=== PATIENT | female | born 1940 | race Caucasian/White ===

== ENCOUNTER 2020-02-02 19:19 | Observation (INO) | payer MEDICARE, OTHER, SELFPAY ==
[2020-02-02] VITALS (7 sets, daily range): BP systolic 135–192; BP diastolic 59–83; PULSE 48–64; RESP 12–23; TEMP 36.5; O2SAT 97–98; BMI 22.6
--- NOTE | 2020-02-02 19:30 | XRR_ITS ---
PROCEDURE INFORMATION: Exam: XR Chest, 1 View Exam date and time: 02/02/2020 8:03 PM Age: 79 years old Clinical indication: Prior surgery; Surgery date: 6+ months; Surgery type: Open heart; Patient HX: Hypertension; Stroke like symptoms on January 08; Additional info: HTN TECHNIQUE: Imaging protocol: XR of the chest Views: 1 view. COMPARISON: CR XR chest 2V* [id number] 12/03/2019 11:10 AM FINDINGS: Lungs: Small dense nodule in the right lung apex, consistent with a granuloma, similar to prior study. The left lung is clear. Pulmonary vasculature within normal limits. Pleural space: No visible pneumothorax or pleural effusion. Heart/Mediastinum: Heart size within normal limits. Vasculature: Thoracic aortic stent as previously. Bones/joints: Median sternotomy wires are present as previously. XR/XR chest 1V portable [id number] IMPRESSION: 1. No radiographic findings of acute cardiopulmonary disease.
--- NOTE | 2020-02-02 19:31 | ECG_ITS ---
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 Measurements Intervals [place] Rate: 56 P: 82 WV: 208 QRS: 6 QRSD: 120 T: 62 QT: 490 QTc: 475 Interpretive Statements SINUS BRADYCARDIA LEFT VENTRICULAR HYPERTROPHY AND ST-T CHANGE [VOLTAGE CRITERIA PLUS ST/T ABNORMALITY] Compared to ECG 07/15/2018 23:13:31 Left ventricular hypertrophy now present ST (T wave) deviation now present T-wave abnormality no longer present Possible ischemia no longer present Electronically Signed On 02-02-2020 20:44:19 CDT by Akila Pinto M.D. [id number]
--- NOTE | 2020-02-02 19:35 | CTR_ITS ---
PROCEDURE INFORMATION: Exam: CT Head Without Contrast Exam date and time: 02/02/2020 7:40 PM Age: 79 years old Clinical indication: Condition or disease; Other: HTN; Additional info: HTN; S/P CVA TECHNIQUE: Imaging protocol: Computed tomography of the head without contrast. Radiation optimization: All CT scans at this facility use at least one of these dose optimization techniques: automated exposure control; mA and/or kV adjustment per patient size (includes targeted exams where dose is matched to clinical indication); or iterative reconstruction. COMPARISON: CT head wo con* [id number] 07/15/2018 3:43 PM RADIATION DOSE METRICS: Total DLP (mGy-cm): 765.16 FINDINGS: The ventricles, sulci and basilar cisterns are normal for the patient's stated age. There are mild areas of decreased attenuation in the periventricular white matter which is nonspecific but likely relates to small vessel ischemic change. There is an old infarct involving the left insular region extending into the periventricular white matter. There is no evidence for acute infarct. There is no evidence for mass. There is no hemorrhage. There are no extra-axial fluid collections. There is no midline shift. The skull is intact. The visualized paranasal sinuses are well aerated. There is atherosclerotic change of the cavernous carotid arteries. CT/CT head wo con* [id number] IMPRESSION: 1. Old infarct as described. 2. No evidence for acute infarct, mass or hemorrhage. Radiation Dose CTDIVOL = (mGy): DLP = 765.16 (mGy-cm)
[2020-02-02] MEDS: cloNIDine 0.1 mg Tablet PO (19:38)
--- NOTE | 2020-02-02 19:49 | ED_ITS ---
HPI - General Adult General: Chief complaint: General Medical Stated complaint: high bp Time Seen by Provider: 02/02/20 19:29 History of Present Illness: HPI narrative: Patient has a history of high blood pressure. Patient's son who is visiting states that she does not always take her high blood pressure medication that she is supposed to. He purchased her a blood pressure cuff today for home as she has not been checking her blood pressure, and 3 readings one hour apart all read high. Patient denies any chest pain headache shortness of breath nausea or diaphoresis. She said also reports that on January 08 the family believe she had a stroke. Two relatives spoke to the patient by phone and described what is consistent with expressive aphasia. 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, Aneurysm repair x3 Hx of CABG Family History (Updated 02/02/20 @ 22:07 by Akila Hernanedz MD) Other CAD (coronary artery disease) Social History (Updated 02/02/20 @ 22:07 by Akila Hernandez MD) Smoking and tobacco status: never smoked Alcohol intake: never Substance/Drug Use: never Lives independently: Yes Housing: House Physical Exam Const: COMMON NORMALS: no acute distress, patient oriented x3, no limitations and alert HENMT: COMMON NORMALS: normocephalic, atraumatic, external ears normal and Normal external nose present HEAD & SCALP: normocephalic and atraumatic FACE & SINUS: normal facial exam NOSE: Normal external nose present EXTERNAL EAR: Yes external ears normal MOUTH: Normal oral and palatal mucosa present Neck/C-Spine: COMMON NORMALS: full ROM, no lymphadenopathy, supple, no meningeal signs and no JVD GENERAL: Yes normal visual inspection Resp: COMMON NORMALS: normal respiratory effort, No retractions, No use of accessory muscles and clear to auscultation bilaterally AUSCULTATION: clear to auscultation bilaterally Cardio: COMMON NORMALS: no JVD, regular rate and regular rhythm RATE: regular rate RHYTHM: regular rhythm GI: COMMON NORMALS: Normal to inspection, nondistended, normoactive bowel sounds present, Soft to palpation, non-tender, No hepatosplenomegaly present and no masses INSPECTION: Yes normal to inspection AUSCULTATION: Yes normo active bowel sounds PALPATION: Yes Soft to palpation and Yes No hepatosplenomegaly present PERCUSSION: normal to percussion : COMMON NORMALS: Yes no CVA tenderness and Yes normal external appearance BLADDER/KIDNEY EXAM: Yes no CVA tenderness Back/Pelvis: COMMON NORMALS: no CVA tenderness, thoracic and lumbar spine normal to inspection, no thoracic nor lumbar tenderness, thoraco-lumbar ROM normal and straight leg raise negative bilaterally Extremity: COMMON NORMALS: normal to inspection, full ROM, capillary refill normal, no joint enlargement, no clubbing, cyanosis or edema, no calf tenderness and no pedal edema Neuro: COMMON NORMALS: patient oriented x3, moves all extremities, no focal motor deficits and no sensory deficits noted SENSORIUM/ORIENTATION: Yes alert MENINGEAL SIGNS: Yes no meningeal signs Psych: COMMON NORMALS: mental status grossly normal, Normal thought process present, cooperative, normal affect and speech normal SPEECH: Yes normal speech THOUGHT PROCESS: Normal thought process present Skin: COMMON NORMALS: no rashes or lesions noted, no wounds, turgor normal, no jaundice, no petechiae and no mottling GENERAL SKIN EXAM: no rashes or lesions noted and turgor normal Course Vital Signs: Vital signs: Vital Signs Temperature 97.7 F 02/02/20 19:23 Pulse Rate 52 L 02/02/20 21:00 Respiratory Rate 22 H 02/02/20 21:00 Blood Pressure 141/59 02/02/20 21:00 Pulse Oximetry 97 02/02/20 21:00 [facility] - General Adult Lab Data: Labs: Lab Results 02/02/20 02/02/20 02/02/20 Range/Units 20:20 20:22 20:22 WBC 8.2 (4.0-10.0) 10^3/ uL RBC 4.18 (4.1-5.3) 10^6/u L Hgb 13.3 (11.5-15.3) g/dL Hct 40.1 (37.0-47.0) % MCV 95.9 (81-99) fL MCH 31.8 (28.0-34.0) pg MCHC 33.2 (30.0-36.0) g/dL RDW 12.3 (12.1-15.1) % Plt Count 175 (130-400) 10^3/c mm MPV 11.7 H (7.4-10.4) fL Neut % (Auto) 58.4 % Lymph % (Auto) 30.7 % [place] % (Auto) 8.8 % Eos % (Auto) 1.5 % Baso % (Auto) 0.4 % Neut # (Auto) 4.78 (1.8-7.7) 10^3/u L Lymph # (Auto) 2.5 (0.8-4.8) 10^3/u L [place] # (Auto) 0.7 (0.2-0.9) 10^3/u L Eos # (Auto) 0.1 (0.0-0.8) 10^3/u L Baso # (Auto) 0.0 (0.0-0.1) 10^3/u L Nucleated RBC % (a uto) 0 % Nucleated RBCs # 0.0 /100WBC Sodium 133 L (136-145) mmol/L Potassium 2.8 L* (3.5-5.1) mmol/L Chloride 92 L (98-107) mmol/L Carbon Dioxide 28 (22-29) mmol/L Anion Gap 15.8 (5-19) BUN 12 (8-23) mg/dL Creatinine 0.7 (0.5-0.9) mg/dL GFR Calculation Not Reportable Glucose 115 (65-115) mg/dL Calculated Osmolal ity 273 L (285-295) mOsm/k g Lactate 1.2 (0.5-2.2) mmol/L Calcium 9.3 (8.5-10.5) mg/dL Total Bilirubin 1.0 (0.15-1.2) mg/dL AST 21 (0-32) U/L ALT 10 (0-33) U/L Alkaline Phosphata se 63 (35-105) IU/L Troponin T Baselin e (0-10) ng/L NT-Pro-B Natriuret Pep 5078 H (0-450) pg/mL Total Protein 7.2 (6.6-8.7) g/dL Albumin 4.2 (3.5-5.2) g/dL Globulin 3.0 (1.3-4.6) g/dL TSH 4.00 (0.27-4.20) uIU/ mL 02/02/20 Range/Units 20:22 WBC (4.0-10.0) 10^3/ uL RBC (4.1-5.3) 10^6/u L Hgb (11.5-15.3) g/dL Hct (37.0-47.0) % MCV (81-99) fL MCH (28.0-34.0) pg MCHC (30.0-36.0) g/dL RDW (12.1-15.1) % Plt Count (130-400) 10^3/c mm MPV (7.4-10.4) fL Neut % (Auto) % Lymph % (Auto) % [place] % (Auto) % Eos % (Auto) % Baso % (Auto) % Neut # (Auto) (1.8-7.7) 10^3/u L Lymph # (Auto) (0.8-4.8) 10^3/u L [place] # (Auto) (0.2-0.9) 10^3/u L Eos # (Auto) (0.0-0.8) 10^3/u L Baso # (Auto) (0.0-0.1) 10^3/u L Nucleated RBC % (a uto) % Nucleated RBCs # /100WBC Sodium (136-145) mmol/L Potassium (3.5-5.1) mmol/L Chloride (98-107) mmol/L Carbon Dioxide (22-29) mmol/L Anion Gap (5-19) BUN (8-23) mg/dL Creatinine (0.5-0.9) mg/dL GFR Calculation Glucose (65-115) mg/dL Calculated Osmolal ity (285-295) mOsm/k g Lactate (0.5-2.2) mmol/L Calcium (8.5-10.5) mg/dL Total Bilirubin (0.15-1.2) mg/dL AST (0-32) U/L ALT (0-33) U/L Alkaline Phosphata se (35-105) IU/L Troponin T Baselin e 34 H (0-10) ng/L NT-Pro-B Natriuret Pep (0-450) pg/mL Total Protein (6.6-8.7) g/dL Albumin (3.5-5.2) g/dL Globulin (1.3-4.6) g/dL TSH (0.27-4.20) uIU/ mL Discharge Plan Discharge Patient Disposition: Admitted As Inpatient Clinical Impression: Hypertensive urgency, Bradycardia, sinus, persistent, severe Condition: Fair Referrals: Emanuel Reyes DO [Primary Care Provider] - Coding Level of Care Code ED Biodiesel Product Manager for Chg Fwd Exam Comprehensive
[2020-02-02 20:37] LABS: Basophils % 0.4 %; Eosinophils # 0.1 10^3/uL (0.0-0.8); Eosinophils % 1.5 %; Hematocrit 40.1 % (37.0-47.0); Hemoglobin 13.3 g/dL (11.5-15.3); Lymphocytes # 2.5 10^3/uL (0.8-4.8); Lymphocytes % 30.7 %; Mean Corpuscular HGB Conc 33.2 g/dL (30.0-36.0); Mean Corpuscular Hemoglobin 31.8 pg (28.0-34.0); Mean Corpuscular Volume 95.9 fL (81-99); Mean Platelet Volume 11.7 fL (7.4-10.4); Monocytes # 0.7 10^3/uL (0.2-0.9); Monocytes % 8.8 %; Neutrophils # 4.78 10^3/uL (1.8-7.7); Neutrophils % 58.4 %; Nucleated Red Blood Cells % 0 %; Platelet Count 175 10^3/cmm (130-400); Red Blood Count 4.18 10^6/uL (4.1-5.3); Red Cell Distribution Width 12.3 % (12.1-15.1); White Blood Count 8.2 10^3/uL (4.0-10.0)
[2020-02-02 20:55] LABS: Troponin(5th) Baseline 34 ng/L (0-10)
[2020-02-02 20:59] LABS: Lactate (Lactic Acid level) 1.2 mmol/L (0.5-2.2)
[2020-02-02 21:04] LABS: Alanine Aminotransferase 10 U/L (0-33); Albumin Level 4.2 g/dL (3.5-5.2); Alkaline Phosphatase 63 IU/L (35-105); Anion Gap 15.8 (5-19); Aspartate Amino Transferase 21 U/L (0-32); Blood Urea Nitrogen 12 mg/dL (8-23); Calcium 9.3 mg/dL (8.5-10.5); Carbon Dioxide 28 mmol/L (22-29); Chloride 92 mmol/L (98-107); Creatinine Clr Calc Pharmacy 54.8937; Glucose 115 mg/dL (65-115); NT Pro B Type Natriuretic Pept 5078 pg/mL (0-450); Osmolality Calculated 273 mOsm/kg (285-295); Sodium 133 mmol/L (136-145); Total Protein 7.2 g/dL (6.6-8.7)
[2020-02-02 21:06] LABS: Potassium 2.8 mmol/L (3.5-5.1)
[2020-02-02] MEDS: potassium chloride ER 10 mEq Tablet 40 MEQ PO (21:14)
--- NOTE | 2020-02-02 21:40 | ECG_ITS ---
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 Measurements Intervals [place]rum Rate: 52 P: 113 MS: 210 QRS: -5 QRSD: 112 T: 62 QT: 540 QTc: 503 Interpretive Statements SINUS BRADYCARDIA WITH FIRST DEGREE AV BLOCK LEFT VENTRICULAR HYPERTROPHY AND ST-T CHANGE [VOLTAGE CRITERIA PLUS ST/T ABNORMALITY] Compared to ECG 02/02/2020 19:54:20 First degree AV block now present ST (T wave) deviation still present Electronically Signed On 02-04-2020 0:25:02 CDT by Dianelys Coffey M.D. [id number]
--- NOTE | 2020-02-02 22:03 | PM.HP ---
Providers/Chief Complaint Primary Care Provider: Emanuel Reyes DO Chief Complaint: high bp History of Present Illness Dayanna Chanel is a 79 year old female who carries history of sinus bradycardia, first-degree AV block, hypertension, thoracic aortic aneurysm repair, coronary disease came in with chief complaint of hypertension. Patient lives alone, does not drink or smoke cigarettes. She is independent for daily activities, she has a digital monitor for her blood pressure which showed high blood pressure 160s 170 and 180 and 3 hours, however pressure kept going up that is why she decided to come to the hospital for further evaluation, patient is endorsing taking her atenolol and lisinopril on regular basis. She is denying orthopnea, PND, chest pain, palpitations, constipation, dysuria, diarrhea. No recent episode of syncope. She is endorsing poor p.o. intake with change in her energy and lethargy lately. Son is at the bedside whose questions were answered to his satisfaction. Diagnostics in the ER revealed blood pressure 192/83 on arrival, after getting clonidine blood pressure 135/64, her heart rate has been fluctuating between 40s to 50s, sinus bradycardia, patient is symptom-free Patient is denying vomiting, diarrhea, potassium 2.8, repleted in ER with [address] head is showing old lacunar infarct Hospitalist service was requested to monitor her heart rate overnight because of her previous history of syncope as well Review of Systems Const: Denies: fever(s), chills or fatigue Eyes: Denies: change in vision ENMT: Denies: throat pain Card: Denies: chest pain Resp: Denies: dyspnea GI: Denies: abdominal pain, nausea, diarrhea or constipation : Denies: flank pain Musc: Denies: neck pain Skin/Breast: Denies: rash or pruritus Neuro: Denies: headache(s) Psych: Denies: anxiety or depression Endo: Denies: polyuria Parag/Lymph: Denies: easy bruising All/Imm: Denies: urticaria Medications/Allergies Allergies Allergy/AdvReac Type Severity Reaction Status Date / Time No Known Allergies Allergy Verified 02/02/20 19:22 PFSH Acute PFSH: Medical History Coronary artery disease Heart failure with preserved ejection fraction Hypertension Moderate aortic regurgitation Prolonged QT interval Sinus bradycardia Syncope Surgical History Hx of aortic aneurysm repair 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 [place] Aneurysm repair x3 Hx of CABG Family History Other CAD (coronary artery disease) Social History Smoking and tobacco status: never smoked Alcohol intake: never Substance/Drug Use: never Lives independently: Yes Housing: House Vitals/I&O/Wt Last Vital Signs Temp 97.7 F 02/02/20 19:23 Pulse 52 L 02/02/20 21:00 Resp 22 H 02/02/20 21:00 BP 141/59 02/02/20 21:00 Pulse Ox 97 02/02/20 21:00 Weight last 48 hrs Weight 63.503 kg Physical Exam Narrative: EXAM NARRATIVE: Head to toe examination Very pleasant female, mild dehydration clinically saturating well on room air Heart rate 50-54, systolic blood pressure 135 No active symptoms, chest pain-free, no radial radial delay, no vascular compromise No active signs of heart failure, S1, S2 sinus bradycardia Diastolic murmur grade 2/6 without decompensation Abdomen soft nontender bowel sound present Lower extremity no signs of edema Lungs are clear to auscultation Appropriate mood and affect SHe has loss of eyebrows bilaterally Son at the bedside EOMI, PERRLA no neurological signs no focal deficit Data : 02/02/20 20:22 02/02/20 20:22 A&P Assessment and plan (1) Bradycardia, sinus, persistent, severe: Status: Acute (2) Hypertensive urgency: Status: Acute (3) Hypokalemia: Status: Acute (4) Prolonged QT interval: Status: Acute Additional A&P Information Sinus bradycardia No active chest pain, shortness of breath, confusion or hypotension History of first-degree AV block, I would discontinue her atenolol TSH normal No active chest pain, troponin not significantly high I believe this is secondary to her atenolol, no recent syncopal events, Hypertensive urgency No acute Blood pressure responded very well to 1 dose of clonidine I would increase her lisinopril to 20 mg add amlodipine and discontinue atenolol Would avoid using Lasix for now because of hypokalemia Hypokalemia Denies diarrhea use of diuretics, vomiting I believe this is secondary to poor p.o. intake Clinically looks dry Potassium repleted Check magnesium level Prolonged QTc interval: This is secondary to bradycardia and hypokalemia Electrolyte to be repleted, will replete magnesium if low Diastolic congestive heart failure Clinically does not look fluid overload Her BNP is 5000 Not a candidate for diuretics because of electrolyte abnormality I would not repeat echo, I have reviewed her previous echo which showed aortic regurgitation and diastolic dysfunction Old lacunar infarct: No active neurological signs and symptoms Full code DVT prophylaxis Lovenox Cardiac diet Attestations Medical Necessity Statement*: I am anticipating she will be discharged in less than 48 hours continued overnight monitoring for bradycardia and previous history of syncope Currently blood pressure is still needs potassium supplementation extremely low 2.8 Time Spent in Patient Care: (>than 50% of time spent in counselling and/or direct pt care on unit). 60mins Coding Level of Care Code Acute Director Cloud [employer] for sree Hernandezd Diagnoses Bradycardia, sinus, persistent, severe R00.1 Hypertensive urgency I16.0 Hypokalemia E87.6 Prolonged QT interval R94.31
[2020-02-02 22:11] LABS: Troponin 5 2HR 33.18 ng/L (0-10)
[2020-02-02 23:16] LABS: Troponin 5 2HR Delta -0.82 ABS# (0-10)
[2020-02-02 23:27] LABS: Magnesium 1.9 mg/dL (1.7-2.3)
[2020-02-03] VITALS: BP 199/67; PULSE 52; RESP 18; TEMP 36.4; O2SAT 97
[2020-02-03 00:18] VITALS: BP 180/60
[2020-02-03] MEDS: lisinopril 20 mg Tablet PO (00:24)
[2020-02-03] MEDS: enoxaparin 40 mg/0.4 mL Syringe SUBCUT (00:24)
[2020-02-03] MEDS: potassium chloride premix 40 MEQ/100 ML PREMIX 25 MEQ IV (00:25)
[2020-02-03] MEDS: lidocaine 1% INJ 20 mL 5 ML IV (00:25)
[2020-02-03 02:58] LABS: Chloride 100 mmol/L (98-107); Potassium 3.6 mmol/L (3.5-5.1); Sodium 137 mmol/L (136-145)
[2020-02-03 03:05] LABS: Troponin 5 6HR 34.62 ng/L (0-10); Troponin 5 6HR Delta 0.62 ng/L (0-12)
[2020-02-03 03:27] LABS: Anion Gap 11.6 (5-19); Blood Urea Nitrogen 9 mg/dL (8-23); Calcium 9.1 mg/dL (8.5-10.5); Carbon Dioxide 29 mmol/L (22-29); Creatinine Clr Calc Pharmacy 54.8937; Glucose 111 mg/dL (65-115); Osmolality Calculated 281 mOsm/kg (285-295)
[2020-02-03 04:00] VITALS: BP 184/73; PULSE 53; RESP 18; TEMP 36.5; O2SAT 98
[2020-02-03 07:43] VITALS: BP 182/71; PULSE 53; RESP 16; TEMP 36.4; O2SAT 97
[2020-02-03] MEDS: amlodipine 10 mg Tablet PO (08:45)
--- NOTE | 2020-02-03 10:24 | PC.CHAP ---
Pastoral Care Encounter/Spiritual Assessment Type of Contact [] Declined construction assistant visit [] Patient/Family/Request visit [] Outpatient visit [] Follow-up visit [] Physician referral [] Code/Alert [x] Routine visit [] Staff referral [] Actively dying [] Patient sleeping [] Family support [] [] Out of room [] Palliative care [] [] Receiving care in room [] Pre-surgical visit [] Trauma [] Long length of stay [] ICU visit [] Other: Relational/Emotional Strength [] Patient feels connected with others/family/visitors/staff [] Distress [] Loneliness/isolation [] Abandonment Spirituality of Patient [] Person of Margret [] Attends Protestant of their Margret [] Believes in Prayer [] Reads Bible or Lutheran materials [] There are Spiritual issues to be addressed Practice Advisor Interventions [x] Prayer [] Active listening [] Non-anxious presence [] Spiritual/emotional support [] Crisis/trauma care [] Spiritual counseling [] Bereavement support [] Provided bereavement packet [] Provided Bible/devotional materials [] Provided toy/stuffed animal, coloring book to patient or family member [] Provided Communion [] Anointing/[place] [] Salvation [x] Completed spiritual assessment [] Other: Impact on Illness or Injury [] Angry [] Fearful [] Anxious [] Often cries [] Exhaustion [] Unable to work [] Unable to attend caodaism [] Unable to walk/stand [] Unable to read [] Unable to drive [] Unable to eat/drink [] Unable to sleep [] Unable to be with family [] Patient intubated [] Other: Summary patient resting well.... not real interested in visiting Time spent with patient 5 min
[2020-02-03 11:11] VITALS: BP 140/55; PULSE 63; RESP 16; TEMP 36.8; O2SAT 95
--- NOTE | 2020-02-03 13:27 | P.DS_ITS ---
Discharge Providers Date of Admission: 02/02/20 22:09 Date of Discharge: February 03, 2020 Attending Provider at Admission: Akila Hernandez MD Attending Provider at Discharge: Kevyn Chang MD Primary Care Provider: Emanuel Reyes DO Diagnoses at Discharge Discharge Diagnosis (1) Bradycardia, sinus, persistent, severe: Status: Acute (2) Hypertensive urgency: Status: Acute (3) Hypokalemia: Status: Acute (4) Prolonged QT interval: Status: Acute Problem details: [place] to be related to bradycardia. Resolved (5) Dehydration with hyponatremia: Status: Acute Problem details: Present on admission. Reason for Visit Reason for Visit: high bp Hospital Course Discharge Summary: Patient presented with hypertensive urgency and bradycardia as well as generalized weakness and decreased oral intake. Patient is on atenolol which was discontinued. Her heart rate improved and QT prolongation resolved. Patient's medications were further adjusted with lisinopril increased to 20 mg and with addition of amlodipine. Her blood pressure much improved and this afternoon patient reports that she wants to go home. She does not want to stay further for appropriate medication adjustment. She denied shortness of breath, chest pain, abdominal pain, headache, bowel changes or dysuria. She denies cough. Patient's generalized weakness could possibly be related to bradycardia. Patient had minimally elevated troponin but again otherwise denied any cardiac symptoms including palpitations, nausea, chest pain or shortness of breath even with exertion. Patient was asked to keep blood pressure and heart rate log 3 times daily to present to primary care physician next visit for medication adjustment. Patient will be prescribed hydralazine for as needed use for blood pressure more than 160/100. It was recommended for patient to follow-up with ignition specialist in [place] earliest possible. She had no evidence of UTI or pneumonia. Her abdominal exam is benign. Her labs were suggestive of dehydration with abnormal electrolytes which were corrected. Patient was told to make sure to have adequate oral intake. Physical Exam Const: COMMON NORMALS: no acute distress and patient oriented x3 Resp: COMMON NORMALS: normal respiratory effort and clear to auscultation bilaterally AUSCULTATION: clear to auscultation bilaterally Cardio: COMMON NORMALS: regular rate, regular rhythm and S2 normal heart sound present RATE: regular rate RHYTHM: regular rhythm HEART SOUNDS: S2 normal heart sound present OTHER: No lower extremity edema GI: COMMON NORMALS: Normal to inspection, nondistended, normoactive bowel sounds present, Soft to palpation and non-tender PALPATION: Yes Soft to palpation Neuro: COMMON NORMALS: patient oriented x3 and no focal motor deficits Discharge Data Data Completed and Pending: Completed Studies During Hospitalization Category Date Time Status CT head wo con* [id number] Urgent Cat Scan 02/02/20 19:35 Completed XR chest 1V allison ble [id number] Urgent Exams 02/02/20 19:30 Completed Labs from last 24 hours 02/03/20 02/03/20 02/02/20 02:10 02:10 21:50 WBC RBC Hgb Hct MCV MCH MCHC RDW Plt Count MPV Neut % (Auto) Lymph % (Auto) [place] % (Auto) Eos % (Auto) Baso % (Auto) Neut # (Auto) Lymph # (Auto) [place] # (Auto) Eos # (Auto) Baso # (Auto) Nucleated RBC % (a uto) Nucleated RBCs # Sodium 137 Potassium 3.6 Chloride 100 Carbon Dioxide 29 Anion Gap 11.6 BUN 9 Creatinine 0.6 GFR Calculation Not Reportable Glucose 111 Calculated Osmolal ity 281 L Lactate Calcium 9.1 Magnesium 1.9 Total Bilirubin AST ALT Alkaline Phosphata se Troponin T Baselin e Troponin T 120 Min janey Delta Troponin T Troponin T Hi Sens 6Hr 34.62 H Troponin T Hi Sens 6Hr Delta 0.62 NT-Pro-B Natriuret Pep Total Protein Albumin Globulin TSH 02/02/20 02/02/20 02/02/20 21:50 20:22 20:22 WBC RBC Hgb Hct MCV MCH MCHC RDW Plt Count MPV Neut % (Auto) Lymph % (Auto) [place] % (Auto) Eos % (Auto) Baso % (Auto) Neut # (Auto) Lymph # (Auto) [place] # (Auto) Eos # (Auto) Baso # (Auto) Nucleated RBC % (a uto) Nucleated RBCs # Sodium 133 L Potassium 2.8 L* Chloride 92 L Carbon Dioxide 28 Anion Gap 15.8 BUN 12 Creatinine 0.7 GFR Calculation Not Reportable Glucose 115 Calculated Osmolal ity 273 L Lactate Calcium 9.3 Magnesium Total Bilirubin 1.0 AST 21 ALT 10 Alkaline Phosphata se 63 Troponin T Baselin e 34 H Troponin T 120 Min janey 33.18 H Delta Troponin T -0.82 L Troponin T Hi Sens 6Hr Troponin T Hi Sens 6Hr Delta NT-Pro-B Natriuret Pep 5078 H Total Protein 7.2 Albumin 4.2 Globulin 3.0 TSH 4.00 02/02/20 02/02/20 20:22 20:20 WBC 8.2 RBC 4.18 Hgb 13.3 Hct 40.1 MCV 95.9 MCH 31.8 MCHC 33.2 RDW 12.3 Plt Count 175 MPV 11.7 H Neut % (Auto) 58.4 Lymph % (Auto) 30.7 [place] % (Auto) 8.8 Eos % (Auto) 1.5 Baso % (Auto) 0.4 Neut # (Auto) 4.78 Lymph # (Auto) 2.5 [place] # (Auto) 0.7 Eos # (Auto) 0.1 Baso # (Auto) 0.0 Nucleated RBC % (a uto) 0 Nucleated RBCs # 0.0 Sodium Potassium Chloride Carbon Dioxide Anion Gap BUN Creatinine GFR Calculation Glucose Calculated Osmolal ity Lactate 1.2 Calcium Magnesium Total Bilirubin AST ALT Alkaline Phosphata se Troponin T Baselin e Troponin T 120 Min janey Delta Troponin T Troponin T Hi Sens 6Hr Troponin T Hi Sens 6Hr Delta NT-Pro-B Natriuret Pep Total Protein Albumin Globulin TSH Vitals: Last Vital Signs Temp 98.3 F 02/03/20 11:11 Pulse 63 02/03/20 11:11 Resp 16 02/03/20 11:11 BP 140/55 02/03/20 11:11 Pulse Ox 95 02/03/20 11:11 Discharge Plan Discharge Patient Disposition: Home Condition: Fair Prescriptions: New amlodipine 2.5 mg tablet 5 mg PO DAILY Qty: 30 RF: 0 hydralazine 25 mg tablet 25 mg PO TID PRN (Reason: For blood pressure more than 160/100) Qty: 30 RF: 0 Continued lovastatin 40 mg Tablet 40 mg PO 1200 RF: 0 aspirin 81 mg Tablet,Delayed Release (Dr/Ec) 81 mg PO 1800 RF: 0 lisinopril 10 mg Tablet 10 mg PO 1200 Qty: 20 RF: 0 Discontinued atenolol 50 mg Tablet 50 mg PO BID RF: 0 Discharge Orders: Discharge Order (Routine); Ordered 02/03/20 Ordered By: Kevyn Chang Referrals: Emanuel Reyes DO [Primary Care Provider] - Discharge Diet: Usual diet Discharge Activity: Increase activity as tolerated Activity Restrictions/Additional Instructions: Please call your doctor or present to emergency department if your condition worsens or you develop diarrhea, lightheadedness, fatigue or see blood in your stool or black stool. Please keep blood pressure and heart rate log 3 times daily to present to primary care physician next visit for medication adjustment. Please follow-up with your ignition specialist early as possible. Discharge Attestations Time Spent in Discharge Care*: greater than 30 min Quality Metrics Clinical Quality Measures During this hospital stay, did patient experience: None Coding Level of Care Code Acute Census Enumerator for Sadafg Fwd Diagnoses Bradycardia, sinus, persistent, severe R00.1 Hypertensive urgency I16.0 Hypokalemia E87.6 Prolonged QT interval R94.31 Dehydration with hyponatremia E86.0; E87.1
[2020-02-03 14:58] VITALS: BP 140/55; PULSE 63; RESP 16; TEMP 36.8; O2SAT 95
== END 2020-02-03 15:03 | disposition home or self-care (01) ==
LOC: ER 22:23 → MEDSURG 22:40
PROVIDERS: Family Medicine; Admitting Provider Internal Medicine; PCP Internal Medicine; Visit Provider Internal Medicine
DX: I44.0 Atrioventricular block, first degree (principal); R00.1 Bradycardia, unspecified; I11.0 Hypertensive heart disease with heart failure; I16.0 Hypertensive urgency; I25.10 Atherosclerotic heart disease of native coronary artery without angina pectoris; E87.6 Hypokalemia; R94.31 Abnormal electrocardiogram [ECG] [EKG]; E86.0 Dehydration; E87.1 Hypo-osmolality and hyponatremia; I50.30 Unspecified diastolic (congestive) heart failure; Z79.82 Long term (current) use of aspirin; Z95.1 Presence of aortocoronary bypass graft
CPT/HCPCS: 12345; 36415; 70450; 71045; 80048; 80053; 83605; 83735; 83880; 84443; 84484; 85025; 93005; 96372; 96374; 99283; 99285; G0378; J1650; J3480

== ENCOUNTER 2020-02-06 08:25 | Emergency (ER) | payer MEDICARE, OTHER, SELFPAY ==
[2020-02-06 08:26] VITALS: BP 155/61; PULSE 67; RESP 18; TEMP 36.5; O2SAT 97; BMI 22.6
--- NOTE | 2020-02-06 08:43 | CTR_ITS ---
PROCEDURE INFORMATION: Exam: CT Head Without Contrast Exam date and time: 02/06/2020 9:03 AM Age: 79 years old Clinical indication: Syncope and collapse TECHNIQUE: Imaging protocol: Computed tomography of the head without contrast. Radiation optimization: All CT scans at this facility use at least one of these dose optimization techniques: automated exposure control; mA and/or kV adjustment per patient size (includes targeted exams where dose is matched to clinical indication); or iterative reconstruction. COMPARISON: CT head wo con* [id number] 02/02/2020 8:08 PM RADIATION DOSE METRICS: Total DLP (mGy-cm): 685.78 FINDINGS: Brain: Hypodensity is seen in the periventricular cerebral white matter. This change is nonspecific but is most likely secondary to chronic ischemia within microvascular distributions. Ortiz white matter distinction is maintained throughout the brain. No radiographic evidence of intracranial hemorrhage. Prior lacunar infarct left cerebellum. Prior lacunar infarct left centrum semiovale Ventricles: Ventricles are enlarged on the basis of mild diffuse cerebral volume loss. Bones/joints: Unremarkable. No acute fracture. Sinuses: Visualized sinuses are unremarkable. No fluid levels. Mastoid air cells: Visualized mastoid air cells are well aerated. Soft tissues: Unremarkable. Other findings: No intra or extra-axial masses, lesions or collections. CT/CT head wo con* [id number] IMPRESSION: No radiographic evidence of acute intracranial pathology. Radiation Dose CTDIVOL = (mGy): DLP = 685.78 (mGy-cm)
--- NOTE | 2020-02-06 08:43 | XRR_ITS ---
PROCEDURE INFORMATION: Exam: XR Chest, 1 View Exam date and time: 02/06/2020 8:44 AM Age: 79 years old Clinical indication: Other: Weakness; Prior surgery; Surgery type: Heart; Additional info: Syncope TECHNIQUE: Imaging protocol: XR of the chest Views: 1 view. COMPARISON: CR XR chest 1V portable [id number] 02/02/2020 7:50 PM FINDINGS: Lungs: Lungs are well aerated without a focal area of consolidation. Pleural space: Unremarkable. No pleural effusion. No pneumothorax. Heart/Mediastinum: Unremarkable. No cardiomegaly. Vasculature: Aortic stent graft Bones/joints: Prior sternotomy XR/XR chest 1V portable [id number] IMPRESSION: Lungs are well aerated without a focal area of consolidation.
[2020-02-06 08:46] VITALS: O2SAT 97
[2020-02-06 09:00] LABS: Basophils % 0.3 %; Eosinophils % 0.5 %; Hematocrit 43.6 % (37.0-47.0); Hemoglobin 14.3 g/dL (11.5-15.3); Lymphocytes # 1.7 10^3/uL (0.8-4.8); Lymphocytes % 22.3 %; Mean Corpuscular HGB Conc 32.8 g/dL (30.0-36.0); Mean Corpuscular Hemoglobin 31.7 pg (28.0-34.0); Mean Corpuscular Volume 96.7 fL (81-99); Mean Platelet Volume 11.2 fL (7.4-10.4); Monocytes # 0.5 10^3/uL (0.2-0.9); Monocytes % 7.1 %; Neutrophils # 5.19 10^3/uL (1.8-7.7); Neutrophils % 69.7 %; Nucleated Red Blood Cells % 0 %; Platelet Count 153 10^3/cmm (130-400); Red Blood Count 4.51 10^6/uL (4.1-5.3); Red Cell Distribution Width 12.5 % (12.1-15.1); White Blood Count 7.5 10^3/uL (4.0-10.0)
--- NOTE | 2020-02-06 09:00 | W.ED.SYNCOPE ---
HPI - Syncope General: Chief Complaint: Syncope Stated Complaint: SYNCOPE Time Seen by Provider: 02/06/20 08:30 History of Present Illness: HPI narrative: 71-year-old female patient presents to the emergency department via EMS. Her son reports witnessed syncopal episode that occurred at 755 this morning, she was at rest, had just ate with normal baseline activity with sudden onset of syncope. 911 was immediately called, patient remained lethargic then started to come to during EMS transport. Per EMS, patient systolic blood pressure 60/40. Blood pressure now stable 155/61. Patient did receive her amlodipine and aspirin this morning. History of CVA on 01/09/2020, she did not seek medical treatment for CVA. Primary care Dr. Reyes. Recent admission at [facility] with date of admission 02/02/2020 due to bradycardia, hypertensive urgency, hypokalemia and prolonged QT interval secondary to atenolol. Atenolol was discontinued with medication changes of hydralazine and amlodipine. Patient denies chest pain, shortness of breath, nausea vomiting. Her son reports yesterday, she did appear to be tired. H/o CABG, 2017 and 2005- MD complaint: loss of consciousness -: minutes(s) (20) Prodromal symptoms: lightheaded Witnessed: Yes - by Bystander Context: at rest and recent illness Injuries sustained associated with event: none Associated symptoms: Reports lightheadedness and weakness; Deny abdominal pain, chest pain, fever(s), headache(s), nausea or short of breath Treatments prior to arrival: IV fluids Review of Systems General: Reports: 10 or more systems reviewed and unremarkable except in HPI and below Const: Denies: fever(s), chills or diaphoresis Eyes: Denies: blurry vision or eye redness ENMT: Denies: throat pain, dental pain or disequilibrium Card: Reports: lightheadedness; Denies: chest pain Resp: Denies: dyspnea, productive cough, non-productive cough or wheezing GI: Denies: abdominal pain or nausea : Denies: difficulty voiding or dysuria Musc: Denies: back pain Skin/Breast: Denies: rash or pruritus Neuro: Reports: numbness in extremities (right side) and weakness in extremities; Denies: headache(s) or behavioral changes Parag/Lymph: Denies: easy bruising PFSH ED PFSH: Medical History (Updated 02/06/20 @ 13:42 by TERRENCE Huggins) Coronary artery disease Heart failure with preserved ejection fraction Hypertension Moderate aortic regurgitation Prolonged QT interval [place] to be related to bradycardia. 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 Ulloa Aneurysm repair x3 Hx of CABG Family History Other CAD (coronary artery disease) Social History Smoking and tobacco status: never smoked Alcohol intake: never Lives independently: Yes Housing: House Physical Exam Const: COMMON NORMALS: no acute distress, patient oriented x3, healthy appearing and alert GENERAL APPEARANCE: cooperative, comfortable and well hydrated HENMT: COMMON NORMALS: normocephalic, Normal external nose present and moist oral mucous membranes HEAD & SCALP: normocephalic NOSE: Normal external nose present Eye: COMMON NORMALS: Equal, round and reactive pupils present and EOMs intact bilaterally GENERAL EYE: appearance normal, both eyes and all related structures PUPIL: Yes Equal, round and reactive pupils present Neck/C-Spine: COMMON NORMALS: full ROM and no lymphadenopathy GENERAL: Yes normal visual inspection and Yes trachea midline CERVICAL SPINE: Yes cervical ROM normal Lymph: LYMPHATIC: no lymphadenopathy noted Chest: COMMONS NORMALS: normal inspection of the chest Resp: COMMON NORMALS: normal respiratory effort and clear to auscultation bilaterally AUSCULTATION: clear to auscultation bilaterally Cardio: COMMON NORMALS: regular rate, regular rhythm and Peripheral pulses 2+ throughout RATE: regular rate RHYTHM: regular rhythm HEART SOUNDS: Murmur heart sound present (soft) systolic PERIPHERAL PULSES: Peripheral pulses 2+ throughout GI: COMMON NORMALS: Soft to palpation and non-tender INSPECTION: Yes normal to inspection PALPATION: Yes Soft to palpation : COMMON NORMALS: Yes no CVA tenderness BLADDER/KIDNEY EXAM: Yes no CVA tenderness Back/Pelvis: COMMON NORMALS: no CVA tenderness and thoracic and lumbar spine normal to inspection Extremity: COMMON NORMALS: normal to inspection and capillary refill normal GENERAL: Yes normal exam except as noted Neuro: NAYELI COMA SCALE: document GCS findings [place] coma scale eye opening: Spontaneous Nayeli coma scale verbal response: Orientated Nayeli coma scale motor response: Obey commands Nayeli coma scale total score: 15 COMMON NORMALS: patient oriented x3 and no focal motor deficits SENSORIUM/ORIENTATION: Yes alert SPEECH: speech normal SENSORY EXAM: Yes extremities MONOFILAMENT EXAM PERFORMED: Yes MOTOR EXAM: Abnormal motor strength present (4/5 right hand grasp; 5/5 LUE and BLE) Psych: COMMON NORMALS: mental status grossly normal, Normal thought process present and cooperative ACTIVITY/MOTOR BEHAVIOR: Yes appropriate eye contact THOUGHT PROCESS: Normal thought process present Skin: COMMON NORMALS: no rashes or lesions noted and turgor normal GENERAL SKIN EXAM: no rashes or lesions noted and turgor normal Course ED course: Patient has DO NOT RESUSCITATE request in chart, discussed with patient possible impending NE with possible cardiac intervention needed. Her and her son together were updated on EKG changes. Questions were answered. Plan of care discussed. Heart score 6, EKG changes present, troponin with elevation serology; patient was encouraged to be admitted, she declined, her son reports she is able to make her own decisions. She is aware of EKG changes and increased elevation of troponin, she could be experiencing impending NE that could cause . Syncopal episode this a.m. with resolution, she has not experienced hypotension during her ER stay Consultations: Consultation #1: Dr Coffey - 09:20 am - continued ST depression lateral leads - no acute process Time: 09:20 Vital Signs: Vital signs: Vital Signs Temperature 97.7 F 02/06/20 08:26 Pulse Rate 86 02/06/20 13:53 Respiratory Rate 19 H 02/06/20 13:17 Blood Pressure 112/64 02/06/20 13:53 Pulse Oximetry 96 02/06/20 13:53 MDM - Syncope Lab Data: Labs: Lab Results 02/06/20 02/06/20 02/06/20 Range/Units 08:55 08:55 08:55 WBC 7.5 (4.0-10.0) 10^3/ uL RBC 4.51 (4.1-5.3) 10^6/u L Hgb 14.3 (11.5-15.3) g/dL Hct 43.6 (37.0-47.0) % MCV 96.7 (81-99) fL MCH 31.7 (28.0-34.0) pg MCHC 32.8 (30.0-36.0) g/dL RDW 12.5 (12.1-15.1) % Plt Count 153 (130-400) 10^3/c mm MPV 11.2 H (7.4-10.4) fL Neut % (Auto) 69.7 % Lymph % (Auto) 22.3 % [place] % (Auto) 7.1 % Eos % (Auto) 0.5 % Baso % (Auto) 0.3 % Neut # (Auto) 5.19 (1.8-7.7) 10^3/u L Lymph # (Auto) 1.7 (0.8-4.8) 10^3/u L [place] # (Auto) 0.5 (0.2-0.9) 10^3/u L Eos # (Auto) 0.0 (0.0-0.8) 10^3/u L Baso # (Auto) 0.0 (0.0-0.1) 10^3/u L Nucleated RBC % (a uto) 0 % Nucleated RBCs # 0.0 /100WBC PT (10.5-13.3) SECO NDS INR (0.8-1.2) APTT (23.9-36.7) SECO NDS Sodium 137 (136-145) mmol/L Potassium 3.5 (3.5-5.1) mmol/L Chloride 98 (98-107) mmol/L Carbon Dioxide 24 (22-29) mmol/L Anion Gap 18.5 (5-19) BUN 9 (8-23) mg/dL Creatinine 0.9 (0.5-0.9) mg/dL GFR Calculation Not Reportable Glucose 164 H (65-115) mg/dL Calculated Osmolal ity 284 L (285-295) mOsm/k g Calcium 9.8 (8.5-10.5) mg/dL Total Bilirubin 1.3 H (0.15-1.2) mg/dL AST 19 (0-32) U/L ALT 9 (0-33) U/L Alkaline Phosphata se 68 (35-105) IU/L Troponin T Gen 5 n g/L Cancelled Troponin T Baselin e (0-10) ng/L Troponin T 120 Min [place] (0-10) ng/L Delta Troponin T (0-10) ABS# NT-Pro-B Natriuret Pep (0-450) pg/mL Total Protein 7.2 (6.6-8.7) g/dL Albumin 4.5 (3.5-5.2) g/dL Globulin 2.7 (1.3-4.6) g/dL 02/06/20 02/06/20 02/06/20 Range/Units 08:55 08:55 08:55 WBC (4.0-10.0) 10^3/ uL RBC (4.1-5.3) 10^6/u L Hgb (11.5-15.3) g/dL Hct (37.0-47.0) % MCV (81-99) fL MCH (28.0-34.0) pg MCHC (30.0-36.0) g/dL RDW (12.1-15.1) % Plt Count (130-400) 10^3/c mm MPV (7.4-10.4) fL Neut % (Auto) % Lymph % (Auto) % [place] % (Auto) % Eos % (Auto) % Baso % (Auto) % Neut # (Auto) (1.8-7.7) 10^3/u L Lymph # (Auto) (0.8-4.8) 10^3/u L [place] # (Auto) (0.2-0.9) 10^3/u L Eos # (Auto) (0.0-0.8) 10^3/u L Baso # (Auto) (0.0-0.1) 10^3/u L Nucleated RBC % (a uto) % Nucleated RBCs # /100WBC PT 13.50 H (10.5-13.3) SECO NDS INR 1.00 (0.8-1.2) APTT 24.3 (23.9-36.7) SECO NDS Sodium (136-145) mmol/L Potassium (3.5-5.1) mmol/L Chloride (98-107) mmol/L Carbon Dioxide (22-29) mmol/L Anion Gap (5-19) BUN (8-23) mg/dL Creatinine (0.5-0.9) mg/dL GFR Calculation Glucose (65-115) mg/dL Calculated Osmolal ity (285-295) mOsm/k g Calcium (8.5-10.5) mg/dL Total Bilirubin (0.15-1.2) mg/dL AST (0-32) U/L ALT (0-33) U/L Alkaline Phosphata se (35-105) IU/L Troponin T Gen 5 n g/L Troponin T Baselin e 52 H (0-10) ng/L Troponin T 120 Min [place] (0-10) ng/L Delta Troponin T (0-10) ABS# NT-Pro-B Natriuret Pep 3230 H (0-450) pg/mL Total Protein (6.6-8.7) g/dL Albumin (3.5-5.2) g/dL Globulin (1.3-4.6) g/dL 02/06/20 Range/Units 11:01 WBC (4.0-10.0) 10^3/ uL RBC (4.1-5.3) 10^6/u L Hgb (11.5-15.3) g/dL Hct (37.0-47.0) % MCV (81-99) fL MCH (28.0-34.0) pg MCHC (30.0-36.0) g/dL RDW (12.1-15.1) % Plt Count (130-400) 10^3/c mm MPV (7.4-10.4) fL Neut % (Auto) % Lymph % (Auto) % [place] % (Auto) % Eos % (Auto) % Baso % (Auto) % Neut # (Auto) (1.8-7.7) 10^3/u L Lymph # (Auto) (0.8-4.8) 10^3/u L [place] # (Auto) (0.2-0.9) 10^3/u L Eos # (Auto) (0.0-0.8) 10^3/u L Baso # (Auto) (0.0-0.1) 10^3/u L Nucleated RBC % (a uto) % Nucleated RBCs # /100WBC PT (10.5-13.3) SECO NDS INR (0.8-1.2) APTT (23.9-36.7) SECO NDS Sodium (136-145) mmol/L Potassium (3.5-5.1) mmol/L Chloride (98-107) mmol/L Carbon Dioxide (22-29) mmol/L Anion Gap (5-19) BUN (8-23) mg/dL Creatinine (0.5-0.9) mg/dL GFR Calculation Glucose (65-115) mg/dL Calculated Osmolal ity (285-295) mOsm/k g Calcium (8.5-10.5) mg/dL Total Bilirubin (0.15-1.2) mg/dL AST (0-32) U/L ALT (0-33) U/L Alkaline Phosphata se (35-105) IU/L Troponin T Gen 5 n g/L Troponin T Baselin e (0-10) ng/L Troponin T 120 Min [place] 42.53 H (0-10) ng/L Delta Troponin T -9.47 L (0-10) ABS# NT-Pro-B Natriuret Pep (0-450) pg/mL Total Protein (6.6-8.7) g/dL Albumin (3.5-5.2) g/dL Globulin (1.3-4.6) g/dL Imaging Data^: CT Head: Radiologist's impression: No acute process CXR: Radiologist's impression: No acute process or consolidation EKG Data^: EKG 1: EKG interpretation date: 02/06/20 EKG interpretation time: 08:30 Prior EKG tracings: available for review (02/02/2020; sinus bradycardia with first-degree AV block) Ischemic changes: non-specific ST-T wave changes Interpretation: EKG today, 02/06/2020; sinus rhythm with left ventricular hypertrophy, questionable increased ST depression lead II, questionable ST elevation V2; EKG transmitted to Dr. Coffey, senior windows systems engineer on-call Computer Generated Interpretation: Sinus rhythm; left ventricular hypertrophy and ST change EKG 2: EKG interpretation date: 02/06/20 EKG interpretation time: 11:55 Ischemic changes: non-specific ST-T wave changes Computer Generated Interpretation: Sinus rhythm, left ventricular hypertrophy and ST changes Discharge Plan Discharge Patient Disposition: Home Clinical Impression: Syncope and collapse, Abnormal ECG Condition: Stable Prescriptions: New isosorbide mononitrate 30 mg tablet extended release 24 hr 30 mg PO DAILY Qty: 10 RF: 0 potassium chloride 10 mEq capsule, extended release 10 meq PO BID Qty: 30 RF: 0 No Action lovastatin 40 mg Tablet 40 mg PO 1200 RF: 0 aspirin 81 mg Tablet,Delayed Release (Dr/Ec) 81 mg PO 1800 RF: 0 amlodipine 2.5 mg tablet 5 mg PO DAILY Qty: 30 RF: 0 lisinopril 10 mg Tablet 10 mg PO 1200 Qty: 20 RF: 0 hydralazine 25 mg tablet 25 mg PO TID PRN (Reason: For blood pressure more than 160/100) Qty: 30 RF: 0 Discharge Orders: Discharge Order (Routine); Ordered 02/06/20 Ordered By: Cass Galvez Referrals: Emanuel Reyes DO [Primary Care Provider] - Discharge Diet: Usual diet Discharge Activity: Limit activity as instructed Patient Instructions: Syncope (ED), Hypotension (ED) Activity Restrictions/Additional Instructions: You have been evaluated in the emergency department, you have an increased heart score which can put you at risk for having impending heart attack, your EKG tracing was abnormal, your heart enzymes were elevated, you were encouraged to stay in the hospital for further evaluation. You have elected to go home despite recommendation, if chest pain, shortness of breath or further syncopal episodes occur, passing out, you are to return to the emergency department immediately for further evaluation Please call your senior windows systems engineer on Saturday for an appointment and follow-up next week without fail. Continue to monitor blood pressure 3 times daily Continue all current medications Rest at home until follow-up with your senior windows systems engineer Discharge Date/Time: 02/06/20 13:53 Coding Level of Care Code ED Commodity Management Specialist for Chg Fwd Exam Comprehensive
--- NOTE | 2020-02-06 09:18 | PC.NURSE ---
pt to ct scan by stretcher with tech
[2020-02-06 09:32] LABS: Partial Thromboplastin Time 24.3 SECONDS (23.9-36.7)
--- NOTE | 2020-02-06 09:33 | ECG_ITS ---
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 Measurements Intervals [place] Rate: 65 P: 101 SC: 195 QRS: 28 QRSD: 118 T: 100 QT: 469 QTc: 490 Interpretive Statements SINUS RHYTHM LEFT VENTRICULAR HYPERTROPHY AND ST-T CHANGE [VOLTAGE CRITERIA PLUS ST/T ABNORMALITY] ST-T changes in the anterolateral leads, may suggest ischemia. Prolonged QTC Compared to ECG 02/02/2020 22:06:23 Sinus bradycardia no longer present First degree AV block no longer present ST (T wave) deviation still present Electronically Signed On 02-06-2020 20:41:41 CDT by Dianelys Coffey M.D. [id number] [email or web address]
[2020-02-06 09:43] LABS: Troponin(5th) Baseline 52 ng/L (0-10)
[2020-02-06 09:51] LABS: Alanine Aminotransferase 9 U/L (0-33); Albumin Level 4.5 g/dL (3.5-5.2); Alkaline Phosphatase 68 IU/L (35-105); Anion Gap 18.5 (5-19); Aspartate Amino Transferase 19 U/L (0-32); Blood Urea Nitrogen 9 mg/dL (8-23); Calcium 9.8 mg/dL (8.5-10.5); Carbon Dioxide 24 mmol/L (22-29); Chloride 98 mmol/L (98-107); Globulin 2.7 g/dL (1.3-4.6); Glucose 164 mg/dL (65-115); Osmolality Calculated 284 mOsm/kg (285-295); Potassium 3.5 mmol/L (3.5-5.1); Sodium 137 mmol/L (136-145); Total Bilirubin 1.3 mg/dL (0.15-1.2); Total Protein 7.2 g/dL (6.6-8.7)
[2020-02-06 10:00] LABS: NT Pro B Type Natriuretic Pept 3230 pg/mL (0-450)
[2020-02-06 10:38] VITALS: BP 148/61; PULSE 73; RESP 24; O2SAT 98
--- NOTE | 2020-02-06 11:33 | ECG_ITS ---
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 Measurements Intervals [place] Rate: 68 P: 96 MO: 200 QRS: -5 QRSD: 118 T: 123 QT: 432 QTc: 460 Interpretive Statements SINUS RHYTHM LEFT VENTRICULAR HYPERTROPHY AND ST-T CHANGE [VOLTAGE CRITERIA PLUS ST/T ABNORMALITY] Compared to ECG 02/06/2020 08:33:32 No significant changes Electronically Signed On 02-06-2020 20:47:00 CDT by Dianelys Coffey M.D. [id number]
[2020-02-06 11:51] LABS: Troponin 5 2HR 42.53 ng/L (0-10)
[2020-02-06 12:05] LABS: Troponin 5 2HR Delta -9.47 ABS# (0-10)
[2020-02-06 13:17] VITALS: BP 172/74; PULSE 71; RESP 19; O2SAT 97
[2020-02-06 13:23] VITALS: BP 157/77; BP 166/78; BP 177/73; PULSE 74; PULSE 76; PULSE 93
[2020-02-06 13:53] VITALS: BP 112/64; PULSE 86; O2SAT 96
== END 2020-02-06 13:53 | disposition home or self-care (01) ==
PROVIDERS: Emergency Provider Nurse Practitioner Family; PCP Internal Medicine
DX: R55 Syncope and collapse (principal); R94.31 Abnormal electrocardiogram [ECG] [EKG]; Z79.82 Long term (current) use of aspirin; I25.10 Atherosclerotic heart disease of native coronary artery without angina pectoris; I10 Essential (primary) hypertension; Z95.1 Presence of aortocoronary bypass graft
CPT/HCPCS: 12345; 36415; 70450; 71045; 80053; 83880; 84484; 85025; 85610; 85730; 93005; 99284

== ENCOUNTER 2025-01-03 17:54 | Inpatient (IN) | payer MEDICARE, OTHER, SELFPAY ==
[2025-01-03] VITALS (10 sets, daily range): BP systolic 108–171; BP diastolic 35–49; PULSE 66–79; RESP 18; TEMP 36.8; O2SAT 87–97; BMI 21.6
--- OUTSIDE RECORDS SUMMARY | 2025-01-03 18:00 | XMS_ITS | CCD ---
Author Name Interface, [id number] Address [place] [address] [facility] Address [place] [address] Care Team Providers Care Db2 Developer Name Role Phone Bandar MEI, Mickie Jimenez Unavailable Unavailable Luann MEI, Shilpa Carrillo Unavailable Unavailable Fernando Herbert MD Unavailable Unavailable Allergies and Adverse Reactions Care Plan Reason for Visit Encounters Functional Status Diagnostic Results Medications Problems Procedures Social History Visits Vital Signs Notes Section
--- OUTSIDE RECORDS SUMMARY | 2025-01-03 18:01 | XMS_ITS | Encounter Summary ---
Author Organization [facility] Address [address] [place] [address] Care Team Providers Care Nutrition Professor Name Role Phone Emanuel Reyes DO Primary Care Provide r Encounter Details Date Type Department Care Team (Late st Contact Info) Description 04/04/2005 Inpatient Historical [facility] IN BED Mike Ulloa MD [address] [phone] Zackary Navarro MD [address] [phone] DISSECTING THORACIC AORTIC ANEUR (CMS/HCC) (Primary Dx) Social History Tobacco Use Types Packs/Day Years Used Date Smoking Tobacco: Never Assessed Comments Unknown Sex and Gender Information Value Date Recorded Sex Assigned at Not on file 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
--- OUTSIDE RECORDS SUMMARY | 2025-01-03 18:01 | XMS_ITS | Encounter Summary ---
Author Organization [facility] Address [address] [place] [address] Care Team Providers Care Police Inspector Name Role Phone Emanuel Reyes DO Primary Care Provide r Encounter Details Date Type Department Care Team (Latest Contact Info) Description 03/26/2006 Outpatient Historical [facility] Medicine [place] [address] [phone] Blessing Eng MD [address] [place] [phone] Impaired Fasting Glucose (Primary Dx) Social History Tobacco Use Types Packs/Day Years Used Date Smoking Tobacco: Never Assessed Comments Unknown Sex and Gender Information Value Date Recorded Sex Assigned at Not on file 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
--- OUTSIDE RECORDS SUMMARY | 2025-01-03 18:01 | XMS_ITS | Encounter Summary ---
Author Organization [facility] Address [address] [place] [address] Care Team Providers Care Oil Pipeline Dispatcher Name Role Phone Emanuel Reyes DO Primary Care Provide r Encounter Details Date Type Department Care Team (Latest Contact Info) Description 07/10/2004 Outpatient Historical [facility] Medicine [place] [address] [phone] Blessing Eng MD [address] [place] [phone] ABNORMAL CLINICAL FINDING NEC (Primary Dx) Social History Tobacco Use Types Packs/Day Years Used Date Smoking Tobacco: Never Assessed Comments Unknown Sex and Gender Information Value Date Recorded Sex Assigned at Not on file 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
--- OUTSIDE RECORDS SUMMARY | 2025-01-03 18:01 | XMS_ITS | Encounter Summary ---
Author Organization [facility] Address [address] [place] [address] Care Team Providers Care Customer Support Executive Name Role Phone Emanuel Reyes DO Primary Care Provide r Encounter Details Date Type Department Care Team (Latest Contact Info) Description 05/09/2005 Outpatient Historical [facility] Medicine [place] [address] [place] [phone] Destiny Haas, [facility] [address] [phone] AFTERCARE PRISON USE MEDICATN (Primary Dx) Social History Tobacco Use Types Packs/Day Years Used Date Smoking Tobacco: Never Assessed Comments Unknown Sex and Gender Information Value Date Recorded Sex Assigned at Not on file 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
--- OUTSIDE RECORDS SUMMARY | 2025-01-03 18:01 | XMS_ITS | Encounter Summary ---
Author Organization [facility] Address [address] [place] [address] Care Team Providers Care Inspector Timers Name Role Phone Emanuel Reyes DO Primary Care Provide r Encounter Details Date Type Department Care Team (Latest Contact Info) Description 07/13/[address] 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 Gender Identity Not on file Sexual Orientation Not on file documented as of this encounter Plan of Treatment Not on file documented as of this encounter Procedures Procedure Name Priority Date/Time Associated Diagnosis Comments CTA ABD W AND/OR WO CONTRAST Routine 07/13/2005 12:01 AM INTERTYPE OPERATOR documented in this encounter Results * CTA ABD W WO CONTRAST (07/13/2005 12:01 AM INTERTYPE OPERATOR) Anatomical Region Laterality Modality Abdomen Other 07/13/2005 12:0 1 AM INTERTYPE OPERATOR Narrative 07/13/2005 12:01 AM INTERTYPE OPERATOR CTA CHEST / CTA ABDOMEN - 07/13/2005 INDICATION: A 65-year-old female. To follow up aortic dissection. TECHNIQUE: Routine CT angiography with and without 125 mL intravenous Optiray 240 was performed. COMPARISON: 04/04/2005 examination without intravenous contrast. FINDINGS: Patient is status post median sternotomy and presumed ascending thoracic aorta aneurysm repair with linear radiopaque density, likely representing graft material as opposed to intramural hematoma. Intramural hematoma on the prior examination is noted. Images are degraded by patient motion / respiratory artifact. Maximum diameter of the ascending thoracic aorta of 3.5 cm is identified. No definite intramural hematoma or intraluminal flap is identified. Ectasia of the descending thoracic aorta is present. Calcified granuloma of the apical posterior segment of the right upper lobe is seen. Stable 2-mm subpleural nodule of the periphery of the superior segment of the left lower lobe is seen. A stable 6-mm nodule of the anteromedial aspect of the right upper lobe on image #97 of series 3 is present. No infiltrate, effusion, pneumothorax, or abnormal lung parenchymal nodularity is otherwise identified. The liver, spleen, adrenal glands, pancreas, and kidneys are unremarkable. Gallbladder is unremarkable. Ectasia of the distal descending thoracic aorta is identified with maximum anterior-posterior diameter of 3.1 cm. No aneurysmal dilatation of the infrarenal abdominal aorta is identified. No free air, free fluid, or pathologic lymphadenopathy by CT size criteria is identified. A focal dissection of the medial aspect of the proximal descending thoracic aorta is identified. This extends approximately 1.6 centimeters in length. 1. Status post ascending thoracic aortic aneurysm and intramural hematoma repair with interval development of focal dissection involving the medial aspect of the proximal descending thoracic aorta, as described above. Otherwise, ectasia of the distal descending thoracic aorta is identified. Examination is technically limited secondary to patient motion / respiratory artifact. 2. Indeterminate, 6-millimeter nodule of the right lung. Follow-up examination in six months per CT (computed tomography) pulmonary nodule protocol is recommended. 3. Old granulomatous disease. jaw Dictated By: Paulette Collins M.D. Electronically Signed By: Paulette Collins M.D. Date Signed: 07/13/05 JAW Procedure Note 05/31/2009 CTA CHEST / CTA ABDOMEN - 07/13/2005 INDICATION: A 65-year-old female. To follow up aortic dissection. TECHNIQUE: Routine CT angiography with and without 125 mL intravenous Optiray 240 wasperformed. COMPARISON: 04/04/2005 examination without intravenous contrast. FINDINGS: Patient is status post median sternotomy and presumed ascending thoracicaorta aneurysm repair with linear radiopaque density, likely representing graft material as opposedto intramural hematoma. Intramural hematoma on the prior examination is noted. Images aredegraded by patient motion / respiratory artifact. Maximum diameter of the ascending thoracic aorta of3.5 cm is identified. No definite intramural hematoma or intraluminal flap is identified. Ectasiaof the descending thoracic aorta is present. Calcified granuloma of the apical posterior segment ofthe right upper lobe is seen. Stable 2-mm subpleural nodule of the periphery of the superior segment ofthe left lower lobe is seen. A stable 6-mm nodule of the anteromedial aspect of the right upper lobe onimage #97 of series 3 is present. No infiltrate, effusion, pneumothorax, or abnormal lungparenchymal nodularity is otherwise identified. The liver, spleen, adrenal glands, pancreas, and kidneys are unremarkable.Gallbladder is unremarkable. Ectasia of the distal descending thoracic aorta is identified withmaximum anterior-posterior diameter of 3.1 cm. No aneurysmal dilatation of the infrarenal abdominal aorta isidentified. No free air, free fluid, or pathologic lymphadenopathy by CT size criteria is identified. Afocal dissection of the medial aspect of the proximal descending thoracic aorta is identified. Thisextends approximately 1.6 centimeters in length. 1. Status post ascending thoracic aortic aneurysm and intramural hematomarepair with interval development of focal dissection involving the medial aspect of the proximal descendingthoracic aorta, as described above. Otherwise, ectasia of the distal descending thoracic aorta isidentified. Examination is technically limited secondary to patient motion / respiratory artifact. 2. Indeterminate, 6-millimeter nodule of the right lung. Follow-upexamination in six months per CT (computed tomography) pulmonary nodule protocol is recommended. 3. Old granulomatous disease. kenzie Dictated By: Paulette Collins M.D. Electronically Signed By: Paulette Collins M.D. Date Signed: 07/13/05 JAW us Historical Provider CT ORDERABLES Edited documented in this encounter Visit Diagnoses Diagnosis Thoracic aneurysm without mention of rupture- Primary documented in this encounter Care Teams Inspector Timers Relationship Specialty Start Date End Date Emanuel Reyes DO [address] [phone] PCP - General Internal Medicine 03/02/16 documented as of this encounter
--- OUTSIDE RECORDS SUMMARY | 2025-01-03 18:01 | XMS_ITS ---
Author Name Interface, [id number] lity Address [place] [address] [facility] Address [place] [address] Allergies and Adverse Reactions Medication/Group Name Reaction Severity Date No known allergies Plan Date Type Value 03/09/2025 APPOINTMENT 1YR 02/25/2025 APPOINTMENT YULI 6M 12/09/2024 APPOINTMENT 1YR 08/13/2024 APPOINTMENT 6MO FU 08/13/2024 APPOINTMENT 6MO FU 02/20/2024 APPOINTMENT 4MO FU 12/10/2023 APPOINTMENT 6MO FU 11/29/2023 APPOINTMENT Follow-Up 12/10/2023 LABORDER Mammogram, diagn ostic, bilateral breast 04/14/2024 LABORDER U/S breast, left 07/09/2024 LABORDER U/S breast, left 08/09/2024 LABORDER Mammogram, diagn ostic, bilateral breast w/ U/S if needed Reason for Visit 1YR Encounters Date Name 11/29/2023 Breast cancer, femal e Diagnostic Results Date Type Test Units Lower Limit Upper Limit Result Flag Comments Status Ordered By Specimen Source Lab Address 02/23 Mammo graph y See [facility] machine operator d 02/23 Ultra sound resul ts See [facility] machine operator d 03/31 Biops y (proc edure ) See [facility] machine operator d 03/31 Patho logy repor t See [facility] d 07/13 Ultra sound resul ts See [facility] machine operator d Medications Date Name Route Dose Frequency Instructions Start Date End Date Status Amiodarone Oral a ctive Lovastatin Oral a ctive Nitrofurantoin Oral (12 hr Macrocrystal form) active Apixaban Oral BID act diane Losartan Oral act diane Amlodipine Oral a ctive Sertraline Oral a ctive 025 anastrozole 1 MG Oral Tablet orally 1.0 tablet every day 08/20/19 25 active 023 anastrozole 1 MG Oral Tablet orally 1.0 tablet every day 05/29/20 23 active Problems Diagnosis Status Date of Diagnosis Resolution Date Aortic aneurysm (disorder) Active Osteoarthritis Active Benign essential hypertension (disorder) Active Reduced mobility Active Atrial fibrillation (disorder) Active H/O: CVA Active Breast cancer, female Active Estrogen receptor negative status [ER-] Active Postmenopausal state (finding) Active Postmenopausal osteoporosis (disorder) Active Vital Signs Date Type Value 11/29/2023 Pain Scale 0.00 11/29/2023 Body Temperature 97.70 11/29/2023 Heart Beat 57.00 11/29/2023 Respiratory Rate 16.00 11/29/2023 Oxygen Saturation 97.00 11/29/2023 Intravascular Systolic 164 11/29/2023 Intravascular Diastolic 71 11/29/2023 Weight 130.60 11/29/2023 Height 64.00 11/29/2023 BMI 22.42 11/29/2023 BSA 1.63 12/10/2023 BSA 1.64 12/10/2023 Pain Scale 0.00 12/10/2023 Body Temperature 96.50 12/10/2023 Heart Beat 59.00 12/10/2023 BMI 22.83 12/10/2023 Oxygen Saturation 98.00 12/10/2023 Intravascular Systolic 158 12/10/2023 Intravascular Diastolic 71 12/10/2023 Weight 133.00 12/10/2023 Height 64.00 12/10/2023 Respiratory Rate 18.00 02/20/2024 BSA 1.66 02/20/2024 BMI 23.17 02/20/2024 Height 64.00 02/20/2024 Weight 135.00 02/20/2024 Intravascular Systolic 143 02/20/2024 Intravascular Diastolic 58 02/20/2024 Oxygen Saturation 97.00 02/20/2024 Respiratory Rate 18.00 02/20/2024 Heart Beat 61.00 02/20/2024 Pain Scale 0.00 02/20/2024 Body Temperature 97.70 08/13/2024 BSA 1.63 08/13/2024 BMI 22.49 08/13/2024 Height 64.00 08/13/2024 Weight 131.00 08/13/2024 Pain Scale 0.00 08/13/2024 Oxygen Saturation 97.00 08/13/2024 Respiratory Rate 18.00 08/13/2024 Heart Beat 61.00 08/13/2024 Body Temperature 97.80 08/13/2024 Intravascular Systolic 161 08/13/2024 Intravascular Diastolic 55 Notes Section * Radiation Follow Up - [facility] [address] [place] [address] P: Patient:??YOBANI PEREA :??1940 Date of Service:??11/29/2023 . Follow up Referring Physicians: Dr. Kong Diagnosis:?? 1. 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 Final pathology revealed a 3.2 cm invasive tumor, no LVI, associated with high-grade DCIS, negative margins, 0/5 nodes. She is not a candidate for adjuvant chemotherapy due to comorbidities 2. 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 clinical stage IA ([id number]), status post biopsy. Due to her severe co-morbidities,she did not undergo definitive surgery on this side. Chief Complaint: I have breast cancer. History of Present Illness: Outside records were requested in preparation for this visit. The following HPI was constructed by review of the patient??s prior records and by interview of the patient.?? 11/29/2023 follow up?? Patient received 15 fractions to the whole left breast, with integrated boost to the lumpectomy cavity per RTOG 1005 trial. She has been tolerating radiotherapy well with some minimal erythema. She comp[leted receiving RT on 08/29/2023.?? Patient saw Dr. Portillo on 10/31/2023 and was given options including bone protective therapy in the form of oral or intravenous bisphosphonate or Prolia. She will discuss which drug to take with her piano regulator inspector, Dr. Knight. Based on benefit risk analysis, it would be also reasonable for her to proceed with treatment for her osteoporosis and to discontinue anastrozole due to low-risk features of her right breast cancer. The patient will give this thought, but will likely continue anastrozole with the addition of bone protective therapy. Presently, the patient reports??no symptoms or complaints.?? initial consult Ms. Perea is a pleasant 83-year-old lady with recent diagnosis of both right-sided and left-sided breast cancer. Her detailed cancer history has been well-documented in Dr. Kong and otherwise notes. Briefly, patient feeling a mass in her left breast breast diagnostic mammogram and ultrasound identified a 2.2 cm spiculated mass at 10 o'clock position of the left breast, posterior depth, 6 cm from nipple. Ultrasound-guided core needle biopsy 03/14/2023 revealed invasive ductal carcinoma, grade 2-3, ER -/ CO -/HER2 - ([facility]). Staging PET/CT however, discovered another FDG uptake in the right internal mammary region without CT abnormality. A second look ultrasound of the right breast 05/03/2023 revealed a 6 mm irregular mass at the 12 o'clock position of the right breast, posterior depth, 4 cm from nipple. No regional adenopathy, specifically no suspicious findings in the right internal mammary nikos space. Ultrasound-guided core needle biopsy of the right breast 05/10/2023 revealed invasive ductal carcinoma, grade 1, ER + (>90%)/CO -/HER2 - ([facility]). After thorough discussion with Dr. Kogn and Dr. Portillo, due to patient's significant comorbidities, decision was made to proceed with left lumpectomy and sentinel lymph node biopsies, and treated the ER + right breast cancer with endocrine therapy alone. Patient completed left breast lumpectomy with sentinel lymph node biopsies 05/18/2023. Final pathology revealed invasive ductal carcinoma, high-grade, 3.2 cm in size, with associated high-grade DCIS,negative LVSI, negative margins (closest 1 mm deep margin for invasive cancer, >2 mm anterior/superficial margin for DCIS), 0/5 nodes. Final stage IIA (pT2N0(sn)). Dr. Portillo discussed with patient about adjuvant treatment options and decided against adjuvant chemotherapy due to her significant committees. She will be on endocrine therapy for small right breast cancer. Patient was kindly referred to our service for consideration of radiation treatment options for the left-sided breast cancer. Currently, the patient reports no pain. No difficulty breathing. She still has bruises from her biopsy in the right breast and lumpectomy surgery of the left breast. A full ROS is listed below and was negative for other acute issues.?? Review of Systems:?? Constitutional: No Weight Change, No Fever, No Chills, No Night Sweats, No Fatigue, No Malaise; Good appetite?? ENT/Mouth: No Hearing Changes, No Ear Pain, No Nasal Congestion, No Sinus Pain, No Hoarseness, No sore throat, No Rhinorrhea, No Swallowing Difficulty?? Eyes: No Eye Pain, No Swelling, No Redness, No Foreign Body, No Discharge, No Vision Changes?? Cardiovascular: No Chest Pain, No SOB, No Dyspnea on Exertion, No Orthopnea, No Edema, No Palpitations, No Previous Heart Attack or Stroke?? Respiratory: No Cough, No Sputum, No Wheezing, No Dyspnea?? Gastrointestinal: No Nausea, No Vomiting, No Diarrhea, No Constipation, No Pain, No Heartburn, No Anorexia, No Dysphagia, No Hematochezia, No Melena, No Jaundice?? Genitourinary: No Dysuria, No Urinary Frequency, No Hematuria, No Urinary Incontinence, No Urgency,No Urinary Flow Changes, No Hesitancy?? Musculoskeletal: No Arthralgias, No Myalgias, No Joint Swelling, No Joint Stiffness, No Back Pain, No Neck Pain?? Skin: No Skin Lesions, No Pruritis, No Hair Changes, No Nipple Discharge?? Neuro: No Weakness, No Numbness, No Paresthesias, No Loss of Consciousness, No Syncope, No Dizziness, No Headache, No Coordination Changes, No Recent Falls?? Heme/Lymph: No Bruising, No Bleeding, No Lymphadenopathy?? Past Medical History: Atrial fibrillation on Eliquis, aortic aneurysm s/p repair x 2, history of stroke, history of syncope, osteoarthritis, hypertension Past Surgical History: Aortic aneurysm repair total, cholecystectomy Family History: ??see electronic records below. Social History: Retired, , lives at her son and [id number]. Denies use tobacco, alcoholor drugs. Current Medications: see electronic records below. Allergies: No known drug allergies Vitals: See the electronic records at the end of this note Physical Exam:?? Constitutional: Awake, alert, and in no acute distress. Well nourished, well developed. Appears stated age. KPS 80. Pain core 0 Eyes: No conjunctival icterus. Symmetrical lids. Pupils are equal, round and reactive to light Ears, Nose, Mouth, Throat: Atraumatic external nose and ears. Moist mucus membranes.?? Neck: The neck is symmetrical. No thyromegaly.?? Cardiovascular: Normal rate and rhythm. +S1/S2. +Carotid pulse. No peripheral edema.?? Respiratory: Normal respiratory effort. Lungs clear to auscultation bilaterally. Chest: The breasts are visually symmetrical. Examination of the right breast reveals no palpable nodularity or mass. There is no observed erythema or peau- d??orange. Examination of the left breast reveals no palpable nodularity or mass. ??There is no palpable fibrosis and no erythema and there is some skin dryness on the left side of the chest. There is no observed erythema or peau- d??orange. Surgical scars??are well healed. Abdomen: Non-distended. Non-tender. No apparent hernias.?? Neurologic: CN II-XII grossly intact. Normal gait.?? Musculoskeletal: Normocephalic/atraumatic. No spinal tenderness. Extremities with normal bulk and tone for age and body habitus. No cyanosis or clubbing. Lymphatics: There is no palpable cervical or supraclavicular adenopathy. There is no palpable axillary adenopathy.?? Skin: Inspection and limited palpation as part of above sections show no apparent rash, induration,lesions or masses.?? Labs and Pathology: I independently reviewed the available laboratory values and pathology report, the dates of which and pertinent findings of which I summarized above Imaging: I independently reviewed the available imaging and reports, the pertinent findings of which I summarized above Impression: No clinical evidence of tumor progression or recurrence. No radiation-related side effects Plan: - Return to this clinic as needed - Continue to follow Dr. Portillo's team for cancer surveillance - Moisturizers for the skin on the left chest. I spent a total of 30 minutes in direct [id number] consultation with the patient of which more than 50% was in counseling and coordination of care Documentation assistance provided by elia Vasques for Dr. Ryan Herbert, on 11/29/2023. I, Dr. Ryan Herbert, personally performed the services described in this documentation, and it is bothaccurate and complete.?? [facility] Send Copy of note to: .Dr. Portillo .Dr. Kong Electronically signed by Fernando Herbert MD 11/29/2023 19:33 CDT * Nurse Note for: 13-AUG-24 [facility] Nurse Note Print Location: Unknown Date/Time Printed: 01/03/2025 18:01 ([facility]) Patient: YOBANI PEREA Sex: Female : 1940 Date of Service: 08/13/2024 Allergies : No Known Allergies Vital Signs : Time: 11:24. Weight: 131 lb (59.42 kg). Height: 64 in (162.56 cm). BMI: 22.49 (kg/m2) . BSA: 1.63 (m2) . Temperature: 97.8 F (36.56 C). Pulse: 61 (/min) . Respirations: 18 (/min) . Blood pressure: 161/55 (mm Hg). Pain Scale: 0. O2 Saturation: 97 (%) . Entered by Scarlet Cuellar [facility] 08/13/2024 11:24 Time: 02:00. Pain Scale: 0. Entered by Scarlet Cuellar [facility] 08/13/2024 11:23 Patient Assessment : Negative results Assessment : Labs Verified: No, Alert, oriented with appropriate behavior, Gait Changes. Denies Neuropathy , Pain -0-No pain, Fatigue , Anxiety/Depression , Fever, Chills or Night Sweats ,Signs of Infection , Skin Changes , Dizziness , Headaches , Nausea , Breathing Changes , Cough , Mouth Sores/Stomatitis/Mucositis , Changes in Appetite , Vomiting , Diarrhea , Constipation , Urinary Changes , Bleeding . Entered By Scarlet Cuellar [facility] on 11:23 * Nurse Note for: 20-FEB-24 [facility] Nurse Note Print Location: Unknown Date/Time Printed: 01/03/2025 18:01 ([facility]) Patient: YOBANI PEREA Sex: Female : 1940 Date of Service: 02/20/2024 Allergies : No Known Allergies Vital Signs : Time: 15:49. Weight: 135 lb (61.23 kg). Height: 64 in (162.56 cm). BMI: 23.17 (kg/m2) . BSA: 1.66 (m2) . Temperature: 97.7 F (36.50 C). Pulse: 61 (/min) . Respirations: 18 (/min) . Blood pressure: 143/58 (mm Hg). Pain Scale: 0. O2 Saturation: 97 (%) . Entered by Scarlet Cuellar [facility] 02/20/2024 15:50 Time: 02:00. Pain Scale: 0. Entered by Scarlet Cuellar [facility] 02/20/2024 15:48 Patient Assessment : Positive results Assessment : Complains of Urinary Changes-urinary infection. Negative results Assessment : Labs Verified: No, Alert, oriented with appropriate behavior, Gait Changes. Denies Neuropathy , Pain -0-No pain, Fatigue , Anxiety/Depression , Fever, Chills or Night Sweats ,Signs of Infection , Skin Changes , Dizziness , Headaches , Nausea , Breathing Changes , Cough , Mouth Sores/Stomatitis/Mucositis , Changes in Appetite , Vomiting , Diarrhea , Constipation , Bleeding. Entered By Scarlet Cuellar [facility] on 15:48 * Nurse Note for: 10-DEC-23 [facility] Nurse Note Print Location: Unknown Date/Time Printed: 01/03/2025 18:01 ([facility]) Patient: YOBANI PEREA Sex: Female : 1940 Date of Service: 12/10/2023 Allergies : No Known Allergies Vital Signs : Time: 02:00. Weight: 133 lb (60.33 kg). Height: 64 in (162.56 cm). BMI: 22.83 (kg/m2) . BSA: 1.64 (m2) . Temperature: 96.5 F (35.83 C). Pulse: 59 (/min) . Respirations: 18 (/min) . Blood pressure: 158/71 (mm Hg). Pain Scale: 0. O2 Saturation: 98 (%) . Entered by Katiuska Lau [employer] 12/10/2023 15:04 Patient Assessment : Positive results Assessment : Alert, oriented with appropriate behavior. Negative results Assessment : Labs Verified: No, Gait Changes. Denies Neuropathy , Pain -0-No pain, Fatigue , Anxiety/Depression , Fever, Chills or Night Sweats ,Signs of Infection , Skin Changes , Dizziness , Headaches , Nausea , Breathing Changes , Cough , Mouth Sores/Stomatitis/Mucositis , Changes in Appetite , Vomiting , Diarrhea , Constipation , Urinary Changes , Bleeding . Entered By Katiuska Lau [employer] Rule [employer] Maker II on 15:04 * Nurse Note for: 29-NOV-23 [facility] Nurse Note Print Location: Unknown Date/Time Printed: 01/03/2025 18:01 ([facility]) Patient: YOBANI PEREA Sex: Female : 1940 Date of Service: 11/29/2023 Allergies : No Known Allergies Vital Signs : Time: 02:00. Weight: 130.6 lb (59.24 kg). Height: 64 in (162.56 cm). BMI: 22.42 (kg/m2) . BSA: 1.63(m2) . Temperature: 97.7 F (36.50 C). Pulse: 57 (/min) sitting. Respirations: 16 (/min) . Blood pressure: 164/71 (mm Hg) right arm Wrist. O2 Saturation: 97 (%) at rest. Entered by Tiffanie CONNOR 11/29/2023 15:12 Time: 02:00. Pain Scale: 0. Entered by Tiffanie CONNOR 11/29/2023 15:10 Patient Assessment : Positive results Assessment : Alert, oriented with appropriate behavior. Negative results Assessment : Labs Verified: No, Gait Changes. Denies Neuropathy , Pain -0-No pain, Fatigue , Anxiety/Depression , Fever, Chills or Night Sweats ,Signs of Infection , Skin Changes , Dizziness , Headaches , Nausea , Breathing Changes , Cough , Mouth Sores/Stomatitis/Mucositis , Changes in Appetite , Vomiting , Diarrhea , Constipation , Urinary Changes , Bleeding . Entered By Tiffanie CONNOR on 15:10
--- OUTSIDE RECORDS SUMMARY | 2025-01-03 18:01 | XMS_ITS | Encounter Summary ---
Author Organization [facility] Address [address] [place] [address] Care Team Providers Care Fur Scraper Name Role Phone Emanuel Reyes DO Primary Care Provide r Encounter Details Date Type Department Care Team (Latest Contact Info) Description 03/19/2006 Outpatient Historical [facility] Medicine [place] [address] [phone] Blessing Eng MD [address] [place] [id number] Unspecified Essential Hypertension (Primary Dx) Social History Tobacco Use Types Packs/Day Years Used Date Smoking Tobacco: Never Assessed Comments Unknown Sex and Gender Information Value Date Recorded Sex Assigned at Not on file 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
--- OUTSIDE RECORDS SUMMARY | 2025-01-03 18:01 | XMS_ITS | Clinical Summary ---
Author Organization [facility] Address [address] [phone] Care Team Providers Care Poultice Machine Operator Name Role Phone Emanuel Reyes DO Primary Care Provide r Allergies No known active allergies Medications lovastatin (MEVACOR) 20 mg tabletIndicatio ns:Hyperlipidem ia TAKE TWO TABLETS BY MOUTH ONCE DAILY AT BEDTIME 180 Tab 3 5 Active Additional Information Patient taking differently: 40 mg Oral DAILY WITH LUNCH, (No instructions reported), Informant: Patient, Reported on 01/09/2018 ascorbic acid, vitamin C, (VITAMIN C) 500 mg tablet Take 500 mg by mouth 1 time daily as needed . Active HYDROcodone-nessa taminophen (NORCO) 7.5-325 mg Tablet Take 1 Tablet by mouth every 4 hours as needed for Pain. Max Daily Amount: 6 Tablets 30 Tablet 9 Active aspirin (ECOTRIN EC) 81 mg Tablet, Delayed Release (E.C.) Take 81 mg by mouth daily. Active apixaban (Eliquis) 5 mg tablet Take 1 Tablet (5 mg) by mouth 2 times daily. 60 Tablet 11 0 Active diltiaZEM (CARDIZEM CD) 120 mg Controlled Delivery 24 hour capsule Take 1 Capsule (120 mg) by mouth daily. 30 Capsule 12 0 Active propafenone (RYTHMOL) 150 mg Tablet Take 1 Tablet (150 mg) by mouth every 8 hours. 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 Essential hypertension 03/18/2015 Vitamin D insufficiency 03/18/2015 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 Hx- Ascending Aortic repair 07/23/2012 Herpes zoster 09/01/2010 Hyperlipidemia 06/07/2008 Sinus bradycardia Resolved Problems Problem Noted Date Diagnosed Date Resolved Date Calculus of gallbladder with out cholecystitis without obstruction 01/09/2018 01/11/2018 Thickening of wall of gallbladder 01/09/2018 01/11/2018 Mid sternal chest pain 01/08/201801/11 Elevated lipase 01/08/2018 01/11/2018 Elevated liver enzymes 01/08/201801/11 Acute biliary pancreatitis 01/08/2018 0 01/11/2018 Hypertension 12/13/2009 03/18/2015 Immunizations Immunization Administration Dates Next Due Influenza Seasonal Unspecifi ed Formulation IM 04/28/2018,04/08/2017,05/21/2011 Influenza Vaccine Split 3+ Yrs IM 04/22/2013,12/2008,06/15/2008 Family History Medical History Relation Name Comments Heart Disease Father Heart Disease Mother Relation Name Status Comments Father Mother Social History Tobacco Use Types Packs/Day Years Used Date Smoking Tobacco: Never Smokeless Tobacco: Never Alcohol Use Standard Drinks/Week Comments Yes 3 (1 standard drink = 0.6 oz pur e alcohol) Social Comments No Sex and Gender Information Value Date Recorded Sex Assigned at Not on file 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 Gender Identity Not on file Sexual Orientation Not on file Occupation Industry Job Start Date Job End Date Not on file Not on file Not on file Not on file Last Filed Vital Signs Vital Sign Reading Time Taken Comments Blood Pressure 150/50 03/30/2020 11:29 AM CDT Pulse 94 03/30/2020 11:29 AM CDT Temperature 36.4 C (97.5 F) 03/16/2020 10:28 AM CDT Respiratory Rate 19 03/16/2020 4:00 PM CDT Oxygen Saturation 97% 03/16/2020 4:00 PM CDT Inhaled Oxygen Concentration - - Weight 64.3 kg (141 lb 12.8 oz) 020 11:29 AM CDT Height 167.6 cm (5' 6 ) 03/30/2020 11:2 9 AM CDT Body Mass Index 22.89 03/30/2020 11:29 AM CDT Plan of Treatment Health Maintenance Due Date Last Done Comments DTAP/TDAP/TD VACCINES (1 - Tdap) 02/11/1959 PNEUMOCOCCAL VACCINE 50+ YEA RS (1 of 1 - PCV) 02/11/1990 ZOSTER VACCINE (1 of 2) 02/11/1990 OSTEOPOROSIS SCREENING 02/11/2005 RSV VACCINE (60+ or ) (1 - 1-dose 75+ series) 02/11/2015 INFLUENZA VACCINE (#1) 2024 8, 04/08/2017, 04/22/2013, Additional history exists Colorectal Cancer Screening Discontinued FIT/FOBT Q 1 year Discontinued 10/08/2003 COLORECTAL SCREENING Discontinued FIT-DNA Q 3 years Discontinued Flex Sig/CT Colonography Q 5 years Discontinued Medical Devices Implanted Type Area Dairy Inspector Device Identifier Shelf Expiration Date Model / Serial / Lot Adh Bioglue 10ml [id number] - [id number] Implanted:Qty: 1 on 06/18/2017 by Mike Ulloa MD at [facility] Biological N/A: Heart [employer] 12/16/2018 [id number] / / [id number] Coil Jeanie Cmplx Std 18mm 57cm [id number] - [id number] Implanted:Qty: 1 on 06/25/2017 by Mike Ulloa MD at [facility] Coil Left: Chest [employer] INC 08/11/2022 [id number] / / [id number] Coil Jeanie Cmplx Std 18mm 57cm [id number] - [id number] Implanted:Qty: 1 on 06/25/2017 by Mike Ulloa MD at [facility] Coil Left: Chest [employer] 06/07/2018 [id number] / / [id number] Coil Jeanie Cmplx Std 16mm 60cm [id number] - [id number] Implanted:Qty: 1 on 06/25/2017 by Mike Ulloa MD at [facility] Coil Left: Chest [employer] 02/21/2024 [id number] / / [id number] Coil Jeanie Cmplx Sft 16mm 50cm [id number] - [id number] Implanted:Qty: 1 on 06/25/2017 by Mike Ulloa MD at [facility] Coil Left: Chest [employer] 09/18/2024 [id number] / / [id number] Coil Embol Pod Packing [id number] - [id number] Implanted:Qty: 1 on 06/25/2017 by Mike Ulloa MD at [facility] Coil Left: Chest [employer] 04/03/2025 [id number] / / [id number] Coil Embol Pod Packing [id number] - [id number] Implanted:Qty: 1 on 06/25/2017 by Mike Ulloa MD at [facility] Coil Left: Chest [employer] 04/03/2025 [id number] / / [id number] Coil Jeanie Cmplx Std 18mm 57cm [id number] - [id number] Implanted:Qty: 1 on 06/25/2017 by Mike Ulloa MD at [facility] Coil Left: Chest [employer] 02/28/2024 [id number] / / [id number] [place] Ptfe Thck [id number] - [id number] Implanted:Qty: 1 on 06/18/2017 by Mike Ulloa MD at [facility] Graft N/A: Chest CR BARD- JONATAN VASC INC 09/04/2021 [id number] / / [id number] Graft Hmshld Gold Bifur [id number] - [id number] Implanted:Qty: 1 on 06/18/2017 by Mike Ulloa MD at [facility] Graft N/A: Chest [employer] 11/04/2021 [id number] / [id number] / Hemostatic Surgicel 6x9in 1946 - [id number] Implanted:Qty: 1 on 06/18/2017 by Mike Ulloa MD at [facility] Hemostatic N/A: Chest J[employer]J- ETHICON INC 03/07/2022 1946 / / [id number] Starclose Se Vasc Closure 68810-24 - [id number] Implanted:Qty: 1 on 06/23/2017 by Luis Bowman MD at [facility] Hemostatic Right: Groin DUDLEY- VASC DEVICE 04/07/2019 [id number] / / [id number] Ring Vein Marking 10mm 35-5832 - [id number] Implanted:Qty: 3 on 06/18/2017 by Mike Ulloa MD at [facility] Other N/A: Heart TELEFLEX- PILL WECK HERB L P 35-5832 / / Plug Amplatzer 12mm 9-Avp2-012 - [id number] Implanted:Qty: 1 on 06/25/2017 by Mike Ulloa MD at [facility] Other Left: Chest [employer] 12/05/2021 9-AVP2-01 [id number] Plate Orb Rim Matrixmidface 04.503.343 - [id number] Implanted:Qty: 1 on 07/30/2018 by Kristopher Arciniega MD at [facility] Plate Left: Face SYNTHES-STRATEC - MAXIFACIAL 04.503.34 50098 Plate-L Oblique Matrixmidface 04.503.355 - [id number] Implanted:Qty: 1 on 07/30/2018 by Kristopher Arciniega MD at [facility] Plate Left: Face SYNTHES-STRATEC - MAXIFACIAL 04.503.35 140 [id number] Screw Matrixmidface Sd 4mm 04.503.224 - [id number] Implanted:Qty: 1 on 07/30/2018 by Kristopher Arciniega MD at [facility] Screw Left: Face SYNTHES-STRATEC - MAXIFACIAL 04.503.22 4.140 04156 Screw Matrixmidface Sd 5mm 04.503.225 - [id number] Implanted:Qty: 10 on 07/30/2018 by Kristopher Arciniega MD at [facility] Screw Left: Face SYNTHES-STRATEC - MAXIFACIAL 04.503.22 [id number] [id number] Stent Jones Vigil Prox [id number] - [id number] Implanted:Qty: 1 on 06/18/2017 by Mike Ulloa MD at [facility] Stent N/A: Aorta COOK- AORTIC INTERVENTION 12/08/2019 [id number] / / [id number] Insurance [place]ICARE [place] [address] RX [employer] PLANS (INTERNAL) [facility] Internal Plans Advance Directives For more information, please contact: [phone] * Full Code (Latest Code Status on File) Date Activated Date Inactivated Comments 03/16/2020 9:56 AM 03/16/2020 7:40 PM * Full Code Date Activated Date Inactivated Comments 02/26/2020 3:24 PM 02/27/2020 8:50 PM * Full Code Date Activated Date Inactivated Comments 07/30/2018 11:39 AM 07/30/2018 7:06 PM * Full Code Date Activated Date Inactivated Comments 01/08/2018 1:21 PM 01/11/2018 7:32 PM * Full Code Date Activated Date Inactivated Comments 06/25/2017 5:55 PM 06/26/2017 3:32 PM Care Teams Poultice Machine Operator Relationship Specialty Start Date End Date Emanuel Reyes DO [address] [phone] PCP - General Internal Medicine 03/02/16
--- OUTSIDE RECORDS SUMMARY | 2025-01-03 18:01 | XMS_ITS | Encounter Summary ---
Author Organization [facility] Address [address] [place] [address] Care Team Providers Care Frame Catcher Name Role Phone Emanuel Reyes DO Primary Care Provide r Encounter Details Date Type Department Care Team (Latest Contact Info) Description 09/27/[address] 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
--- OUTSIDE RECORDS SUMMARY | 2025-01-03 18:01 | XMS_ITS | Encounter Summary ---
Author Organization [facility] Address [address] [place] [address] Care Team Providers Care Sports Complex Attendant Name Role Phone Emanuel Ryees DO Primary Care Provide r Encounter Details Date Type Department Care Team (Latest Contact Info) Description 09/23/2006 Outpatient Historical [facility] Medicine [place] [address] [place] [phone] Destiny Haas, [facility] [address] [phone] Unspecified Essential Hypertension (Primary Dx); Other and Unspecified Hyperlipidemia Social History Tobacco Use Types Packs/Day Years Used Date Smoking Tobacco: Never Assessed Comments Unknown Sex and Gender Information Value Date Recorded Sex Assigned at Not on file 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
--- OUTSIDE RECORDS SUMMARY | 2025-01-03 18:01 | XMS_ITS | CCD ---
Author Name Interface, [id number] lity Address [place] [address] Organization [facility] Address [place] [address] Care Team Providers Care Bow Maker Machine Tender Name Role Phone Yuli MEI, Mickie Jimenez Unavailable Unavailable Luann MEI, Shilpa Carrillo Unavailable Unavailable Piedad MEI, Fernando Davis Unavailable Unavailable Allergies and Adverse Reactions Medication/Group Name Reaction Severity Date No known allergies Care Plan Date Type Value 03/09/2025 APPOINTMENT 1YR 02/25/2025 APPOINTMENT YULI 6M 12/09/2024 APPOINTMENT 1YR 08/13/2024 APPOINTMENT 6MO FU 08/13/2024 APPOINTMENT 6MO FU 02/20/2024 APPOINTMENT 4MO FU 04/14/2024 LABORDER U/S breast, left 07/09/2024 LABORDER U/S breast, left 08/09/2024 LABORDER Mammogram, diagn ostic, bilateral breast w/ U/S if needed Reason for Visit 1YR Encounters Date Name 08/13/2024 Breast cancer, femal e Functional Status Date Name Score 04/09/2023 ECOG performance status - grade 3 3 04/01/2023 Karnofsky performance status 40 05/28/2023 Karnofsky performance status 40 05/28/2023 ECOG performance status - grade 3 3 02/20/2024 ECOG performance status - grade 3 3 08/13/2024 ECOG performance status - grade 3 3 Diagnostic Results Date Type Test Units Lower Limit Upper Limit Result Flag Comments Status Ordered By Specimen Source Lab Address 03/31 Patho logy repor t See arrow point attacher d 02/23 Mammo graph y See arrow point attacher d 03/31 Biops y (proc edure ) See arrow point attacher d 07/13 Ultra sound resul ts See arrow point attacher d Medications Date Name Route Dose Frequency Instructions Start Date End Date Status Apixaban Oral BID act diane Lovastatin Oral a ctive Nitrofurantoin Oral (12 hr Macrocrystal form) active Amiodarone Oral a ctive Losartan Oral act diane Amlodipine Oral a ctive Sertraline Oral a ctive 025 anastrozole 1 MG Oral Tablet orally 1.0 tablet every day 08/20/19 25 active Problems Diagnosis Status Date of Diagnosis Resolution Date Aortic aneurysm (disorder) Active Osteoarthritis Active Benign essential hypertension (disorder) Active Reduced mobility Active Atrial fibrillation (disorder) Active H/O: CVA Active Breast cancer, female Active Estrogen receptor negative status [ER-] Active Postmenopausal state (finding) Active Postmenopausal osteoporosis (disorder) Active Procedures Date Category Name Instructions Status 03/02/2024 Physician Order RTC MD Ordered 03/02/2024 Physician Order Ultrasound guide d biopsy (procedure) U/S biopsy LEFT breast 1.4cm mass as indicated on U/S completed on 02/24/2024 MHTW Ordered 04/14/2024 Physician Order U/S breast, left [facility], due 08/2024 to f/u on stability of microcalcifications seen on imaging from 02/2024 Ordered 07/09/2024 Physician Order U/S breast, left MHTW. Ma ss palpable in the left breast at the 4-5 o'clock position. History of left breast cancer. Due now. Ordered 08/09/2024 Physician Order Mammogram, diagnostic, bilateral breast w/ U/S if needed MHTW. History of left breast cancer. Due in February 2025. Ordered 08/22/2024 Physician Order RTC EZRA Ordered 02/06/2025 Physician Order RTC EZRA Ordered Social History Date Name Value 02/20/2024 Sex Female Visits Date Type Value 03/09/2025 1YR 02/25/2025 YULI 6M Vital Signs Date Type Value 02/20/2024 Pain Scale 0.00 02/20/2024 Body Temperature 97.70 02/20/2024 BSA 1.66 02/20/2024 BMI 23.17 02/20/2024 Height 64.00 02/20/2024 Weight 135.00 02/20/2024 Intravascular Systolic 143 02/20/2024 Intravascular Diastolic 58 02/20/2024 Oxygen Saturation 97.00 02/20/2024 Respiratory Rate 18.00 02/20/2024 Heart Beat 61.00 08/13/2024 Body Temperature 97.80 08/13/2024 BSA 1.63 08/13/2024 BMI 22.49 08/13/2024 Height 64.00 08/13/2024 Pain Scale 0.00 08/13/2024 Intravascular Systolic 161 08/13/2024 Intravascular Diastolic 55 08/13/2024 Oxygen Saturation 97.00 08/13/2024 Respiratory Rate 18.00 08/13/2024 Heart Beat 61.00 08/13/2024 Weight 131.00 Notes Section * EZRA [facility] Follow Up - [facility] [address] [place] [address] [address] [place] [address] P: F: PATIENT: YOBANI PEREA : 1940 Date of Service: 08/13/2024 Chief Complaint: Ms. 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 Diagnosis*: * 03/14/2023: Invasive ductal carcinoma of the left breast at 10:00, 6 cm from the nipple, nuclear grade 2-3, estrogen receptor negative 0, progesterone receptor negative 0, HER2 0 by IHC, [id number], Stage llB. * 05/10/2023: Invasive ductal carcinoma of the right breast at 12:00, 4 cm from the nipple, Seattle grade 1, estrogen receptor positive greater than 90%, progesterone receptor negative 0% and HER2 negative 0 by IHC.? Treatment History*: * 05/18/2023: Left breast ultrasound-guided partial mastectomy and left sentinel lymph node biopsy: Invasive ductal carcinoma, Burton grade 3, surgical margins uninvolved, 5 sentinel sentinel lymphnodes negative for metastatic carcinoma, pT2 ?pN0(sn), stage llA. * 08/08/2023- 08/29/2023: Completed adjuvant radiation therapy under the care of Dr. Ryan Herbert for her left breast cancer. * 09/25/2023: Initiated daily anastrozole.? History of Present Illness: * 02/20/2023:?Complete ultrasound of the left breast and axilla identified a mass with a spiculated margin in the left breast at 10:00 posterior depth, 6 cm from the nipple correlating as palpated. Also a mass was identified in the left breast at 10:00, most compatible with postop changes from prior heart surgery.? * 03/14/2023:?Bilateral diagnostic mammogram at [facility] that identified a 2.2 cm irregular mass in the left breast at 10:00 posterior depth with benign calcifications in bothbreasts.? * 03/14/2023:?Ultrasound-guided core needle biopsy identified invasive ductal carcinoma, Seattle grade 2-3, estrogen and progesterone receptor negative 0%, HER2 negative 0 by IHC. * 04/11/2023: PET CT scan [facility] with known left breast mass and focal FDG uptake in the right medial breast.? * 05/03/2023: Complete ultrasound of the right breast and axilla at [facility]. A 6 mm irregular mass with a non circumscribed margin identified in the right breast at 12:00 posterior depth, 4 cm from the nipple, hypoechoic. No significant abnormalities seen sonographically in the right axilla.? * 05/10/2023: Ultrasound-guided needle, core biopsy of the mass in the right breast at 12:00: Invasive ductal carcinoma, Seattle grade 1, estrogen receptor positive greater than 90%, progesterone receptor negative 0%, HER2 negative 0 by IHC.? * 05/18/2023: Left breast ultrasound-guided partial mastectomy and left sentinel lymph node biopsy with Dr. Shilpa Kong: Invasive ductal carcinoma, Burton grade 3, 3.2 cm in greatest dimension, no definitive lymphovascular invasion, margins of resection negative, 5 sentinel lymph nodes negative for tumor (0/5), pT2 ?pN0(sn), stage llA. * 08/08/2023- 08/29/2023: Completed adjuvant radiation therapy under the care of Dr. Ryan Herbert for her left breast cancer. * 09/25/2023: Initiated daily anastrozole.? Interval History: Ms. 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 On 07/09/2024, the patient spoke with the remote triage team and reported edema to the left lateral breast, below the nipple, at the 4 to 5 o'clock position. A left breast ultrasound was subsequently ordered. ?This study was completed on 07/13/2024 at [facility] and identified no suspicious sonographic abnormality to explain the palpable area of concern indicated by the patient. These results were relayed to the patient on 2024 and she was advised to keep her follow-up appointment scheduled for today. Currently, she states that the left breast mass has moved but has not increased in size. She denies skin changes to the breast, nipple?discharge, or nipple inversion. She denies fever, chills, chest pain, shortness of breath, dyspnea on exertion, swelling in her extremities, cough, abdominal pain, bone pain, headaches, weakness or any other focal neurological symptoms.? Past Medical History: * Atrial fibrillation - on Eliquis * History of aortic aneurysm status post repair x2 * Hypertension? * Osteoarthritis * History of stroke * History of syncopal episodes * Stage llA left breast cancer? * Stage lA right breast cancer * Osteoporosis Past Surgical History*: * Aortic aneurysm status post repair x2 * Cholecystectomy? * Left breast ultrasound guided partial mastectomy and right sentinel lymph node biopsy, 05/18/2023 FORESTER AIDE History: Last menstrual period: 45 Menarche: 15 , first at 18 Contraceptive use: Denies She did breastfeed Hormone Replacement Therapy: For 1 year, not currently taking Medications: * Amlodipine Oral 2.5 mg tablet * Eliquis (Apixaban Oral) 5 mg tablet BID * Losartan Oral 25 mg tablet * Anastrozole Oral 1 mg tablet 1 tablet orally every day. * Lovastatin Oral 40 mg tablet * Nitrofurantoin Oral (12 hr Macrocrystal form) * Pacerone (Amiodarone Oral) 100 mg tablet * Sertraline Oral 25 mg tablet Medications reviewed and reconciled with patient. Allergies: No known medication allergies Social History: Occupation: She is currently retired. She is a and lives with her son and [id number]. Her son accompanies her today.? Tobacco use: Never smoker? Alcohol: Denies Illicit drug use: Denies Family History*: Non-contributory ROS: GENERAL: No fatigue, weight changes, fevers, chills, hot flashes, or night sweats. EYES: No vision changes, eye pain, or tearing. E/N/M/T: No dental problems, bleeding gums, nosebleeds, mouth sores, sore throat. CARDIOVASCULAR: No chest pain, shortness of breath, dyspnea on exertion, heart palpitations, or swelling in lower extremities. RESPIRATORY: No cough, wheezing, hemoptysis, or pain with deep inspiration. GASTROINTESTINAL: No nausea, vomiting, diarrhea, constipation, abdominal pain, blood in stool, difficulty swallowing, or recent changes in bowel patterns. GENITOURINARY:?No urgency, frequency, urinary incontinence, painful urination, blood in urine, or lack of urine. MUSCULOSKELETAL: No joint pain, limitation of motion, muscle cramps, or weakness.? No neck pain,stiffness, or tenderness. SKIN: No rash, lesions, itching, changes in moles. BREASTS: Positive for left breast lump. ?No pain, swelling, tenderness, skin or nipple changes, or nipple discharge. NEUROLOGIC: No headaches, weakness, numbness, vision changes, gait or coordination abnormalities, or other focal neurological symptoms. PSYCHIATRIC: No anxiety, depression. ENDOCRINE: No diabetes, anemia, or thyroid problems. HEME/LYMPH: No easy bruising, bleeding. No enlarged lymph nodes. ALLERGY/IMMUNOLOGY: No history of serious allergies or recurrent infections. Vitals: Height: 64 in; Weight: 131 lb; Blood pressure: 161/55, Pulse: 61, Temperature: 97.8 F, Respirations: 18, Pain Scale: 0 Karnofsky: 40% (Date: 05/28/2023) Physical Exam: GENERAL: Patient is comfortable sitting in her wheelchair. No acute distress. EYES: Conjunctiva and eyelids appear normal. Sclerae anicteric.? NECK: Supple, trachea mid-line. RESPIRATORY: Clear to auscultation bilaterally with normal respiratory effort.? CARDIOVASCULAR: RRR, normal S1, S2.? ABDOMEN: Soft, non-tender. MUSCULOSKELETAL: Full range of motion throughout. SKIN: No lesions or rashes appreciated.? NEURO: Grossly non-focal motor and sensory exam.? PSYCH: Alert and oriented x 3. Normal mood and affect.? LYMPH NODES: Examination focused on breast regional nikos basins. Right: No supraclavicular, infraclavicular, or axillary adenopathy appreciated.? Left: ? No supraclavicular, infraclavicular, or axillary adenopathy appreciated. CHEST (BREASTS): Exam was conducted in the sitting and supine position with the arm raising maneuver. The patient has a well-healed surgical scar on the left breast. There is a freely mobile mass appreciated at the?2 o'clock position of the left breast, measuring approximately 4 cm in size. There are no dominant suspicious masses appreciated in the right breast. There are no suspicious skin lesions. There is no nipple ulceration or inversion noted bilaterally. Labs: Lab Results 03/31/2024 05/18/2023 05/13/2023 05/10/2023 04/11/2004/01/2023 CBC WBC x 10^3/uL 3.5 (L) RBC x 10^6/uL 3.50 (L) NRBC, absolute, x 10^3/uL 0.00 NRBC % /100 wbc 0.00 HGB g/dL 11.7 (L) HCT % 33.7 (L) MCV fL 96 MCH pg 33.4 (H) MCHC g/dL 34.7 RDW % 12.9 PLT x 10^3/uL 115 (L) MPV fL 9.2 (L) Flores % 56.9 LY % 26.4 MO % 13.5 (H) EO % 2.6 IG % 0.3 Flores # (ANC) x 10^3/uL 2.0 BA % 0.3 MO # x 10^3/uL 0.5 EO # x 10^3/uL 0.1 BA # x 10^3/uL 0.0 IG # x 10^3/uL 0.01 LY # x 10^3/uL 0.9 (L) Chemistries Glucose mg/dL 94 BUN mg/dL 16 Creatinine mg/dL 0.9 BUN/Creatinin e ratio 17.78 Sodium mmol/L 131 (L) Potassium mmol/L 4.4 Chloride mmol/L 97 CO2 mmol/L 29 Calcium mg/dL 8.9 Albumin g/dL 3.6 Total protein g/dL 7.3 Bilirubin, total mg/dL 0.9 Alkaline phosphatase U/L 71 AST/SGOT U/L 28 ALT/SGPT U/L 20 Immunology Hepatitis Be antibody, qual NONREACTIVE Hepatitis Be antigen NONREACTIVE Pathology/Cyt ology Pathology report See attached See attached; See attached See attached; See attached Lab - Other Lab Report See attached See attached; See attached See attached Imagin02/20/2023, Left breast complete ultrasound: IMPRESSION: HIGHLY SUGGESTIVE OF MALIGNANCY There is a mass with a spiculated margin in the left breast at 10 o'clock posterior depth 6 cm fromthe nipple. This mass is hypoechoic. This correlates as palpated. Findings are highly suggestive ofmalignancy. There also is an echogenic mass in the left breast at 10 o'clock posterior depth 10 cm from the nipple, most compatible with post op changes from open heart surgery. For completeness, mammogram of both breasts is advised. (Pt reports is has been a long time since last mammogram. No mammogram performed or contralateral ultrasound performed per policy; as no order was available from referring physician.) BI-RADS 4/5 Ultrasound BI-RADS: 5 Highly suggestive of malignancy 03/14/2023, Bilateral diagnostic mammogram: IMPRESSION: HIGHLY SUGGESTIVE OF MALIGNANCY A 2.2 cm irregular mass in the left breast 10 o'clock posterior depth is highly suggestive of malignancy. BI-RADS 4/5 Mammogram BI-RADS: 5 Highly suggestive of malignancy 04/11/2023: PET CT scan at [facility].? IMPRESSION: 1. FDG avid mass in the left breast, representing the patient's biopsy- proven left breast cancer. 2. No definite suspicious FDG avid left sided lymphadenopathy identified, 3. Focal FDG uptake in the right internal mammary/right anterior costochondral junction region, which is indeterminant. No corresponding soft tissue nodule seen on CT imaging. This focal FDG uptake could be post-traumatic/secondary to underlying fracture or degenerative. Possibility of an FDG avid small metastatic right internal mammary lymph node is not excluded. A dedicated CT of the chest with contrast or right breast/nikos basin ultrasound can be performed for further evaluation. Extremely close attentionon follow-up studies is also recommended. 4. No findings of FDG avid metastatic disease in the abdomen or pelvis. 5. Multiple areas of FDG uptake associated with the patient's extensive thoracic aortic aneurysm repair are likely postsurgical or possibly inflammatory. Correlate clinically. 05/03/2023: Ultrasound of the Right Breast and Axilla at [facility].? IMPRESSION: SUSPICIOUS OF MALIGNANCY RECOMMENDATION: The 6 mm irregular mass in the right breast isat a moderate suspicion for malignancy. An ultrasound guided biopsy is recommended. There is no suspicious finding in the right internal mammary nikos basin to correlate with recent PET CT finding inthis region. 09/03/2023: DEXA scan at [facility].? IMPRESSION: OSTEOPOROSIS Patient is at high risk for fracture. The NOF recommends that FDA-approved medical therapies be considered in post- menopausal women and men age >1= 50 years with a: * Hip or vertebral fracture, or * 1- score of <1= - 2.5 (osteoporosis) at the spine or hip, or * Ten-year fracture probability by FRAX of: * >I= 20% for major osteoporotic fractures or * >1= 3% for hip fractures 02/24/2024: Bilateral diagnostic mammogram at [facility]: IMPRESSION: KNOWN- BIOPSY- PROVEN MALIGNANCY. Interval postsurgical changes of left lumpectomy. A core biopsy marker in the right breast at the 12:00 axis, middle depth marking the site of invasive carcinoma of the right breast. 02/24/2024: Ultrasound of the bilateral breast at [facility]: IMPRESSION: SUSPICIOUS No significant change in a 6 mm mass in the right breast at the 12 o'clock axis, consistent with the known area of malignancy. The 1.4 cm mass in the left breast at 2 o'clock is suspicious of malignancy. An ultrasound guided biopsy is recommended. 07/13/2024: Left breast ultrasound at [facility]: IMPRESSION: BIRADS-2 Benign. Nosuspicious sonographic abnormality to explain the palpable area of concern. Pathology: 03/14/2023, [facility], Pathology report: Diagnosis Left breast at 10:00, 6 cm from the nipple, ultrasound-guided core needle biopsy: ?-INVASIVE DUCTAL CARCINOMA, NUCLEAR GRADE 2-3. See note. Addendum Diagnosis Left breast at 10:00, 6 cm from the nipple, ultrasound-guided core needle biopsy: - Estrogen receptor negative, progesterone receptor negative, HER2 negative by paraffin section immunohistochemistry (see predictive markers and blomarker reporting template) PREDICTIVE MARKERS: RESULTS: ESTROGEN RECEPTOR: Intensity score 0 Proportion score 0 Total score 0 PROGESTERONE RECEPTOR: Intensity score 0 Proportion score 0 Total score 0 HER2 IMMUNOHISTOCHEMISTRY: Score 0: Membrane staining that is incomplete and is faint/barely perceptible and within <10% oftumor cells. BREAST BIOMARKER REPORTING TEMPLATE: RESULTS Estrogen Receptor Negative ?Internal control cells are present and stain as expected Progesterone Receptor Negative ?Internal control cells are present and stain as expected HER2 negative 05/10/2023: Pathology at [facility]. Diagnosis Breast, right, 12 o'clock - 4 cm from the nipple, ultrasound guided needle core biopsy: -INVASIVE DUCTAL CARCINOMA, NUCLEAR GRADE 1, BURTON GRADE 1 05/10/2023: Addendum Addendum Diagnosis Breast, right, 12 o'clock - 4 cm from the nipple, ultrasound- guided needle core biopsy: - Estrogen receptor positive, progesterone receptor negative, HER2 negative by paraffin section immunohistochemistry Addendum Report Estrogen receptor positive greater than 90% Progesterone receptor negative 0? HER2 negative 0%,? 03/31/2024: Ultrasound-guided core needle biopsy of the left breast: Breast, left, 2 o'clock position 4 cm from nipple, ultrasound-guided core needle biopsy: -Breast parenchyma with stromal fibrosis and fat necrosis -Focal microcalcifications associated with benign breast elements -Negative for atypia and malignancy Problem List: * Breast cancer, female ( ICD-10:C50.212 ;Malignant neoplasm of upper-inner quadrant of left female breast ) * Aortic aneurysm (disorder) * Atrial fibrillation (disorder) * Benign essential hypertension (disorder) * Estrogen receptor negative status [ER-] ( ICD-10:Z17.1 ;Estrogen receptor negative status [ER-] ) * H/O: CVA * Osteoarthritis * Postmenopausal osteoporosis (disorder) * Postmenopausal state (finding) ( ICD-10:Z78.0 ;Asymptomatic menopausal state ) * Reduced mobility Impression: Ms. 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 ?05/18/2023: Left breast ultrasound-guided partial mastectomy and left sentinel lymph node biopsy: Invasive ductal carcinoma, Seattle grade 3, surgical margins uninvolved, 5 sentinel sentinel lymph nodes negative for metastatic carcinoma, pT2 ?pN0(sn), stage llA.? 08/08/2023- 08/29/2023: Completed adjuvant radiation therapy under the care of Dr. Ryan Herbert for her left breast cancer.? 09/25/2023: Initiated daily anast rozole.? Plan: * Left breast cancer: Clinically, there is no current concern for new or recurrent breast cancer at today's visit. She completed a diagnostic mammogram and ultrasound of the bilateral breast on 02/24/2024 at [facility]. ?There was no significant change in the 6 mm mass in the right b reast at the 12:00 axis, consistent with the known area of malignancy. ?There was a 1.4 cm hypoechoic mass in the left breast at the 2 o'clock position, 4 cm from the nipple. The patient proceededwith an ultrasound-guided core needle biopsy to the left breast on 03/31/2024, which revealed stromal fibrosis, fat necrosis, and focal microcalcifications associated with benign breast elements. ?Overall, negative for atypia or malignancy. ?She reported left lateral breast lump on 07/09/2024 and proceeded with a repeat left breast ultrasound on 07/13/2024. ?No suspicious sonographic abnormality identified to explain the palpable area of concern. Today, there?is a freely mobile mass appreciated at the?2 o'clock position of the left breast, measuring approximately 4 cm in size - thiscorrelates to recent ultrasound results, which identified a previously biopsied mass?containing a clip in the left breast at 2:00,?suggestive of stromal fibrosis and fat necrosis.? She will continue daily?anastrozole?and routine surveillance visits. * Bone health:?Eugene?has placed the patient on monthly Boniva?+ calcium for osteoporosis management. Continue management with?Eugene. * Disposition: Diagnostic mammogram of the bilateral breast ordered today, for completion in February 2025. She will return here in 6 months for follow-up. She was instructed in the meantime to call withany questions or concerns prior to her return visit. . Michael Parry (PULP DRIER FIRER) KULDEEP, EDITORIAL CLERK, SENIOR DATA SCIENTIST-BC, AOCNP Send copy of note to: Dr. Rody Knight Electronically signed by Michael Parry (MORENA) KULDEEP, CHEKO, SENIOR DATA SCIENTIST-BC, AOHERMELINDAP 08/13/2024 11:52 RV SERVICE TECHNICIAN Reviewed and electronically signed by Mickie Portillo MD 08/13/2024 12:06 RV SERVICE TECHNICIAN * [place] [address] P: F: PATIENT: YOBANI PEREA : 1940 Date of Service: 02/20/2024 Chief Complaint: Ms. 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 Diagnosis*: * 03/14/2023: Invasive ductal carcinoma of the left breast at 10:00, 6 cm from the nipple, nuclear grade 2-3, estrogen receptor negative 0, progesterone receptor negative 0, HER2 0 by IHC, [id number], Stage llB. * 05/10/2023: Invasive ductal carcinoma of the right breast at 12:00, 4 cm from the nipple, Seattle grade 1, estrogen receptor positive greater than 90%, progesterone receptor negative 0% and HER2 negative 0 by IHC.? Treatment History*: * 05/18/2023: Left breast ultrasound-guided partial mastectomy and left sentinel lymph node biopsy: Invasive ductal carcinoma, Burton grade 3, surgical margins uninvolved, 5 sentinel sentinel lymphnodes negative for metastatic carcinoma, pT2 ?pN0(sn), stage llA. * 08/08/2023- 08/29/2023: Completed adjuvant radiation therapy under the care of Dr. Ryan Herbert for her left breast cancer. * 09/25/2023: Initiated daily anastrozole.? History of Present Illness: * 02/20/2023:?Complete ultrasound of the left breast and axilla identified a mass with a spiculated margin in the left breast at 10:00 posterior depth, 6 cm from the nipple correlating as palpated. Also a mass was identified in the left breast at 10:00, most compatible with postop changes from prior heart surgery.? * 03/14/2023:?Bilateral diagnostic mammogram at [facility] that identified a 2.2 cm irregular mass in the left breast at 10:00 posterior depth with benign calcifications in bothbreasts.? * 03/14/2023:?Ultrasound-guided core needle biopsy identified invasive ductal carcinoma, [place] grade 2-3, estrogen and progesterone receptor negative 0%, HER2 negative 0 by IHC. * 04/11/2023: PET CT scan [facility] with known left breast mass and focal FDG uptake in the right medial breast.? * 05/03/2023: Complete ultrasound of the right breast and axilla at [facility]. A 6 mm irregular mass with a non circumscribed margin identified in the right breast at 12:00 posterior depth, 4 cm from the nipple, hypoechoic. No significant abnormalities seen sonographically in the right axilla.? * 05/10/2023: Ultrasound-guided needle, core biopsy of the mass in the right breast at 12:00: Invasive ductal carcinoma, Burton grade 1, estrogen receptor positive greater than 90%, progesterone receptor negative 0%, HER2 negative 0 by IHC.? * 05/18/2023: Left breast ultrasound-guided partial mastectomy and left sentinel lymph node biopsy with Dr. Shilpa Kong: Invasive ductal carcinoma, Burton grade 3, 3.2 cm in greatest dimension, no definitive lymphovascular invasion, margins of resection negative, 5 sentinel lymph nodes negative for tumor (0/5), pT2 ?pN0(sn), stage llA. * 08/08/2023- 08/29/2023: Completed adjuvant radiation therapy under the care of Dr. Ryan Herbert for her left breast cancer. * 09/25/2023: Initiated daily anastrozole.? Interval History: Ms. 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 She reports UTI at today's visit. She is taking nitrofurantoin antibiotic once daily for her UTI. She and her son has seen Dr. Knight regarding bone protection therapy and was started on Boniva once a month. She denies fever, chills, chest pain, shortness of breath, dyspnea on exertion, swelling in her extremities, cough, abdominal pain, bone pain, headaches, weakness or any other focal neurological symptoms. She denies breast lumps, pain, swelling, skin or nipple changes or nipple discharge.? Past Medical History: * Atrial fibrillation - on Eliquis * History of aortic aneurysm status post repair x2 * Hypertension? * Osteoarthritis * History of stroke * History of syncopal episodes * Stage llA left breast cancer? * Stage lA right breast cancer * Osteoporosis Past Surgical History*: * Aortic aneurysm status post repair x2 * Cholecystectomy? * Left breast ultrasound guided partial mastectomy and right sentinel lymph node biopsy, 05/18/2023 FORESTER AIDE History: Last menstrual period: 45 Menarche: 15 , first at 18 Contraceptive use: Denies She did breastfeed Hormone Replacement Therapy: For 1 year, not currently taking Medications: * Losartan Oral 25 mg tablet * Sertraline Oral 25 mg tablet * Eliquis (Apixaban Oral) 5 mg tablet BID * Pacerone (Amiodarone Oral) 100 mg tablet * Lovastatin Oral 40 mg tablet * Anastrozole Oral 1 mg tablet 1 tablet orally every day. * Amlodipine Oral 2.5 mg tablet * Nitrofurantoin Oral (12 hr Macrocrystal form) Medications reviewed and reconciled with patient. Allergies: No known medication allergies Social History: Occupation: She is currently retired. She is a and lives with her son and [id number]. Her son accompanies her today.? Tobacco use: Never smoker? Alcohol: Denies Illicit drug use: Denies Family History*: Non-contributory ROS: GENERAL: No fatigue, weight changes, fevers, chills, hot flashes, or night sweats. EYES: No vision changes, eye pain, or tearing. E/N/M/T: No dental problems, bleeding gums, nosebleeds, mouth sores, sore throat. CARDIOVASCULAR: No chest pain, shortness of breath, dyspnea on exertion, heart palpitations, or swelling in lower extremities. RESPIRATORY: No cough, wheezing, hemoptysis, or pain with deep inspiration. GASTROINTESTINAL: No nausea, vomiting, diarrhea, constipation, abdominal pain, blood in stool, difficulty swallowing, or recent changes in bowel patterns. GENITOURINARY:?Positive for urinary infection.?No urgency, frequency, urinary incontinence, painful urination, blood in urine, or lack of urine. MUSCULOSKELETAL: No joint pain, limitation of motion, muscle cramps, or weakness.? No neck pain,stiffness, or tenderness. SKIN: No rash, lesions, itching, changes in moles. BREASTS: No breast lumps, pain, swelling, tenderness, skin or nipple changes, or nipple discharge. NEUROLOGIC: No headaches, weakness, numbness, vision changes, gait or coordination abnormalities, or other focal neurological symptoms. PSYCHIATRIC: No anxiety, depression. ENDOCRINE: No diabetes, anemia, or thyroid problems. HEME/LYMPH: No easy bruising, bleeding. No enlarged lymph nodes. ALLERGY/IMMUNOLOGY: No history of serious allergies or recurrent infections. Vitals: Height: 64 in; Weight: 135 lb; Blood pressure: 143/58, Pulse: 61, Temperature: 97.7 F, Respirations: 18, Pain Scale: 0 Physical Exam: GENERAL: Patient is comfortable sitting in her wheelchair. No acute distress. EYES: Conjunctiva and eyelids appear normal. Sclerae anicteric.? NECK: Supple, trachea mid-line. RESPIRATORY: Clear to auscultation bilaterally with normal respiratory effort.? CARDIOVASCULAR: RRR, normal S1, S2.? ABDOMEN: Soft, non-tender. MUSCULOSKELETAL: Full range of motion throughout. SKIN: No lesions or rashes appreciated.? NEURO: Grossly non-focal motor and sensory exam.? PSYCH: Alert and oriented x 3. Normal mood and affect.? LYMPH NODES: Examination focused on breast regional nikos basins. Right: No supraclavicular, infraclavicular, or axillary adenopathy appreciated.? Left: ? No supraclavicular, infraclavicular, or axillary adenopathy appreciated. CHEST (BREASTS): The left breast has a well-healed surgical scar. There are no dominant suspicious masses appreciated in either breast and there are no suspicious skin or nipple changes.? Imagin02/20/2023, Left breast complete ultrasound: IMPRESSION: HIGHLY SUGGESTIVE OF MALIGNANCY There is a mass with a spiculated margin in the left breast at 10 o'clock posterior depth 6 cm fromthe nipple. This mass is hypoechoic. This correlates as palpated. Findings are highly suggestive ofmalignancy. There also is an echogenic mass in the left breast at 10 o'clock posterior depth 10 cm from the nipple, most compatible with post op changes from open heart surgery. For completeness, mammogram of both breasts is advised. (Pt reports is has been a long time since last mammogram. No mammogram performed or contralateral ultrasound performed per policy; as no order was available from referring physician.) BI-RADS 4/5 Ultrasound BI-RADS: 5 Highly suggestive of malignancy 03/14/2023, Bilateral diagnostic mammogram: IMPRESSION: HIGHLY SUGGESTIVE OF MALIGNANCY A 2.2 cm irregular mass in the left breast 10 o'clock posterior depth is highly suggestive of malignancy. BI-RADS 4/5 Mammogram BI-RADS: 5 Highly suggestive of malignancy 04/11/2023: PET CT scan at [facility].? IMPRESSION: 1. FDG avid mass in the left breast, representing the patient's biopsy- proven left breast cancer. 2. No definite suspicious FDG avid left sided lymphadenopathy identified, 3. Focal FDG uptake in the right internal mammary/right anterior costochondral junction region, which is indeterminant. No corresponding soft tissue nodule seen on CT imaging. This focal FDG uptake could be post-traumatic/secondary to underlying fracture or degenerative. Possibility of an FDG avid small metastatic right internal mammary lymph node is not excluded. A dedicated CT of the chest with contrast or right breast/nikos basin ultrasound can be performed for further evaluation. Extremely close attentionon follow-up studies is also recommended. 4. No findings of FDG avid metastatic disease in the abdomen or pelvis. 5. Multiple areas of FDG uptake associated with the patient's extensive thoracic aortic aneurysm repair are likely postsurgical or possibly inflammatory. Correlate clinically. 05/03/2023: Ultrasound of the Right Breast and Axilla at [facility].? IMPRESSION: SUSPICIOUS OF MALIGNANCY RECOMMENDATION: The 6 mm irregular mass in the right breast isat a moderate suspicion for malignancy. An ultrasound guided biopsy is recommended. There is no suspicious finding in the right internal mammary nikos basin to correlate with recent PET CT finding inthis region. 09/03/2023: DEXA scan at [facility].? IMPRESSION: OSTEOPOROSIS Patient is at high risk for fracture. The NOF recommends that FDA-approved medical therapies be considered in post- menopausal women and men age >1= 50 years with a: * Hip or vertebral fracture, or * 1- score of <1= - 2.5 (osteoporosis) at the spine or hip, or * Ten-year fracture probability by FRAX of: * >I= 20% for major osteoporotic fractures or * >1= 3% for hip fractures Pathology: 03/14/2023, [facility], Pathology report: Diagnosis Left breast at 10:00, 6 cm from the nipple, ultrasound-guided core needle biopsy: ?-INVASIVE DUCTAL CARCINOMA, NUCLEAR GRADE 2-3. See note. Addendum Diagnosis Left breast at 10:00, 6 cm from the nipple, ultrasound-guided core needle biopsy: - Estrogen receptor negative, progesterone receptor negative, HER2 negative by paraffin section immunohistochemistry (see predictive markers and blomarker reporting template) PREDICTIVE MARKERS: RESULTS: ESTROGEN RECEPTOR: Intensity score 0 Proportion score 0 Total score 0 PROGESTERONE RECEPTOR: Intensity score 0 Proportion score 0 Total score 0 HER2 IMMUNOHISTOCHEMISTRY: Score 0: Membrane staining that is incomplete and is faint/barely perceptible and within <10% oftumor cells. BREAST BIOMARKER REPORTING TEMPLATE: RESULTS Estrogen Receptor Negative ?Internal control cells are present and stain as expected Progesterone Receptor Negative ?Internal control cells are present and stain as expected HER2 negative 05/10/2023: Pathology at [facility]. Diagnosis Breast, right, 12 o'clock - 4 cm from the nipple, ultrasound guided needle core biopsy: -INVASIVE DUCTAL CARCINOMA, NUCLEAR GRADE 1, BURTON GRADE 1 05/10/2023: Addendum Addendum Diagnosis Breast, right, 12 o'clock - 4 cm from the nipple, ultrasound- guided needle core biopsy: - Estrogen receptor positive, progesterone receptor negative, HER2 negative by paraffin section immunohistochemistry Addendum Report Estrogen receptor positive greater than 90% Progesterone receptor negative 0? HER2 negative 0%,? Problem List: * Breast cancer, female ( ICD-10:C50.212 ;Malignant neoplasm of upper-inner quadrant of left female breast ) * Aortic aneurysm (disorder) * Atrial fibrillation (disorder) * Benign essential hypertension (disorder) * Estrogen receptor negative status [ER-] ( ICD-10:Z17.1 ;Estrogen receptor negative status [ER-] ) * H/O: CVA * Osteoarthritis * Postmenopausal osteoporosis (disorder) * Postmenopausal state (finding) ( ICD-10:Z78.0 ;Asymptomatic menopausal state ) * Reduced mobility Impression: Ms. 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 ?05/18/2023: Left breast ultrasound-guided partial mastectomy and left sentinel lymph node biopsy: Invasive ductal carcinoma, [place] grade 3, surgical margins uninvolved, 5 sentinel sentinel lymph nodes negative for metastatic carcinoma, pT2 ?pN0(sn), stage llA.? 08/08/2023- 08/29/2023: Completed adjuvant radiation therapy under the care of Dr. Ryan Herbert for her left breast cancer.? 09/25/2023: Initiated daily anast rozole.? Plan:* Left breast cancer: Clinically, there is no current concern for new or recurrent breast cancer at today's visit. She will continue daily anastrozole. * Bone health:?Eugene?has placed the patient on monthly Boniva?+ calcium for osteoporosis management. Continue management with?Eugene. * Disposition: She states she already has her mammogram?scheduled for 02/24/2024. She will return here in 6 months for follow-up. She was instructed in the meantime to call with any questions or concerns prior to her return visit. . ?Documentation assistance provided by elia Mulligan for Mickie Portillo MD, on 02/20/2024. Yuli Higginbotham Paula MD, personally performed the services described in this documentation, and it is both accurate and complete. ? [facility] Send copy of note to: Dr. Rody Knight . . . Electronically signed by Mickie Portillo MD 02/21/2024 14:46 CDT
--- OUTSIDE RECORDS SUMMARY | 2025-01-03 18:01 | XMS_ITS ---
Author Name Interface, [id number] lity Address [place] [address] [facility] Address [place] [address] Allergies and Adverse Reactions Medication/Group Name Reaction Severity Date No known allergies Plan Date Type Value 03/09/2025 APPOINTMENT 1YR 02/25/2025 APPOINTMENT YULI 6M 12/09/2024 APPOINTMENT 1YR 08/13/2024 APPOINTMENT 6MO FU 08/13/2024 APPOINTMENT 6MO FU 02/20/2024 APPOINTMENT 4MO FU 12/10/2023 APPOINTMENT 6MO FU 12/10/2023 LABORDER Mammogram, diagn ostic, bilateral breast 04/14/2024 LABORDER U/S breast, left 07/09/2024 LABORDER U/S breast, left 08/09/2024 LABORDER Mammogram, diagn ostic, bilateral breast w/ U/S if needed Reason for Visit 1YR Encounters Date Name 12/10/2023 Breast cancer, femal e Diagnostic Results Date Type Test Units Lower Limit Upper Limit Result Flag Comments Status Ordered By Specimen Source Lab Address 02/23 Mammo graph y See information receptionist d 02/23 Ultra sound resul ts See information receptionist d 03/31 Biops y (proc edure ) See information receptionist d 03/31 Patho logy repor t See information receptionist d 07/13 Ultra sound resul ts See information receptionist d Medications Date Name Route Dose Frequency [...] (disorder) Active Vital Signs Date Type Value 12/10/2023 Pain Scale 0.00 12/10/2023 Body Temperature 96.50 12/10/2023 Heart Beat 59.00 12/10/2023 Respiratory Rate 18.00 12/10/2023 BSA 1.64 12/10/2023 Intravascular Systolic 158 12/10/2023 Intravascular Diastolic 71 12/10/2023 Weight 133.00 12/10/2023 Height 64.00 12/10/2023 BMI 22.83 12/10/2023 Oxygen Saturation 98.00 02/20/2024 BSA 1.66 02/20/2024 BMI 23.17 02/20/2024 [...] 08/13/2024 Intravascular Diastolic 55 Notes Section * Hook - Established Cancer Visit [address] [address] P: PATIENT:??YOBANI PEREA :??1940 Date of Service:??12/10/[address] Knight Chief Complaint Ms. Perea is here??for 6 month follow up after left ultrasound-guided partial mastectomy with sentinel lymph node biopsy on 05/18/2023??for left??breast cancer.?? HPI She reports no new breast issues. She completed radiation in August of 2023 and began Anastrozolein September of 2023. She reports no changes to her overall health. Care Coordination Last Breast Imaging and Results: ??No new breast imaging?? Review of Systems General: denies chills, fatigue, night sweats, significant weight gain or loss. Skin: no bruising, rashes or color changes. HEENT: no headaches, hearing changes, vision changes or sore throat. Neck: no masses, lumps or swollen glands. Cardiovascular: no chest pain, irregular or rapid heart beat, no swelling of extremities. Respiratory: no chronic cough, shortness of breath or wheezing. Gastrointestinal: no abdominal pain, change in bowel habits, constipation or diarrhea, no nausea orvomiting. Musculoskeletal: no bone, muscle or joint pain. Psychiatric: no anxiety, depression, insomnia or panic attacks. Endocrine: no heat or cold intolerance, hair changes, hot flashes or libido changes. Hematology: No anemia, easy bruising, prolonged bleeding, enlarged lymph nodes or nose bleeds. Neurologic: no numbness, weakness or tremors. Female Genitourinary: no abnormal vaginal bleeding, menstrual irregularities, pelvic pain or urinary complaints. Other symptoms: none. Physical Exam General Appearance: no apparent distress, appropriate affect Head: normocephalic, atraumatic with moist mucous membranes Neck: soft, supple with midline trachea, no thyromegaly Respiratory: no audible wheezing or respiratory distress Right breast:??There are no dominant suspicious palpable masses or nodules, skin changes, nipple lesions, nipple inversion/retraction, or nipple discharged expressed on exam. Left breast:??Well-healed surgical scar.??There are no dominant suspicious palpable masses or nodules, skin changes, nipple lesions, nipple inversion/retraction, or nipple discharged expressed on exam. Lymphatic: no pre-cervical, supraclavicular or axillary lymphadenopathy Upper Extremities: equal size and circumference with no edema, full range of motion Lower Extremities: no edema Skin: no rashes Assessment This is a 83-year old woman with history of left breast cancer s/p left ultrasound-guided partial mastectomy with sentinel lymph node biopsy on 05/18/2023. Based on my clinic exam, I have no current concerns for recurrence. We discussed signs and symptoms of recurrence and when to alert the office.?? Patient will be due for bilateral mammogram in March of 2024, which I have ordered today.?I will see her back in 12??months for a clinical breast exam and imaging review. She knows to call with questions of concerns in the interim. Plan Bilateral diagnostic mammogram with u/s if indicated in March 2024 RTC in 12 months for CBE and imaging review . Luh Dasilva MSN, CISSP, APARTMENT ASSISTANT MANAGER-C, OCN ? Send copy of note to: Dr. Rody Knight . . . Electronically signed by Luh Dasilva MSN, CISSP, APARTMENT ASSISTANT MANAGER-C, OCN 12/10/2023 15:26 CDT Reviewed and electronically signed by Shilpa Kong MD 12/10/2023 16:13 CDT * Nurse Note for: 13-AUG-24 [facility] Nurse Note Print Location: Unknown Date/Time Printed: 01/03/2025 18:00 ([facility]) Patient: YOBANI PEREA Sex: Female : 1940 [...] 97 (%) . Entered by Scarlet Cuellar [facility] 08/13/2024 11:24 Time: 02:00. Pain Scale: 0. Entered by Scarlet Cuellar [facility] 08/13/2024 11:23 Patient Assessment : Negative results [...] , Bleeding . Entered By Scarlet Cuellar CMA on 11:23 * Nurse Note for: 20-FEB-24 [facility] Nurse Note Print Location: Unknown Date/Time Printed: 01/03/2025 18:00 ([facility]) Patient: YOBANI PEREA Sex: Female : 1940 [...] 97 (%) . Entered by Scarlet Cuellar CMA 02/20/2024 15:50 Time: 02:00. Pain Scale: 0. Entered by Scarlet Cuellar CMA 02/20/2024 15:48 Patient Assessment : Positive results [...] Constipation , Bleeding. Entered By Scarlet Cuellar CMA on 15:48 * Nurse Note for: 10-DEC-23 [facility] Nurse Note Print Location: Unknown Date/Time Printed: 01/03/2025 18:00 ([facility]) Patient: YOBANI PEREA Sex: Female : 1940 [...] Saturation: 98 (%) . Entered by Katiuska Plasencia Assistant II12/10/2023 15:04 Patient Assessment : Positive results Assessment [...] Changes , Bleeding . Entered By Katiuska Plasencia Assistant II on 15:04
--- OUTSIDE RECORDS SUMMARY | 2025-01-03 18:01 | XMS_ITS | Encounter Summary ---
Author Organization [facility] Address [address] [place] [address] Care Team Providers Care Grant Administrator Name Role Phone Emanuel Reyes DO Primary Care Provide r Encounter Details Date Type Department Care Team (Latest Contact Info) Description 08/20/2006 Outpatient Historical 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
--- OUTSIDE RECORDS SUMMARY | 2025-01-03 18:01 | XMS_ITS | Encounter Summary ---
Author Organization [facility] Address [address] [place] [address] Care Team Providers Care Social Scientist Name Role Phone Emanuel Reyes DO Primary Care Provide r Encounter Details Date Type Department Care Team (Latest Contact Info) Description 05/02/2005 Outpatient Historical [facility] Thoracic [facility] [place] [address] [place] [phone] Ryan Espinosa MD NO ADDRESS ON FILE DISSECTING THORACIC AORTIC ANEUR (CMS/HCC) (Primary Dx); Thoracic aortic aneurysm Social History Tobacco Use Types Packs/Day Years Used Date Smoking Tobacco: Never Assessed Comments Unknown Sex and Gender Information Value Date Recorded Sex Assigned at Not on file 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 Gender Identity Not on file Sexual Orientation Not on file documented as of this encounter Plan of Treatment Not on file documented as of this encounter Visit Diagnoses Diagnosis Dissection of aorta, thoracic (CMS/HCC)- Primary Dissection of aorta, thoracic Thoracic aortic aneurysm Thoracic aneurysm without mention of rupture documented in this encounter Care Teams Social Scientist Relationship Specialty Start Date End Date Emanuel Reyes DO [address] [facility] [address] [place] [address] PCP - General Internal Medicine 03/02/16 documented as of this encounter
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
--- OUTSIDE RECORDS SUMMARY | 2025-01-03 18:01 | XMS_ITS | Encounter Summary ---
Author Organization [facility] Address [address] [place] [address] Care Team Providers Care Floriculture Teacher Name Role Phone Emanuel Reyes DO Primary Care Provide r Encounter Details Date Type Department Care Team (Latest Contact Info) Description 01/13/2007 Outpatient Historical [facility] Medicine [place] [address] [place] [phone] Destiny Haas, [facility] [address] [phone] Other and Unspecified Hyperlipidemia (Primary Dx) Social History Tobacco Use Types Packs/Day Years Used Date Smoking Tobacco: Never Assessed Comments Unknown Sex and Gender Information Value Date Recorded Sex Assigned at Not on file Legal 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
--- OUTSIDE RECORDS SUMMARY | 2025-01-03 18:01 | XMS_ITS ---
Author Name Interface, [id number] lity Address [place] [address] [facility] Address [place] [address] Allergies and Adverse Reactions Medication/Group Name Reaction Severity Date No known allergies Plan Date Type Value 03/09/2025 APPOINTMENT 1YR 02/25/2025 APPOINTMENT YULI 6M 12/09/2024 APPOINTMENT 1YR 08/13/2024 APPOINTMENT 6MO FU 08/13/2024 APPOINTMENT 6MO FU 02/20/2024 APPOINTMENT 4MO FU 12/10/2023 APPOINTMENT 6MO FU 11/29/2023 APPOINTMENT Follow-Up 11/26/2023 APPOINTMENT Follow-Up 11/21/2023 APPOINTMENT 6MO FU 10/31/2023 APPOINTMENT 4mo fu 10/03/2023 APPOINTMENT 4mo fu 08/29/2023 APPOINTMENT VMAT/IMRT Daily Treatment 08/29/2023 APPOINTMENT VMAT/IMRT Final Treatment 08/28/2023 APPOINTMENT VMAT/IMRT Daily Treatment 08/28/2023 APPOINTMENT VMAT/IMRT Daily Treatment 08/28/2023 APPOINTMENT VMAT/IMRT Daily Treatment 08/28/2023 APPOINTMENT VMAT/IMRT Daily Treatment 08/27/2023 APPOINTMENT VMAT/IMRT Daily Treatment 08/27/2023 APPOINTMENT VMAT/IMRT Daily Treatment 08/27/2023 APPOINTMENT VMAT/IMRT Daily Treatment 08/26/2023 APPOINTMENT VMAT/IMRT Daily Treatment 08/26/2023 APPOINTMENT VMAT/IMRT Daily Treatment 08/26/2023 APPOINTMENT VMAT/IMRT Daily Treatment 08/23/2023 APPOINTMENT VMAT/IMRT Daily Treatment 08/23/2023 APPOINTMENT VMAT/IMRT Daily Treatment 08/23/2023 APPOINTMENT VMAT/IMRT Daily Treatment 08/22/2023 APPOINTMENT VMAT/IMRT Daily Treatment 08/22/2023 APPOINTMENT VMAT/IMRT Daily Treatment 08/21/2023 APPOINTMENT VMAT/IMRT Daily Treatment 08/21/2023 APPOINTMENT VMAT/IMRT Daily Treatment 08/20/2023 APPOINTMENT VMAT/IMRT Daily Treatment 08/20/2023 APPOINTMENT VMAT/IMRT Daily Treatment 08/19/2023 APPOINTMENT VMAT/IMRT Daily Treatment 08/19/2023 APPOINTMENT VMAT/IMRT Daily Treatment 08/16/2023 APPOINTMENT VMAT/IMRT Daily Treatment 08/16/2023 APPOINTMENT VMAT/IMRT Daily Treatment 08/15/2023 APPOINTMENT VMAT/IMRT Daily Treatment 08/15/2023 APPOINTMENT VMAT/IMRT Daily Treatment 08/15/2023 APPOINTMENT VMAT/IMRT Daily Treatment 08/14/2023 APPOINTMENT VMAT/IMRT Daily Treatment 08/14/2023 APPOINTMENT VMAT/IMRT Daily Treatment 08/13/2023 APPOINTMENT VMAT/IMRT Daily Treatment 08/13/2023 APPOINTMENT VMAT/IMRT Daily Treatment 08/13/2023 APPOINTMENT VMAT/IMRT Daily Treatment 08/12/2023 APPOINTMENT VMAT/IMRT Daily Treatment 08/12/2023 APPOINTMENT VMAT/IMRT Daily Treatment 08/09/2023 APPOINTMENT VMAT/IMRT Daily Treatment 08/08/2023 APPOINTMENT VMAT/IMRT New St art 08/08/2023 APPOINTMENT VMAT/IMRT New St art 08/06/2023 APPOINTMENT Dosimetry Charge Capture 07/18/[address] Simulation 07/09/[address] Simulation 07/09/[address] Simulation 07/09/[address] Simulation 07/09/[address] Simulation 06/25/2023 APPOINTMENT Consult 05/28/2023 APPOINTMENT Est Post op F/U (Hook) 05/28/2023 APPOINTMENT HOOK POST OP 05/28/2023 APPOINTMENT HOOK POST OP 08/28/2023 LABORDER DEXA scan 12/10/2023 LABORDER Mammogram, diagn ostic, bilateral breast 04/14/2024 LABORDER U/S breast, left 07/09/2024 LABORDER U/S breast, left 08/09/2024 LABORDER Mammogram, diagn ostic, bilateral breast w/ U/S if needed Reason for Visit 1YR Encounters Date Name 05/28/2023 Breast cancer, femal e 05/28/2023 Postmenopausal osteo porosis (disorder) 05/28/2023 Postmenopausal state (finding) Diagnostic Results Date Type Test Units Lower Limit Upper Limit Result Flag Comments Status Ordered By Specimen Source Lab Address 09/03 Bone Densi tomet ry See lathe setup operator d 02/23 Mammo graph y See lathe setup operator d 02/23 Ultra sound resul ts See lathe setup operator d 03/31 Biops y (proc edure ) See lathe setup operator d 03/31 Patho logy repor t See lathe setup operator d 07/13 Ultra sound resul ts See lathe setup operator d Medications Date Name Route Dose [...] (disorder) Active Vital Signs Date Type Value 05/28/2023 Oxygen Saturation 99.00 05/28/2023 BSA 1.66 05/28/2023 Heart Beat 61.00 05/28/2023 Body Temperature 97.70 05/28/2023 Pain Scale 0.00 05/28/2023 Respiratory Rate 16.00 05/28/2023 BMI 23.17 05/28/2023 Height 64.00 05/28/2023 Weight 135.00 05/28/2023 Intravascular Systolic 152 05/28/2023 Intravascular Diastolic 52 06/25/2023 Intravascular Systolic 181 06/25/2023 Intravascular Diastolic 66 06/25/2023 Weight 135.00 06/25/2023 Height 64.00 06/25/2023 BMI 23.17 06/25/2023 Pain Scale 0.00 06/25/2023 Oxygen Saturation 98.00 06/25/2023 Respiratory Rate 16.00 06/25/2023 Heart Beat 62.00 06/25/2023 Body Temperature 97.70 06/25/2023 BSA 1.66 08/21/2023 BSA 1.64 08/21/2023 BMI 22.83 08/21/2023 Height 64.00 08/21/2023 Pain Scale 0.00 08/21/2023 Weight 133.00 08/28/2023 Pain Scale 0.00 08/28/2023 Height 64.00 10/31/2023 Heart Beat 61.00 10/31/2023 Respiratory Rate 16.00 10/31/2023 Oxygen Saturation 97.00 10/31/2023 Weight 132.00 10/31/2023 Height 64.00 10/31/2023 BMI 22.66 10/31/2023 BSA 1.64 10/31/2023 Body Temperature 97.40 10/31/2023 Pain Scale 0.00 10/31/2023 Intravascular Systolic 156 10/31/2023 Intravascular Diastolic 69 11/29/2023 Body Temperature 97.70 11/29/2023 Heart Beat 57.00 11/29/2023 Respiratory Rate 16.00 11/29/2023 Oxygen Saturation 97.00 11/29/2023 Intravascular Systolic 164 11/29/2023 Intravascular Diastolic 71 11/29/2023 Weight 130.60 11/29/2023 Height 64.00 11/29/2023 BMI 22.42 11/29/2023 BSA 1.63 11/29/2023 Pain Scale 0.00 12/10/2023 Pain Scale 0.00 12/10/2023 Body Temperature [...] Diastolic 55 Notes Section * Hook - Cancer Post Op [address] [place] [address] P: PATIENT:??YOBANI PEREA :??1940 Date of Service:??05/28/2023 POSTOPERATIVE NOTE Reason for Visit: She is status post left ultrasound-guided partial mastectomy with sentinel lymph node biopsy on 05/18/2023.?? Subjective: Patient reports 0/10 pain and is only using Tylenol. She denies fever, chills, or drainage from thewound, but does report some significant bruising to the left breast. Vital Signs: Height 64 in; Weight 135 lb; Blood pressure: 152/52, Pulse: 61, Temperature: 97.7 F, Respirations: 16, Pain Scale: 0; Karnofsky 40% (Date: 05/28/2023) Physical Exam: Left breast incision is clean, dry, and intact with no signs of clinically significant hematoma or seroma. She does have significant bruising. Left axillary incision is clean, dry, and intact with no signs of hematoma or seroma. Diagnostic Data: 05/18/2023, [facility], Pathology report: Diagnosis 1. Breast, left, ultrasound-guided partial mastectomy: ? 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 HISTOLOGIC GRADE 3, MEASURING 3.2 CM IN GREATEST DIMENSION (SEE COMMENT AND TUMORSUMMARY) ? - DUCTAL CARCINOMA IN SITU (DCIS), NUCLEAR GRADE 3, SOLID PATTERN WITH COMEDO NECROSIS AND RARE ASSOCIATED CALCIFICATIONS ? - NO definitive lymphovascular invasion identified ? - Margins of resection, NO direct involvement by invasive carcinoma or DCIS ?- Invasive carcinoma is 1 mm away from the closest posterior/deep specimen margin ?- DCIS is 1 mm away from the closest anterior/superficial specimen margin and at least 2 mm away from remaining specimen margins (please see part 3 for further evaluation) ?- Clip and prior biopsy site changes identified ?- Scant skeletal muscle; NO involvement by invasive carcinoma identified 2. [place] lymph nodes, left axilla, designated as #1, #2, #3, and #4, excisional biopsy: - Five lymph nodes, NO metastatic carcinoma identified on H&E and AE1/AE3 im munostain (0/5) 3. Skin, left breast, designated as over tumor, excision: ?- Skin and cutaneous tissue without histopathologic abnormality; NO epithelial dysplasia, pagetoid extension of carcinoma in situ, or malignancy identified TUMOR Histologic type: Invasive carcinoma of no special type (ductal) Histologic grade (Sonam Histologic Score) ?? Sonam score ?Glandular (acinar)/tubular differentiation: Score 3 ?Nuclear pleomorphism: Score 3 ?Mitotic rate: Score 3 ?Overall grade: Grade 3 Impression: 83-year-old female status post left ultrasound-guided partial mastectomy with sentinel lymph node biopsy on 05/18/2023.?? Plan: The pathology report was given to the patient and reviewed in detail. The pathologic stage is [id number], Stage IIA. ??This is different from her initial clinical stage. ??We discussed that she has negative margins and negative nodes, I feel that her surgical treatment is complete. ??She will return to see Dr. Portillo to discuss adjuvant treatment including radiation. Continue her arm exercises. ??She does??need a PT referral. No new medications prescribed. She will follow up in 6 months. , Documentation assistance provided by Olegario rodrigez for Shilpa Kong MD, on 05/28/2023.?? I, ??Shilpa Kong MD, personally performed the services described in this documentation, and it is both accurate and complete. Shilpa Kong MD [facility] Send copy of note to: Dr. Rody Portillo . Electronically signed by Shilpa Kong MD 06/04/2023 18:02 [employer] * Nurse Note for: 13-AUG-24 [facility] Nurse Note Print Location: Unknown Date/Time Printed: 01/03/2025 18:01 ([facility]) Patient: YOBANI PEREA Sex: Female : 1940 [...] 97 (%) . Entered by Scarlet Cuellar [facility] 08/13/2024 11:24 Time: 02:00. Pain Scale: 0. Entered by Scarlet Cuellar [facility] 08/13/2024 11:23 Patient Assessment : Negative results [...] , Bleeding . Entered By Scarlet Cuellar [facility] on 11:23 * Nurse Note for: 20-FEB-24 [facility] Nurse Note Print Location: Unknown Date/Time Printed: 01/03/2025 18:01 ([facility]) Patient: YOBANI PEREA Sex: Female : 1940 [...] on 15:48 * Nurse Note for: 10-DEC-23 [facility] Nurse Note Print Location: Unknown Date/Time Printed: 01/03/2025 18:01 ([facility]) Patient: YOBANI PEREA Sex: Female : 1940 [...] 98 (%) . Entered by Katiuska Lau Geodetic Technician II12/10/2023 15:04 Patient Assessment : Positive results [...] , Bleeding . Entered By Katiuska Lau Geodetic Technician II on 15:04 * Nurse Note for: 29-NOV-23 [facility] Nurse Note Print Location: Unknown Date/Time Printed: 01/03/2025 18:01 ([facility]) Patient: YOBANI PEREA Sex: Female : 1940 [...] 97 (%) at rest. Entered by Tiffanie West CMA/ZOHRA 11/29/2023 15:12 Time: 02:00. Pain Scale: 0. Entered by Tiffanie West CMA/ZOHRA 11/29/2023 15:10 Patient Assessment : Positive results [...] Changes , Bleeding . Entered By Tiffanie West CMA/ZOHRA on 15:10 * Nurse Note for: 31-OCT-23 [facility] Nurse Note Print Location: Unknown Date/Time Printed: 01/03/2025 18:01 ([facility]) Patient: YOBANI PEREA Sex: Female : 1940 Date of Service: 10/31/2023 Allergies : No Known Allergies Vital Signs : Time: 15:56. Weight: 132 lb (59.87 kg). Height: 64 in (162.56 cm). BMI: 22.66 (kg/m2) . BSA: 1.64 (m2) . Temperature: 97.4 F (36.33 C). Pulse: 61 (/min) . Respirations: 16 (/min) . Blood pressure: 156/69 (mm Hg). Pain Scale: 0. O2 Saturation: 97 (%) . Entered by Scarlet Cuellar CMA 10/31/2023 15:56 Time: 02:00. Pain Scale: 0. Entered by Scarlet Cuellar CMA 10/31/2023 15:55 Patient Assessment : Negative results Assessment : [...] . Entered By Scarlet Cuellar CMA on 15:55 * Nurse Note for: 28-AUG-23 [facility] Nurse Note Print Location: Unknown Date/Time Printed: 01/03/2025 18:01 ([facility]) Patient: YOBANI PEREA Sex: Female : 1940 Date of Service: 08/28/2023 Allergies : No Known Allergies Vital Signs : Time: 02:00. Height: 64 in (162.56 cm). Entered by Akilah Benton RN 08/28/2023 14:18 Time: 02:00. Pain Scale: 0. Entered by Akilah Benton RN 08/28/2023 14:17 Patient Assessment : Positive results Assessment : [...] Urinary Changes , Bleeding . Entered By Akilah Benton RN on 14:18 * Nurse Note for: 21-AUG-23 [facility] Nurse Note Print Location: Unknown Date/Time Printed: 01/03/2025 18:01 ([facility]) Patient: YOBANI PEREA Sex: Female : 1940 Date of Service: 08/21/2023 Allergies : No Known Allergies Vital Signs : Time: 02:00. Weight: 133 lb (60.33 kg). Height: 64 in (162.56 cm). BMI: 22.83 (kg/m2) . BSA: 1.64 (m2) . Entered by Akilah Benton RN 08/21/2023 16:30 Time: 02:00. Pain Scale: 0. Entered by Akilah Benton RN 08/21/2023 16:29 Patient Assessment : Positive results Assessment : Alert, oriented with appropriate behavior. Complains of Fatigue-mild. Negative results Assessment : Labs Verified: No, Gait Changes. Denies Neuropathy , Pain -0-No pain, Anxiety/Depression , Fever, Chills or Night Sweats , Signs of Infection , Skin Changes , Dizziness , Headaches , Nausea , Breathing Changes , Cough , Mouth Sores/Stomatitis/Mucositis , Changes in Appetite , Vomiting , Diarrhea , Constipation , Urinary Changes , Bleeding . Entered By Akilah Benton RN on 16:30 * Nurse Note for: 25-JUN-23 [facility] Nurse Note Print Location: Unknown Date/Time Printed: 01/03/2025 18:01 ([facility]) Patient: YOBANI PEREA Sex: Female : 1940 Date of Service: 06/25/2023 Allergies : No Known Allergies Vital Signs : Time: 02:00. Weight: 135 lb (61.23 kg). Height: 64 in (162.56 cm). BMI: 23.17 (kg/m2) . BSA: 1.66 (m2) . Temperature: 97.7 F (36.50 C). Pulse: 62 (/min) . Respirations: 16 (/min) . Blood pressure: 181/66 (mm Hg). O2 Saturation: 98 (%) . Entered by Rachael Beth CMA/ZOHRA 06/25/2023 15:11 Time: 02:00. Pain Scale: 0. Entered by Rachael Beth CMA/ZOHRA 06/25/2023 15:06 Patient Assessment : Positive results Assessment : [...] Urinary Changes , Bleeding . Entered By Rachael Beth CMA/ZOHRA on 15:11 * Nurse Note for: 28-MAY-23 [facility] Nurse Note Print Location: Unknown Date/Time Printed: 01/03/2025 18:01 ([facility]) Patient: YOBANI PEREA Sex: Female : 1940 Date of Service: 05/28/2023 Allergies : No Known Allergies Vital Signs : Time: 14:59. Weight: 135 lb (61.23 kg). Height: 64 in (162.56 cm). BMI: 23.17 (kg/m2) . BSA: 1.66 (m2) . Temperature: 97.7 F (36.50 C). Pulse: 61 (/min) . Respirations: 16 (/min) . Blood pressure: 152/52 (mm Hg). Pain Scale: 0. O2 Saturation: 99 (%) . Entered by Scarlet Cuellar [facility] 05/28/2023 14:59 Time: 02:00. Pain Scale: 0. Entered by Scarlet Cuellar [facility] 05/28/2023 14:57 Patient Assessment : Positive results Assessment : Complains of Other-breast pain/swelling/tenderness. Negative results Assessment : Labs Verified: No, [...] . Entered By Scarlet Cuellar CMA on 14:57
--- OUTSIDE RECORDS SUMMARY | 2025-01-03 18:01 | XMS_ITS | Encounter Summary ---
Author Organization [facility] Address [address] [place] [address] Care Team Providers Care Infrastructure Consultant Name Role Phone Emanuel Reyes DO Primary Care Provide r Encounter Details Date Type Department Care Team (Latest Contact Info) Description 09/12/2005 Outpatient Historical [facility] Medicine [place] [address] [place] [address] [phone] Destiny Haas, [facility] [address] [phone] Unspecified Essential Hypertension (Primary Dx) Social History Tobacco Use Types Packs/Day Years Used Date Smoking Tobacco: Never Assessed Comments Unknown Sex and Gender Information Value Date Recorded Sex Assigned at Not on file 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
--- OUTSIDE RECORDS SUMMARY | 2025-01-03 18:01 | XMS_ITS | Encounter Summary ---
Author Organization [facility] Address [address] [place] [address] Care Team Providers Care Supervisor Personnel Clerks Name Role Phone Emanuel Reyes DO Primary Care Provide r Encounter Details Date Type Department Care Team (Latest Contact Info) Description 11/25/2006 Outpatient Historical [facility] [address] [place] [phone] Destiny Haas, 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
--- OUTSIDE RECORDS SUMMARY | 2025-01-03 18:01 | XMS_ITS | Encounter Summary ---
Author Organization [facility] Address [address] [place] [address] Care Team Providers Care Data Processing Supervisor Name Role Phone Emanuel Reyes DO Primary Care Provide r Encounter Details Date Type Department Care Team (Latest Contact Info) Description 12/23/1998 Outpatient Historical [facility] Unruly Eid MD NO ADDRESS ON FILE Gynecologic examination (Primary Dx) Social History Tobacco Use Types Packs/Day Years Used Date Smoking Tobacco: Never Assessed Comments Unknown Sex and Gender Information Value Date Recorded Sex Assigned at Not on file 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
--- OUTSIDE RECORDS SUMMARY | 2025-01-03 18:01 | XMS_ITS | Encounter Summary ---
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 Procedures CL LT HEART CATHETERIZATION Stephen Gomez MD [facility] Cardiac Bagman/Woman [address] [place] [address] Phone: tel: fax: Referral ID Status Reason Start Date Expiration Date Visits Requested Visits Authorized [id number] Ordering Department To Schedule 03/29/2017 04/29/2018 1 1 Encounter Details Date Type Department Care Team (Late st Contact Info) Description 03/29/2017 Ancillary Orders [facility] [place] [address] [place] [address] Stephen Gomez MD NO ADDRESS ON FILE Preop examination; Abdominal aortic aneurysm (AAA) without rupture Social History Tobacco Use Types Packs/Day Years Used Date Smoking Tobacco: Never Smokeless Tobacco: Never Alcohol Use Standard Drinks/Week Comments No 0 (1 standard drink = 0.6 oz pur e alcohol) Comments No Sex and Gender Information Value Date Recorded Sex Assigned at Not on file 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 RECOMMENDATIONS: 1) Information shared to Dr. Ulloa. I spoke to Kassidy Mercedes, she will discuss with Dr. Ulloa and their office will contact Mrs. Chanel. Stephen Gomez MD, [facility], [facility] - 04/17/2017 12:52 PM CDT CARDIAC CATHETERIZATION REPORT-TRANSRADIAL [place], [place] PATIENT: Dayanna Chanel PATIENT NUMBER: [id number] BIRTHDATE: 1940 REFERRING PHYSICIAN: Emanuel Reyes DO and Dr. Ulloa (CV surgery) DATE: 04/17/2017 TIME: 12:50 PM PROCEDURE: Left heart catheterization with coronary angiography, left ventricular cineangiography via right transradial approach INDICATION: Pre-op assessment for redo repair of ascending aortic aneurysm After carefully discussing potential benefits/ risks of and alternatives to cardiac catheterization and possible intervention at length with the patient, informed consent was obtained. The right radial artery was prepped and draped in the usual manner. Colby's test was normal. Continuous blood pressure, ECG, and oxygen saturation monitoring were utilized. Carefully titrated conscious sedation was achieved. I personally supervised conscious sedation with versed and fentanyl from 1208 to 1242. Following infiltration of 1% lidocaine local anesthetic, a 5 FR right radial arterial sheath was inserted over a flexible guidewire using single wall technique and ultrasound guidance. A cocktail of NTG and verapamil was given into the sheath. Heparin was given IV. There were no apparent complications. CORONARY ANGIOGRAPHY: Coronary angiography was performed with a 5FR Rosalie and 5FR AL2 catheters. The results were as follows: The left main coronary artery is normal. The left anterior descending coronary artery and its branches are normal. The left posterior circumflex coronary artery and its branches are normal. The right coronary artery and its branches are normal. No collaterals are seen. LEFT VENTRICULAR CINEANGIOGRAPHY: LV cineangiography was performed with a 5 FR pigtail catheter in FRANK projection. 20 ml of contrast were used. The left ventricle is normal in size. All wall segments contract normally. Estimated left ventricular ejection fraction is 65%. No significant mitral insufficiency is noted. There is no significant gradient across the aortic valve. There is an aneurysm of the ascending aorta, probably a little bit more than detention between the aortic valve and the arch. Following the procedure a Vascband transradial band was applied. With 12ml of air there was excellent hemostasis. Good capillary refill was noted in the right hand digits. Estimated blood loss <30ml. 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
--- OUTSIDE RECORDS SUMMARY | 2025-01-03 18:01 | XMS_ITS | Encounter Summary ---
Author Organization [facility] Address [address] [place] [address] Care Team Providers Care Home Health Assistant Name Role Phone Emanuel Reyes DO Primary Care Provide r Encounter Details Date Type Department Care Team (Latest Contact Info) Description 03/26/2006 Outpatient Historical [facility] Medicine [place] [address] [address] Blessing Eng MD [address] [place] [phone] Impaired Fasting Glucose (Primary Dx) Social History Tobacco Use Types Packs/Day Years Used Date Smoking Tobacco: Never Assessed Comments Unknown Sex and Gender Information Value Date Recorded Sex Assigned at Not on file 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
--- OUTSIDE RECORDS SUMMARY | 2025-01-03 18:01 | XMS_ITS | Encounter Summary ---
Author Organization [facility] Address [address] [place] [address] Care Team Providers Care Bibliographic Services Specialist Name Role Phone Emanuel Reyes DO Primary Care Provide r Encounter Details Date Type Department Care Team (Late st Contact Info) Description 05/02/[address] 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
--- OUTSIDE RECORDS SUMMARY | 2025-01-03 18:01 | XMS_ITS | Encounter Summary ---
Author Organization [facility] Address [address] [place] [address] Care Team Providers Care Computer Field Technician Name Role Phone Emanuel Reyes DO Primary Care Provide r Encounter Details Date Type Department Care Team (Latest Contact Info) Description 06/26/[address] 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
--- OUTSIDE RECORDS SUMMARY | 2025-01-03 18:01 | XMS_ITS | Encounter Summary ---
Author Organization [facility] Address [address] [place] [address] Care Team Providers Care Warranty Coordinator Name Role Phone Emanuel Reyes DO Primary Care Provide r Encounter Details Date Type Department Care Team (Latest Contact Info) Description 10/08/2003 Outpatient Historical [facility] Medicine [place] [address] [phone] Blessing Eng MD [address] [place] [phone] MELENA, BLOOD IN STOOL (Primary Dx) Social History Tobacco Use Types Packs/Day Years Used Date Smoking Tobacco: Never Assessed Comments Unknown Sex and Gender Information Value Date Recorded Sex Assigned at Not on file 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 [place] [address] PCP - General Internal Medicine 03/02/16 documented as of this encounter
--- OUTSIDE RECORDS SUMMARY | 2025-01-03 18:01 | XMS_ITS ---
Author Name Interface, E7Akfikec lity Address [place] [address] [facility] Address [place] [address] Allergies and Adverse Reactions Medication/Group Name Reaction Severity Date No known allergies Plan Date Type Value 03/09/2025 APPOINTMENT 1YR 02/25/2025 APPOINTMENT YULI 6M 12/09/2024 APPOINTMENT 1YR 08/13/2024 APPOINTMENT 6MO FU 08/13/2024 APPOINTMENT 6MO FU Reason for Visit 1YR Encounters Date Name 08/13/2024 Breast cancer, femal e 08/13/2024 Postmenopausal osteo porosis (disorder) Medications Date Name Route Dose Frequency Instructions [...] (disorder) Active Vital Signs Date Type Value 08/13/2024 Body Temperature 97.80 08/13/2024 Heart Beat 61.00 08/13/2024 Respiratory Rate 18.00 08/13/2024 Oxygen Saturation 97.00 08/13/2024 Pain Scale 0.00 08/13/2024 Weight 131.00 08/13/2024 Height 64.00 08/13/2024 BMI 22.49 08/13/2024 BSA 1.63 08/13/2024 Intravascular Systolic 161 08/13/2024 Intravascular Diastolic 55 Notes Section * [facility] Follow Up - [address] [place] [address] P: F: PATIENT: YOBANI PEREA : 1940 [...] receptor negative 0, HER2 0 by IHC, [id number], Stage llB. * 05/10/2023: Invasive ductal carcinoma of the right breast at 12:00, 4 cm from the nipple, Burton grade 1, estrogen receptor positive greater than 90%, progesterone receptor negative 0% and HER2 negative 0 by IHC.?? Treatment History*: * 05/18/2023: Left breast ultrasound-guided partial mastectomy and left sentinel lymph node biopsy: Invasive ductal carcinoma, Burton grade 3, surgical margins uninvolved, 5 sentinel sentinel lymphnodes negative for metastatic carcinoma, pT2 ??pN0(sn), stage llA. * 08/08/2023- 08/29/2023: Completed adjuvant radiation therapy under the care of Dr. Ryan Herbert for her left breast cancer. * 09/25/2023: Initiated daily anastrozole.?? History of Present Illness: * 02/20/2023:??Complete ultrasound of the left breast and axilla identified a mass with a spiculated margin in the left breast at 10:00 posterior depth, 6 cm from the nipple correlating as palpated. Also a mass was identified in the left breast at 10:00, most compatible with postop changes from priorheart surgery.?? * 03/14/2023:??Bilateral diagnostic mammogram at [facility] that identified a 2.2 cm irregular mass in the left breast at 10:00 posterior depth with benign calcifications in both breasts.?? * 03/14/2023:??Ultrasound-guided core needle biopsy identified invasive ductal carcinoma, Burton grade 2-3, estrogen and progesterone receptor negative 0%, HER2 negative 0 by IHC. * 04/11/2023: PET CT scan [facility] with known left breast mass and focal FDG uptake in the right medial breast.?? * 05/03/2023: Complete ultrasound of the right breast and axilla at [facility]. A 6 mm irregular mass with a non circumscribed margin identified in the right breast at 12:00 posterior depth, 4 cm from the nipple, hypoechoic. No significant abnormalities seen sonographically in the right axilla.?? * 05/10/2023: Ultrasound-guided needle, core biopsy of the mass in the right breast at 12:00: Invasive ductal carcinoma, Burton grade 1, estrogen receptor positive greater than 90%, progesterone receptor negative 0%, HER2 negative 0 by IHC.?? * 05/18/2023: Left breast ultrasound-guided partial mastectomy and left sentinel lymph node biopsy with Dr. Shilpa Kong: Invasive ductal carcinoma, [place] grade 3, 3.2 cm in greatest dimension, no definitive lymphovascular invasion, margins of resection negative, 5 sentinel lymph nodes negative for tumor (0/5), pT2 ??pN0(sn), stage llA. * 08/08/2023- 08/29/2023: Completed adjuvant radiation therapy under the care of Dr. Ryan Herbert for her left breast cancer. * 09/25/2023: Initiated daily anastrozole.?? Interval History: Ms. Perea is an 84-year-old [...] A left breast ultrasound was subsequently ordered. ??This study was completed on 07/13/2024 at [facility] and identified no suspicious sonographic abnormality to explain the palpable area of concern indicated by the patient. These results were relayed to the patient on 07/17/19 and she was advised to keep her follow-up appointment scheduled for today. Currently, she statesthat the left breast mass has moved but has not increased in size. She denies skin changes to the breast, nipple??discharge, or nipple inversion. She denies fever, chills, chest pain, shortness of breath, dyspnea on exertion, swelling in her extremities, cough, abdominal pain, bone pain, headaches, weakness or any other focal neurological symptoms.?? Past Medical History: * Atrial fibrillation - on Eliquis * History of aortic aneurysm status post repair x2 * Hypertension?? * Osteoarthritis * History of stroke * History of syncopal episodes * Stage llA left breast cancer?? * Stage lA right breast cancer * Osteoporosis Past Surgical History*: * Aortic aneurysm status post repair x2 * Cholecystectomy?? 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 Her son accompanies her today.?? Tobacco use: Never smoker?? Alcohol: Denies Illicit drug use: Denies Family [...] swallowing, or recent changes in bowel patterns. GENITOURINARY:??No urgency, frequency, urinary incontinence, painful urination, blood in urine, or lack of urine. MUSCULOSKELETAL: No joint pain, limitation of motion, muscle cramps, or weakness.?? No neck pain, stiffness, or tenderness. SKIN: No rash, lesions, itching, changes in moles. BREASTS: Positive for left breast lump. ??No pain, swelling, tenderness, skin or nipple changes, ornipple discharge. NEUROLOGIC: No headaches, weakness, numbness, vision [...] EYES: Conjunctiva and eyelids appear normal. Sclerae anicteric.?? NECK: Supple, trachea mid-line. RESPIRATORY: Clear to auscultation bilaterally with normal respiratory effort.?? CARDIOVASCULAR: RRR, normal S1, S2.?? ABDOMEN: Soft, non-tender. MUSCULOSKELETAL: Full range of motion throughout. SKIN: No lesions or rashes appreciated.?? NEURO: Grossly non-focal motor and sensory exam.?? PSYCH: Alert and oriented x 3. Normal mood and affect.?? LYMPH NODES: Examination focused on breast regional nikos basins. Right: No supraclavicular, infraclavicular, or axillary adenopathy appreciated.?? Left: ?? No supraclavicular, infraclavicular, or axillary adenopathy appreciated. CHEST (BREASTS): Exam was conducted in the sitting and supine position with the arm raising maneuver. The patient has a well-healed surgical scar on the left breast. There is a freely mobile mass appreciated at the??2 o'clock position of the left breast, measuring [...] of malignancy 04/11/2023: PET CT scan at [facility].?? IMPRESSION: 1. FDG avid mass in the [...] of the Right Breast and Axilla at [facility].?? IMPRESSION: SUSPICIOUS OF MALIGNANCY RECOMMENDATION: The 6 mm irregular mass in the right breast isat a moderate suspicion for malignancy. An ultrasound guided biopsy is recommended. There is no suspicious finding in the right internal mammary nikos basin to correlate with recent PET CT finding inthis region. 09/03/2023: DEXA scan at [facility].?? IMPRESSION: OSTEOPOROSIS Patient is at high risk [...] hip fractures 02/24/2024: Bilateral diagnostic mammogram at [place] [facility]: IMPRESSION: KNOWN- BIOPSY- PROVEN MALIGNANCY. Interval postsurgical changes of left lumpectomy. A core biopsy marker in the right breast at the 12:00 axis, middle depth marking the site of invasive carcinoma of the right breast. 02/24/2024: Ultrasound of the bilateral breast at [facility]: IMPRESSION: SUSPICIOUS No significant change in a 6 mm mass in the right breast at the 12 o'clock axis, consistent with the known area of malignancy. The 1.4 cm mass in the left breast at 2 o'clock is suspicious of malignancy. An ultrasound guided biopsy is recommended. 07/13/2024: Left breast ultrasound at [facility]: IMPRESSION: BIRADS-2 Benign. Nosuspicious sonographic abnormality to explain the palpable area of concern. Pathology: 03/14/2023, [facility], Pathology report: Diagnosis Left breast at [...] as expected HER2 negative 05/10/2023: Pathology at [facility]. Diagnosis Breast, right, 12 o'clock - 4 [...] positive greater than 90% Progesterone receptor negative 0?? HER2 negative 0%,?? 03/31/2024: Ultrasound-guided core needle biopsy of the [...] receptor positive, HER2 negative right breast cancer. ??05/18/2023: Left breast ultrasound-guided partial mastectomy and left sentinel lymph node biopsy: Invasive ductal carcinoma, Burton grade 3, surgical margins uninvolved, 5 sentinel sentinel lymph nodes negative for metastatic carcinoma, pT2 ??pN0(sn), stage llA.?? 08/08/2023- 08/29/2023: Completed adjuvant radiation therapy under the care of Dr. Ryan Herbert for her left breast cancer.?? 09/25/2023: Initiated daily anastrozole.?? Plan: * Left breast cancer: Clinically, there is no current concern for new or recurrent breast cancer at today's visit. She completed a diagnostic mammogram and ultrasound of the bilateral breast on 02/24/2024 at [facility]. ??There was no significant change in the 6 mm mass in the right arcelia ast at the 12:00 axis, consistent with the known area of malignancy. ??There was a 1.4 cm hypoechoic mass in the left breast at the 2 o'clock position, 4 cm from the nipple. The patient proceeded with an ultrasound-guided core needle biopsy to the left breast on 03/31/2024, which revealed stromal fib rosis, fat necrosis, and focal microcalcifications associated with benign breast elements. ??Overall, negative for atypia or malignancy. ??She reported left lateral breast lump on 07/09/2024 and proceeded with a repeat left breast ultrasound on 07/13/2024. ??No suspicious sonographic abnormality identified to explain the palpable area of concern. Today, there??is a freely mobile mass appreciated at the??2 o'clock position of the left breast, measuring approximately 4 cm in size - this correlates torecent ultrasound results, which identified a previously biopsied mass??containing a clip in the left breast at 2:00,??suggestive of stromal fibrosis and fat necrosis.?? She will continue daily??anastrozole??and routine surveillance visits. * Bone health:?has placed the patient on monthly Boniva??+ calcium for osteoporosis management. Continue management with???[facility]. * Disposition: Diagnostic mammogram of the bilateral breast ordered today, for completion in February 2025. She will return here in 6 months for follow-up. She was instructed in the meantime to call withany questions or concerns prior to her return visit. . Michael Parry (MORENA) CHEKO LIGHT, JONI, TAMRA Send copy of note to: Dr. Rody Knight Electronically signed by Michael Parry (MORENA) CHEKO LIGHT, JONI, TAMRA 08/13/2024 11:52 DIRECTOR OF REGULATORY AFFAIRS Reviewed and electronically signed by Mickie Portillo MD 08/13/2024 12:06 DIRECTOR OF REGULATORY AFFAIRS * Nurse Note for: 13-AUG-24 [facility] Nurse Note Print Location: Unknown Date/Time Printed: 01/03/2025 18:01 ([facility]) Patient: YOBANI PEREA Sex: Female : 1940 [...] (%) . Entered by Scarlet Cuellar CMA 08/13/2024 11:24 Time: 02:00. Pain Scale: 0. Entered by Scarlet Cuellar CMA 08/13/2024 11:23 Patient Assessment : Negative results [...]
--- OUTSIDE RECORDS SUMMARY | 2025-01-03 18:01 | XMS_ITS | Patient Health Record ---
Author Organization [facility] Address [address] [place] [address] Support Name Relationship Address Phone Lakeshia Chanelty Guarantor Unknown [phone] Reason For Referral No Information Problems Problem Type SNOMED Code ICD Code Onset Dates Problem Status W/U Status Risk Notes Problem Abdominal aortic aneurysm without rupture (65595813) Abdominal aneurysm without mention of rupture (441.4) Active confirmed [id number] Description: Abdominal aortic aneurysm without rupture Plan Of Treatment No Information
--- NOTE | 2025-01-03 18:02 | XRR_ITS ---
PROCEDURE INFORMATION: Exam: XR Right Hip Exam date and time: 01/03/2025 6:10 PM Age: 84 years old Clinical indication: Injury or trauma; Fall; Blunt trauma (contusions or hematomas) and fracture of pelvis & hip; Right; Traumatic fracture; Neck of femur; Not specified; Additional info: Fall, right hip pain TECHNIQUE: Imaging protocol: Radiologic exam of the right hip. Views: 1 view hip with pelvis when performed. COMPARISON: MR MRCP [id number] 01/08/2018 5:17 AM FINDINGS: Bones/joints: Right femoral neck fracture. There is superior displacement of the distal fracture fragment. Degenerative changes involve the hips, lower lumbar spine, sacroiliac joints and pubic symphysis. Soft tissues: Unremarkable. XR/XR hip RT 2-3V wo/w pel* [id number] IMPRESSION: Right femoral neck fracture.
--- NOTE | 2025-01-03 18:02 | CTR_ITS ---
PROCEDURE INFORMATION: Exam: CT Head Without Contrast Exam date and time: 01/03/2025 6:10 PM Age: 84 years old Clinical indication: Injury or trauma; Fall; Blunt trauma (contusions or hematomas); Additional info: Fall, contusion to head, on anticoagulation TECHNIQUE: Imaging protocol: Computed tomography of the head without contrast. Radiation optimization: All CT scans at this facility use at least one of these dose optimization techniques: automated exposure control; mA and/or kV adjustment per patient size (includes targeted exams where dose is matched to clinical indication); or iterative reconstruction. COMPARISON: CT head wo con* [id number] 02/06/2020 9:16 AM RADIATION DOSE METRICS: Total DLP (mGy-cm): 1129 FINDINGS: Brain: No acute infarction, hemorrhage, mass, or extra-axial fluid collection is identified. No midline shift. Remote insults bilateral cerebellum, left insula, and left frontal lobe. Cerebral ventricles: No hydrocephalus. Paranasal sinuses: Paranasal sinuses are grossly clear. Mastoid air cells: Mastoid air cells are grossly clear. Bones: Calvarium appears intact. Postsurgical changes to the anterior left maxillary sinus wall and lateral left orbital rim. Soft tissues: Right frontotemporal scalp swelling. CT/CT head wo con* [id number] IMPRESSION: 1. No acute intracranial abnormality. 2. Right frontotemporal scalp swelling with no underlying fracture.
--- NOTE | 2025-01-03 18:02 | CTR_ITS ---
PROCEDURE INFORMATION: Exam: CT Cervical Spine Without Contrast Exam date and time: 01/03/2025 6:10 PM Age: 84 years old Clinical indication: Injury or trauma; Fall; Blunt trauma TECHNIQUE: Imaging protocol: Computed tomography of the cervical spine without contrast. Radiation optimization: All CT scans at this facility use at least one of these dose optimization techniques: automated exposure control; mA and/or kV adjustment per patient size (includes targeted exams where dose is matched to clinical indication); or iterative reconstruction. COMPARISON: CT head wo con* [id number] 02/06/2020 9:16 AM RADIATION DOSE METRICS: Total DLP (mGy-cm): 157.5 FINDINGS: Bones: Normal lordosis. No acute fracture of the cervical spine. Multilevel degenerative change including anterior osteophytosis and some dorsal spondylosis most prominent at C5-C6. No severe spinal canal stenosis. Multilevel facet arthropathy bilaterally. Lungs: Lung apices reveal a calcified granuloma in the right apex and a 5.5 mm noncalcified pulmonary nodule partially imaged in the left upper lobe. In the central right upper lobe there is a partially imaged 1.5 cm noncalcified pulmonary nodule. Soft tissues: Occlusion device noted in the left supraclavicular region. Imaged aortic arch reveals atherosclerotic disease and borderline dilatation measuring 3.[address]/CT cervical spin wo con* [id number] IMPRESSION: 1. No acute trauma and cervical spine. 2. Atherosclerotic disease with mild prominence of the aortic arch. 3. Partially imaged right upper lobe pulmonary nodule measuring 1.5 cm. Left upper lobe nodule partially imaged measuring 5.5 mm. Calcified granuloma right apex. 4. Per Fleischner Society criteria, in 3 months either tissue diagnosis, PET-CT, or CT.
--- OUTSIDE RECORDS SUMMARY | 2025-01-03 18:02 | XMS_ITS | Clinical Summary ---
Author Organization [facility] Address [address] [address] Care Team Providers Care Floor Sanding Machine Operator Name Role Phone Emanuel Reyes DO Primary Care Provide r Allergies No known active allergies Medications HYDROcodone-nessa taminophen (NORCO) 7.5-325 mg Tablet Take 1 Tablet by mouth every 4 hours as needed for Pain. Max Daily Amount: 6 Tablets 30 Tablet 0 07/30/2018 Active aspirin (ECOTRIN EC) 81 mg Tablet, Delayed Release (E.C.) Take 81 mg by mouth daily. 01/01/2019 Active apixaban (ELIQUIS) 5 mg tablet Take 1 Tablet (5 mg) by mouth 2 times daily. 60 Tablet 11 03/04/2020 Active diltiaZEM (CARDIZEM CD) 120 mg Controlled Delivery 24 hour capsule Take 1 Capsule (120 mg) by mouth daily. 30 Capsule 12 03/16/2020 Active propafenone (RYTHMOL) 150 mg Tablet Take 1 Tablet (150 mg) by mouth every 8 hours. 90 Tablet 11 03/30/2020 Active ascorbic acid, vitamin C, (VITAMIN C) 500 mg tablet Take 500 mg by mouth 1 time daily as needed . 06/17/2017 Active lovastatin (MEVACOR) 20 mg tabletIndicatio ns:Hyperlipidem ia TAKE TWO TABLETS BY MOUTH ONCE DAILY AT BEDTIME 180 Tablet 3 08/11/2014 Active Active Problems Problem Noted Date Diagnosed Date Bradycardia 02/26/2020 Syncope 02/26/2020 Tachycardia 02/26/2020 Cardiac arrhythmia 02/26/2020 Zygomatic [...] Thickening of wall of gallbladder 01/09/2018 01/11/2018 Elevated liver enzymes 01/08/201801/11 Elevated lipase 01/08/2018 01/11/2018 Mid sternal chest pain 01/08/201801/11 Acute biliary pancreatitis 01/08/2018 0 01/11/2018 [...] = 0.6 oz pur e alcohol) Comments Unknown Sex and Gender Information Value Date Recorded Sex Assigned at Not on file 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 Gender Identity Not on file Sexual Orientation Not on file Last Filed Vital Signs Vital Sign Reading Time Taken Comments Blood Pressure 150/50 03/30/2020 11:29 AM CDT Pulse 94 03/30/2020 11:29 AM CDT Temperature 36.4 C (97.5 F) 03/16/2020 10:28 AM CDT Respiratory Rate 19 03/16/2020 4:00 PM CDT Oxygen Saturation - - Inhaled Oxygen Concentration - - Weight 64.3 [...] 75+ series) 02/11/2015 INFLUENZA VACCINE (#1) 2024 , 04/08/2017, 04/22/2013, Additional history exists Medical Devices Implanted Type Area Truck Chauffeur Device Identifier Shelf Expiration Date Model / Serial / Lot Adh Bioglue 10ml [id number] - [id number] Implanted:Qty: 1 on 06/18/2017 by Mike Ulloa MD Biological N/A: Heart [employer] 12/16/2018 [id number] / / [id number] Coil Embol Pod Packing [id number] - [id number] Implanted:Qty: 1 on 06/25/2017 by Mike Ulloa MD Coil Left: Chest [employer] INC 04/03/2025 [id number] / / [id number] Coil Embol Pod Packing [id number] - [id number] Implanted:Qty: 1 on 06/25/2017 by Mike Ulloa MD Coil Left: Chest [employer] INC 04/03/2025 [id number] / / [id number] Coil Jeanie Cmplx Sft 16mm 50cm [id number] - [id number] Implanted:Qty: 1 on 06/25/2017 by Mike Ulloa MD Coil Left: Chest [employer] INC 09/18/2024 [id number] / / [id number] Coil Jeanie Cmplx Std 16mm 60cm [id number] - [id number] Implanted:Qty: 1 on 06/25/2017 by Mike Ulloa MD Coil Left: Chest [employer] 02/21/2024 [id number] / / [id number] Coil Jeanie Cmplx Std 18mm 57cm [id number] - [id number] Implanted:Qty: 1 on 06/25/2017 by Mike Ulloa MD Coil Left: Chest [employer] 02/28/2024 [id number] / / [id number] Coil Jeanie Cmplx Std 18mm 57cm [id number] - [id number] Implanted:Qty: 1 on 06/25/2017 by Mike Ulloa MD Coil Left: Chest [employer] 08/11/2022 [id number] / / [id number] Coil Jeanie Cmplx Std 18mm 57cm [id number] - [id number] Implanted:Qty: 1 on 06/25/2017 by Mike Ulloa MD Coil Left: Chest [employer] 06/07/2018 [id number] / / [id number] Graft Hmshld Gold Bifur [id number] - [id number] Implanted:Qty: 1 on 06/18/2017 by Mike Ulloa MD Graft N/A: Chest [facility] 11/04/2021 [id number] / [id number] / [place] Ptfe Thck [id number] 619122 - [id number] Implanted:Qty: 1 on 06/18/2017 by Mike Ulloa MD Graft N/A: Chest CR BARD[employer]ONATAN [employer]ASC [employer] 09/04/2021 [id number] / / [id number] Hemostatic Surgicel 6x9in 1946 - [id number] Implanted:Qty: 1 on 06/18/2017 by Mike Ulloa MD Hemostatic N/A: Chest J&J- ETHICON INC 03/07/2022 1946 / / [id number] Starclose Se Vasc Closure 76370-84 - [id number] Implanted:Qty: 1 on 06/23/2017 by Luis Bowman MD Hemostatic Right: Groin DUDLEY- VASC DEVICE 04/07/2019 [id number] / / [id number] Ring Vein Marking 10mm 35-5832 - [id number] Implanted:Qty: 3 on 06/18/2017 by Mike Ulloa MD Other N/A: Heart TELEFLEX- PILL WECK HERB L P 35-9500 / / Plug Amplatzer 12mm 9-Avp2-012 - [id number] Implanted:Qty: 1 on 06/25/2017 by Mike Ulloa MD Other Left: Chest [employer] 12/05/2021 9-AVP2-01 2 [id number] Plate Orb Rim Matrixmidface 04.503.343 - [id number] Implanted:Qty: 1 on 07/30/2018 by Kristopher Arciniega MD Plate Left: Face SYNTHES-STRATEC - MAXIFACIAL 04.503.34 3 140 50897 Plate-L Oblique Matrixmidface 04.503.355 - [id number] Implanted:Qty: 1 on 07/30/2018 by Kristopher Arciniega MD Plate Left: Face SYNTHES-STRATEC - MAXIFACIAL 04.503.35 5 82900 Screw Matrixmidface Sd 4mm 04.503.224 - [id number] Implanted:Qty: 1 on 07/30/2018 by Kristopher Arciniega MD Screw Left: Face SYNTHES-STRATEC - MAXIFACIAL 04.503.22 4.01 140 64080 Screw Matrixmidface Sd 5mm 04.503.225 - [id number] Implanted:Qty: 10 on 07/30/2018 by Kristopher Arciniega MD Screw Left: Face SYNTHES-STRATEC - MAXIFACIAL 04.503.22 5.01 140 00137 Stent Thor Zenith Alpha Prox [id number] - [id number] Implanted:Qty: 1 on 06/18/2017 by Mike Ulloa MD Stent N/A: Aorta COOK- AORTIC INTERVENTION 12/08/2019 [id number] / / [id number] Insurance * Guarantor: DAYANNA PEREA Account Type Relation to Patient Date of Phone Billing Address Personal/Family [facility] [place] [address] [employer] (INTERNAL) [facility] Care Teams Floor Sanding Machine Operator Relationship Specialty Start Date End Date Emanuel Reyes DO [address] [address] PCP - General Internal Medicine 03/02/16
--- OUTSIDE RECORDS SUMMARY | 2025-01-03 18:02 | XMS_ITS ---
Author Name Interface, [id number] Address [address] [address] [facility] Address [address] [address] Allergies and Adverse Reactions Plan Reason for Visit Encounters Diagnostic Results Medications Problems Vital Signs Notes Section
--- OUTSIDE RECORDS SUMMARY | 2025-01-03 18:02 | XMS_ITS ---
Author Name Interface, [id number] Address [place] [address] [facility] Address [address] [address] Allergies and Adverse Reactions Plan Reason for Visit Encounters Diagnostic Results Medications Problems Vital Signs Notes Section
--- OUTSIDE RECORDS SUMMARY | 2025-01-03 18:02 | XMS_ITS ---
Author Name Interface, [id number] Address [address] [place] [address] [facility] Address [address] [address] Allergies and Adverse Reactions Plan Reason for Visit Encounters Medications Problems Vital Signs Notes Section
--- OUTSIDE RECORDS SUMMARY | 2025-01-03 18:02 | XMS_ITS ---
Author Name Interface, [id number] lity Address [address] [place] [address] [facility] Address [address] [address] Allergies and Adverse Reactions Medication/Group Name Reaction [...] Lab Address 02/23 Mammo graph y See well flow operator d 02/23 Ultra sound resul ts See well flow operator d 03/31 Biops y (proc edure ) See well flow operator d 03/31 Patho logy repor t See well flow operator d 07/13 Ultra sound resul ts See well flow operator d Medications Date Name Route Dose [...] Section * Hook - Established Cancer Visit [address] [address] P: PATIENT:??YOBANI PEREA :??1940 Date of Service:??12/10/2023 [...] and imaging review . Luh Dasilva MSN, BUILDING MAINTENANCE REPAIRER, CYANIDE FURNACE OPERATOR-C, OCN ? Send copy of note to: Dr. Rody Knight . . . Electronically signed by Luh Dasilva MSN, BUILDING MAINTENANCE REPAIRER, CYANIDE FURNACE OPERATOR-C, OCN 12/10/2023 15:26 CDT Reviewed and electronically signed by Sihlpa Kong MD 12/10/2023 16:13 CDT * Nurse Note for: 13-AUG-24 [facility] Nurse Note Print Location: Unknown Date/Time Printed: 01/03/2025 18:02 ([facility]/[place]) Patient: YOBANI PEREA Sex: Female : 1940 [...] 97 (%) . Entered by Scarlet Cuellar [facility] 08/13/2024 11:24 Time: 02:00. Pain Scale: 0. Entered by Scarlet Cuellar [facility] 08/13/2024 11:23 Patient Assessment : Negative [...] Note Print Location: Unknown Date/Time Printed: 01/03/2025 18:02 ([facility]) Patient: YOBANI PEREA Sex: Female : 1940 [...] Note Print Location: Unknown Date/Time Printed: 01/03/2025 18:02 ([facility]) Patient: YOBANI PEREA Sex: Female : 1940 [...] Urinary Changes , Bleeding . Entered By Katisuka Plasencia Assistant II on 15:04
--- NOTE | 2025-01-03 18:10 | ED_ITS ---
<Statement entered by Rajinder Daugherty MD - 01/03/25 21:40> Patient seen by myself. Patient states she did not feel lightheaded or dizzy and was feeling fine prior to her fall. She states she had just stood up and was trying to get her slipper on and tripped and fell. She states she did hit her head but no loss consciousness. No neck pain. Denies any back injury or back pain. She denies any injury to her ribs or abdomen. Denies any numbness or tingling her arms or legs. She states she has pain in her right hip. No headache. No vomiting. Denies black or bloody stools or recent illness or fever. Patient has right hip fracture on x-ray. She did complain of some pain in the right knee so we will get a tib-fib as well. She had intact pulses motor and sensation distally. She did have a murmur on auscultation of her heart. She denies any chest pain or chest discomfort and denies palpitations or syncopal event. Will screen her EKG. She is on Eliquis therapy. She denies any injury to her chest or abdomen and she has no bruising or external signs of trauma or tenderness over her ribs or abdomen on exam. No vertebral tenderness over her neck or back and she is moving her neck freely. She moves her arms and left leg freely. Chest x-ray did show circular lesions on her lungs. She denies fever cough. She states she had breast cancer treated with radiation therapy but was unaware of any lung cancer. She has hyponatremia. She will need a CT of her chest to evaluate further and will also get CT abdomen pelvis as screening. I advised patient cancer in the differential. Pathologic fracture considered however it was clear reported fall onto the right hip. I did page Dr. Doan to discuss patient as well as x-ray findings. I reviewed current imaging and lab results. Plan to admit for further surgical care and evaluation and treatment HPI - Extremity Problem 2 General: Chief complaint: Extremity Injury, Lower Stated complaint: right hip pain s/p fall Time Seen by Provider: 01/03/25 17:56 History of Present Illness: 84-year-old female with history of A-fib on anticoagulation/Eliquis that slipped, and fell from a standing position with right forehead contusion, and right hip/leg pain. Denies any sensory changes. Cannot bear weight on her right side. Last Eliquis dose taken 1 hour prior to arrival. No recent illness. She states that she was getting up to go the bathroom and was putting on her slippers, lost her balance, and fell backwards. She had immediate right hip pain. This occurred just prior to arrival. EMS brought patient to ED. Associated symptoms: Deny chest pain, fever(s) or rash Related Data Home Medications ?Medication ?Instructions ?Recorded ?Confirmed lovastatin 40 mg tablet 40 mg PO 1200 02/02/2001/01 amlodipine 2.5 mg tablet 2.5 mg PO DAILY 01/01/25 anastrozole 1 mg tablet 1 mg PO DAILY 01/01/2501/01 apixaban 5 mg tablet (Eliquis) 5 mg PO BID 01/01/25 calcium 315 mg (as 2 tab PO DAILY 01/01/2512/07 citrate)-vitamin D3 6.25 mcg (250 unit) tablet ibandronate 150 mg tablet mg PO .monthly 01/01/2512/07 sertraline 25 mg tablet 25 mg PO DAILY 01/01/2512/07 Previous Rx's ?Medication ?Instructions ?Recorded amiodarone 100 mg tablet 100 mg PO DAILY #90 tabs losartan 25 mg tablet 25 mg PO DAILY #90 tabs 12/07 01/29 Allergies Allergy/AdvReac Type Severity Reaction Status Date / Time No Known Allergies Allergy Verified 01/01/25 13:27 Review of Systems 2 Const: Denies: fever(s) or chills Eyes: Denies: change in vision or blurry vision ENMT: Denies: throat pain or mouth pain Card: Denies: chest pain or palpitations Resp: Denies: dyspnea or non-productive cough GI: Denies: abdominal pain, nausea or vomiting : Denies: flank pain or difficulty voiding Musc: Reports: extremity pain; Denies: neck pain or back pain Skin/Breast: Denies: rash or pruritus Neuro: Reports: weakness in extremities and difficulty walking (cannot walk); Denies: headache(s), numbness in extremities, sensory changes, dizziness, vertigo or Slurred speech present Psych: Denies: anxiety or depression PFSH ED 2 PFSH: Medical History (Updated 01/03/25 @ 20:36 by ADRIANNE Hale) Dissecting AAA (abdominal aortic aneurysm) Syncope Prolonged QT interval [place] to be related to bradycardia. Resolved Sinus bradycardia Moderate aortic regurgitation Heart failure with preserved ejection fraction Hypertension Coronary artery disease Surgical History (Updated 01/01/25 @ 13:51 by Rachael Craig DO) History of lumpectomy left History of cholecystectomy History of heart valve replacement Hx of CABG Hx of aortic aneurysm repair Stent placement after thoracic aortic aneurysm leakage, [facility] Dr. Ulloa Aneurysm repair x3 Family History Other CAD (coronary artery disease) Social History Smoking and tobacco/nicotine status: never used tobacco/nicotine Alcohol intake: never Substance/Drug Use: never Lives independently: Yes Housing: House Physical Exam 2 Const: COMMON NORMALS: patient oriented x3 and alert HENMT: COMMON NORMALS: normocephalic, TM's normal bilaterally (no blood) and Normal external nose present HEAD & SCALP: normocephalic and hematoma (frontotemporal right) FACE & SINUS: face not symmetric FACE & SINUS IMAGES: 1. ecchymosis, dark blue, protruding NOSE: Normal external nose present and Normal nares present TYMPANIC MEMBRANE: TM's normal bilaterally (no blood) Neck/C-Spine: COMMON NORMALS: full ROM, no lymphadenopathy and supple Resp: COMMON NORMALS: normal respiratory effort, No retractions and clear to auscultation bilaterally AUSCULTATION: clear to auscultation bilaterally Cardio: COMMON NORMALS: regular rate and regular rhythm RATE: regular rate RHYTHM: regular rhythm GI: COMMON NORMALS: Normal to inspection, nondistended, normoactive bowel sounds present, Soft to palpation and non-tender PALPATION: Yes Soft to palpation : COMMON NORMALS: Yes no CVA tenderness BLADDER/KIDNEY EXAM: Yes no CVA tenderness Back/Pelvis: COMMON NORMALS: no CVA tenderness Extremity: COMMON NORMALS: capillary refill normal NARRATIVE EXTREMITY EXAM: right leg shortened and external rotation RIGHT LOWER EXTREMITY: Yes hip joint Right hip: Yes inspection (deformed, edema), Yes palpation (pain) and Yes ROM (decreased due to deformity pain) Neuro: COMMON NORMALS: patient oriented x3, CN's II-XII intact bilaterally and moves all extremities SENSORIUM/ORIENTATION: Yes alert GAIT: Yes Unable to assess gait SENSORY EXAM: Yes extremities (intact sensorium) Psych: COMMON NORMALS: mental status grossly normal and Normal thought process present THOUGHT PROCESS: Normal thought process present Skin: COMMON NORMALS: no rashes or lesions noted and no wounds GENERAL SKIN EXAM: no rashes or lesions noted Course 2 Reevaluation(s): Reevaluation #1: Patient is comfortable Consultations: Consultation #1: Dr. Arias accepted consult. Will most likely be Saturday given Eliquis consumption 1 hour prior Consultation #2: Dr. Doan accepted Admission. He will be down to see patient Vital Signs: Vital signs: Vital Signs Temperature 98.2 F 01/03/25 17:55 Pulse Rate 68 01/03/25 20:00 Respiratory Rate 18 01/03/25 18:47 Blood Pressure 133/45 01/03/25 19:30 Pulse Oximetry 96 01/03/25 20:00 Oxygen Delivery Me thod Nasal Cannula 01/03/25 20:00 Oxygen Flow Rate 1 01/03/25 20:00 MDM - Extremity (Nontraumatic) Medical Decision Making Patient is a 84-year-old female that lost her balance while placing her house shoes on that is on Eliquis for history of A-fib. She has a right femoral neck fracture. Discussed with orthopedist that we will consult. He plans on possible repair on Saturday, since patient is on Eliquis. Discussed with hospitalist that he will admit. She has a 9 hemoglobin here, however denies melena. She moved to [place] for a while and her last hemoglobin here was 14. I did give pantoprazole for prophylaxis, however she denies any lightheadedness, dizziness, palpitations, or any other symptoms significant for GI bleeding. Unknown new baseline. Discussed all of the above with attending and hospitalist. Discussed with supervising physician. Added PT/INR, type and screen, and CT chest abdomen and pelvis given her pulmonary nodule to rule out infectious in nature. Pathological fracture would be a consideration with her history of cancer, and hyponatremia, however her history says she had a slip then fall. Medical Records I reviewed the patient's medical records. Lab Data I reviewed the patient's lab results. 01/03/25 18:40 01/03/25 18:40 Radiology Impressions Cervical Spine CT 01/03/25 18:02 IMPRESSION: 1. No acute trauma and cervical spine. 2. Atherosclerotic disease with mild prominence of the aortic arch. 3. Partially imaged right upper lobe pulmonary nodule measuring 1.5 cm. Left upper lobe nodule partially imaged measuring 5.5 mm. Calcified granuloma right apex. 4. Per Fleischner Society criteria, in 3 months either tissue diagnosis, PET-CT, or CT. Head CT 01/03/25 18:02 IMPRESSION: 1. No acute intracranial abnormality. 2. Right frontotemporal scalp swelling with no underlying fracture. Hip/Pelvis X-Ray 01/03/25 18:02 IMPRESSION: Right femoral neck fracture. Chest X-Ray 01/03/25 18:20 IMPRESSION: Multiple masses throughout the lungs. Further evaluation with CT of the thorax recommended. Femur X-Ray 01/03/25 19:27 IMPRESSION: Right femoral neck fracture. Laboratory Results WBC 7.03 10^3/uL (3.29-11.43) 01/03/25 18:40 RBC 2.58 10^6/uL (3.85-5.65) L 01/03/25 18:40 Hgb 9.10 g/dL (11.27-16.99) L 01/03/25 18:40 Hct 26.3 % (36-47) L 01/03/25 18:40 MCV 101.9 fl (85-98) H 01/03/25 18:40 MCH 35.3 pg (27-33) H 01/03/25 18:40 MCHC 34.6 g/dL (30-55) 01/03/25 18:40 RDW 14.1 % (12.1-15.1) 01/03/25 18:40 Plt Count 140 10^3/cmm (157-399) L 01/03/25 18:40 MPV 9.8 fL (7.4-10.4) 01/03/25 18:40 Neut % (Auto) 79.0 % 01/03/25 18:40 Lymph % (Auto) 13.9 % 01/03/25 18:40 [place] % (Auto) 6.0 % 01/03/25 18:40 Eos % (Auto) 0.6 % 01/03/25 18:40 Baso % (Auto) 0.1 % 01/03/25 18:40 Neut # (Auto) 5.55 10^3/uL (1.8-7.7) 01/03/25 18:40 Lymph # (Auto) 1.0 10^3/uL (0.8-4.8) 01/03/25 18:40 [place] # (Auto) 0.4 10^3/uL (0.2-0.9) 01/03/25 18:40 Eos # (Auto) 0.0 10^3/uL (0.0-0.8) 01/03/25 18:40 Baso # (Auto) 0.0 10^3/uL (0.0-0.1) 01/03/25 18:40 Nucleated RBC % (auto) 0 % 01/03/25 18:40 Nucleated RBCs # 0.0 /100WBC 01/03/25 18:40 PT 20.20 SECONDS (12.1-14.9) H 01/03/25 18:40 INR 1.62 (0.8-1.2) H 01/03/25 18:40 Sodium 128 mmol/L (136-145) L 01/03/25 18:40 Potassium 4.3 mmol/L (3.5-5.1) 01/03/25 18:40 Chloride 94 mmol/L (98-107) L 01/03/25 18:40 Carbon Dioxide 21 mmol/L (22-29) L 01/03/25 18:40 Anion Gap 17.3 (5-19) 01/03/25 18:40 BUN 16 mg/dL (8-23) 01/03/25 18:40 Creatinine 0.8 mg/dL (0.5-0.9) 01/03/25 18:40 GFR Calculation Not Reportable 01/03/25 18:40 Glucose 117 mg/dL (65-115) H 01/03/25 18:40 Calculated Osmolality 268 mOsm/kg (285-295) L 01/03/25 18:40 Calcium 8.6 mg/dL (8.5-10.5) 01/03/25 18:40 Total Bilirubin 0.8 mg/dL (0.15-1.2) 01/03/25 18:40 AST 28 U/L (0-32) 01/03/25 18:40 ALT 19 U/L (0-33) 01/03/25 18:40 Alkaline Phosphatase 67 U/L (35-105) 01/03/25 18:40 Total Protein 6.8 g/dL (6.6-8.7) 01/03/25 18:40 Albumin 3.8 g/dL (3.5-5.2) 01/03/25 18:40 Globulin 3.0 g/dL (1.3-4.6) 01/03/25 18:40 Urine Color Yellow (Yellow) 01/03/25 19:19 Urine Appearance Clear (CLEAR) 01/03/25 19:19 Urine pH 7.0 (5-7) 01/03/25 19:19 Ur Specific [place] 1.012 (1.005-1.030) 01/03/25 19:19 Urine Protein 1+ (Negative) A 01/03/25 19:19 Urine Glucose (UA) Negative (Normal) 01/03/25 19:19 Urine Ketones Negative (Negative) 01/03/25 19:19 Urine Blood 1+ (Negative) A 01/03/25 19:19 Urine Nitrate Negative (Negative) 01/03/25 19:19 Urine Bilirubin Negative (Negative) 01/03/25 19:19 Urine Urobilinogen 1.0 mg/dL (Negative) 01/03/25 19:19 Ur Leukocyte Esterase 1+ (Negative) A 01/03/25 19:19 Urine RBC 6-10 /hpf (0-2) 01/03/25 19:19 Urine WBC 0-5 /hpf (0-5) 01/03/25 19:19 Ur Squamous Epith Cells 0-5 /hpf (0-5) 01/03/25 19:19 Amorphous Sediment Not Reportable 01/03/25 19:19 Urine Bacteria None seen /hpf (NONE) 01/03/25 19:19 Hyaline Casts 0.40 /lpf 01/03/25 19:19 All radiology interpretation(s) finalized by discharge ED provider radiology interpretation(s): Femoral neck fracture EKG Data EKG 1: Interpretation: left axis, first degree av block, left anterior fascicular block no ST segment elevation Computer generated interpretation: Sinus rhythm with first-degree AV block, right bundle branch block, left anterior fascicular block Discharge Plan Discharge Patient Disposition: Admitted As Inpatient Clinical Impression: Hyponatremia Fracture of femoral neck, right, closed Qualifiers: Encounter type: initial encounter Qualified Code(s): S72.001A - Fracture of unspecified part of neck of right femur, initial encounter for closed fracture Anemia Qualifiers: Anemia type: unspecified type Qualified Code(s): D64.9 - Anemia, unspecified Condition: Stable Coding Level of Care Code ED Telephone Surveyor for Maame Osborn
--- NOTE | 2025-01-03 18:20 | XRR_ITS ---
PROCEDURE INFORMATION: Exam: XR Chest Exam date and time: 01/03/2025 6:19 PM Age: 84 years old Clinical indication: Injury or trauma; Fall; Blunt trauma (contusions or hematomas) TECHNIQUE: Imaging protocol: Radiologic exam of the chest. Views: 1 view. COMPARISON: CR XR chest 1V portable [id number] 02/06/2020 9:06 AM FINDINGS: Lungs: There are multiple masses throughout the left and right lung. The lungs are free of consolidation. Pleural spaces: Unremarkable. No pleural effusion. No pneumothorax. Heart/Mediastinum: The heart is stable in size. Vasculature: Endovascular stent graft involves the thoracic aorta. Calcific plaque involves the aorta. Bones/joints: Sternotomy wires present. Degenerative changes involve the spine. XR/XR chest 1V portable [id number] IMPRESSION: Multiple masses throughout the lungs. Further evaluation with CT of the thorax recommended.
[2025-01-03 18:46] LABS: Hematocrit 26.3 % (36-47); Hemoglobin 9.10 g/dL (11.27-16.99); Mean Corpuscular HGB Conc 34.6 g/dL (30-55); Mean Corpuscular Hemoglobin 35.3 pg (27-33); Mean Corpuscular Volume 101.9 fl (85-98); Nucleated Red Blood Cells % 0 %; Platelet Count 140 10^3/cmm (157-399); Red Blood Count 2.58 10^6/uL (3.85-5.65); White Blood Count 7.03 10^3/uL (3.29-11.43)
[2025-01-03] MEDS: acetaminophen 1,000 MG/100 ML PIGGYBACK 400 MG IV (18:46)
[2025-01-03] MEDS: ondansetron 2 mg/ML SDV 2 mL 4 MG IVP (18:46)
[2025-01-03] MEDS: morphine 4 mg/mL SDV 1 mL IVP (18:46)
[2025-01-03 19:05] LABS: Alanine Aminotransferase 19 U/L (0-33); Albumin Level 3.8 g/dL (3.5-5.2); Alkaline Phosphatase 67 U/L (35-105); Anion Gap 17.3 (5-19); Aspartate Amino Transferase 28 U/L (0-32); Blood Urea Nitrogen 16 mg/dL (8-23); Calcium 8.6 mg/dL (8.5-10.5); Carbon Dioxide 21 mmol/L (22-29); Chloride 94 mmol/L (98-107); Creatinine Clr Calc Pharmacy 46.0143; Globulin 3.0 g/dL (1.3-4.6); Glucose 117 mg/dL (65-115); Osmolality Calculated 268 mOsm/kg (285-295); Potassium 4.3 mmol/L (3.5-5.1); Sodium 128 mmol/L (136-145); Total Protein 6.8 g/dL (6.6-8.7)
--- NOTE | 2025-01-03 19:27 | XRR_ITS ---
PROCEDURE INFORMATION: Exam: XR Right Femur Exam date and time: 01/03/2025 7:37 PM Age: 84 years old Clinical indication: Pain; Lower leg; Right; Additional info: RT femur FX TECHNIQUE: Imaging protocol: Radiologic exam of the right femur. Views: 2 views. COMPARISON: CR XR hip RT 2-3V wo/w pel* [id number] 01/03/2025 6:10 PM FINDINGS: Bones/joints: There is a right femoral neck fracture. Superior displacement of the distal fracture fragment. The bone density is decreased. No additional fractures. Soft tissues: Unremarkable. Vasculature: Calcific plaque involves the femoral arteries. XR/XR femur RT min 2V* [id number] IMPRESSION: Right femoral neck fracture.
[2025-01-03 19:32] LABS: Glucose Urine UA Negative (Normal); Nitrate Urine Negative (Negative); Specific Gravity, Urine 1.012 (1.005-1.030)
[2025-01-03 19:37] LABS: Add Urine Microscopic? YES
[2025-01-03] MEDS: pantoprazole 40 mg SDV 80 MG IVP (20:02)
--- NOTE | 2025-01-03 20:48 | XRR_ITS ---
PROCEDURE INFORMATION: Exam: XR Right Tibia and Fibula Exam date and time: 01/03/2025 10:39 PM Age: 84 years old Clinical indication: Injury or trauma; Blunt trauma; Right; Fall from standing. C/O RT lower leg pain. Positive for hip fracture. ; Additional info: Trauma, pain TECHNIQUE: Imaging protocol: Radiologic exam of the right tibia and fibula. Views: 2 views. COMPARISON: No relevant prior studies available. FINDINGS: Bones/joints: No definitive fracture or dislocation. There is questionable cortical irregularity involving the lateral malleolus which may be positional. Soft tissues: Mild diffuse soft tissue swelling. Vasculature: Vascular calcification present. Other findings: Is examination is limited by patient positioning. XR/XR tibia fibula RT 2V [id number] IMPRESSION: Questionable cortical irregularity involving the lateral malleolus which may be positional. Correlation with point tenderness recommended. Consider dedicated radiographs of the ankle.
--- NOTE | 2025-01-03 20:49 | ECG_ITS ---
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 Measurements Intervals [place] Rate: 67 P: 248 IN: 225 QRS: -47 QRSD: 201 T: 61 QT: 519 QTc: 549 Interpretive Statements SINUS RHYTHM WITH FIRST DEGREE AV BLOCK RIGHT BUNDLE BRANCH BLOCK [120+ ms QRS DURATION, UPRIGHT V1, 40+ ms S IN I/aVL/V4/V5/V6] LEFT ANTERIOR FASCICULAR BLOCK [QRS AXIS <= -45, QR IN I, RS IN II] Compared to ECG 02/06/2020 11:53:34 First degree AV block now present Right bundle-branch block now present Left anterior fascicular block now present Left ventricular hypertrophy no longer present ST (T wave) deviation no longer present Electronically Signed On 01-07-2025 09:10:16 CDT by Elliott Chen M.D. [email or web address]
--- NOTE | 2025-01-03 20:52 | CTR_ITS ---
PROCEDURE INFORMATION: Exam: CT Chest With Contrast; Diagnostic Exam date and time: 01/03/2025 10:36 PM Age: 84 years old Clinical indication: Injury or trauma and abnormal findings; Abnormal lab test and abnormal radiologic finding of the abdomen; Radiologic exam and body structure: Nodules seen on cervical CT; Other: Hyponatremia; Generalized; Other: N/a; Blunt trauma (contusions or hematomas); Prior surgery; Surgery date: 6+ months; Surgery type: Cabg. Aortic valve. Aortic endograft. Gb. Patient sustained fall from standing. Posiitve for RT hip fracture. Two large pulmonary nodules noted on cervical CT. History of aortic dissection. ; Additional info: Nodule, hyponatremia, R/O infectious in nature, per [place]/routine TECHNIQUE: Imaging protocol: Diagnostic computed tomography of the chest with contrast. Radiation optimization: All CT scans at this facility use at least one of these dose optimization techniques: automated exposure control; mA and/or kV adjustment per patient size (includes targeted exams where dose is matched to clinical indication); or iterative reconstruction. Contrast material: OMNI 350; Contrast volume: 80 ml; Contrast route: INTRAVENOUS (IV); COMPARISON: CR XR chest 1V portable [id number] 01/03/2025 6:19 PM RADIATION DOSE METRICS: Total DLP (mGy-cm): 849.81 FINDINGS: Tubes, catheters and devices: Streak artifact from embolization coils at the aortic root limits evaluation. Lungs: There is a mass involving the lingula measuring 2.3 cm. There is a mass involving the right upper lobe measuring 2.5 cm. Additional pulmonary nodules noted throughout the right lung. Pleural spaces: Unremarkable. No pneumothorax. No pleural effusion. Heart: Unremarkable. No cardiomegaly. No pericardial effusion. Lymph nodes: Unremarkable. No enlarged lymph nodes. Vasculature: There is an endovascular stent graft involving the ascending thoracic aorta and aortic arch. The ascending measures up to 7.6 cm in diameter with suspected endoleak. The descending thoracic aorta measures 3.1 cm in diameter. No dissection. Calcific plaque involves the thoracic aorta and coronary arteries. Bones/joints: The bone density is decreased. Old right clavicle fracture. Degenerative changes involve the spine. No acute bony abnormality. Sternotomy wires present. Soft tissues: There is soft tissue expansion of the right 2nd costal cartilage junction which may be the sequela of remote injury. Other findings: Image quality degraded by motion artifact. PROCEDURE INFORMATION: Exam: CT Abdomen And Pelvis With Contrast Exam date and time: 01/03/2025 10:36 PM Age: 84 years old Clinical indication: Injury or trauma and abnormal findings; Abnormal lab test and abnormal radiologic finding of the abdomen; Radiologic exam and body structure: Nodules seen on cervical CT; Other: Hyponatremia; Generalized; Other: N/a; Blunt trauma (contusions or hematomas); Prior surgery; Surgery date: 6+ months; Surgery type: Cabg. Aortic valve. Aortic endograft. Gb. Patient sustained fall from standing. Posiitve for RT hip fracture. Two large pulmonary nodules noted on cervical CT. History of aortic dissection. ; Additional info: Nodule, hyponatremia, R/O infectious in nature, per [place]/routine TECHNIQUE: Imaging protocol: Computed tomography of the abdomen and pelvis with contrast. Radiation optimization: All CT scans at this facility use at least one of these dose optimization techniques: automated exposure control; mA and/or kV adjustment per patient size (includes targeted exams where dose is matched to clinical indication); or iterative reconstruction. Contrast material: OMNI 350; Contrast volume: 80 ml; Contrast route: INTRAVENOUS (IV); COMPARISON: CR XR hip RT 2-3V wo/w pel* [id number] 01/03/2025 6:10 PM RADIATION DOSE METRICS: Total DLP (mGy-cm): 849.81 FINDINGS: Liver: Normal. No mass. Gallbladder and biliary ducts: The gallbladder is surgically absent. Pancreas: Normal. No ductal dilation. Spleen: Normal. No splenomegaly. Adrenal glands: Normal. No mass. Kidneys and ureters: Normal. No hydronephrosis. Stomach and bowel: Scattered colon diverticula. No inflammatory change identified involving the GI tract. No signs of bowel obstruction. Appendix: No evidence of appendicitis. Intraperitoneal space: Unremarkable. No free air. No significant fluid collection. Vasculature: Scattered calcific plaque involves the abdominal aorta and iliac arteries. Lymph nodes: Unremarkable. No enlarged lymph nodes. Urinary bladder: A Aggarwal catheter noted within the urinary bladder. Reproductive: Unremarkable as visualized. Bones/joints: There is a right femoral neck fracture. Superior displacement of the distal fracture fragment. Suspected old moderate L1 compression fracture. No additional fractures. Degenerative changes involve the spine and hips. There is a small amount of presacral hemorrhage concerning for an occult sacral fracture Soft tissues: Unremarkable. Other findings: Image quality is degraded by motion artifact. CT/CT chest abdpel w/*[id number] IMPRESSION: 1. Image quality is degraded by motion artifact. 2. Multiple pulmonary nodules and masses likely reflecting primary lung malignancy with metastatic disease. 3. Changes from endovascular stent placement. Suspected large endoleak involving the ascending thoracic aorta. IMPRESSION: 1. Image quality degraded by motion artifact. 2. Right femoral neck fracture. 3. Small amount of presacral hemorrhage concerning for an occult sacral fracture.
[2025-01-03 21:11] LABS: INR 1.62 (0.8-1.2); Prothrombin Time 20.20 SECONDS (12.1-14.9)
[2025-01-03 22:13] LABS: Vitamin B12 478 pg/mL (232-1245)
[2025-01-03] MEDS: iohexol 350 mg/mL 500 mL Btl (per mL) IV (22:51)
--- NOTE | 2025-01-03 23:05 | PM.HP ---
Providers/Chief Complaint Admitting Physician: Moises Doan MD Primary Care Provider: Rachael Craig DO Chief Complaint: right hip pain s/p fall History of Present Illness Dayanna Chanel is a 84 year old female lives with her friend Mimi [place]aver'Brien. Patient was up for bathroom was putting on her shoes and getting her walker when she fell backwards and hit the right side of her head sustaining a bruise. Mimi came in she had her call patient's son to come help her get up. Patient noted that her right hip was terribly painful so asked for ambulance. Patient's found to have a right femoral neck fracture. Dr. Arias has been notified and will repair her hip on Saturday allowing time for apixaban to wear off. Patient takes apixaban for atrial fibrillation Patient's chest x-ray shows multiple lung nodules. She has a history of breast cancer left breast resected lymph node negative and then had chemo and radiation. She states her right breast had a slow-growing cancer but they did not do anything for her and are watching. She states the left breast has a fast-growing cancer and was treated 2022. Notably the patient has anemia with hematocrit 26 today and the last time she had it here was 2019 when it was 43.6. She has had intervening years living in [place]. She also has sodium of 128 and last test in 2019 was 137. Patient denies dizziness as a cause of her fall. Review of Systems Narrative: General positive for weight loss 5 pounds no fevers chills night sweats Cardiovascular no chest pain palpitations or edema she states she has heart murmur that she is known of since childhood and she is also has had heart surgery twice once 2004 and a second time in 2016. She has occasional palpitations Respiratory no shortness of breath or wheezing. She did have a cough 2 weeks ago now better GI no nausea vomiting diarrhea constipation no dysuria hematuria incontinence Heme negative for clots in legs or lungs Malignancy history positive for breast cancer left side treated right side with a slow-growing cancer not resected Medications/Allergies Home Medications ?Medication ?Instructions ?Recorded ?Confirmed ?Last Taken ?Type lovastatin 40 mg tablet 40 mg PO 1200 02/02/20 01/01/25 02/05/20 History amiodarone 100 mg tablet 100 mg PO DAILY #90 tabs 01/01/25 01/01/25 Unknown Rx amlodipine 2.5 mg tablet 2.5 mg PO DAILY 01/01/25 01/01/25 Unknown History anastrozole 1 mg tablet 1 mg PO DAILY 01/01/25 01/01/25 Unknown History apixaban 5 mg tablet (Eliquis) 5 mg PO BID 01/01/25 01/01/25 Unknown History calcium 315 mg (as 2 tab PO DAILY 01/01/25 01/01/25 Unknown History citrate)-vitamin D3 6.25 mcg (250 unit) tablet ibandronate 150 mg tablet mg PO .monthly 01/01/25 01/01/25 Unknown History losartan 25 mg tablet 25 mg PO DAILY #90 tabs 01/01/25 01/01/25 Unknown Rx sertraline 25 mg tablet 25 mg PO DAILY 01/01/25 01/01/25 Unknown History Allergies Allergy/AdvReac Type Severity Reaction Status Date / Time No Known Allergies Allergy Verified 01/01/25 13:27 PFSH Acute PFSH: Medical History (Updated 01/03/25 @ 23:28 by Moises Doan MD) Breast cancer Dissecting AAA (abdominal aortic aneurysm) Syncope Prolonged QT interval [place] to be related to bradycardia. Resolved Sinus bradycardia Moderate aortic regurgitation Heart failure with preserved ejection fraction Hypertension Coronary artery disease Surgical History (Updated 01/03/25 @ 23:31 by Moises Doan MD) S/P insertion of endovascular thoracic aortic stent graft History of lumpectomy left History of cholecystectomy History of heart valve replacement Hx of CABG Hx of aortic aneurysm repair Stent placement after thoracic aortic aneurysm leakage, [facility] Dr. Ulloa Aneurysm repair x3 Family History Other CAD (coronary artery disease) Social History (Updated 01/03/25 @ 23:17 by Moises Doan MD) Smoking and tobacco/nicotine status: never used tobacco/nicotine Alcohol intake: former Year of sobriety/quit date alcohol: 2019 Former alcohol use details: Drink a glass of wine daily for 59 years. was a drinker Substance/Drug Use: never Additional social history: She is . She has a friend that lives with her Mimi [place]. Patient wants DNR as discussed with Moises Doan MD on 01/03/2025. Patient states she is not sure she would want biopsy of her lung nodules to look for cancer. She thinks she would not want to pursue treatment again. She states she is not afraid to . 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 Neck no carotid bruits that are discernible from radiated murmur CV irregular rhythm with controlled rate and 5/6 systolic ejection murmur best heard at the right upper sternal border Lungs clear to auscultation bilaterally. Abdomen positive bowel sounds soft nontender Calves no tenderness cords pretrip edema Mentation alert and oriented x 3. Speech is clear. Patient is able to move both feet and toes and is not tender. Left dorsal pedal pulse 2+ right side diminished but present I see where it has been dopplered and marked with an X foot is warm Mood and affect normal Urinary Catheter Management: Aggarwal: Cath Placed During This Visit: yes Urinary Catheter Date of Insertion: 01/03/25 Urinary Catheter Time of Insertion: 19:03 Data 01/03/25 18:40 01/03/25 18:40 A&P Assessment and plan (1) Fracture of femoral neck, right, closed: Patient is on apixaban so that is now held with plan for surgery on Saturday to repair this by Dr. Arias. I just got word from the grade foreman that the patient has possibly a large Endo vascular stent leak in the thoracic aorta. M[employer] DESIGNER [employer]cur[employer] was not called by V rad. She is now aware and is going to speak with V rad and potentially vascular surgeon to see if anything needs to be done (2) Afib: Heart rate is stable continue amiodarone hold apixaban (3) Anemia: Hold apixaban. Will check iron studies and a retake count. This may be anemia of chronic disease related to breast cancer (4) Hyponatremia: Start NS with 20 mg KCl per liter to run at 100 cc an hour. Will check urine sodium this may represent SIADH (5) Breast cancer: Suspected metastases to the lungs. I discussed this with the patient. She is not sure that she wants to pursue biopsies. She is going to think about whether she would want to pursue treatment (6) Multiple lung nodules: As above (7) S/P insertion of endovascular thoracic aortic stent graft: Nurse practitioner Bill is going to discuss this with vascular surgeon and/or radiology to clarify treatment plan and options for us to offer to the patient PDMP PDMP Reviewed: Not Reviewed Attestations Medical Necessity Statement*: Anticipate that the patient will need greater than 3 midnights in the hospital. Will clarify whether this can be managed here or if the patient will need to be transferred Coding Level of Care Code Acute Code for Chg Fwd Diagnoses Fracture of femoral neck, right, closed S72.001A Encounter type: initial encounter Afib I48.91 Anemia D64.9 Anemia type: unspecified type Hyponatremia E87.1 Breast cancer C50.919 Multiple lung nodules R91.8 S/P insertion of endovascular thoracic aortic stent graft Z95.828
[2025-01-03] MEDS: sodium chlor 0.9% + KCl 20 mEq 20 MEQ/1,000 ML BAG 100 MEQ IV (23:31)
[2025-01-04] VITALS (16 sets, daily range): BP systolic 119–141; BP diastolic 42–62; PULSE 71–80; RESP 16–18; TEMP 36.4–38.1; O2SAT 90–94
[2025-01-04] MEDS: oxyCODONE 5 mg IR Tab/Cap PO ×5 (01:56→22:11)
[2025-01-04 05:20] LABS: Hematocrit 24.6 % (36-47); Hemoglobin 8.30 g/dL (11.27-16.99); Mean Corpuscular HGB Conc 33.7 g/dL (30-55); Mean Corpuscular Hemoglobin 35.6 pg (27-33); Mean Corpuscular Volume 105.6 fl (85-98); Nucleated Red Blood Cells % 0 %; Platelet Count 120 10^3/cmm (157-399); Red Blood Count 2.33 10^6/uL (3.85-5.65); White Blood Count 5.60 10^3/uL (3.29-11.43)
[2025-01-04 05:37] LABS: Anion Gap 15.7 (5-19); Blood Urea Nitrogen 13 mg/dL (8-23); Calcium 7.6 mg/dL (8.5-10.5); Carbon Dioxide 21 mmol/L (22-29); Chloride 101 mmol/L (98-107); Creatinine Clr Calc Pharmacy 40.9016; Glucose 104 mg/dL (65-115); Osmolality Calculated 276 mOsm/kg (285-295); Potassium 4.7 mmol/L (3.5-5.1); Sodium 133 mmol/L (136-145)
[2025-01-04] MEDS: calcium carb-vit d 600mg/400unit 1 Tablet 2 EACH PO (08:35)
[2025-01-04] MEDS: sodium chlor 0.9% + KCl 20 mEq 20 MEQ/1,000 ML BAG 100 MEQ IV (08:39)
[2025-01-04 09:16] LABS: Hematocrit 25.1 % (36-47); Hemoglobin 8.60 g/dL (11.27-16.99)
[2025-01-04 09:28] LABS: INR 1.31 (0.8-1.2); Prothrombin Time 17.20 SECONDS (12.1-14.9)
[2025-01-04 09:29] LABS: Partial Thromboplastin Time 32.1 SECONDS (23.9-36.7)
--- NOTE | 2025-01-04 12:21 | PM.CONSULT ---
Documented by User: ADRIANNE Sow 01/04/25 15:15 Providers/Reason For Consult Consulting Physician/Specialty*: Dr. Hugo DO/orthopedic surgeon Reason for Consult*: Right femur fracture Requesting Physician: Olivier Khan PA-C Attending Physician: Casper Lutz MD Primary Care Provider: Rachael Craig DO History of Present Illness History of Present Illness Dayanna Chanel is a 84 year old female that is here with a right hip/femur fracture after a fall. Fall injury occurred yesterday. Patient states that she lives in a house with a roommate and got up in the middle of the night and on her way to the bathroom she lost her balance and fell. She was then taken to the emergency department and found to have a right femoral neck fracture. She denies any loss of consciousness after fall and denies any other injuries to other extremities. Patient does take Eliquis daily and uses a cane for ambulation. Review of Systems General: Reports: 10 or more systems reviewed and unremarkable except in HPI and below Const: Denies: fever(s) or chills ENMT: Denies: throat pain or nasal congestion Card: Denies: chest pain or palpitations Resp: Denies: dyspnea, productive cough or non-productive cough GI: Denies: abdominal pain, nausea or vomiting : Denies: dysuria Musc: Reports: joint pain (Right hip) and limited range of motion (Right hip) Medications/Allergies Home Medications ?Medication ?Instructions ?Recorded ?Confirmed ?Last Taken ?Type amiodarone 100 mg tablet 100 mg PO DAILY #90 tabs 01/01/25 01/04/25 01/03/25 Rx amlodipine 2.5 mg tablet 2.5 mg PO DAILY 01/01/25 01/04/25 01/03/25 History anastrozole 1 mg tablet 1 mg PO DAILY 01/01/25 01/04/25 01/03/25 History apixaban 5 mg tablet (Eliquis) 5 mg PO BID 01/01/25 01/04/25 01/03/25 History calcium 315 mg (as 2 tab PO DAILY 01/01/25 01/04/25 01/03/25 History citrate)-vitamin D3 6.25 mcg (250 unit) tablet ibandronate 150 mg tablet 150 mg PO .monthly 01/01/25 01/04/2512/06/25 History losartan 25 mg tablet 25 mg PO DAILY #90 tabs 01/01/25 01/04/25 01/03/25 Rx sertraline 25 mg tablet 25 mg PO DAILY 01/01/25 01/04/25 01/03/25 History Allergies Allergy/AdvReac Type Severity Reaction Status Date / Time No Known Allergies Allergy Verified 01/01/25 13:27 Current Medications Generic Name Dose Route Start Last Admin Trade Name Sam PRN Reason Stop Dose Admin Amiodarone HCl 100 mg 01/04/25 09:00 01/04/25 08:36 Amiodarone 200 Mg Tablet PO 100 mg DAILY RAMON Administration Amlodipine Besylate 2.5 mg 01/04/25 09:00 01/04/25 08:36 Amlodipine 5 Mg Tablet PO 2.5 mg DAILY RAMON Administration Anastrozole 1 mg 01/04/25 09:00 01/04/25 08:35 Anastrozole 1 Mg Tablet PO 1 mg DAILY RAMON Administration Calcium Carbonate 2 each 01/04/25 09:00 01/04/25 08:35 Calcium Carb-Vit D 600mg/400unit 1 Tablet PO 2 each DAILY RAMON Administration Docusate Sodium 100 mg 01/04/25 09:00 01/04/25 08:36 Docusate Sodium 100 Mg Capsule PO 100 mg BID RAMON Administration Potassium Chloride/Sodium Chloride 20 meq in 1,000 mls @ 100 mls/hr 01/03/25 23:06 01/04/25 08:39 Sodium Chlor 0.9% + Kcl 20 Meq IV 100 mls/hr .Q10H RAMON Administration Losartan Potassium 25 mg 01/04/25 09:00 01/04/25 08:36 Losartan 50 Mg Tablet PO 25 mg DAILY RAMON Administration Oxycodone HCl 5 mg 01/03/25 23:06 01/04/25 08:38 Oxycodone 5 Mg Ir Tab/Cap PO 5 mg Q6H PRN Administration SEVERE PAIN Sertraline HCl 25 mg 01/04/25 09:00 01/04/25 08:36 Sertraline 50 Mg Tablet PO 25 mg DAILY RAMON Administration PFSH Acute PFSH: Medical History Breast cancer Dissecting AAA (abdominal aortic aneurysm) Syncope Prolonged QT interval [place] to be related to bradycardia. Resolved Sinus bradycardia Moderate aortic regurgitation Heart failure with preserved ejection fraction Hypertension Coronary artery disease Surgical History S/P insertion of endovascular thoracic aortic stent graft History of lumpectomy left History of cholecystectomy History of heart valve replacement Hx of CABG Hx of aortic aneurysm repair Stent placement after thoracic aortic aneurysm leakage, [facility] Dr. Ulloa Aneurysm repair x3 Family History Other CAD (coronary artery disease) Social History Smoking and tobacco/nicotine status: never used tobacco/nicotine Alcohol intake: former Year of sobriety/quit date alcohol: 2019 Former alcohol use details: Drink a glass of wine daily for 59 years. was a drinker Substance/Drug Use: never Additional social history: She is . She has a friend that lives with her Mimi Bradgate. Patient wants DNR as discussed with Moises Doan MD on 01/03/2025. Patient states she is not sure she would want biopsy of her lung nodules to look for cancer. She thinks she would not want to pursue treatment again. She states she is not afraid to . 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 Vitals/I&O/Wt Last Vital Signs Temp 98.2 F 01/04/25 11:12 Pulse 74 01/04/25 11:12 Resp 17 01/04/25 11:12 BP 119/42 01/04/25 11:12 Pulse Ox 91 01/04/25 11:12 O2 Del Method Nasal Cannula 01/04/25 11:12 O2 Flow Rate 2 01/04/25 11:12 01/03/25 01/04/25 01/04/25 22:59 06:59 14:59 Intake Total 1100 / 1100 1153.333 / 1153.333 Output Total 700 / 700 Balance 1100 / 1100 -700 / 400 1153.333 / 1153.333 Weight last 48 hrs Weight 132 lb Weight 126 lb Weight 126 lb Physical Exam Const: COMMON NORMALS: no acute distress and alert Resp: COMMON NORMALS: normal respiratory effort and No retractions Cardio: COMMON NORMALS: Peripheral pulses 2+ throughout PERIPHERAL PULSES: Peripheral pulses 2+ throughout Extremity: NARRATIVE EXTREMITY EXAM: (Right) lower extremity-leg is shortened and externally rotated. Positive logroll test. Tenderness to palpation right hip. compartments are soft and compressible. Patient can Wiggle toes. Toes are warm and well-perfused. Pedal pulse 2+. Secondary assessment of other extremities. Upper extremities-no visible injuries, abrasions. Full range of motion in shoulders, elbows and wrist. no tenderness to palpation of shoulders or wrist. (Left) lower extremity-no visible injury or trauma seen. Full range of motion in hip. Negative logroll test. Patient able to perform straight leg raise and can dorsiflex plantarflex foot. Pedal pulse 2+ and patient can wiggle toes. Neuro: SENSORIUM/ORIENTATION: Yes alert Skin: GENERAL SKIN EXAM: dry skin Urinary Catheter Management: Aggarwal: Cath Placed During This Visit: yes Reason for Continuing Indwelling Catheter: Other Urinary Catheter Date of Insertion: 01/03/25 Urinary Catheter Time of Insertion: 19:03 Data 01/04/25 13:10 01/04/25 04:26 Xray Ortho: Radiologist's impression: Patient: Dayanna Chanel Unit #: [id number] : 1940 Age/Sex: 84 / F ADM Date: 01/03/25 Loc: ER Room/Bed: Attending Dr: Ordering Provider/Ordering MD: Umu Khan Date of Service: 01/03/25 Procedure(s): XR femur RT min 2V* [id number] Accession Number(s): [id number] Report Number: [id number] PROCEDURE INFORMATION: Exam: XR Right Femur Exam date and time: 01/03/2025 7:37 PM Age: 84 years old Clinical indication: Pain; Lower leg; Right; Additional info: RT femur FX TECHNIQUE: Imaging protocol: Radiologic exam of the right femur. Views: 2 views. COMPARISON: CR XR hip RT 2-3V wo/w pel* [id number] 01/03/2025 6:10 PM FINDINGS: Bones/joints: There is a right femoral neck fracture. Superior displacement of the distal fracture fragment. The bone density is decreased. No additional fractures. Soft tissues: Unremarkable. Vasculature: Calcific plaque involves the femoral arteries. XR/XR femur RT min 2V* [id number] IMPRESSION: Right femoral neck fracture. Dictated By: Dr. Say Johnson JR. MD A&P Assessment and plan (1) Fracture of femoral neck, right, closed: Plan Plan: -Imaging and Labs reviewed -Hospitalist on board for medical management. -VTE prophylaxis -Nonweightbearing on right leg -Pain control -Hold daily eliquis -N.p.o. after midnight -Surgery tomorrow morning or around noon for Right hip hemiarthroplasty. PDMP PDMP Reviewed: Not Reviewed Coding Level of Care Code Acute Code for Chg Fwd Diagnoses Fracture of femoral neck, right, closed S72.001A Encounter type: initial encounter Documented by User: Chris Arias DO 01/04/25 17:35 Medications/Allergies Home Medications ?Medication ?Instructions ?Recorded ?Confirmed ?Last Taken ?Type amiodarone 100 mg tablet 100 mg PO DAILY #90 tabs 01/01/25 01/04/25 01/03/25 Rx amlodipine 2.5 mg tablet 2.5 mg PO DAILY 01/01/25 01/04/25 01/03/25 History anastrozole 1 mg tablet 1 mg PO DAILY 01/01/25 01/04/25 01/03/25 History apixaban 5 mg tablet (Eliquis) 5 mg PO BID 01/01/25 01/04/25 01/03/25 History calcium 315 mg (as 2 tab PO DAILY 01/01/25 01/04/25 01/03/25 History citrate)-vitamin D3 6.25 mcg (250 unit) tablet ibandronate 150 mg tablet 150 mg PO .monthly 01/01/25 01/04/25 12/06/24 History losartan 25 mg tablet 25 mg PO DAILY #90 tabs 01/01/25 01/04/25 01/03/25 Rx sertraline 25 mg tablet 25 mg PO DAILY 01/01/25 01/04/25 01/03/25 History Allergies Allergy/AdvReac Type Severity Reaction Status Date / Time No Known Allergies Allergy Verified 01/01/25 13:27 PFSH Acute PFSH: Medical History Breast cancer Dissecting AAA (abdominal aortic aneurysm) Syncope Prolonged QT interval [place] to be related to bradycardia. Resolved Sinus bradycardia Moderate aortic regurgitation Heart failure with preserved ejection fraction Hypertension Coronary artery disease Surgical History S/P insertion of endovascular thoracic aortic stent graft History of lumpectomy left History of cholecystectomy History of heart valve replacement Hx of CABG Hx of aortic aneurysm repair Stent placement after thoracic aortic aneurysm leakage, [facility] Dr. Ulloa Aneurysm repair x3 Family History Other CAD (coronary artery disease) Social History Smoking and tobacco/nicotine status: never used tobacco/nicotine Alcohol intake: former Year of sobriety/quit date alcohol: 2019 Former alcohol use details: Drink a glass of wine daily for 59 years. was a drinker Substance/Drug Use: never Additional social history: She is . She has a friend that lives with her Mimi Bradgate. Patient wants DNR as discussed with Moises Doan MD on 01/03/2025. Patient states she is not sure she would want biopsy of her lung nodules to look for cancer. She thinks she would not want to pursue treatment again. She states she is not afraid to . 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 Physical Exam Urinary Catheter Management: Aggarwal: Cath Placed During This Visit: yes Data 01/04/25 13:10 01/04/25 04:26 Xray Ortho: Radiologist's impression: Patient: Dayanna Chanel Unit #: [id number] : 1940 Age/Sex: 84 / F ADM Date: 01/03/25 Loc: ER Room/Bed: Attending Dr: Ordering Provider/Ordering MD: Umu Khan Date of Service: 01/03/25 Procedure(s): XR femur RT min 2V* [id number] Accession Number(s): [id number] Report Number: [id number] PROCEDURE INFORMATION: Exam: XR Right Femur Exam date and time: 01/03/2025 7:37 PM Age: 84 years old Clinical indication: Pain; Lower leg; Right; Additional info: RT femur FX TECHNIQUE: Imaging protocol: Radiologic exam of the right femur. Views: 2 views. COMPARISON: CR XR hip RT 2-3V wo/w pel* [id number] 01/03/2025 6:10 PM FINDINGS: Bones/joints: There is a right femoral neck fracture. Superior displacement of the distal fracture fragment. The bone density is decreased. No additional fractures. Soft tissues: Unremarkable. Vasculature: Calcific plaque involves the femoral arteries. XR/XR femur RT min 2V* [id number] IMPRESSION: Right femoral neck fracture. Dictated By: Dr. Say Johnson JR. MD Ordering Provider/Ordering MD: Umu Khan Date of Service: 01/03/25 Procedure(s): XR hip RT 2-3V wo/w pel* 09845 Accession Number(s): [id number] Report Number: [id number] PROCEDURE INFORMATION: Exam: XR Right Hip Exam date and time: 01/03/2025 6:10 PM Age: 84 years old Clinical indication: Injury or trauma; Fall; Blunt trauma (contusions or hematomas) and fracture of pelvis & hip; Right; Traumatic fracture; Neck of femur; Not specified; Additional info: Fall, right hip pain TECHNIQUE: Imaging protocol: Radiologic exam of the right hip. Views: 1 view hip with pelvis when performed. COMPARISON: MR MRCP [id number] 01/08/2018 5:17 AM FINDINGS: Bones/joints: Right femoral neck fracture. There is superior displacement of the distal fracture fragment. Degenerative changes involve the hips, lower lumbar spine, sacroiliac joints and pubic symphysis. Soft tissues: Unremarkable. XR/XR hip RT 2-3V wo/w pel* [id number] IMPRESSION: Right femoral neck fracture. Ordering Provider/Ordering MD: Rajinder Worthington MD Date of Service: 01/03/25 Procedure(s): XR tibia fibula RT 2V 84171 Accession Number(s): [id number] Report Number: [id number] PROCEDURE INFORMATION: Exam: XR Right Tibia and Fibula Exam date and time: 01/03/2025 10:39 PM Age: 84 years old Clinical indication: Injury or trauma; Blunt trauma; Right; Fall from standing. C/O RT lower leg pain. Positive for hip fracture. ; Additional info: Trauma, pain TECHNIQUE: Imaging protocol: Radiologic exam of the right tibia and fibula. Views: 2 views. COMPARISON: No relevant prior studies available. FINDINGS: Bones/joints: No definitive fracture or dislocation. There is questionable cortical irregularity involving the lateral malleolus which may be positional. Soft tissues: Mild diffuse soft tissue swelling. Vasculature: Vascular calcification present. Other findings: Is examination is limited by patient positioning. XR/XR tibia fibula RT 2V 74900 IMPRESSION: Questionable cortical irregularity involving the lateral malleolus which may be positional. Correlation with point tenderness recommended. Consider dedicated radiographs of the ankle. Ordering Provider/Ordering MD: Umu Khan Date of Service: 01/03/25 Procedure(s): CT chest abdpel w/*[id number] Accession Number(s): [id number] Report Number: [id number] PROCEDURE INFORMATION: Exam: CT Chest With Contrast; Diagnostic Exam date and time: 01/03/2025 10:36 PM Age: 84 years old Clinical indication: Injury or trauma and abnormal findings; Abnormal lab test and abnormal radiologic finding of the abdomen; Radiologic exam and body structure: Nodules seen on cervical CT; Other: Hyponatremia; Generalized; Other: N/a; Blunt trauma (contusions or hematomas); Prior surgery; Surgery date: 6+ months; Surgery type: Cabg. Aortic valve. Aortic endograft. Gb. Patient sustained fall from standing. Posiitve for RT hip fracture. Two large pulmonary nodules noted on cervical CT. History of aortic dissection. ; Additional info: Nodule, hyponatremia, R/O infectious in nature, per [place]/routine TECHNIQUE: Imaging protocol: Diagnostic computed tomography of the chest with contrast. Radiation optimization: All CT scans at this facility use at least one of these dose optimization techniques: automated exposure control; mA and/or kV adjustment per patient size (includes targeted exams where dose is matched to clinical indication); or iterative reconstruction. Contrast material: OMNI 350; Contrast volume: 80 ml; Contrast route: INTRAVENOUS (IV); COMPARISON: CR XR chest 1V portable [id number] 01/03/2025 6:19 PM RADIATION DOSE METRICS: Total DLP (mGy-cm): 849.81 FINDINGS: Tubes, catheters and devices: Streak artifact from embolization coils at the aortic root limits evaluation. Lungs: There is a mass involving the lingula measuring 2.3 cm. There is a mass involving the right upper lobe measuring 2.5 cm. Additional pulmonary nodules noted throughout the right lung. Pleural spaces: Unremarkable. No pneumothorax. No pleural effusion. Heart: Unremarkable. No cardiomegaly. No pericardial effusion. Lymph nodes: Unremarkable. No enlarged lymph nodes. Vasculature: There is an endovascular stent graft involving the ascending thoracic aorta and aortic arch. The ascending measures up to 7.6 cm in diameter with suspected endoleak. The descending thoracic aorta measures 3.1 cm in diameter. No dissection. Calcific plaque involves the thoracic aorta and coronary arteries. Bones/joints: The bone density is decreased. Old right clavicle fracture. Degenerative changes involve the spine. No acute bony abnormality. Sternotomy wires present. Soft tissues: There is soft tissue expansion of the right 2nd costal cartilage junction which may be the sequela of remote injury. Other findings: Image quality degraded by motion artifact. PROCEDURE INFORMATION: Exam: CT Abdomen And Pelvis With Contrast Exam date and time: 01/03/2025 10:36 PM Age: 84 years old Clinical indication: Injury or trauma and abnormal findings; Abnormal lab test and abnormal radiologic finding of the abdomen; Radiologic exam and body structure: Nodules seen on cervical CT; Other: Hyponatremia; Generalized; Other: N/a; Blunt trauma (contusions or hematomas); Prior surgery; Surgery date: 6+ months; Surgery type: Cabg. Aortic valve. Aortic endograft. Gb. Patient sustained fall from standing. Posiitve for RT hip fracture. Two large pulmonary nodules noted on cervical CT. History of aortic dissection. ; Additional info: Nodule, hyponatremia, R/O infectious in nature, per [place]/routine TECHNIQUE: Imaging protocol: Computed tomography of the abdomen and pelvis with contrast. Radiation optimization: All CT scans at this facility use at least one of these dose optimization techniques: automated exposure control; mA and/or kV adjustment per patient size (includes targeted exams where dose is matched to clinical indication); or iterative reconstruction. Contrast material: OMNI 350; Contrast volume: 80 ml; Contrast route: INTRAVENOUS (IV); COMPARISON: CR XR hip RT 2-3V wo/w pel* [id number] 01/03/2025 6:10 PM RADIATION DOSE METRICS: Total DLP (mGy-cm): 849.81 FINDINGS: Liver: Normal. No mass. Gallbladder and biliary ducts: The gallbladder is surgically absent. Pancreas: Normal. No ductal dilation. Spleen: Normal. No splenomegaly. Adrenal glands: Normal. No mass. Kidneys and ureters: Normal. No hydronephrosis. Stomach and bowel: Scattered colon diverticula. No inflammatory change identified involving the GI tract. No signs of bowel obstruction. Appendix: No evidence of appendicitis. Intraperitoneal space: Unremarkable. No free air. No significant fluid collection. Vasculature: Scattered calcific plaque involves the abdominal aorta and iliac arteries. Lymph nodes: Unremarkable. No enlarged lymph nodes. Urinary bladder: A Aggarwal catheter noted within the urinary bladder. Reproductive: Unremarkable as visualized. Bones/joints: There is a right femoral neck fracture. Superior displacement of the distal fracture fragment. Suspected old moderate L1 compression fracture. No additional fractures. Degenerative changes involve the spine and hips. There is a small amount of presacral hemorrhage concerning for an occult sacral fracture Soft tissues: Unremarkable. Other findings: Image quality is degraded by motion artifact. CT/CT chest abdpel w/*[id number] IMPRESSION: 1. Image quality is degraded by motion artifact. 2. Multiple pulmonary nodules and masses likely reflecting primary lung malignancy with metastatic disease. 3. Changes from endovascular stent placement. Suspected large endoleak involving the ascending thoracic aorta. IMPRESSION: 1. Image quality degraded by motion artifact. 2. Right femoral neck fracture. 3. Small amount of presacral hemorrhage concerning for an occult sacral fracture. A&P Assessment and plan (1) Fracture of femoral neck, right, closed: Plan Plan: -Imaging and Labs reviewed- Displaced right hip femoral neck fracture -Hospitalist on board for medical management. -VTE prophylaxis Per primary -Nonweightbearing on right leg -Pain control -Hold daily eliquis - Discussed case with hospitalist and anesthesiologist will review further records tomorrow with goals of coming to decision with family and patient at that time tomorrow as far as nonoperative treatment and hospice care versus high risk surgery for right hip hemiarthroplasty. Patient family understand agree with current plan. All questions answered. Orthopedic attending addendum: Patient was initially seen and evaluated by orthopedic PA, patient was found to have a displaced right hip femoral neck fracture orthopedics was consulted for evaluation and treatment recommendations. Hospitalist admitted patient as primary. Initial plan was for a right hip hemiarthroplasty. 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 At this point in time the hospitalist had discussion with patient and family about this. This was then reviewed by an outside facility at [facility] in [place] by the vascular surgery and CT surgery which originally had accepted the patient for a transfer. At this point in time with this endoleak of the ascending aorta patient is extremely high risk. They understand that performing the surgery here at our institution with no cardiothoracic or vascular surgery available this is severely high risk with with possibilities of cardiac arrest, on the table. At this point in time after having discussion with patient and her son who is accompanying her in the office patient is alert and aware of her current situation as well as diagnosis and her treatment options we talked about hospice care, high risk surgery of a right hip hemiarthroplasty here at [facility], or transfer to [facility] in [place]. At this point in time both patient as well as son are adamant she does not wish to be transferred to [place] and away and very adamant about this and patient stated multiple times I could still at [place] anyway, I'd rather stay here . Patient stated that I rather just do the surgery here and get it over with and if I on the table, I on the table. the son also made a comment if she wishes to do it here and she dies on the table I would not hold it against you . Clearly both patient and son understand having a procedure like this here with no backup in the high severity and risk given her endoleak that this could possibly equate to severe complications intraoperatively all the way up to on the table. At this point in time hospitalist is getting further records and previous imaging as it sounds like this endoleak has been going on for some time. We will talk with our anesthesiologist about possibilities of doing procedure here as well as hospitalist is going to communicate with other son in [place] who was taking care of her prior to her moving back up here 6 weeks ago. At this point in time I expressed my understanding of their wishes of not being transferred up to [facility]. Expressed that this procedure is a common orthopedic injury and the goals of the right hip hemiarthroplasty in this patient would be for earlier mobilization as well as pain control and understand hospice would mean persistent pain while in bed and decreased ability for mobilization. Unfortunately her challenge of her case presents with a large endoleak noted on her CT scan and the severity and risks with surgery that could come as far as complications pertain to this if we do proceed with surgical intervention here. At this point in time plan will be to let them think about it as well as will talk with our anesthesiologist and follow-up on imaging. Per the patient and son they both stated they would be fine with just doing the surgery and if she has intraoperative complications such as cardiac arrest/ on the table on the table would be fine with withdrawing care and being DNR. Given patient had taken Eliquis yesterday and her hemoglobin is down hospitalist is getting 1 unit today we will plan on finalized decision moving forward with patient and family tomorrow. PDMP PDMP Reviewed: Not Reviewed Coding Level of Care Code Acute Code for Chg Fwd Diagnoses Fracture of femoral neck, right, closed S72.001A Encounter type: initial encounter
[2025-01-04 13:16] LABS: Hematocrit 23.5 % (36-47); Hemoglobin 7.90 g/dL (11.27-16.99)
--- NOTE | 2025-01-04 17:50 | P.PN_ITS ---
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 -Patient was immediately examined given these findings - Patient reports a history of breast ca ncer, she has had a lumpectomy, radiation therapy, but she reports breast cancer now in her right breast in addition to her left breast cancer history - She was unaware about the lung finding s, she has never been told that she has a history of pulmonary nodules, lung masses - In terms of her endovascular stent jordana cement, she denies any chest pain, no shortness of breath, no headache, no blurry vision, she tells me that she has had some Sort of endovascular surgery up at [facility] many years ago she does not remember the details, and it potentially had a leak after that, but she is not too sure on the details, but then she moved back to [place] to be with her's son north of [facility], and there was a hospital at their known as [facility] that was monitoring it but she is not exactly sure about the size, - She does report that yesterday she fel l, she fell backwards she hit her head, she hit her back she thinks but her back is really not bothering her its only her hip - We discussed her right hip fracture, d iscussed surgical intervention, - However given her evidence of suspecte d large endoleak, this is acutely life- threatening, and we will have to potentially get a second opinion from a vascular surgeon or CT surgery, and I do not have any of her records from [facility] or from [facility] -Dayanna tells me that she is in so much p ain, she would rather than be in this much pain, and she does not want to be bedbound -We discussed her overall goals of care she is a DO NOT RESUSCITATE, she is agreeable to elective intubation if required, but does not want to be kept on life support indefinitely only temporary for example surgery, if she is on the ventilator for more than a short time she tells me she would rather , and be kept comfortable and be taken off life support -Patient tells me she does not want to h ave any surgery on her thoracic aorta as she has had multiple surgeries on it she tells me, she does a lot of surgeries on her heart, even if she dies she rather than do surgery -This discussion was made with our keenan staff - I spoke to our radiologist, confirmed suspected large endoleak, involving the ascending thoracic aorta, timeframe unknown, -I reached out to [facility] about patient's case, I have clouded the images over to their vascular surgeon, currently scrubbed in a case, he would come back to us with his opinion about endoleak, and consideration of transfer - I had a family meeting with patient, h er son, nursing staff at bedside - Son tells me that she has had a endole ak and or aneurysm for some period of time? She had surgery [facility], and then multiple surgeries after that, with persistent leak he tells me he tells me it was 5 cm? But they know about it - Discussed with son that given her endo leak evidence on CT scan this associate with increased morbidity and mortality, it sounds from the description that it has been there for for some period of time, however our CT scan shows a large endoleak evidence, and it is hard to compare to as we do not have any prior imaging, son tells me that she has had imaging at [facility] in [facility] we will get the records - But son tells me that they do not and she would not want any surgery on her heart - Patient and son tell me that she is mo bile at times, she is functional on her own at times, - We discussed risk and benefits of skinner sfer, patient and son are hesitant about transfer, they rather for her to stay here in [place], they tell me that she has had this endoleak for some period of time - Discussed with patient and son the mor bidity and mortality associate with endoleak, even if it is stable, there is a high risk of rupture, high risk of morbidity or mortality high risk of suffering, even without surgery - With surgery certainly an anesthesia t here is a significant risk, significant perioperative and postoperative risk of hemorrhagic shock, endoleak further hemorrhaging, cardiovascular events, risk of strokes, and morbidity and mortality associated - Patient tells me that she would rather than be in this pain, and she would rather do the surgery then be this bedridden - Discussed that as we are a [facility] we do not have the backup support that I feel Dayanna would need, I think Dayanna would have a better intraoperative and postoperative course if there could be CT surgery, vascular surgery backup in case that there would be a complication -Also discussed with's on the CT's chest findings of the lung masses the right middle lobe, right lingula, morbidity and mortality associated highly suspicious for primary lung malignancy versus metastatic cancer - However patient was very hesitant abou t it she does not want to be transferred, son did not want her to be transferred but are agreeable to get consultation from [facility] - I explicitly had a discussion with deidra akbar and her son about the morbidity of mortality associated with her underlying condition, evidence of large endoleak, of the thoracic aorta, with lung masses, she is a very high surgical risk, high risk of morbidity and mortality, high risk of suffering, we do not have the support for her case here at [facility], she she would receive more specialized care, more back to support if she were to be transferred to tertiary level center - However patient and son did not agree, patient tells me that she would rather than go to [place] - I offered other hospitals however they have declined - I spoke to [facility] for the consultation for this endoleak, their vascular surgeon reviewed the case recommended case to be reviewed by CT surgery, CT surgery reviewed the case, they recommended for patient to be transferred up to [place] -I spoke to patient again son was not pr esent, nursing staff present, discussed [facility]'s recommendations however patient declines, but wants me to talk to the son, - I spoke to patient's son over the phon e, patient census tells me that she would not survive surgery for endoleak repair, and that we should just do the surgery here -Other options including comfort care we re also discussed - Will have a family meeting this ethan balbuena with patient and her son - I spoke to anesthesiology about the ca se, CT scan findings of lung mass, endoleak - Anesthesia have advised me that patien t is a high risk care at [facility], they recommend transfer to tertiary level center for backup support of CT surgery, vascular surgery as he services are not available here at [facility], they recommend transfer to tertiary level [place] for her surgery as we do not have the support that patient would need -Anesthesia advised me that patient has a high risk of morbidity and mortality, high risk of suffering high risk of endoleak worsening, high risk of hemorrhagic shock, high risk of cardiovascular complications, risk of cardiac arrest, high risk of respiratory failure, high risk of strokes, respiratory failure, multiorgan failure, hemorrhagic shock it is a high risk surgery in their opinion - I had a family meeting with patient an d son, with orthopedic surgeon at bedside Dr. Arias - Discussed with family options are avai lable - Dr. Arias discussed all options availa ble to patient - Options that were discussed was comfor t care, the goal of comfort care/hospice is understanding that he has multiple underlying medical problems that are very severe, some of them such as lung mass, breast cancer, which carry prone prognosis, and endoleak that are certainly life-threatening, the goal of comfort care would not to operate, but to ease her pain ease her suffering allow her to remain comfortable treat her pain, treat her suffering, allow her to remain comfortable but certainly her mobility would be significantly reduced, her right hip fracture would continue to at times move with her moving, she would be nonweightbearing for the right leg. But certainly this option would emphasize a quality and quality of life, would avoid the high risk of surgery, - The second option we discussed was tra nsferring her to tertiary level [place] for her surgery - Transfer to [facility], suc h as [facility] would ensure that she would have CT surgery, vascular surgery backup for her surgery, would give her the most specialized care that she would need, so she could have hopefully the best outcome, certainly is a high risk surgery, significantly morbidity and mortality associate with anesthesia, discussed complications associate with anesthesia including but not limited to endoleak worsening, hemorrhagic shock, cardiac arrest, stroke, multiorgan organ failure, prolonged intubation, respiratory failure, -However after discussing with our anest hesiologist, they do not feel comfortable doing the surgery here without having the backup and support that that he would need, and they have recommended for patient to be transferred -However that he absolutely declined tra nsfer to [facility] she repeated again and again that she does not want to be transferred for any reason nor does she want to be transferred to another hospital -Son confirms at bedside that they do no t want her to be transferred to any other hospital including [facility] -She tells me that why cannot we do surg elizabet here, - I discussed with Dayanna, her increased risks of anesthesia, my discussion with anesthesia again, -However Dayanna says that she rather here at [facility] and then get transferred - She tells me that she completely accep ts the risks for surgery, she understands that we do not have the backup that she needs for such a complicated situation that she is in, we do not have CT surgery, we do not have vascular surgery, we do not have the expertise to handle her endoleak here both preoperatively, perioperatively, postoperatively - We are not set up here to handle her c omplications here, nor do we have the expertise to handle an endoleak here at [facility] -Nor do we have the expertise, the specanibal herbert, to handle her endoleak and complications associated preoperatively, intraoperatively, postoperatively - However Dayanna tells me that she rather on the table, then to be transferred to another hospital - She does not want to undergo the [facility] rt care route - She wants to have the surgery - She wants to have the surgery here at [facility] - Her and her son have explicitly vocali zed to me that they understand that we do not have the expertise to handle her endoleak and complications associated here at [facility], we do not have the expertise or the specialist to handle any complications with or associated with her thoracic endoleak during or after her surgery, - Dayanna tells me that she would rather d ie on the table, then to not take a chance on surgery, and then to be transferred to another hospital -Dayanna tells me her ultimate goal is to get more pain control after the surgery, have more mobility -She does not want to be bedbound, she d oes not want to be in this much pain, -We also discussed the reason ability of comfort care however she absolutely declines comfort care currently -She tells me that if she dies in surger y, she is okay with that she understands the morbidity and mortality, she voices understanding, all questions answered - Discussed with Dayanna that this is cert ainly a difficult situation I will have to speak to anesthesia about the situation because ultimately they are going to be the one giving her anesthesia -Discussed Dayanna that she is a very high risk for surgery, she has accepted this, she voiced understanding, all questions answered -Will obtain medical records -I spoke to patient's son Kyler tamez throughout the day, and with the family meeting with him and Dayanna this afternoon - I reached out to patient's son Harvey Vitals/I&O/Wt Last Vital Signs Temp 98.6 F 01/04/25 15:30 Pulse 74 01/04/25 15:30 Resp 16 01/04/25 17:48 BP 136/44 01/04/25 15:30 Pulse Ox 90 01/04/25 17:48 O2 Del Method Nasal Cannula 01/04/25 15:30 O2 Flow Rate 2 01/04/25 15:30 01/04/25 01/04/25 01/04/25 06:59 14:59 22:59 Intake Total 1153.333 / 1153.333 Output Total 700 / 700 400 / 400 Balance -700 / 400 753.333 / 753.333 Weight last 48 hrs Weight 59.874 kg Weight 57.153 kg Weight 57.153 kg Physical Exam 2 Const: COMMON NORMALS: no acute distress and patient oriented x3 Resp: COMMON NORMALS: normal respiratory effort, No retractions, No use of accessory muscles and clear to auscultation bilaterally AUSCULTATION: clear to auscultation bilaterally Cardio: COMMON NORMALS: regular rate, regular rhythm, S1 normal heart sound present and S2 normal heart sound present RATE: regular rate RHYTHM: r egular rhythm HEART SOUNDS: S1 normal heart sound present and S2 normal heart sound present GI: COMMON NORMALS: Normal to inspection, nondistended, normoactive bowel sounds present and non-tender Extremity: COMMON NORMALS: no pedal edema Neuro: COMMON NORMALS: patient oriented x3 Psych: COMMON NORMALS: mental status grossly normal Urinary Catheter Management: Aggarwal: Cath Placed During This Visit: yes Reason for Continuing Indwelling Catheter: Other Urinary Catheter Date of Insertion: 01/03/25 Urinary Catheter Time of Insertion: 19:03 Data 01/04/25 18:09 01/04/25 04:26 A&P Assessment and plan (1) Heart failure with preserved ejection fraction: (2) Coronary artery disease: (3) Afib: (4) 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 The ascending measures up to 7.6 cm in diameter with suspected endoleak. The descending thoracic aorta measures 3.1 cm in diameter. No dissection. Calcific plaque involves the thoracic aorta and coronary arteries. - Hold Eliquis - Will monitor blood pressures closely - Obtain records Lung mass Lungs: There is a mass involving the lingula measuring 2.3 cm. There is a mass involving the right upper lobe measuring 2.5 cm. Additional pulmonary nodules noted throughout the right lung. - Concern for primary lung malignancy versus metastatic breast cancer - Patient does not want to have any interventions for this, no lung biopsy - Nonetheless we will have her follow-up with oncology as outpatient Sacral fracture 3. Small amount of presacral hemorrhage concerning for an occult sacral fracture. - Monitor Acute on chronic anemia, transfuse 1 unit PRBC Right femoral neck fracture - Orthopedic service on consult - Oxycodone for pain control PDMP PDMP Reviewed: Not Reviewed Attestations 2 Medical Necessity Statement*: Patient requires hospitalization for right hip fracture, sacral fracture, endoleak, lung mass Diagnoses Chronic heart failure with preserved ejection fraction I50.32 Heart failure chronicity: chronic Coronary artery disease involving coronary bypass graft of [place] heart without angina pectoris I25.810 Coronary Disease-Associated Artery/Lesion type: bypass graft [place] vs. transplanted heart: [place] heart Associated angina: without angina Chronic atrial fibrillation I48.20 Atrial fibrillation type: unspecified chronic S/P insertion of endovascular thoracic aortic stent graft Z95.828 Anemia D64.9 Anemia type: unspecified type Malignant neoplasm of left breast in female, estrogen receptor positive, unspecified site of breast C50.912; Z17.0 Breast location: unspecified site of breast Estrogen receptor status: positive Patient sex: female Fracture of femoral neck, right, closed S72.001A Encounter type: initial encounter Lung mass R91.8 Endoleak of aortic graft
[2025-01-04 18:18] LABS: Hematocrit 23.0 % (36-47); Hemoglobin 7.90 g/dL (11.27-16.99)
[2025-01-04 20:54] LABS: Hematocrit 23.6 % (36-47); Hemoglobin 7.80 g/dL (11.27-16.99)
[2025-01-05] VITALS (12 sets, daily range): BP systolic 134–157; BP diastolic 51–62; PULSE 71–80; RESP 16–18; TEMP 36.6–37.3; O2SAT 91–94
[2025-01-05 05:43] LABS: Hematocrit 26.9 % (36-47); Hemoglobin 9.20 g/dL (11.27-16.99)
[2025-01-05] MEDS: oxyCODONE 5 mg IR Tab/Cap PO ×3 (05:54→14:15)
[2025-01-05 06:10] LABS: Anion Gap 16.4 (5-19); Blood Urea Nitrogen 11 mg/dL (8-23); Calcium 7.4 mg/dL (8.5-10.5); Carbon Dioxide 20 mmol/L (22-29); Chloride 100 mmol/L (98-107); Creatinine Clr Calc Pharmacy 46.4639; Glucose 91 mg/dL (65-115); Osmolality Calculated 273 mOsm/kg (285-295); Potassium 4.4 mmol/L (3.5-5.1); Sodium 132 mmol/L (136-145)
[2025-01-05] MEDS: calcium carb-vit d 600mg/400unit 1 Tablet 2 EACH PO (09:36)
--- NOTE | 2025-01-05 13:24 | P.PN_ITS ---
Subjective 2 Subjective: Patient seen and examined at lunchtime today. This point in time she continues to be significantly uncomfortable and in pain in the bed. I have talked about case with anesthesiology as well as with Dr. Esquivel?hospitalist. At this point in time patient does not want to go on hospice care as well as does not want to transfer to any outside facility and at this point in time she would like to pursue the right hip hemiarthroplasty pursue procedure here I talked about this with our team and at this point in time she understands that she is very high risk and has unfortunately no backup from the standpoint of vascular surgery or cardiothoracic's here this point in time she wishes to not have any chest compressions if something were to happen intraoperatively at this point in time we talked about this in detail and she is ready to proceed with a right hip hemiarthroplasty we will go ahead and get her set up on the schedule tomorrow around lunchtime. All questions have been answered at this time patient is fully aware alert oriented and capable of making her own decisions. Vitals/I&O/Wt Last Vital Signs Temp 98.6 F 01/05/25 11:23 Pulse 71 01/05/25 11:23 Resp 17 01/05/25 11:23 BP 137/53 01/05/25 11:23 Pulse Ox 91 01/05/25 11:23 O2 Del Method Nasal Cannula 01/05/25 11:23 O2 Flow Rate 3 01/05/25 11:23 01/04/25 01/05/25 01/05/25 22:59 06:59 14:59 Intake Total 965 / 2118.333 350 / 2468.333 240 / 240 Output Total 450 / 850 200 / 1050 Balance 515 / 1268.333 150 / 1418.333 240 / 240 Weight last 48 hrs Weight 129 lb Weight 132 lb Weight 126 lb Weight 126 lb Physical Exam 2 Const: COMMON NORMALS: no acute distress and alert Resp: COMMON NORMALS: normal respiratory effort and No retractions Cardio: COMMON NORMALS: Peripheral pulses 2+ throughout PERIPHERAL PULSES: Peripheral pulses 2+ throughout Extremity: NARRATIVE EXTREMITY EXAM: (Right) lower extremity-leg is shortene d and externally rotated. Positive logroll test. Tenderness to palpation right hip. compartments are soft and compressible. Patient can Wiggle toes. Can plantarflex and dorsiflex ankle. Toes are warm and well-perfused. Pedal pulse 2+. Neuro: SENSORIUM/ORIENTATION: Yes alert Skin: GENERAL SKIN EXAM: dry skin Urinary Catheter Management: Aggarwal: Cath Placed During This Visit: yes Reason for Continuing Indwelling Catheter: Other Urinary Catheter Date of Insertion: 01/03/25 Urinary Catheter Time of Insertion: 19:03 Data 01/06/25 04:27 01/06/25 04:27 Other Labs: A.m. labs 01/05/2025 listed below WBC 5.0, hemoglobin 9.4, creatinine 0.6 A&P Assessment and plan (1) Fracture of femoral neck, right, closed: Plan Recheck hemoglobin later this evening to make sure patient is maintaining hemoglobin as she received 1 unit PRBC yesterday A.m. labs reviewed Nonweightbearing right lower extremity Pain control DVT prophylaxis?hold a.m. anticoagulation tomorrow Discussed case with anesthesiology Discussed case with hospitalist Plan to proceed tomorrow with a right hip hemiarthroplasty Patient at this point time is 84-year-old female with a displaced right hip femoral neck fracture. She has a known endoleak in the ascending thoracic aorta. At this point in time she has a severely high risk patient understands that we do not have any capabilities of attending to this if this were to rupture or have any complications intraoperatively. Initially we talked about transferring to [place] she was adamant about not doing this as well as her son. At this point in time we reviewed the case with anesthesiology. Patient's options at this point time if she wishes to stay here at [facility] which is what she wishes is to either be hospice care or to accept the severe high risk of surgical intervention for a right hip hemiarthroplasty. At this point in time I talked about the ins and outs of the surgical procedure. The postoperative recovery process. We talked about the risk benefits complications alternatives of surgery. Risk of surgery include but not limited to make it better, make it worse, injury to nerves vessels or tendons, periprosthetic fracture, hip instability, cardiac arrest, blood clot, endoleak thoracic aortic rupture, on the table. Understanding the risks with this procedure she elects to proceed with surgical intervention for right hip hemiarthroplasty tomorrow. At this point in time we will get patient set up for surgical intervention tomorrow. Again she states she wishes to have no compressions if she were to going to cardiac arrest intraoperatively. All questions have been answered at this time. Patient's daytime nurse is present during this encounter and was present for detailed discussion of high risks of surgery and potential complications as stated above. PDMP PDMP Reviewed: Not Reviewed Attestations 2 Medical Necessity Statement*: Ongoing care right hip displaced femoral neck fracture Coding Level of Care Code Acute Code for g Fwd Diagnoses Fracture of femoral neck, right, closed S72.001A Encounter type: initial encounter Time Spent (min) 30
--- NOTE | 2025-01-05 14:01 | ANES.PREANE2 ---
Pre-Anesthetic Assessment Height/Weight: Height 5 ft 4 in Weight 129 lb Temp Pulse Resp BP Pulse Ox O2 Del Method O2 Flow Rate 98.6 F 71 17 137/53 91 Nasal Cannula 3 01/05/25 11:23 01/05/25 11:23 01/05/25 11:23 01/05/25 11:23 01/05/25 11:23 01/05/25 11:23 01/05/25 11:23 Preop Diagnosis: Right hip femoral neck fracture Operation Date: 01/06/25 12:00 Proposed Procedures p Hemiarthroplasty Hip(Right) - Chris Hugo, DO Was Beta Maria G taken within 24 hours: N/A Was Clonidine taken within 24 hours: N/A Last intake: Intake Last Liquid Date 01/04/25 Last Solid Date 01/04/25 Social No alcohol and No tobacco Exam alert, oriented x 3, clear to auscultation bilaterally and regular rate & rhythm Airway Submandibular: within normal limits Cervical ROM: within normal limits Mallampati: Class III Dentition: full Anesthetic Plan ASA status: 4 Anesthesia: General Other: No prior issues with anesthesia Plan to be n.p.o. 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 On chronic Eliquis. Last taken 01/03/2025 Labs reviewed 01/05/2025. Hemoglobin 9.2 Chronic hyponatremia noted. NA 132 Medical history complicated by aortic root graft which was placed approximately in 2016. 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 No further surgical intervention recommended by CT surgery. Discussed with patient that she is high risk given the endoleak. We talked extensively and I explained the risks including but not limited to stroke, MD, aortic rupture, irregular heart rhythms, breathing complications. Patient states that she understands the risks and that CT surgery is not available at this facility. However she was adamantly refusing transfer to a larger hospital with those services. We discussed extensively resuscitation attempts during surgery. Informed patient that we would not perform chest compressions on her given there would be no success rate of this with an active aortic root aneurysm. She understands this and states that if its her time to , it is her time to I will repeat these discussions in the morning with the patient and her son prior to procedure Plan for GETA with preop A-line and planned ICU admission following Medications/Allergies Home Medications ?Medication ?Instructions ?Recorded ?Confirmed ?Last Taken ?Type amiodarone 100 mg tablet 100 mg PO DAILY #90 tabs 01/01/25 01/04/25 01/03/25 Rx amlodipine 2.5 mg tablet 2.5 mg PO DAILY 01/01/25 01/04/25 01/03/25 History anastrozole 1 mg tablet 1 mg PO DAILY 01/01/25 01/04/25 01/03/25 History apixaban 5 mg tablet (Eliquis) 5 mg PO BID 01/01/25 01/04/25 01/03/25 History calcium 315 mg (as 2 tab PO DAILY 01/01/25 01/04/25 01/03/25 History citrate)-vitamin D3 6.25 mcg (250 unit) tablet ibandronate 150 mg tablet 150 mg PO .monthly 01/01/25 01/04/25 12/06/24 History losartan 25 mg tablet 25 mg PO DAILY #90 tabs 01/01/25 01/04/25 01/03/25 Rx sertraline 25 mg tablet 25 mg PO DAILY 01/01/25 01/04/25 01/03/25 History Allergies Allergy/AdvReac Type Severity Reaction Status Date / Time No Known Allergies Allergy Verified 01/01/25 13:27 Current Medications Generic Name Dose Route Start Last Admin Trade Name Sam PRN Reason Stop Dose Admin Amiodarone HCl 100 mg 01/04/25 09:00 01/05/25 09:38 Amiodarone 200 Mg Tablet PO 100 mg DAILY RAMON Administration Amlodipine Besylate 2.5 mg 01/04/25 09:00 01/05/25 09:38 Amlodipine 5 Mg Tablet PO 2.5 mg DAILY RAMON Administration Anastrozole 1 mg 01/04/25 09:00 01/05/25 09:36 Anastrozole 1 Mg Tablet PO 1 mg DAILY RAMON Administration Atorvastatin Calcium 20 mg 01/04/25 12:00 01/04/25 13:19 Atorvastatin 40 Mg Tablet PO 20 mg 1200 RAMON Administration Calcium Carbonate 2 each 01/04/25 09:00 01/05/25 09:36 Calcium Carb-Vit D 600mg/400unit 1 Tablet PO 2 each DAILY RAMON Administration Docusate Sodium 100 mg 01/04/25 09:00 01/05/25 09:36 Docusate Sodium 100 Mg Capsule PO 100 mg BID RAMON Administration Losartan Potassium 25 mg 01/04/25 09:00 01/05/25 09:36 Losartan 50 Mg Tablet PO 25 mg DAILY RAMON Administration Oxycodone HCl 5 mg 01/04/25 18:48 01/05/25 09:38 Oxycodone 5 Mg Ir Tab/Cap PO 5 mg Q4H PRN Administration SEVERE PAIN Sertraline HCl 25 mg 01/04/25 09:00 01/05/25 09:37 Sertraline 50 Mg Tablet PO 25 mg DAILY RAMON Administration PFSH Anesthesia Medical History Breast cancer Dissecting AAA (abdominal aortic aneurysm) Syncope Prolonged QT interval [place] to be related to bradycardia. Resolved Sinus bradycardia Moderate aortic regurgitation Heart failure with preserved ejection fraction Hypertension Coronary artery disease Surgical History S/P insertion of endovascular thoracic aortic stent graft History of lumpectomy left History of cholecystectomy History of heart valve replacement Hx of CABG Hx of aortic aneurysm repair Stent placement after thoracic aortic aneurysm leakage, [facility] Dr. [place] Aneurysm repair x3 Family History Other CAD (coronary artery disease) Social History Smoking and tobacco/nicotine status: never used tobacco/nicotine Alcohol intake: former Year of sobriety/quit date alcohol: 2019 Former alcohol use details: Drink a glass of wine daily for 59 years. was a drinker Substance/Drug Use: never Additional social history: She is . She has a friend that lives with her Mimi [place]. Patient wants DNR as discussed with Moises Doan MD on 01/03/2025. Patient states she is not sure she would want biopsy of her lung nodules to look for cancer. She thinks she would not want to pursue treatment again. She states she is not afraid to . 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 [email or web address] Anesthesia 01/05/25 04:32 01/05/25 04:32 Short CBC 01/03/25 01/04/25 01/04/25 Range/Units 18:40 04:26 09:06 WBC 7.03 5.60 (3.29-11.43) 10^3/uL Hgb 9.10 L 8.30 L 8.60 L (11.27-16.99) g/dL Hct 26.3 L 24.6 L 25.1 L (36-47) % MCV 101.9 H 105.6 H (85-98) fl Plt Count 140 L 120 L (157-399) 10^3/cmm Neut % (Auto) 79.0 82.9 % Neut # (Auto) 5.55 4.65 (1.8-7.7) 10^3/uL 01/04/25 01/04/25 01/04/25 Range/Units 13:10 18:09 20:43 WBC (3.29-11.43) 10^3/uL Hgb 7.90 L 7.90 L 7.80 L (11.27-16.99) g/dL Hct 23.5 L 23.0 L 23.6 L (36-47) % MCV (85-98) fl Plt Count (157-399) 10^3/cmm Neut % (Auto) % Neut # (Auto) (1.8-7.7) 10^3/uL 01/05/25 Range/Units 04:32 WBC (3.29-11.43) 10^3/uL Hgb 9.20 L (11.27-16.99) g/dL Hct 26.9 L (36-47) % MCV (85-98) fl Plt Count (157-399) 10^3/cmm Neut % (Auto) % Neut # (Auto) (1.8-7.7) 10^3/uL BMP 01/03/25 01/04/25 01/05/25 18:40 04:26 04:32 Sodium 128 L 133 L 132 L Potassium 4.3 4.7 4.4 Chloride 94 L 101 100 Carbon Dioxide 21 L 21 L 20 L BUN 16 13 11 Creatinine 0.8 0.9 0.7 Glucose 117 H 104 91 Calcium 8.6 7.6 L 7.4 L Liver Function 01/03/25 Range/Units 18:40 Total Bilirubin 0.8 (0.15-1.2) mg/dL AST 28 (0-32) U/L ALT 19 (0-33) U/L Alkaline Phosphatase 67 (35-105) U/L Albumin 3.8 (3.5-5.2) g/dL Urine 01/03/25 Range/Units 19:19 Urine Color Yellow (Yellow) Urine Appearance Clear (CLEAR) Urine pH 7.0 (5-7) Ur Specific [place] 1.012 (1.005-1.030) Urine Protein 1+ A (Negative) Urine Glucose (UA) Negative (Normal) Urine Ketones Negative (Negative) Urine Nitrate Negative (Negative) Urine Bilirubin Negative (Negative) Ur Leukocyte Esterase 1+ A (Negative) Urine RBC 6-10 (0-2) /hpf Urine WBC 0-5 (0-5) /hpf Blood Bank 01/03/25 21:54 Blood Type B Positive Rho(D) Type Rh positive Antibody Screen Negative [place] 01/03/25 01/04/25 18:40 09:06 PT 20.20 H 17.20 H INR 1.62 H 1.31 H APTT 32.1
[2025-01-05 18:09] LABS: Hematocrit 28.7 % (36-47); Hemoglobin 9.40 g/dL (11.27-16.99); Mean Corpuscular HGB Conc 32.8 g/dL (30-55); Mean Corpuscular Hemoglobin 34.7 pg (27-33); Mean Corpuscular Volume 105.9 fl (85-98); Nucleated Red Blood Cells % 0 %; Platelet Count 96 10^3/cmm (157-399); Red Blood Count 2.71 10^6/uL (3.85-5.65); White Blood Count 5.02 10^3/uL (3.29-11.43)
[2025-01-05 18:28] LABS: Blood Urea Nitrogen 13 mg/dL (8-23); Calcium 7.7 mg/dL (8.5-10.5); Carbon Dioxide 19 mmol/L (22-29); Chloride 99 mmol/L (98-107); Creatinine Clr Calc Pharmacy 46.4639; Glucose 122 mg/dL (65-115); Osmolality Calculated 269 mOsm/kg (285-295); Sodium 129 mmol/L (136-145)
[2025-01-05 18:30] LABS: Anion Gap 15.1 (5-19); Potassium 4.1 mmol/L (3.5-5.1)
--- NOTE | 2025-01-05 18:48 | PC.NURSE ---
pt aaox4, and this nurse entered pts to room to discuss upcoming surgery. pt was educ on all options up to and including no intervention at all. pt also educ that if we proceed with surgery that the risks of proceeding include . pt verablized understanding of risks up to and including with proceeding with surgery. discussed no compression during surgery, pt verbally agrees to this.
--- NOTE | 2025-01-05 18:51 | P.PN_ITS ---
Subjective 2 Subjective: - Patient was examined this morning - She is alert oriented x 3, following a ll commands - Patient's son is at bedside - No acute events overnight - Reviewed CT report from [facility] keller back in November 2020 CT report shows endovascular stent graft repair of the aneurysm of the ascending aorta again noted with streak artifact from embolization material limiting evaluation, aneurysm measuring approximately 6.7 cm, stable, saccular collections contrast surrounding the graft from the proximal thoracic aorta to the arch again are noted and are stable in size consistent with endoleak -Discussed comparison to our CT scan - Discussed with patient morbidity and m ortality associated with surgical intervention, here at [facility] without CT surgery backup - However after discussing risk and bene fits of all options, patient voiced understanding, all questions answered, wants to proceed with surgery here at [facility] - She does not want to have any surgery for endovascular stent, does not want to be transferred, does not want to have any CT surgery backup or vascular surgery backup, does not want their expertise - She wants to proceed with surgery here at [facility], she understands she has a high risk of poor surgical outcome here at [facility] with her endoleak, and not having the specialist in support here at [facility] - After discussing risk benefits, she vo iced understanding, all questions answered, agreed to proceed - Plan on surgical intervention tomorrow - I was able to speak to patient's son Lina Chanel - Again I discussed with Harvey patient 's right hip fracture - Patient's known history of endoleak - Discussed changes of the size of endol eak, her fall, concerns for further worsening of her endoleak - Patient's refusal to be transferred to tertiary level center - Patient's desire to undergo surgical i ntervention understanding that we do not have the specialty support that she needs, and we do not have the expertise that she needs to have the optimal surgical outcome - She in her words rather on the tab le - His mom wants to have the surgery here , does not want to be transferred, understands that we do not have the specialty and expertise to take care of her, but despite all that she does not want to be transferred - Despite this she still has a very high surgical risk, high risk of adverse cardiovascular events, high risk of bleeding, high risk of endoleak worsening, high risk of hemorrhagic shock, high risk of respiratory failure - After understanding all this Dayanna has agreed to proceed with surgery - In her words she rather in surgery then live like this - She wants to undergo surgery for pain control and for more mobility - She is also declined comfort care - After discussing the risk and benefits of all options, he voiced understanding, all questions answered, he agrees with Dayanna's decision -We also discussed CT scan findings of 2 lung masses, concerns for primary lung cancer versus metastatic breast cancer, he agrees with Dayanna's decision not to do any other further investigations, and any other further treatment - Harvey understands this significant s ituation Dayanna is in, understands she is a high surgical risk understands that she is a high risk of dying on the table during her surgery, understands she has a high postoperative risk, but he wants to Dayanna to proceed with surgery, understanding we do not have the specialty support and expertise support for her optimal surgical outcome, despite knowing this he still wants us to proceed with surgery here at [facility] Vitals/I&O/Wt Last Vital Signs Temp 98.2 F 01/05/25 15:40 Pulse 75 01/05/25 15:40 Resp 16 01/05/25 15:40 BP 134/51 01/05/25 15:40 Pulse Ox 93 01/05/25 15:40 O2 Del Method Nasal Cannula 01/05/25 15:40 O2 Flow Rate 3 01/05/25 15:40 01/05/25 01/05/25 01/05/25 06:59 14:59 22:59 Intake Total 350 / 2468.333 240 / 240 240 / 480 Output Total 200 / 1050 Balance 150 / 1418.333 240 / 240 240 / 480 Weight last 48 hrs Weight 58.513 kg Weight 59.874 kg Weight 57.153 kg Physical Exam 2 Const: COMMON NORMALS: no acute distress and patient oriented x3 Resp: COMMON NORMALS: normal respiratory effort, No retractions, No use of accessory muscles and clear to auscultation bilaterally AUSCULTATION: clear to auscultation bilaterally Cardio: COMMON NORMALS: regular rate, regular rhythm, S1 normal heart sound present and S2 normal heart sound present RATE: regular rate RHYTHM: r egular rhythm HEART SOUNDS: S1 normal heart sound present and S2 normal heart sound present GI: COMMON NORMALS: Normal to inspection, nondistended, normoactive bowel sounds present and non-tender Extremity: COMMON NORMALS: no pedal edema Neuro: COMMON NORMALS: patient oriented x3 Psych: COMMON NORMALS: mental status grossly normal Urinary Catheter Management: Aggarwal: Cath Placed During This Visit: yes Reason for Continuing Indwelling Catheter: Other Urinary Catheter Date of Insertion: 01/03/25 Urinary Catheter Time of Insertion: 19:03 Data 01/05/25 17:58 01/05/25 17:58 A&P Assessment and plan (1) Heart failure with preserved ejection fraction: (2) Coronary artery disease: (3) Afib: (4) 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 The ascending measures up to 7.6 cm in diameter with suspected endoleak. The descending thoracic aorta measures 3.1 cm in diameter. No dissection. Calcific plaque involves the thoracic aorta and coronary arteries. - Hold Eliquis - Will monitor blood pressures closely - Plan on proceeding with surgery here at [facility] Lung mass Lungs: There is a mass involving the lingula measuring 2.3 cm. There is a mass involving the right upper lobe measuring 2.5 cm. Additional pulmonary nodules noted throughout the right lung. - Concern for primary lung malignancy versus metastatic breast cancer - Patient does not want to have any interventions for this, no lung biopsy - Nonetheless we will have her follow-up with oncology as outpatient Sacral fracture 3. Small amount of presacral hemorrhage concerning for an occult sacral fracture. - Monitor Acute on chronic anemia, transfuse 1 unit PRBC, hemoglobin 9.4 Right femoral neck fracture - Orthopedic service on consult, planning surgical intervention tomorrow - Oxycodone for pain control PDMP PDMP Reviewed: Not Reviewed Attestations 2 Medical Necessity Statement*: Patient requires hospitalization for thoracic endoleak, lung mass, right femoral neck fracture, sacral fracture Diagnoses Chronic heart failure with preserved ejection fraction I50.32 Heart failure chronicity: chronic Coronary artery disease involving coronary bypass graft of [place] heart without angina pectoris I25.810 Coronary Disease-Associated Artery/Lesion type: bypass graft [place] vs. transplanted heart: [place] heart Associated angina: without angina Chronic atrial fibrillation I48.20 Atrial fibrillation type: unspecified chronic S/P insertion of endovascular thoracic aortic stent graft Z95.828 Anemia D64.9 Anemia type: unspecified type Malignant neoplasm of left breast in female, estrogen receptor positive, unspecified site of breast C50.912; Z17.0 Breast location: unspecified site of breast Estrogen receptor status: positive Patient sex: female Fracture of femoral neck, right, closed S72.001A Encounter type: initial encounter Lung mass R91.8 Endoleak of aortic graft
[2025-01-06] VITALS (158 sets, daily range): BP systolic 86–180; BP diastolic 36–66; PULSE 72–90; RESP 4–25; TEMP 36.2–37.1; O2SAT 92–98
[2025-01-06 05:21] LABS: Hematocrit 27.2 % (36-47); Hemoglobin 9.20 g/dL (11.27-16.99); Mean Corpuscular HGB Conc 33.8 g/dL (30-55); Mean Corpuscular Hemoglobin 35.4 pg (27-33); Mean Corpuscular Volume 104.6 fl (85-98); Nucleated Red Blood Cells % 0 %; Platelet Count 93 10^3/cmm (157-399); Red Blood Count 2.60 10^6/uL (3.85-5.65); White Blood Count 4.87 10^3/uL (3.29-11.43)
[2025-01-06 05:50] LABS: Anion Gap 13.9 (5-19); Blood Urea Nitrogen 11 mg/dL (8-23); Calcium 7.8 mg/dL (8.5-10.5); Carbon Dioxide 23 mmol/L (22-29); Chloride 99 mmol/L (98-107); Creatinine Clr Calc Pharmacy 47.2417; Glucose 115 mg/dL (65-115); Osmolality Calculated 274 mOsm/kg (285-295); Potassium 3.9 mmol/L (3.5-5.1); Sodium 132 mmol/L (136-145)
[2025-01-06] MEDS: oxyCODONE 5 mg IR Tab/Cap PO ×2 (08:39→16:02)
[2025-01-06] MEDS: calcium carb-vit d 600mg/400unit 1 Tablet 2 EACH PO (08:39)
--- NOTE | 2025-01-06 10:59 | ANES.PROC ---
Anesthesia Procedures Procedure/Date: 01/06/25 Arterial Line: Time Out Performed: Yes Consent: from patient Size (Gauge): 20 Technique Used: guide wire technique Post-Procedure: dry sterile dressing placed Patient Tolerated Procedure: no complications Complications: none Site: right and radial
--- NOTE | 2025-01-06 11:59 | P.HPUD_ITS ---
Surgery/Procedure H&P Update DATE OF PROCEDURE: January 06, 2025 DATE H&P PERFORMED: 01/04/25 H&P UPDATE INFORMATION: I have reviewed H&P completed within last 30 days, I have examined patient prior to procedure and No changes to prior documentation CHANGES TO PREVIOUS DOCUMENTATION: Reviewed consent with the patient as well as her son at bedside who patient had her son signed the consent at bedside plan for right hip hemiarthroplasty. Once again we detailed the ins and outs of procedure the risk benefits complications and alternatives with surgery. The risk of surgery include but are not limited to make it better, make it worse, potential cardiac arrest, endoleak rupture, infection, hip instability, periprosthetic fracture. Understanding these risks with surgery patient as well as son elected proceed with surgical intervention. We have lined out plan is for no chest compressions at this time if she were to code intraoperatively. Once again she does understands her high risk and ready to proceed with surgical intervention all questions have been answered at this time. I did call and speak with patient's other son who is out of town I spoke with him over the phone this morning. Once again detailed out the plan for the procedure the postoperative recovery process and also detailed out the risks, the benefits the complications and alternatives with surgical intervention plan for the surgery will be for a right hip hemiarthroplasty and once again I detailed out the risks of the procedure but are not limited to what is stated above previously that was spoken with patient as well as her other son who is present in the preoperative holding area. The son who I spoke with over the phone he lives in [place] understood and agrees with our current plan and her wishes and agrees with us proceeding as well. All questions have been answered at this time. PREOP DIAGNOSIS: Right hip femoral neck fracture PRIMARY INDICATION FOR PROCEDURE: Right hip displaced femoral neck fracture PLANNED PROCEDURE: Operation Date: 01/06/25 12:00 Proposed Procedures p Hemiarthroplasty Hip(Right) - Chris Arias DO
--- NOTE | 2025-01-06 12:16 | SUR.PREOP ---
11:30 DOCTOR CRISTAL INFORMED OF PT'S SYSTOLIC BLOOD PRESSURE.
[2025-01-06] MEDS: ceFAZolin 2,000 MG in sodium chloride 0.9% (plus) 50 ML 100 MG IV ×2 (12:44→20:56)
[2025-01-06] MEDS: tranexamic acid 1,000 mg/10mL SDV 1000 MG (12:45)
--- NOTE | 2025-01-06 12:49 | P.PN_ITS ---
Subjective 2 Subjective: Patient was seen this morning, in preoperative area, she is alert oriented x 3, following all commands, no complaints, she still wants to proceed with surgery understanding the high risk of the surgery and complications/lack of specialty support here at [facility] lack of expertise support here as her childcare, but she wants to proceed with surgery, understands morbidity and mortality, voices understanding, all questions answered, agreed to proceed Vitals/I&O/Wt Last Vital Signs Temp 98.0 F 01/06/25 11:38 Pulse 72 01/06/25 11:38 Resp 18 01/06/25 11:38 BP 166/63 01/06/25 11:38 Pulse Ox 94 01/06/25 11:38 O2 Del Method Nasal Cannula 01/06/25 10:21 O2 Flow Rate 3 01/06/25 10:21 01/05/25 01/06/25 01/06/25 22:59 06:59 14:59 Intake Total 240 / 480 286 / 286 Output Total 500 / 500 200 / 700 Balance -260 / -20 -200 / -220 286 / 286 Weight last 48 hrs Weight 60.866 kg Weight 58.513 kg Physical Exam 2 Const: COMMON NORMALS: no acute distress and patient oriented x3 Resp: COMMON NORMALS: normal respiratory effort, No retractions, No use of accessory muscles and clear to auscultation bilaterally AUSCULTATION: clear to auscultation bilaterally Cardio: COMMON NORMALS: regular rate, regular rhythm, S1 normal heart sound present and S2 normal heart sound present RATE: regular rate RHYTHM: r egular rhythm HEART SOUNDS: S1 normal heart sound present and S2 normal heart sound present GI: COMMON NORMALS: Normal to inspection, nondistended, normoactive bowel sounds present and non-tender Extremity: COMMON NORMALS: no pedal edema Neuro: COMMON NORMALS: patient oriented x3 Psych: COMMON NORMALS: mental status grossly normal Urinary Catheter Management: Aggarwal: Cath Placed During This Visit: yes Reason for Continuing Indwelling Catheter: Required Immobilization for Trauma or Surgery or Anesthesia Urinary Catheter Date of Insertion: 01/03/25 Urinary Catheter Time of Insertion: 19:03 Data 01/06/25 04:27 01/06/25 04:27 A&P Assessment and plan (1) Heart failure with preserved ejection fraction: (2) Coronary artery disease: (3) Afib: (4) 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 The ascending measures up to 7.6 cm in diameter with suspected endoleak. The descending thoracic aorta measures 3.1 cm in diameter. No dissection. Calcific plaque involves the thoracic aorta and coronary arteries. - Hold Eliquis - Will monitor blood pressures closely - Plan on proceeding with surgery here at [facility] Lung mass Lungs: There is a mass involving the lingula measuring 2.3 cm. There is a mass involving the right upper lobe measuring 2.5 cm. Additional pulmonary nodules noted throughout the right lung. - Concern for primary lung malignancy versus metastatic breast cancer - Patient does not want to have any interventions for this, no lung biopsy - Nonetheless we will have her follow-up with oncology as outpatient Sacral fracture 3. Small amount of presacral hemorrhage concerning for an occult sacral fracture. - Monitor Acute on chronic anemia, transfuse 1 unit PRBC, hemoglobin 9.4 Right femoral neck fracture - Orthopedic service on consult, planning surgical intervention today - Oxycodone for pain control PDMP PDMP Reviewed: Not Reviewed Attestations 2 Medical Necessity Statement*: Patient requires hospitalization for surgical intervention today Procedures Arterial Line Size (Gauge): 20 Diagnoses Chronic heart failure with preserved ejection fraction I50.32 Heart failure chronicity: chronic Coronary artery disease involving coronary bypass graft of [place] heart without angina pectoris I25.810 Associated angina: without angina Coronary Disease-Associated Artery/Lesion type: bypass graft [place] vs. 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
--- NOTE | 2025-01-06 12:52 | PC.SOCIAL ---
IMM Updated Updated pt on IMM. No questions voiced. Provided pt a copy. Initialed, dated, & timed a copy & placed in chart.
--- NOTE | 2025-01-06 13:18 | PC.NURSE ---
[id number], patient's son, notified of surgical status
--- NOTE | 2025-01-06 13:24 | W.PM.BPON ---
Date of Procedure: 01/06/2025 Surgeon: Chris Arias DO Heavy Truck Technician(s): Stephen Arias PA-C Procedure(s) performed: Right hip hemiarthroplasty Findings of the procedure(s): Patient underwent procedure as planned without issues or complications, given patient's high risk currently has a line in and will go to ICU in stable condition Estimated blood loss: 125 mL Specimen(s) removed: Femoral head removed Post-operative diagnosis: Right hip displaced femoral neck fracture
--- NOTE | 2025-01-06 13:25 | P.OP_ITS ---
Operative Report Date of procedure: January 06, 2025 Surgeon: Chris Arias DO Shape Brick Molder: Stephen Arias PA-C: PA was necessary for assistance in this case with leg positioning, hip reduction retraction and protection of neurovascular structures as well as assistance in implantation of prosthesis, wound closure and dressing application. Procedure: Preoperative diagnosis: Right hip displaced femoral neck fracture post-op diagnosis: Same Procedure done: Right?hip?hemiarthroplasty, uncemented (posterior approach Implants: Lalitha Accolade insignia size 5 standard off Bipolar head 46 mm Femoral head + 4 mm offset Surgeon: Chris Arisa DO Estimated blood loss: 125 mL IV fluids: 400 mL Urine output: See anesthesia record Complications: None Findings: See operative report Condition: stable Disposition: ICU Brief History: Patient was seen in the emergency department and subsequently admitted after fall.? Patient sustained a right displaced femoral neck fracture.? Patient was subsequently admitted by the hospitalist team for medical management and preoperative optimization and the orthopedic surgery team was consulted for evaluation and treatment recommendations.? At that point time discussed with patient? treatment options.? We talked about nonoperative versus operative intervention talked about the risk benefits complication alternatives to surgical nonsurgical treatment options.? Risks of surgery were discussed and she understands and agrees to proceed with procedure.? At this point time would recommend a right?hip?hemiarthroplasty.? This will offer patient pain control as well as early weightbearing.? Patient was medically optimized by the primary team she was then taken to the OR.? 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 Patient understands risk benefits complication alternatives with surgical nonsurgical treatment options.? At this point time elects to proceed with right?hip?hemiarthroplasty.? All questions answered.? Patient understands agrees with current plan.? All questions answered. Procedure: Patient seen evaluated the preoperative holding area.? Consent was reviewed and signed with patient and son at bedside in the preoperative holding area.? ?Pt was seen evaluated by the anesthesia department.? Once cleared for surgery patient patient was taken back to the operative suite.? Patient was then transported onto the OR table.? pt underwent anesthesia per the anesthesia department.? Once appropriately anesthetized patient was then positioned in lateral decubitus position with the right?hip?up.? Patient was placed on a pegboard appropriately secured to the bed all bony prominences well-padded.? Next the right lower extremity was then prepped and draped in sterile orthopedic fashion.? Final timeout performed.? Patient received appropriate preoperative antibiotics. A standard posterolateral approach was then made over the lateral aspect of the?hip.? Sharp scalpel incision was made through skin and subcutaneous tissue I then utilized a Cope elevator to mobilize over the fascia.? The fascia was then split longitudinally with electrocautery.? Next a bursectomy was then performed.? I then placed Hohmann underneath the abductors.? The?hip?was placed under tension with internal rotation.? I then utilizing electrocautery performed a full-thickness release of the short external rotators and capsule in 1 full thick sleeve for lateral repair.? This was then taken down to the lesser trochanter.? Immediately on capsulotomy hematoma was noticed and displaced femoral neck fracture appreciated.? I then placed a Hohmann above and below the neck.? I then utilized an oscillating saw to freshen the cut this was roughly half of a fingerbreadth above the lesser as patient did fracture slightly lower on the neck.? Once this was performed this access was removed with rongeur.? ?I then utilized a corkscrew to remove the head.? This was then subsequently sized and measured to be a 46 mm head size.? I then thoroughly irrigated the acetabulum.? A Hohmann was placed anteriorly and thorough inspection of the acetabulum no significant arthritic changes were noted.? I then utilized a rongeur and Bovie to remove the pulvinar.? Once this was performed I then subsequently took my trial 46 mm head and trialed this which had excellent fit and appropriate suction fit noted.? This was then subsequently removed. Once this was performed I irrigated the socket and then turned my attention towards the femoral preparation.? I utilized Bovie and rongeur to remove the soft tissue off of the saddle.? Once this was done a box osteotome followed by a canal finder and? lateralizing rattail rasp was used to appropriately lateralized in the canal.? Next I then subsequently broached to a size 5 Lalitha insignia standard offset. Given patient's significantly high risk and talked about case with anesthesia prior plan was for press-fit fixation for decreased OR time which intraoperatively her bone was accommodating for this. Velpen f emoral stem which had appropriate fixation.? I was able to trial with this and this appeared to be appropriate length with ability to increase length if necessary after final implantation. Once this was done I then removed the size 5femoral stem and then subsequently proceeded and called for my final implant of Velpen insignia hip stem standard offset size 5. The femoral stem size 5 was then impacted in place with appropriate anteversion, I then trialed a trialed up to +4 mm offset which at that point there was which had excellent leg lengths as well as appropriate shuck, and excellent stability in all planes of motion with no evidence of instability.? At this point this was determined to being my final femoral head size.? This was subsequently dislocated the trial head was then removed the final implant of bipolar head 46 mm with a +4 mm offset was then opened.? The trunnion was then cleaned and dried and this was impacted in place with excellent fixation.? I then reduced the?hip? this had excellent stability and appropriate leg lengths.? The wound bed was then thoroughly irrigated.? I then utilizing #5 Ethibond suture performed my repair of the capsule and short external rotators through bone tunnels.? ?Wound bed was then thoroughly irrigated,1 gram vanco powder placed in wound bed.? IT band was closed with strata fix suture and the deep subcutaneous and subcutaneous layers were closed with 0 strata fix and 2-0 strata fix.? Skin was then closed reapproximated with dany.? Silverlon dressing applied.? Patient placed in abduction pillow posterior?hip?precautions.? pt? was awakened from anesthesia and taken to ICU in stable condition she was able to be extubated. Given her high risk history she did have an arterial line in place and monitoring will go to ICU for close monitoring postoperatively. Disposition: Patient taken to ICU in stable condition will receive appropriate discharge instructions as well as pain medication DVT prophylaxis postoperatively.? Both sons were updated postoperatively. Patient tolerated procedure well. Patient will be weightbearing as tolerated to the right lower extremity.? Posterior?hip?precautions. Abduction pillow in place.? Patient will work with PT/OT and discharge services for discharge planning.? Patient family understands agrees with current plan.? All questions answered.? ?patient will? see orthopedics in the office in 2 weeks.
--- NOTE | 2025-01-06 13:32 | XRR_ITS ---
PROCEDURE INFORMATION: Exam: XR Right Hip Exam date and time: 01/06/2025 2:02 PM Age: 84 years old Clinical indication: Device placement; Other: Kleber; Prior surgery; Surgery date: Post-operative (0-2 days); Additional info: Post op kleber, do in pacu TECHNIQUE: Imaging protocol: Radiologic exam of the right hip. Views: 1 view hip with pelvis when performed. COMPARISON: CR XR hip RT 2-3V wo/w pel* [id number] 01/03/2025 6:10 PM FINDINGS: Bones/joints: Postsurgical changes related to right total hip arthroplasty. Focal. Severe left hip joint degenerative changes. Hardware appears intact. Soft tissues: Postsurgical changes of the soft tissues. Vasculature: Vascular calcifications. XR/XR hip RT 2-3V wo/w pel* [id number] IMPRESSION: As above
--- NOTE | 2025-01-06 13:37 | ANE.PACU2 ---
Inpatient post-anesthesia follow up: Airway intact: Yes Vital signs: Temperature 98.7 F Pulse Rate 72 Respiratory Rate 16 Blood Pressure 98/36 Pulse Oximetry 96 Oxygen Delivery Me thod Nasal Cannula Oxygen Flow Rate 3 Fraction of Inspir ed Oxygen Hydration adequate: Yes Nausea and vomiting: No Pain level: 2 Mental status: Baseline
--- NOTE | 2025-01-06 13:54 | PC.NURSE ---
Patient arrived to ICU at 1337.
[2025-01-06] MEDS: mupirocin oint 22 gm 1 APPLIC NASAL (16:02)
[2025-01-06] MEDS: chlorhexidine gluconate 0.12% Btl 473 mL 30 ML MUCOUS MEM ×2 (16:03→21:16)
--- NOTE | 2025-01-06 17:19 | PM.MISC ---
Miscellaneous Note Purpose of Documentation: Orthopedic note update: Patient was seen evaluated and ICU postoperatively she is recovering well once again discussed successful right hip hemiarthroplasty with patient's son. At this point in time she is able to wiggle the toes, distal pulses are palpable right lower extremity warm well-perfused dressings clean dry and intact. This point in time I will be out of town and my on-call partner will round on the patient while in the hospital. Patient's family updated understand agree with current plan. All questions H. Patient will follow-up in the orthopedic office in 2 weeks Chris Arias DO Orthopedic surgery
--- NOTE | 2025-01-06 19:55 | PC.NURSE ---
Addendum entered by MANUEL Reece 01/06/25 23:34: Patients blood pressure increased to maintain a MAP of 65. Provider gave orders for fluid challenge and patient refused due to hip operation. Provider notified of refusal and that patient has had approximately 30ml of output since 1900 and the bladder scanner shows no retention. Original Note: Patient hypotensive. Provider notified. Received orders for 500ml NS bolus and orders for CBC and CMP.
[2025-01-06] MEDS: tranexamic acid 1,000 MG/100 ML PREMIX 600 MG IV (20:57)
[2025-01-06 21:23] LABS: Hematocrit 23.0 % (36-47); Hemoglobin 7.70 g/dL (11.27-16.99); Mean Corpuscular HGB Conc 33.5 g/dL (30-55); Mean Corpuscular Hemoglobin 35.0 pg (27-33); Mean Corpuscular Volume 104.5 fl (85-98); Nucleated Red Blood Cells % 0 %; Platelet Count 146 10^3/cmm (157-399); Red Blood Count 2.20 10^6/uL (3.85-5.65); White Blood Count 5.33 10^3/uL (3.29-11.43)
[2025-01-06 21:42] LABS: Alanine Aminotransferase 15 U/L (0-33); Albumin Level 2.8 g/dL (3.5-5.2); Alkaline Phosphatase 54 U/L (35-105); Anion Gap 17.6 (5-19); Aspartate Amino Transferase 22 U/L (0-32); Blood Urea Nitrogen 18 mg/dL (8-23); Calcium 7.2 mg/dL (8.5-10.5); Carbon Dioxide 19 mmol/L (22-29); Chloride 103 mmol/L (98-107); Creatinine Clr Calc Pharmacy 46.7901; Globulin 2.5 g/dL (1.3-4.6); Glucose 130 mg/dL (65-115); Osmolality Calculated 286 mOsm/kg (285-295); Potassium 3.6 mmol/L (3.5-5.1); Slide Review Slide Review Perform; Sodium 136 mmol/L (136-145); Total Protein 5.3 g/dL (6.6-8.7)
[2025-01-07] VITALS (122 sets, daily range): BP systolic 85–146; BP diastolic 39–72; PULSE 66–91; RESP 0–25; TEMP 36.4–37.4; O2SAT 92–99
[2025-01-07] MEDS: oxyCODONE 5 mg IR Tab/Cap PO ×3 (00:44→13:21)
[2025-01-07 03:49] LABS: Hematocrit 22.2 % (36-47); Hemoglobin 7.60 g/dL (11.27-16.99); Mean Corpuscular HGB Conc 34.2 g/dL (30-55); Mean Corpuscular Hemoglobin 35.5 pg (27-33); Mean Corpuscular Volume 103.7 fl (85-98); Nucleated Red Blood Cells % 0 %; Platelet Count 136 10^3/cmm (157-399); Red Blood Count 2.14 10^6/uL (3.85-5.65); White Blood Count 5.24 10^3/uL (3.29-11.43)
[2025-01-07] MEDS: ceFAZolin 2,000 MG in sodium chloride 0.9% (plus) 50 ML 100 MG IV ×2 (04:19→12:41)
[2025-01-07 04:20] LABS: Slide Review Slide Review Perform
[2025-01-07 04:22] LABS: Anion Gap 16.9 (5-19); Blood Urea Nitrogen 21 mg/dL (8-23); Calcium 7.4 mg/dL (8.5-10.5); Carbon Dioxide 20 mmol/L (22-29); Chloride 101 mmol/L (98-107); Creatinine Clr Calc Pharmacy 46.7901; Glucose 131 mg/dL (65-115); Osmolality Calculated 283 mOsm/kg (285-295); Potassium 3.9 mmol/L (3.5-5.1); Sodium 134 mmol/L (136-145)
[2025-01-07] MEDS: calcium carb-vit d 600mg/400unit 1 Tablet 2 EACH PO (08:09)
[2025-01-07] MEDS: multivitamin therapeutic Tablet 1 TAB PO (08:09)
[2025-01-07] MEDS: chlorhexidine gluconate 0.12% Btl 473 mL 30 ML MUCOUS MEM ×4 (08:14→19:39)
[2025-01-07 11:03] LABS: Respiratory Syncytial Virus Ce NEGATIVE (Negative); SARS-CoV-2 PCR NEGATIVE (Negative)
--- NOTE | 2025-01-07 13:27 | P.PN_ITS ---
Subjective 2 Subjective: Patient was seen this morning, currently she is alert to person, to place, not to time she follows commands, does complain of hip pain, denies any nausea, no vomiting, abdominal pain, no chest pain, shortness of breath - We discussed her anemia, at 7.6 we mario l hold her morning Lovenox give her 1 unit of blood, monitor hemoglobin - Discussed risk and benefits of holding anticoagulant therapy, shared decision making, she voiced understanding, all question answered, great to proceed - She is also orthostatic, will monitor blood pressures closely Vitals/I&O/Wt Last Vital Signs Temp 99.3 F 01/07/25 10:21 Pulse 75 01/07/25 12:15 Resp 16 01/07/25 13:21 BP 118/42 01/07/25 12:15 Pulse Ox 97 01/07/25 13:21 O2 Del Method Nasal Cannula 01/07/25 12:15 O2 Flow Rate 3 01/07/25 12:15 01/06/25 01/07/25 01/07/25 22:59 06:59 14:59 Intake Total 290 / 671.5 250 / 921.5 1190 / 1190 Output Total 100 / 100 50 / 150 Balance 190 / 571.5 200 / 771.5 1190 / 1190 Weight last 48 hrs Weight 59.7 g Weight 59.5 kg Weight 60.866 kg Physical Exam 2 Const: COMMON NORMALS: no acute distress and patient oriented x3 Resp: COMMON NORMALS: normal respiratory effort, No retractions, No use of accessory muscles and clear to auscultation bilaterally AUSCULTATION: clear to auscultation bilaterally Cardio: COMMON NORMALS: regular rate, regular rhythm, S1 normal heart sound present and S2 normal heart sound present RATE: regular rate RHYTHM: r egular rhythm HEART SOUNDS: S1 normal heart sound present and S2 normal heart sound present GI: COMMON NORMALS: Normal to inspection, nondistended, normoactive bowel sounds present and non-tender Extremity: COMMON NORMALS: no pedal edema Neuro: COMMON NORMALS: patient oriented x3 Psych: COMMON NORMALS: mental status grossly normal Skin: NARRATIVE SKIN EXAM: dp/pt pulses palpable surgical site looks clean and dry Urinary Catheter Management: Aggarwal: Cath Placed During This Visit: yes Reason for Continuing Indwelling Catheter: Accurate Measurement of Urinary Output in Critically Ill Patients Urinary Catheter Date of Insertion: 01/03/25 Urinary Catheter Time of Insertion: 19:03 Data 01/07/25 03:33 01/07/25 03:33 A&P Assessment and plan (1) Heart failure with preserved ejection fraction: (2) Coronary artery disease: (3) Afib: (4) 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 The ascending measures up to 7.6 cm in diameter with suspected endoleak. The descending thoracic aorta measures 3.1 cm in diameter. No dissection. Calcific plaque involves the thoracic aorta and coronary arteries. - Hold Eliquis - Will monitor blood pressures closely - Plan on proceeding with surgery here at [facility] Lung mass Lungs: There is a mass involving the lingula measuring 2.3 cm. There is a mass involving the right upper lobe measuring 2.5 cm. Additional pulmonary nodules noted throughout the right lung. - Concern for primary lung malignancy versus metastatic breast cancer - Patient does not want to have any interventions for this, no lung biopsy - Nonetheless we will have her follow-up with oncology as outpatient Sacral fracture 3. Small amount of presacral hemorrhage concerning for an occult sacral fracture. - Monitor Acute on chronic anemia, status post 1 unit PRBC - Now with postoperative anemia hemoglobin 7.6 - Transfuse 1 unit PRBC - Monitor hemoglobin Right femoral neck fracture - Orthopedic service on consult, status post surgical intervention - Oxycodone for pain control - Anticoagulation therapy currently on hold given anemia as above - SCDs Orthostatic hypotension, monitor blood pressures closely PDMP PDMP Reviewed: Not Reviewed Attestations 2 Medical Necessity Statement*: Patient requires hospitalization for acute anemia, orthostatic hypotension, postoperative state Procedures Arterial Line Size (Gauge): 20 Diagnoses Chronic heart failure with preserved ejection fraction I50.32 Heart failure chronicity: chronic Coronary artery disease involving coronary bypass graft of [place] heart without angina pectoris I25.810 Coronary Disease-Associated Artery/Lesion type: bypass graft [place] vs. 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
--- NOTE | 2025-01-07 14:16 | P.PN_ITS ---
Subjective 2 Subjective: Patient 1 day status post hemiarthroplasty of the right hip. Vitals/I&O/Wt Last Vital Signs Temp 99.3 F 01/07/25 10:21 Pulse 72 01/07/25 13:45 Resp 1 L 01/07/25 13:45 BP 126/46 01/07/25 13:45 Pulse Ox 97 01/07/25 13:45 O2 Del Method Nasal Cannula 01/07/25 13:45 O2 Flow Rate 3 01/07/25 13:45 01/06/25 01/07/25 01/07/25 22:59 06:59 14:59 Intake Total 290 / 671.5 250 / 921.5 1190 / 1190 Output Total 100 / 100 50 / 150 Balance 190 / 571.5 200 / 771.5 1190 / 1190 Weight last 48 hrs Weight 2.106 oz Weight 131 lb 2.801 oz Weight 134 lb 3 oz Physical Exam 2 Narrative: Patient awake and alert and just finished physical therapy. He is now back in bed. States that all is going well. Has no major complaints of pain in the hip. Urinary Catheter Management: Aggarwal: Cath Placed During This Visit: yes Reason for Continuing Indwelling Catheter: Accurate Measurement of Urinary Output in Critically Ill Patients Urinary Catheter Date of Insertion: 01/03/25 Urinary Catheter Time of Insertion: 19:03 Data 01/07/25 03:33 01/07/25 03:33 A&P Assessment and plan (1) Fracture of femoral neck, right, closed: Patient status post hemiarthroplasty of the right hip all is advancing well Plan Plan at this time is continuing with present physical therapy orders. Keep advancing ambulatory status. Patient in the ICU now still for medical reasons. PDMP PDMP Reviewed: Not Reviewed Attestations 2 Medical Necessity Statement*: Patient in need of pain control. Patient also admitted for medical issues at this time. Procedures Arterial Line Size (Gauge): 20 Coding Level of Care Code 42700 Diagnoses Fracture of femoral neck, right, closed S72.001A Encounter type: initial encounter
[2025-01-07 15:07] LABS: Hematocrit 27.4 % (36-47); Hemoglobin 9.10 g/dL (11.27-16.99)
[2025-01-07 15:08] LABS: Hematocrit 28.3 % (36-47); Hemoglobin 9.30 g/dL (11.27-16.99); Mean Corpuscular HGB Conc 32.9 g/dL (30-55); Mean Corpuscular Hemoglobin 34.7 pg (27-33); Mean Corpuscular Volume 105.6 fl (85-98); Nucleated Red Blood Cells % 0 %; Platelet Count 129 10^3/cmm (157-399); Red Blood Count 2.68 10^6/uL (3.85-5.65); White Blood Count 6.21 10^3/uL (3.29-11.43)
[2025-01-07 16:05] LABS: Slide Review Slide Review Perform
[2025-01-07 16:54] LABS: Lactate (Lactic Acid level) 2.3 mmol/L (0.5-2.2)
[2025-01-07] MEDS: mupirocin oint 22 gm 1 APPLIC NASAL (17:32)
[2025-01-08] VITALS (19 sets, daily range): BP systolic 99–156; BP diastolic 42–84; PULSE 67–87; RESP 12–32; TEMP 36.6–37; O2SAT 89–100
[2025-01-08 03:38] LABS: Hematocrit 27.3 % (36-47); Hemoglobin 9.10 g/dL (11.27-16.99); Mean Corpuscular HGB Conc 33.3 g/dL (30-55); Mean Corpuscular Hemoglobin 34.6 pg (27-33); Mean Corpuscular Volume 103.8 fl (85-98); Nucleated Red Blood Cells % 0 %; Platelet Count 120 10^3/cmm (157-399); Red Blood Count 2.63 10^6/uL (3.85-5.65); White Blood Count 6.01 10^3/uL (3.29-11.43)
[2025-01-08 04:04] LABS: Anion Gap 14.8 (5-19); Blood Urea Nitrogen 31 mg/dL (8-23); Calcium 7.8 mg/dL (8.5-10.5); Carbon Dioxide 20 mmol/L (22-29); Chloride 99 mmol/L (98-107); Creatinine Clr Calc Pharmacy 0.0441; Glucose 124 mg/dL (65-115); Osmolality Calculated 278 mOsm/kg (285-295); Potassium 3.8 mmol/L (3.5-5.1); Sodium 130 mmol/L (136-145)
[2025-01-08 04:10] LABS: Slide Review Slide Review Perform
[2025-01-08] MEDS: mupirocin oint 22 gm 1 APPLIC NASAL ×2 (04:44→18:19)
--- NOTE | 2025-01-08 08:23 | PC.SOCIAL ---
IMM Update Pg. 2 of IMM Updated and copy provided at bedside.
[2025-01-08] MEDS: multivitamin therapeutic Tablet 1 TAB PO (08:31)
[2025-01-08] MEDS: calcium carb-vit d 600mg/400unit 1 Tablet 2 EACH PO (08:31)
[2025-01-08] MEDS: chlorhexidine gluconate 0.12% Btl 473 mL 30 ML MUCOUS MEM ×4 (08:32→20:20)
--- NOTE | 2025-01-08 11:12 | P.PN_ITS ---
Subjective 2 Subjective: Patient was seen this morning, she is alert and oriented x 3, following all commands, she does report hip pain, no fevers, no chills, she has not had a bowel movement as of yet, does report abdominal bloating, she is working with physical therapy, discussed orthostatic blood pressures are soft blood pressures, we will continue to monitor her closely - We discussed anticoagulant therapy she is status post units PRBC, 1 unit platelet, she on the other hand is increased risk of hypercoagulable events - For now we will monitor hemoglobin claudia sely, hold off on anticoagulant therapy such as Lovenox and Eliquis - Once hemodynamics are stable, hemoglob in stable will consider, risk and benefits of resuming anticoagulant therapy, patient voices understanding, all questions answered, agreed to proceed Vitals/I&O/Wt Last Vital Signs Temp 98.6 F 01/08/25 04:46 Pulse 75 01/08/25 11:00 Resp 17 01/08/25 11:00 BP 130/43 01/08/25 11:00 Pulse Ox 97 01/08/25 11:00 O2 Del Method Nasal Cannula 01/07/25 16:15 O2 Flow Rate 3 01/07/25 16:15 01/07/25 01/08/25 01/08/25 22:59 06:59 14:59 Intake Total 300 / 1490 Balance 300 / 1140 Weight last 48 hrs Weight 57.878 kg Weight 59.7 g Weight 59.5 kg Physical Exam 2 Const: COMMON NORMALS: no acute distress and patient oriented x3 Resp: COMMON NORMALS: normal respiratory effort, No retractions and No use of accessory muscles AUSCULTATION: crackles Cardio: COMMON NORMALS: regular rate, regular rhythm, S1 normal heart sound present and S2 normal heart sound present RATE: regular rate RHYTHM: r egular rhythm HEART SOUNDS: S1 normal heart sound present and S2 normal heart sound present GI: COMMON NORMALS: Normal to inspection, nondistended, normoactive bowel sounds present and non-tender Extremity: COMMON NORMALS: no pedal edema Neuro: COMMON NORMALS: patient oriented x3 Psych: COMMON NORMALS: mental status grossly normal Urinary Catheter Management: Aggarwal: Cath Placed During This Visit: yes, but has since been removed by the nurse Reason for Continuing Indwelling Catheter: Accurate Measurement of Urinary Output in Critically Ill Patients Urinary Catheter Date of Insertion: 01/03/25 Urinary Catheter Time of Insertion: 19:03 Date Urinary Catheter Removed: 01/07/25 Time Urinary Catheter Discontinued: 15:02 Data 01/08/25 03:16 01/08/25 03:16 A&P Assessment and plan (1) Heart failure with preserved ejection fraction: (2) Coronary artery disease: (3) Afib: (4) 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 The ascending measures up to 7.6 cm in diameter with suspected endoleak. The descending thoracic aorta measures 3.1 cm in diameter. No dissection. Calcific plaque involves the thoracic aorta and coronary arteries. - Hold Eliquis - Will monitor blood pressures closely Lung mass Lungs: There is a mass involving the lingula measuring 2.3 cm. There is a mass involving the right upper lobe measuring 2.5 cm. Additional pulmonary nodules noted throughout the right lung. - Concern for primary lung malignancy versus metastatic breast cancer - Patient does not want to have any interventions for this, no lung biopsy - Nonetheless we will have her follow-up with oncology as outpatient Sacral fracture 3. Small amount of presacral hemorrhage concerning for an occult sacral fracture. - Monitor Acute on chronic anemia, status post 2unit PRBC - Now with postoperative anemia hemoglobin 9.1 - Monitor hemoglobin Right femoral neck fracture - Orthopedic service on consult, status post surgical intervention - Oxycodone for pain control - Anticoagulation therapy currently on hold given anemia as above - SCDs Acute on chronic thrombocytopenia - Status post 1 unit platelets - Monitor Orthostatic hypotension, monitor blood pressures closely DNR, okay with elective intubation if required SCDs for DVT prophylaxis PDMP PDMP Reviewed: Not Reviewed Attestations 2 Medical Necessity Statement*: Patient requires hospitalization for right femoral neck fracture, acute on chronic anemia, acute thrombocytopenia Procedures Arterial Line Size (Gauge): 20 Diagnoses Chronic heart failure with preserved ejection fraction I50.32 Heart failure chronicity: chronic Coronary artery disease involving coronary bypass graft of [place] heart without angina pectoris I25.810 Coronary Disease-Associated Artery/Lesion type: bypass graft [place] vs. 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
--- NOTE | 2025-01-08 11:13 | XRR_ITS ---
PROCEDURE INFORMATION: Exam: XR Chest Exam date and time: 01/08/2025 11:41 AM Age: 84 years old Clinical indication: Other: General abdomen pain; Prior surgery; Surgery date: 6+ months; Surgery type: Cabg, aortic endograph, aortic valve; General abdominal pain; Additional info: SOB TECHNIQUE: Imaging protocol: Radiologic exam of the chest. Views: 1 view. COMPARISON: CT chest abdpel w/*[id number] 01/03/2025 10:36 PM FINDINGS: Lungs: There are scattered nodular opacities which correlate with the prior CT findings. Minimal left basilar pleural-parenchymal opacity. Pleural spaces: See above. No pneumothorax. Heart/Mediastinum: Stable cardiomediastinal structures. Bones/joints: There are sternal sutures. Other findings: XR/XR chest 1V portable [id number] IMPRESSION: 1. There are scattered nodular opacities which correlate with the prior CT findings. 2. Minimal left basilar pleural-parenchymal opacity.
--- NOTE | 2025-01-08 11:13 | XRR_ITS ---
PROCEDURE INFORMATION: Exam: XR Abdomen Exam date and time: 01/08/2025 11:41 AM Age: 84 years old Clinical indication: Abdominal pain; Additional info: Constipation TECHNIQUE: Imaging protocol: Radiologic exam of the abdomen. Views: Frontal supine view of the abdomen. 1 View. COMPARISON: MR MRCP [id number] 01/08/2018 5:17 AM FINDINGS: Gastrointestinal tract: There are overlapping bowel loops which appear dilated and are probably small bowel. There appears to be some residual colon gas. Findings could represent a small bowel obstruction or severe ileus. Mild fecal burden. Bones/joints: Unremarkable. XR/XR KUB portable [id number] IMPRESSION: Abnormal bowel gas pattern as described above.
[2025-01-08] MEDS: polyethylene glycol 3350 Pkt 17 gm PO ×2 (12:47→18:20)
[2025-01-08] MEDS: oxyCODONE 5 mg IR Tab/Cap PO ×2 (12:48→18:18)
--- NOTE | 2025-01-08 13:48 | CTR_ITS ---
PROCEDURE INFORMATION: Exam: CT Abdomen And Pelvis Without Contrast Exam date and time: 01/08/2025 4:02 PM Age: 84 years old Clinical indication: Abnormal findings; Abnormal radiologic finding of the abdomen; Radiologic exam and body structure: XR abd; Additional info: Abdnormal bowel pattern TECHNIQUE: Imaging protocol: Computed tomography of the abdomen and pelvis without contrast. Radiation optimization: All CT scans at this facility use at least one of these dose optimization techniques: automated exposure control; mA and/or kV adjustment per patient size (includes targeted exams where dose is matched to clinical indication); or iterative reconstruction. COMPARISON: CR XR KUB portable [id number] 01/08/2025 11:41 AM RADIATION DOSE METRICS: Total DLP (mGy-cm): 704.49 FINDINGS: Lungs: There is a 13 juxtapleural pulmonary nodule right middle lobe. Pleural spaces: Bilateral pleural effusions partially visualized. Liver: Normal. No mass. Gallbladder and biliary ducts: The gallbladder is absent. Pancreas: Normal. No ductal dilation. Spleen: Normal. No splenomegaly. Adrenal glands: Normal. No mass. Kidneys and ureters: Normal. No hydronephrosis. Stomach and bowel: No dilatation of the small bowel. Appendix: The appendix is not visualized but there are no secondary signs of acute appendicitis. Intraperitoneal space: Unremarkable. No free air. No significant fluid collection. Vasculature: Partially visualized aneurysmal dilatation of the ascending thoracic aorta status post median sternotomy and ascending aortic repair. Lymph nodes: Unremarkable. No enlarged lymph nodes. Urinary bladder: There is a Aggarwal catheter in the bladder. The bladder is decompressed. There is marked gaseous dilatation of the cecum and ascending colon and gaseous distension of the transverse colon and descending colon with a transition point at the sigmoid colon. No definite mass identified at the transition point. Reproductive: Unremarkable as visualized. Bones/joints: Left hip arthroplasty. Bony fusion of the L4 and L5 vertebral bodies and T9, T10, T11 and T12 vertebral bodies. Compression deformity of the L1 vertebral body. Soft tissues: Unremarkable. CT/CT abdomen pelvis wo con [id number] IMPRESSION: 1. There is marked gaseous dilatation of the cecum and ascending colon and gaseous distension of the transverse colon and descending colon with a transition point at the sigmoid colon. No definite mass identified at the transition point. Ileus? 2. There is a 13 juxtapleural pulmonary nodule right middle lobe. For both low risk and high risk patients, consider CT Chest at 3 months, PET/CT, or biopsy. (Reference: Yolanda) References: Yolanda Contreras, et al. Guidelines for Management of Incidental Pulmonary Nodules Detected on CT Images: From the Fleischner Society 2017. Radiology. 2017;284(1):228-243.
[2025-01-08 17:05] LABS: Glucose Urine UA Negative (Normal); Nitrate Urine Negative (Negative); Specific Gravity, Urine 1.019 (1.005-1.030)
[2025-01-08 17:10] LABS: Add Urine Microscopic? YES
--- NOTE | 2025-01-08 17:10 | P.PN_ITS ---
Subjective 2 Subjective: Patient was seen this morning, she is alert and oriented x 3, following all commands, she does report hip pain, no fevers, no chills, she has not had a bowel movement as of yet, does report abdominal bloating, she is working with physical therapy, discussed orthostatic blood pressures are soft blood pressures, we will continue to monitor her closely - We discussed anticoagulant therapy she is status post units PRBC, 1 unit platelet, she on the other hand is increased risk of hypercoagulable events - For now we will monitor hemoglobin claudia sely, hold off on anticoagulant therapy such as Lovenox and Eliquis - Once hemodynamics are stable, hemoglob in stable will consider, risk and benefits of resuming anticoagulant therapy, patient voices understanding, all questions answered, agreed to proceed Patient now stable and transferred to [facility] floor. No new complaints. Still with some postoperative hip pain. Medications: Reviewed: Yes Vitals/I&O/Wt Last Vital Signs Temp 98.2 F 01/08/25 15:44 Pulse 71 01/08/25 15:44 Resp 17 01/08/25 15:44 BP 130/49 01/08/25 15:44 Pulse Ox 97 01/08/25 15:44 O2 Del Method Room Air 01/08/25 15:44 O2 Flow Rate 3 01/07/25 16:15 01/08/25 01/08/25 01/08/25 06:59 14:59 22:59 Intake Total 240 / 240 Output Total 30 / 30 Balance 210 / 210 Weight last 48 hrs Weight 127 lb 9.6 oz Weight 2.106 oz Physical Exam 2 Narrative: Patient awake and alert and just finished physical therapy. He is now back in bed. States that all is going well. Has no major complaints of pain in the hip. Urinary Catheter Management: Aggarwal: Cath Placed During This Visit: yes, but has since been removed by the nurse Reason for Continuing Indwelling Catheter: Accurate Measurement of Urinary Output in Critically Ill Patients Urinary Catheter Date of Insertion: 01/03/25 Urinary Catheter Time of Insertion: 19:03 Date Urinary Catheter Removed: 01/07/25 Time Urinary Catheter Discontinued: 15:02 Data 01/08/25 03:16 01/08/25 03:16 A&P Assessment and plan (1) Fracture of femoral neck, right, closed: Patient status post hemiarthroplasty of the right hip all is advancing well. Progressing with physical therapy Plan Plan at this time is continuing with present physical therapy orders. Keep advancing ambulatory status. PDMP PDMP Reviewed: Not Reviewed Attestations 2 Medical Necessity Statement*: Patient in need of pain control, formal physical therapy to help with ambulation. Assistance with ADLs Procedures Arterial Line Size (Gauge): 20 Coding Level of Care Code 51523 Diagnoses Fracture of femoral neck, right, closed S72.001A Encounter type: initial encounter
[2025-01-08 17:20] LABS: UA Slide Review UA Slide Review Perf
[2025-01-08] MEDS: lactulose oral liq 20 gm/30 mL UDC 10 GM PO (18:18)
[2025-01-09] VITALS (9 sets, daily range): BP systolic 102–141; BP diastolic 43–57; PULSE 55–81; RESP 15–19; TEMP 36.3–36.8; O2SAT 90–99
[2025-01-09] MEDS: oxyCODONE 5 mg IR Tab/Cap PO (02:27)
[2025-01-09 05:25] LABS: Hematocrit 27.1 % (36-47); Hemoglobin 9.10 g/dL (11.27-16.99); Mean Corpuscular HGB Conc 33.6 g/dL (30-55); Mean Corpuscular Hemoglobin 34.7 pg (27-33); Mean Corpuscular Volume 103.4 fl (85-98); Nucleated Red Blood Cells % 0 %; Platelet Count 123 10^3/cmm (157-399); Red Blood Count 2.62 10^6/uL (3.85-5.65); White Blood Count 6.65 10^3/uL (3.29-11.43)
[2025-01-09 05:43] LABS: Anion Gap 14.0 (5-19); Blood Urea Nitrogen 38 mg/dL (8-23); Calcium 8.1 mg/dL (8.5-10.5); Carbon Dioxide 24 mmol/L (22-29); Chloride 98 mmol/L (98-107); Creatinine Clr Calc Pharmacy 42.9540; Glucose 120 mg/dL (65-115); Osmolality Calculated 284 mOsm/kg (285-295); Potassium 4.0 mmol/L (3.5-5.1); Sodium 132 mmol/L (136-145)
[2025-01-09] MEDS: mupirocin oint 22 gm 1 APPLIC NASAL ×3 (05:44→19:24)
--- NOTE | 2025-01-09 09:08 | XRR_ITS ---
PROCEDURE INFORMATION: Exam: XR Abdomen Exam date and time: 01/09/2025 9:48 AM Age: 84 years old Clinical indication: Abdominal pain; Prior surgery; Surgery date: 3-7 days post-operative; Surgery type: RT hip, gb; Additional info: Abdominal distention/pain; Post op hip hip x 3 days ago TECHNIQUE: Imaging protocol: Radiologic exam of the abdomen. Views: Frontal supine view of the abdomen. 1 View. Total images: 2 COMPARISON: CT abdomen pelvis wo con [id number] 01/08/2025 4:02 PM FINDINGS: Tubes, catheters and devices: The prosthesis appears near anatomic in positioning. No parallel lucencies adjacent to the prosthesis are seen to suggest loosening. No acute fractures, subluxation, nor dislocation. Gastrointestinal tract: Distended bowel loops felt to be colonic seen throughout the abdomen with large amount of fecal matter within the rectosigmoid colon. Organs: Surgical clips are present in the right upper quadrant which are suggestive of prior cholecystectomy. Vasculature: Moderate atherosclerotic disease burden is evident. Bones/joints: Right hip arthroplasty is present. Diffuse osteopenia noted. Changes of sternotomy are noted. Soft tissues: Subcutaneous emphysema are present from recent surgery. XR/XR KUB portable [id number] IMPRESSION: 1. Status post recent right hip arthroplasty without complication. 2. Distended bowel loops felt to be colonic seen throughout the abdomen with large amount of fecal matter within the rectosigmoid colon. Distension appears similar to prior CT.
[2025-01-09] MEDS: calcium carb-vit d 600mg/400unit 1 Tablet 2 EACH PO (10:09)
[2025-01-09] MEDS: multivitamin therapeutic Tablet 1 TAB PO (10:10)
[2025-01-09] MEDS: polyethylene glycol 3350 Pkt 17 gm PO ×2 (10:11→19:25)
[2025-01-09] MEDS: chlorhexidine gluconate 0.12% Btl 473 mL 30 ML MUCOUS MEM ×4 (10:11→22:19)
--- NOTE | 2025-01-09 10:40 | PM.CONSULT ---
Providers/Reason For Consult Consulting Physician/Specialty*: General Surgery Reason for Consult*: Bowel obstruction Attending Physician: Casper Lutz MD Primary Care Provider: Rachael Carig DO History of Present Illness History of Present Illness Dayanna Chanel is a 84 year old female with multiple medical comorbidities including thoracic aortic aneurysm s/p repair with chronic endoleak. She presented with the right hip fracture, this was repair, in the postoperative. She was doing severely constipated and developed significant distention of the abdomen, CT scan done yesterday showed evidence of massive distention of the cecum and ascending colon gaseous distention of the rest of the colon with a possible transition at the level of the sigmoid. I was consulted for this finding. Review of Systems General: Reports: 10 or more systems reviewed and unremarkable except in HPI and below Medications/Allergies Home Medications ?Medication ?Instructions ?Recorded ?Confirmed ?Last Taken ?Type amiodarone 100 mg tablet 100 mg PO DAILY #90 tabs 01/01/25 01/04/25 01/03/25 Rx amlodipine 2.5 mg tablet 2.5 mg PO DAILY 01/01/25 01/04/25 01/03/25 History anastrozole 1 mg tablet 1 mg PO DAILY 01/01/25 01/04/25 01/03/25 History apixaban 5 mg tablet (Eliquis) 5 mg PO BID 01/01/25 01/04/25 01/03/25 History calcium 315 mg (as 2 tab PO DAILY 01/01/25 01/04/25 01/03/25 History citrate)-vitamin D3 6.25 mcg (250 unit) tablet ibandronate 150 mg tablet 150 mg PO .monthly 01/01/25 01/04/25 12/06/24 History losartan 25 mg tablet 25 mg PO DAILY #90 tabs 01/01/25 01/04/25 01/03/25 Rx sertraline 25 mg tablet 25 mg PO DAILY 01/01/25 01/04/25 01/03/25 History Allergies Allergy/AdvReac Type Severity Reaction Status Date / Time No Known Allergies Allergy Verified 01/01/25 13:27 Current Medications Generic Name Dose Route Start Last Admin Trade Name Freq PRN Reason Stop Dose Admin Amiodarone HCl 100 mg 01/04/25 09:00 01/09/25 10:10 Amiodarone 200 Mg Tablet PO 100 mg DAILY RAMON Administration Atorvastatin Calcium 20 mg 01/04/25 12:00 01/08/25 12:48 Atorvastatin 40 Mg Tablet PO 20 mg 1200 RAMON Administration Calcium Carbonate 2 each 01/04/25 09:00 01/09/25 10:09 Calcium Carb-Vit D 600mg/400unit 1 Tablet PO 2 each DAILY RAMON Administration Chlorhexidine Gluconate 30 ml 01/06/25 17:00 01/09/25 10:11 Chlorhexidine Gluconate 0.12% Btl 473 Ml MUCOUS MEM 30 ml QID [facility] Administration Docusate Sodium 100 mg 01/08/25 17:00 01/09/25 05:44 Docusate Sodium 100 Mg Capsule PO 100 mg BID@0500,1700 [facility] Administration Enoxaparin Sodium 40 mg 01/09/25 09:15 01/09/25 10:15 Enoxaparin 40 Mg/0.4 Ml Syringe SUBCUT 40 mg Q24H RAMON Administration Lactulose 10 gm 01/03/25 23:06 01/08/25 18:18 Lactulose Oral Liq 20 Gm/30 Ml Udc PO 10 gm DAILY PRN Administration Constipation (see protocol) Protocol Magnesium Hydroxide 30 ml 01/03/25 23:06 01/08/25 12:48 Magnesium Hydroxide 30 Ml Udc PO 30 ml DAILY PRN Administration Constipation (see protocol) Protocol Multivitamins Therapeutic 1 tab 01/07/25 09:00 01/09/25 10:10 Multivitamin Therapeutic Tablet PO 1 tab DAILY RAMON Administration Mupirocin 1 applic 01/06/25 17:00 01/09/25 10:12 Mupirocin Oint 22 Gm NASAL 1 applic 0500,1700 [facility] Administration Oxycodone HCl 5 mg 01/04/25 18:48 01/09/25 02:27 Oxycodone 5 Mg Ir Tab/Cap PO 5 mg Q4H PRN Administration SEVERE PAIN Polyethylene Glycol 17 gm 01/08/25 11:15 01/09/25 10:11 Polyethylene Glycol 3350 Pkt 17 Gm PO 17 gm BID RAMON Administration Polysaccharide Iron Complex 150 mg 01/06/25 18:00 01/09/25 10:11 Iron Polysaccharide Complex 150 Mg Capsule PO 150 mg BIDWM RAMON Administration Sertraline HCl 25 mg 01/04/25 09:00 01/09/25 10:09 Sertraline 50 Mg Tablet PO 25 mg DAILY RAMON Administration PFSH Acute PFSH: Medical History Breast cancer Dissecting AAA (abdominal aortic aneurysm) Syncope Prolonged QT interval [place] to be related to bradycardia. Resolved Sinus bradycardia Moderate aortic regurgitation Heart failure with preserved ejection fraction Hypertension Coronary artery disease Surgical History S/P insertion of endovascular thoracic aortic stent graft History of lumpectomy left History of cholecystectomy History of heart valve replacement Hx of CABG Hx of aortic aneurysm repair Stent placement after thoracic aortic aneurysm leakage, [facility] Dr. [place]ll[place] Aneurysm repair x3 Family History Other CAD (coronary artery disease) Social History Smoking and tobacco/nicotine status: never used tobacco/nicotine Alcohol intake: former Year of sobriety/quit date alcohol: 2019 Former alcohol use details: Drink a glass of wine daily for 59 years. was a drinker Substance/Drug Use: never Additional social history: She is . She has a friend that lives with her Mimi [place]. Patient wants DNR as discussed with Moises Doan MD on 01/03/2025. Patient states she is not sure she would want biopsy of her lung nodules to look for cancer. She thinks she would not want to pursue treatment again. She states she is not afraid to . 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 Urinary Catheter Management: Aggarwal: Cath Placed During This Visit: yes, but has since been removed by the nurse Reason for Continuing Indwelling Catheter: Other Urinary Catheter Date of Insertion: 01/08/25 Urinary Catheter Time of Insertion: 15:00 Date Urinary Catheter Removed: 01/07/25 Time Urinary Catheter Discontinued: 15:02 Data 01/09/25 04:33 01/09/25 04:33 A&P Assessment and plan (1) Paralytic ileus of small intestine and colon: Plan This is a 84-year-old female with multiple medical comorbidities who is status post repair of right femoral fracture. Patient has developed what appears to be consistent with postoperative colonic ileus versus possibility of an olgivie syndrome. Patient is very distended, no peritoneal signs. Initial management of this condition should be conservative with NG tube decompression as needed although CT scan show evidence of no small bowel distention and therefore we can avoid NG tube and just start with n.p.o. IV fluids correction of electrolytes. I will discuss with the medical team possibility of starting methylnaltrexone as I think there is a good chance of opioid-induced ileus in this case as patient had recent hip surgery. We should continue maximal medical management in this patient as she is no a good surgical candidate, there is a mortality if we end up needing to proceed to the operating theater for a laparotomy is extremely high. I informed these to the patient family member they show understanding they agree with continuous medical management. We can also consider bisacodyl suppositories mineral oil enema to facilitate passage of stool. General surgery will continue to follow. PDMP PDMP Reviewed: Not Reviewed Procedures Arterial Line Size (Gauge): 20 Coding Level of Care Code Acute Code for Chg Fwd Diagnoses Paralytic ileus of small intestine and colon K56.0
--- NOTE | 2025-01-09 12:51 | P.PN_ITS ---
Subjective 2 Subjective: Patient was seen this morning, son is at bedside, she tells me that she is passing some gas, abdomen is still distended, has not had a bowel movement, no nausea, no fevers, no chills, no lightheadedness, dizziness, Vitals/I&O/Wt Last Vital Signs Temp 97.8 F 01/09/25 11:14 Pulse 73 01/09/25 11:14 Resp 15 01/09/25 11:14 BP 102/45 01/09/25 11:14 Pulse Ox 99 01/09/25 11:14 O2 Del Method Room Air 01/09/25 11:14 O2 Flow Rate 3 01/07/25 16:15 01/08/25 01/09/25 01/09/25 22:59 06:59 14:59 Output Total 500 / 530 350 / 350 Balance -500 / -290 -350 / -350 Weight last 48 hrs Weight 64.138 kg Weight 57.878 kg Physical Exam 2 Const: COMMON NORMALS: no acute distress and patient oriented x3 Resp: COMMON NORMALS: normal respiratory effort, No retractions, No use of accessory muscles and clear to auscultation bilaterally AUSCULTATION: clear to auscultation bilaterally Cardio: COMMON NORMALS: regular rate, regular rhythm, S1 normal heart sound present and S2 normal heart sound present RATE: regular rate RHYTHM: r egular rhythm HEART SOUNDS: S1 normal heart sound present and S2 normal heart sound present GI: OTHER: Abdomen soft, distended, no guarding, no rebound, rigidity Neuro: COMMON NORMALS: patient oriented x3 Psych: COMMON NORMALS: mental status grossly normal Urinary Catheter Management: Aggarwal: Cath Placed During This Visit: yes, but has since been removed by the nurse Reason for Continuing Indwelling Catheter: Other Urinary Catheter Date of Insertion: 01/08/25 Urinary Catheter Time of Insertion: 15:00 Date Urinary Catheter Removed: 01/07/25 Time Urinary Catheter Discontinued: 15:02 Data 01/09/25 04:33 01/09/25 04:33 A&P Assessment and plan (1) Heart failure with preserved ejection fraction: (2) Coronary artery disease: (3) Afib: (4) 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 The ascending measures up to 7.6 cm in diameter with suspected endoleak. The descending thoracic aorta measures 3.1 cm in diameter. No dissection. Calcific plaque involves the thoracic aorta and coronary arteries. - Hold Eliquis - Will monitor blood pressures closely Lung mass Lungs: There is a mass involving the lingula measuring 2.3 cm. There is a mass involving the right upper lobe measuring 2.5 cm. Additional pulmonary nodules noted throughout the right lung. - Concern for primary lung malignancy versus metastatic breast cancer - Patient does not want to have any interventions for this, no lung biopsy - Nonetheless we will have her follow-up with oncology as outpatient History of atrial fibrillation -Eliquis currently on hold due to postoperative anemia - Trial of DVT prophylaxis Lovenox today -Discussed risk and benefits, with the patient, she voiced understanding, all questions answered, agreed to proceed - Continue amiodarone Sacral fracture 3. Small amount of presacral hemorrhage concerning for an occult sacral fracture. - Monitor Acute on chronic anemia, status post 2unit PRBC - Now with postoperative anemia hemoglobin 9.1 - Monitor hemoglobin repeat this evening - Resume Lovenox DVT prophylaxis Right femoral neck fracture - Orthopedic service on consult, status post surgical intervention - Oxycodone for pain control - Anticoagulation therapy, resume DVT prophylaxis Lovenox today - SCDs Acute on chronic thrombocytopenia - Status post 1 unit platelets - Monitor Orthostatic hypotension, monitor blood pressures closely Abdominal distention - CT scan CT/CT abdomen pelvis wo con [id number] IMPRESSION: 1. There is marked gaseous dilatation of the cecum and ascending colon and gaseous distension of the transverse colon and descending colon with a transition point at the sigmoid colon. No definite mass identified at the transition point. Ileus? Plan - Keep n.p.o. - KUB - General Surgery consult - Trial of methylnaltrexone - Bowel regimen DNR, okay with elective intubation if required SCDs for DVT prophylaxis, Lovenox PDMP PDMP Reviewed: Not Reviewed Attestations 2 Medical Necessity Statement*: Patient requires hospitalization for abdominal distention, ileus, postoperative anemia Procedures Arterial Line Size (Gauge): 20 Diagnoses Chronic heart failure with preserved ejection fraction I50.32 Heart failure chronicity: chronic Coronary artery disease involving coronary bypass graft of [place] heart without angina pectoris I25.810 Coronary Disease-Associated Artery/Lesion type: bypass graft [place] vs. transplanted heart: [place] heart Associated angina: without angina Chronic atrial fibrillation I48.20 Atrial fibrillation type: unspecified chronic S/P insertion of endovascular thoracic aortic stent graft Z95.828 Anemia D64.9 Anemia type: unspecified type Malignant neoplasm of left breast in female, estrogen receptor positive, unspecified site of breast C50.912; Z17.0 Breast location: unspecified site of breast Estrogen receptor status: positive Patient sex: female Fracture of femoral neck, right, closed S72.001A Encounter type: initial encounter Lung mass R91.8 Endoleak of aortic graft
[2025-01-09] MEDS: methylnaltrexone 12 /0.6 mL INJ 12 MG SUBCUT (13:04)
--- NOTE | 2025-01-09 13:44 | PM.MISC ---
Miscellaneous Note Purpose of Documentation: Update on patient care Note: Patient has been passing gas had a small bowel movement. Methylnaltrexone was administer about 20 minutes ago, according to the patient she is feeling good no significant changes in abdominal exam. Will continue to follow-up.
[2025-01-10] VITALS (8 sets, daily range): BP systolic 132–145; BP diastolic 52–64; PULSE 66–80; RESP 16–17; TEMP 36.4–36.9; O2SAT 91–92
[2025-01-10 04:52] LABS: Hematocrit 25.9 % (36-47); Hemoglobin 8.70 g/dL (11.27-16.99); Mean Corpuscular HGB Conc 33.6 g/dL (30-55); Mean Corpuscular Hemoglobin 34.8 pg (27-33); Mean Corpuscular Volume 103.6 fl (85-98); Nucleated Red Blood Cells % 0 %; Platelet Count 135 10^3/cmm (157-399); Red Blood Count 2.50 10^6/uL (3.85-5.65); White Blood Count 6.52 10^3/uL (3.29-11.43)
[2025-01-10 05:11] LABS: Alanine Aminotransferase 15 U/L (0-33); Albumin Level 2.7 g/dL (3.5-5.2); Alkaline Phosphatase 67 U/L (35-105); Anion Gap 17.5 (5-19); Aspartate Amino Transferase 46 U/L (0-32); Blood Urea Nitrogen 44 mg/dL (8-23); Calcium 8.1 mg/dL (8.5-10.5); Carbon Dioxide 22 mmol/L (22-29); Chloride 99 mmol/L (98-107); Creatinine Clr Calc Pharmacy 47.8433; Globulin 2.9 g/dL (1.3-4.6); Glucose 105 mg/dL (65-115); Magnesium 2.3 mg/dL (1.7-2.3); Osmolality Calculated 290 mOsm/kg (285-295); Potassium 4.5 mmol/L (3.5-5.1); Sodium 134 mmol/L (136-145); Total Protein 5.6 g/dL (6.6-8.7)
--- NOTE | 2025-01-10 07:00 | XRR_ITS ---
PROCEDURE INFORMATION: Exam: XR Abdomen Exam date and time: 01/10/2025 8:40 AM Age: 84 years old Clinical indication: Prior surgery; Surgery date: 3-7 days post-operative; Abdominal distention; Nausea; Constipation; Post op RT hip x 3 days TECHNIQUE: Imaging protocol: Radiologic exam of the abdomen. Views: Frontal supine view of the abdomen. 1 View. COMPARISON: CR (ABDOMEN, ) 01/09/2025 9:48 AM FINDINGS: Gastrointestinal tract: Again seen are multiple air distended colonic loops. There are mildly aided distended small bowel loops as well. Less stool material seen at the rectosigmoid colon. Bones/joints: Total right hip replacement. XR/XR KUB portable [id number] IMPRESSION: 1. Less stool material seen at the rectosigmoid colon. 2. Overall no significant change in bowel-gas pattern. Finding could be secondary to ileus. Continued imaging follow-up is advised.
--- NOTE | 2025-01-10 07:20 | P.PN_ITS ---
Subjective 2 Subjective: This is a 84-year-old female known to my service for acute colonic distention after surgery. Yesterday she received a dose of methylnaltrexone, partial response with blood and a small bowel movement according to the patient she has been passing significant amount of gas overnight but she is still distended. Vitals/I&O/Wt Last Vital Signs Temp 97.5 F L 01/10/25 03:56 Pulse 77 01/10/25 06:00 Resp 16 01/10/25 03:56 BP 132/52 01/10/25 03:56 Pulse Ox 91 01/10/25 03:56 O2 Del Method Room Air 01/10/25 03:56 O2 Flow Rate 3 01/07/25 16:15 01/09/25 01/10/25 01/10/25 22:59 06:59 14:59 Output Total 150 / 500 Balance -150 / -500 Weight last 48 hrs Weight 138 lb 3.2 oz Weight 141 lb 6.4 oz Physical Exam 2 GI: OTHER: Abdominal exam is benign but the abdomen is distended on the right hemiabdomen, no peritonitis there is tenderness in that right hemiabdomen area. Urinary Catheter Management: Aggarwal: Cath Placed During This Visit: yes, but has since been removed by the nurse Reason for Continuing Indwelling Catheter: Other Urinary Catheter Date of Insertion: 01/08/25 Urinary Catheter Time of Insertion: 15:00 Date Urinary Catheter Removed: 01/07/25 Time Urinary Catheter Discontinued: 15:02 Data 01/10/25 03:27 01/10/25 03:27 A&P Assessment and plan (1) Acute pseudo-obstruction of colon: Plan Patient clinical picture is concerning for persistent acute colonic pseudoobstruction. In this setting I will recommend that we stop all p.o. intake including stool softeners. We continue to monitor abdominal exam. I will order 1 dose of mineral oil enema to facilitate evacuation of the stool in the rectosigmoid area that is seen in imaging. If symptoms persist I will discuss with medical team regarding the possibility of transfer to the ICU for monitoring and administration of neostigmine 2 mg over 10 minutes. In the case of all conservative measures to fail the only other additional option that we have in this patient will be attempting of endoscopic decompression although it will be ideal to Exeltis all conservative methods before considering any kind of therapeutic endoscopy as the risks for procedural related complications is high in this patient. Patient shows understanding. I had also extensive discussion regarding the possibility of spontaneous perforation with colonic distention she shows understanding about this also. PDMP PDMP Reviewed: Not Reviewed Attestations 2 Medical Necessity Statement*: Per medical team Procedures Arterial Line Size (Gauge): 20 Coding Level of Care Code Acute Code for Chg Fwd Diagnoses Acute pseudo-obstruction of colon K59.81
[2025-01-10] MEDS: methylnaltrexone 12 /0.6 mL INJ 12 MG SUBCUT (08:50)
[2025-01-10] MEDS: multivitamin therapeutic Tablet 1 TAB PO (09:03)
[2025-01-10] MEDS: calcium carb-vit d 600mg/400unit 1 Tablet 2 EACH PO (09:03)
[2025-01-10] MEDS: chlorhexidine gluconate 0.12% Btl 473 mL 30 ML MUCOUS MEM ×4 (09:05→22:28)
--- NOTE | 2025-01-10 11:42 | P.PN_ITS ---
Subjective 2 Subjective: Patient is now on MedSurg floor. Most concerning issue right now is that she has abdominal bloating and general surgery is working with her on this at this time. As for her hip nursing staff to show me photographs of the wound earlier today. She does have some ecchymosis subcutaneously. She is draining some clear serous fluid distally which appears to be old hematoma draining out at this time. Nursing staff indicates there are changes dressing as needed to this wound. No other concerns at this time. She remains afebrile. Medications: Reviewed: Yes Vitals/I&O/Wt Last Vital Signs Temp 98.0 F 01/10/25 11:11 Pulse 79 01/10/25 11:11 Resp 16 01/10/25 11:11 BP 135/64 01/10/25 11:11 Pulse Ox 91 01/10/25 11:11 O2 Del Method Room Air 01/10/25 11:11 O2 Flow Rate 3 01/07/25 16:15 01/09/25 01/10/25 01/10/25 22:59 06:59 14:59 Output Total 150 / 500 Balance -150 / -500 Weight last 48 hrs Weight 138 lb 3.2 oz Weight 141 lb 6.4 oz Physical Exam 2 Narrative: On examination today patient is awake and alert indicates that she is not having any pain or problems with her right hip. Dressings were evaluated and I do not see any drainage of this dressing at this time. 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 Orthopedically not having any difficulties. There is old hematoma draining from the wound. Patient having medical issues primarily abdominal bloating at this point. Plan Plan at this time is continuing with physical therapy for progressive ambulation full weightbearing of the right hip. Allow for general surgery and medical team to care for abdominal issues PDMP PDMP Reviewed: Not Reviewed Attestations 2 Medical Necessity Statement*: Patient in need of further pain control, patient in need of further workup by general surgery for abdominal bloating. Procedures Arterial Line Size (Gauge): 20 Coding Level of Care Code 30069 Diagnoses Fracture of femoral neck, right, closed S72.001A Encounter type: initial encounter
[2025-01-10 11:48] LABS: Alanine Aminotransferase 15 U/L (0-33); Albumin Level 2.7 g/dL (3.5-5.2); Alkaline Phosphatase 58 U/L (35-105); Anion Gap 18.5 (5-19); Aspartate Amino Transferase 45 U/L (0-32); Blood Urea Nitrogen 40 mg/dL (8-23); Calcium 7.8 mg/dL (8.5-10.5); Carbon Dioxide 20 mmol/L (22-29); Chloride 100 mmol/L (98-107); Creatinine Clr Calc Pharmacy 47.8433; Globulin 2.6 g/dL (1.3-4.6); Glucose 99 mg/dL (65-115); Magnesium 2.3 mg/dL (1.7-2.3); Osmolality Calculated 288 mOsm/kg (285-295); Potassium 4.5 mmol/L (3.5-5.1); Sodium 134 mmol/L (136-145); Total Protein 5.3 g/dL (6.6-8.7)
--- NOTE | 2025-01-10 11:49 | PC.NURSE ---
This nurse per Dr. Lutz, spoke to Patient and Son, Kyler about medication Dr. Conway will give to patient later due to stool not moving for patient. Discussed possible risk of bowel perforation with patient and son. Patient stated if something were to happen she does not want surgery or anything else done. Kyler stated it was up to the patient, it is her decision. Patient is capable of making own decisions and will abide by her wishes. The Doctors have spoke to patient and family about the risk prior to this nurse reiterating the risk. Dr. Lutz to call other son out of state and speak with him as well.
--- NOTE | 2025-01-10 14:21 | PM.MISC ---
Miscellaneous Note Purpose of Documentation: Update on patient care Note: Patient was reevaluated this afternoon, abdominal exam is actually improved she has an abdomen that is less tender to palpation and slightly less distended. She has been able to pass some gas and she actually passed gas while I was in the room. Due to this findings I think it will be reasonable to wait until tomorrow morning expecting resolution of symptoms and if until tomorrow morning there is no resolution of symptoms and the x-ray still shows a very dilated right colon we will proceed with neostigmine administration. I did discuss with the patient and family member and they are aware of the risks involved with administration of this medication including the risks of colonic perforation, bradycardia, bronchospasm and arrhythmia. Patient understanding and they are agreeable to proceed in case of failure of therapy by tomorrow morning
[2025-01-10 14:48] LABS: Free T4 Free Thyroxine 1.17 ng/dL (0.82-1.77); Thyroid Stimulating Hormone 4.74 uIU/mL (0.27-4.20)
[2025-01-10 15:13] LABS: Ferritin 322 ng/mL (15-150); Iron 30 ug/dL (37-145)
--- NOTE | 2025-01-10 15:29 | P.PN_ITS ---
Subjective 2 Subjective: - Patient was seen this morning she cont inues to pass gas, she had a very small smear of a bowel movement yesterday, none overnight or this morning, her abdomen remains distended, she continues to have pain, no nausea, no vomiting - I did detailed discussion with her abo ut her acute colonic distention - Discussed ileus versus acute pseudoobs truction of colon - Discussed managing her electrolytes - Etiology could be anesthetic, pain, or recent surgery, anemia - We have tried her on bowel regiment wi thout improvement, she has received a dose of methylnaltrexone without improvement - Will try another dose of methotrexate this morning, with a mineral oil enema - Will reexamine her abdomen this aftern oon - Discussed with abdominal colonic diste ntion, there is an increased risk of colon perforation - However Dayanna does not want to have an y abdominal surgery she tells me if her colon perforates she would just want to be kept comfortable and for her to pass away comfortably she does not want to do any more surgeries even if it were to save her life - Her son was present during this conver sation and agreed - We discussed possibly trying neostigmi ne - Neostigmine would stimulate her bowels , - However the risk of neostigmine is bra dycardia, acute symptomatic bronchospasm, colon perforation - If she wanted to bradycardic arrest, c onfirmed that she would not want CPR - Is okay with medications - Discussed bronchospasms we could try m edications to help with bronchospasm, but does not want to have a aggressive interventions - We discussed if she had a colon perfor ation because of neostigmine at that point she would not want any surgery, even if it was life saving - She does not want to have any aggressi ve interventions such as surgery at this point - Discussed the risks and benefits of me dication such as neostigmine, she voiced understanding, all questions answered, shared decision making, she wants to go ahead and proceed with that if needed, as she tells me she cannot live like this anymore she is in so much pain - Will discuss with general surgery - Reexamined this afternoon - Decide if we can to continue medical m anagement continue watchful waiting versus trial of neostigmine - Patient understands morbidity and mort ality associate with colon perforation, she tells me that if her condition deteriorates, or if she develops colon perforation she does not want to pursue surgery, she would just want to pursue comfort care - This conversation was made of her son who agreed with Dayanna's plan and choices - I also spoke to patient's son, Harvey - Discussed case in detail - Discussed anemia, postoperative, her p ostoperative course of ileus versus colon pseudoobstruction, medical management versus neostigmine, Dayanna's desire to not pursue any surgery even if it is life-sustaining, if she were to develop a colon perforation or significant complication she would just want to be kept comfortable, let her pass away comfortably - Her son agrees with Dayanna's choice Vitals/I&O/Wt Last Vital Signs Temp 98.0 F 01/10/25 11:11 Pulse 79 01/10/25 11:11 Resp 16 01/10/25 11:11 BP 135/64 01/10/25 11:11 Pulse Ox 91 01/10/25 11:11 O2 Del Method Room Air 01/10/25 11:11 O2 Flow Rate 3 01/07/25 16:15 01/10/25 01/10/25 01/10/25 06:59 14:59 22:59 Output Total 150 / 500 Balance -150 / -500 Weight last 48 hrs Weight 62.686 kg Weight 64.138 kg Physical Exam 2 Const: COMMON NORMALS: no acute distress and patient oriented x3 Resp: COMMON NORMALS: normal respiratory effort, No retractions, No use of accessory muscles and clear to auscultation bilaterally AUSCULTATION: clear to auscultation bilaterally Cardio: COMMON NORMALS: regular rate, regular rhythm, S1 normal heart sound present and S2 normal heart sound present RATE: regular rate RHYTHM: r egular rhythm HEART SOUNDS: S1 normal heart sound present and S2 normal heart sound present GI: OTHER: Abdomen soft, distended, scattered bowel sounds but diminished, no guarding, no rebound, rigidity, does have diffuse tenderness, but belly is soft Extremity: COMMON NORMALS: no pedal edema Neuro: COMMON NORMALS: patient oriented x3 Psych: COMMON NORMALS: mental status grossly normal Urinary Catheter Management: Aggarwal: Cath Placed During This Visit: yes, but has since been removed by the nurse Reason for Continuing Indwelling Catheter: Other Urinary Catheter Date of Insertion: 01/08/25 Urinary Catheter Time of Insertion: 15:00 Date Urinary Catheter Removed: 01/07/25 Time Urinary Catheter Discontinued: 15:02 Data 01/10/25 03:27 01/10/25 11:05 Micro: Microbiology 01/08/25 16:25 Urine Culture - Final Urine,Clean Catch A&P Assessment and plan (1) Heart failure with preserved ejection fraction: (2) Coronary artery disease: (3) Afib: (4) 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 The ascending measures up to 7.6 cm in diameter with suspected endoleak. The descending thoracic aorta measures 3.1 cm in diameter. No dissection. Calcific plaque involves the thoracic aorta and coronary arteries. - Hold Eliquis - Will monitor blood pressures closely Lung mass Lungs: There is a mass involving the lingula measuring 2.3 cm. There is a mass involving the right upper lobe measuring 2.5 cm. Additional pulmonary nodules noted throughout the right lung. - Concern for primary lung malignancy versus metastatic breast cancer - Patient does not want to have any interventions for this, no lung biopsy - Nonetheless we will have her follow-up with oncology as outpatient History of atrial fibrillation -Eliquis currently on hold due to postoperative anemia - Trial of DVT prophylaxis Lovenox today -Discussed risk and benefits, with the patient, she voiced understanding, all questions answered, agreed to proceed - Continue amiodarone Sacral fracture 3. Small amount of presacral hemorrhage concerning for an occult sacral fracture. - Monitor, medical management Acute on chronic anemia, status post 2unit PRBC - Now with postoperative anemia hemoglobin 8.7 - Monitor hemoglobin repeat this evening - Resume Lovenox DVT prophylaxis Right femoral neck fracture - Orthopedic service on consult, status post surgical intervention - Oxycodone for pain control - Anticoagulation therapy, resume DVT prophylaxis Lovenox today - SCDs Acute on chronic thrombocytopenia - Status post 1 unit platelets - Monitor Orthostatic hypotension, monitor blood pressures closely, resolving Abdominal distention - CT scan CT/CT abdomen pelvis wo con [id number] IMPRESSION: 1. There is marked gaseous dilatation of the cecum and ascending colon and gaseous distension of the transverse colon and descending colon with a transition point at the sigmoid colon. No definite mass identified at the transition point. - Ileus versus acute colonic pseudoobstruction -KUB this morning IMPRESSION: 1. Less stool material seen at the rectosigmoid colon. 2. Overall no significant change in bowel-gas pattern. Finding could be secondary to ileus. Continued imaging follow-up is advised. - Potassium, phosphorus, magnesium within normal limits Plan - Keep n.p.o - 1 dose of mineral oil enema, 1 dose of methylnaltrexone today - Surgery to reassess this afternoon decide on neostigmine - KUB - General Surgery consult - Bowel regimen DNR, okay with elective intubation if required SCDs for DVT prophylaxis, Lovenox PDMP PDMP Reviewed: Not Reviewed Attestations 2 Medical Necessity Statement*: Patient requires hospitalization for abdominal distention, ileus versus acute colonic pseudoobstruction, anemia Procedures Arterial Line Size (Gauge): 20 Diagnoses Chronic heart failure with preserved ejection fraction I50.32 Heart failure chronicity: chronic Coronary artery disease involving coronary bypass graft of [place] heart without angina pectoris I25.810 Coronary Disease-Associated Artery/Lesion type: bypass graft [place] vs. 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
[2025-01-10] MEDS: mupirocin oint 22 gm 1 APPLIC NASAL (18:30)
[2025-01-11] VITALS (13 sets, daily range): BP systolic 118–165; BP diastolic 51–60; PULSE 64–75; RESP 16–18; TEMP 36.4–36.9; O2SAT 90–95
[2025-01-11 04:03] LABS: Hematocrit 23.1 % (36-47); Hemoglobin 7.60 g/dL (11.27-16.99); Mean Corpuscular HGB Conc 32.9 g/dL (30-55); Mean Corpuscular Hemoglobin 33.6 pg (27-33); Mean Corpuscular Volume 102.2 fl (85-98); Nucleated Red Blood Cells % 0 %; Platelet Count 131 10^3/cmm (157-399); Red Blood Count 2.26 10^6/uL (3.85-5.65); White Blood Count 5.54 10^3/uL (3.29-11.43)
[2025-01-11 04:16] LABS: Alanine Aminotransferase 20 U/L (0-33); Albumin Level 2.6 g/dL (3.5-5.2); Alkaline Phosphatase 59 U/L (35-105); Anion Gap 17.0 (5-19); Aspartate Amino Transferase 51 U/L (0-32); Blood Urea Nitrogen 30 mg/dL (8-23); Calcium 7.5 mg/dL (8.5-10.5); Carbon Dioxide 21 mmol/L (22-29); Chloride 103 mmol/L (98-107); Creatinine Clr Calc Pharmacy 47.8433; Globulin 2.4 g/dL (1.3-4.6); Glucose 80 mg/dL (65-115); Magnesium 2.1 mg/dL (1.7-2.3); Osmolality Calculated 289 mOsm/kg (285-295); Potassium 4.0 mmol/L (3.5-5.1); Sodium 137 mmol/L (136-145); Total Protein 5.0 g/dL (6.6-8.7)
[2025-01-11] MEDS: mupirocin oint 22 gm 1 APPLIC NASAL ×2 (05:01→15:56)
--- NOTE | 2025-01-11 06:44 | P.PN_ITS ---
Subjective 2 Subjective: This is a 84-year-old female who is known to my service for acute colonic pseudoobstruction in the setting of recent surgery. Patient doing well overnight but significant amount of gas and was able to have a bowel movement Vitals/I&O/Wt Last Vital Signs Temp 98.5 F 01/11/25 04:00 Pulse 64 01/11/25 04:00 Resp 16 01/11/25 04:00 BP 140/54 01/11/25 04:00 Pulse Ox 90 01/11/25 04:00 O2 Del Method Room Air 01/11/25 00:00 O2 Flow Rate 3 01/07/25 16:15 01/10/25 01/10/25 01/11/25 14:59 22:59 06:59 Intake Total 976.667 / 976.667 Output Total 200 / 200 Balance -200 / -200 976.667 / 776.667 Weight last 48 hrs Weight 139 lb 9 oz Weight 138 lb 3.2 oz Physical Exam 2 GI: OTHER: Abdominal examination is benign the abdomen is significantly less distended there is bowel sounds, there is some normal opposite to yesterday when they were tympanic Urinary Catheter Management: Aggarwal: Cath Placed During This Visit: yes, but has since been removed by the nurse Reason for Continuing Indwelling Catheter: Other Urinary Catheter Date of Insertion: 01/08/25 Urinary Catheter Time of Insertion: 15:00 Date Urinary Catheter Removed: 01/07/25 Time Urinary Catheter Discontinued: 15:02 Data 01/11/25 02:51 01/11/25 02:51 Micro: Microbiology 01/08/25 16:25 Urine Culture - Final Urine,Clean Catch A&P Assessment and plan (1) Acute pseudo-obstruction of colon: Plan Patient showing good progression, has been able to produce bowel movement and is passing gas abdominal pain has resolved and distention is improving although still present. With this findings I do anticipate the need for any surgical intervention. I will recommend that we do 1 more dose of methylnaltrexone today, patient can be started on clears and advance as tolerated. - Methylnaltrexone subcutaneous once today (ordered) - Can be started on a clear liquid diet - Will continue to follow PDMP PDMP Reviewed: Not Reviewed Attestations 2 Medical Necessity Statement*: Per medical team Procedures Arterial Line Size (Gauge): 20 Coding Level of Care Code Acute Code for Chg Fwd Diagnoses Acute pseudo-obstruction of colon K59.81
--- NOTE | 2025-01-11 07:00 | XR_ITS ---
WS: [id number] Exam: XR KUB portable [id number] Date/Time of Exam: 01/11/2025 8:15 AM Reason For Exam: distention Comparison 01/10/2025. Significant decompression of large and small bowel loops since the prior study. Faint contrast material seen in the sigmoid and LEFT colon. No free air. No sign of organ enlargement. Signs of prior cholecystectomy. Degenerative changes of the lumbar spine and LEFT hip. RIGHT hip prosthesis partially visualized. XR/XR KUB portable [id number] IMPRESSION: 1. Significant decompression of large and small bowel loops since previous stud y. Findings suggest mild ileus. Additional nonacute findings as above.
[2025-01-11] MEDS: chlorhexidine gluconate 0.12% Btl 473 mL 30 ML MUCOUS MEM ×4 (08:25→19:37)
[2025-01-11] MEDS: multivitamin therapeutic Tablet 1 TAB PO (08:25)
[2025-01-11] MEDS: methylnaltrexone 12 /0.6 mL INJ 12 MG SUBCUT (08:25)
[2025-01-11] MEDS: calcium carb-vit d 600mg/400unit 1 Tablet 2 EACH PO (08:25)
--- NOTE | 2025-01-11 10:19 | PC.SOCIAL ---
IMM Updated Updated pt on IMM. No questions voiced. Provided pt a copy. Initialed, dated, & timed copy in chart.
--- NOTE | 2025-01-11 13:54 | P.PN_ITS ---
Subjective 2 Subjective: Patient was seen this morning, she feels significantly better this morning, she has had a bowel movement overnight, she has had 1 currently, her abdominal distention is improving, she is passing gas, she has been transition to clear liquids, we discussed her hemoglobin up to 7.6, discussed the risk and benefits of holding anticoagulant therapy, she agreed to proceed will hold anticoagulant therapy give her a unit of blood, stop her IV fluids encourage p.o. intake monitor for recurrent abdominal pain and nausea and vomiting Vitals/I&O/Wt Last Vital Signs Temp 97.6 F 01/11/25 12:45 Pulse 68 01/11/25 12:09 Resp 18 01/11/25 12:45 BP 139/51 01/11/25 12:45 Pulse Ox 94 01/11/25 12:45 O2 Del Method Room Air 01/11/25 12:09 O2 Flow Rate 3 01/07/25 16:15 01/10/25 01/11/25 01/11/25 22:59 06:59 14:59 Intake Total 976.667 / 119.388 2138.667 / 1336.667 Output Total 200 / 200 Balance -200 / -200 976.667 / 499.773 6022.667 / 1336.667 Weight last 48 hrs Weight 63.304 kg Weight 62.686 kg Physical Exam 2 Const: COMMON NORMALS: no acute distress and patient oriented x3 Resp: COMMON NORMALS: normal respiratory effort, No retractions, No use of accessory muscles and clear to auscultation bilaterally AUSCULTATION: clear to auscultation bilaterally Cardio: COMMON NORMALS: regular rate, regular rhythm, S1 normal heart sound present and S2 normal heart sound present RATE: regular rate RHYTHM: r egular rhythm HEART SOUNDS: S1 normal heart sound present and S2 normal heart sound present GI: OTHER: Abdomen soft, slightly distended, good bowel sounds in all 4 quadrants, no guarding, no rebound, rigidity Extremity: COMMON NORMALS: no pedal edema Neuro: COMMON NORMALS: patient oriented x3 Psych: COMMON NORMALS: mental status grossly normal Urinary Catheter Management: Aggarwal: Cath Placed During This Visit: yes, but has since been removed by the nurse Reason for Continuing Indwelling Catheter: Other Urinary Catheter Date of Insertion: 01/08/25 Urinary Catheter Time of Insertion: 15:00 Date Urinary Catheter Removed: 01/07/25 Time Urinary Catheter Discontinued: 15:02 Data 01/11/25 02:51 01/11/25 02:51 Micro: Microbiology 01/08/25 16:25 Urine Culture - Final Urine,Clean Catch A&P Assessment and plan (1) Heart failure with preserved ejection fraction: (2) Coronary artery disease: (3) Afib: (4) 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 The ascending measures up to 7.6 cm in diameter with suspected endoleak. The descending thoracic aorta measures 3.1 cm in diameter. No dissection. Calcific plaque involves the thoracic aorta and coronary arteries. - Hold Eliquis - Will monitor blood pressures closely Lung mass Lungs: There is a mass involving the lingula measuring 2.3 cm. There is a mass involving the right upper lobe measuring 2.5 cm. Additional pulmonary nodules noted throughout the right lung. - Concern for primary lung malignancy versus metastatic breast cancer - Patient does not want to have any interventions for this, no lung biopsy - Nonetheless we will have her follow-up with oncology as outpatient History of atrial fibrillation -Eliquis currently on hold due to postoperative anemia - Hold Lovenox due to anemia -Discussed risk and benefits, with the patient, she voiced understanding, all questions answered, agreed to proceed - Continue amiodarone Sacral fracture 3. Small amount of presacral hemorrhage concerning for an occult sacral fracture. - Monitor, medical management Acute on chronic anemia, status post 2unit PRBC - Now with postoperative anemia hemoglobin 7.6 - Transfuse 1 unit PRBC - Resume Lovenox DVT prophylaxis Right femoral neck fracture - Orthopedic service on consult, status post surgical intervention - Oxycodone for pain control - Anticoagulation therapy, resume DVT prophylaxis Lovenox today - SCDs Acute on chronic thrombocytopenia - Status post 1 unit platelets - Monitor Orthostatic hypotension, monitor blood pressures closely, resolving Abdominal distention - CT scan CT/CT abdomen pelvis wo con [id number] IMPRESSION: 1. There is marked gaseous dilatation of the cecum and ascending colon and gaseous distension of the transverse colon and descending colon with a transition point at the sigmoid colon. No definite mass identified at the transition point. - Ileus versus acute colonic pseudoobstruction -KUB this morning IMPRESSION: 1. Less stool material seen at the rectosigmoid colon. 2. Overall no significant change in bowel-gas pattern. Finding could be secondary to ileus. Continued imaging follow-up is advised. - Potassium, phosphorus, magnesium within normal limits - KUB this morning significant decompression of large and small bowel loops, she is passing gas, having bowel movements Plan - Transition to clears - Start MiraLAX, 1 dose of methylnaltrexone today - Continue medical management - General Surgery consult - Bowel regimen DNR, okay with elective intubation if required SCDs for DVT prophylaxis, Lovenox on hold given anemia PDMP PDMP Reviewed: Not Reviewed Attestations 2 Medical Necessity Statement*: Patient requires hospitalization for acute anemia, abdominal distention Procedures Arterial Line Size (Gauge): 20 Diagnoses Chronic heart failure with preserved ejection fraction I50.32 Heart failure chronicity: chronic Coronary artery disease involving coronary bypass graft of [place] heart without angina pectoris I25.810 Coronary Disease-Associated Artery/Lesion type: bypass graft [place] vs. 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
[2025-01-11 15:44] LABS: Hematocrit 29.9 % (36-47); Hemoglobin 9.80 g/dL (11.27-16.99)
[2025-01-12] VITALS (9 sets, daily range): BP systolic 119–157; BP diastolic 42–61; PULSE 66–75; RESP 15–17; TEMP 36.2–37.2; O2SAT 92–96
[2025-01-12] MEDS: mupirocin oint 22 gm 1 APPLIC NASAL ×2 (05:14→16:47)
[2025-01-12 05:47] LABS: Hematocrit 27.4 % (36-47); Hemoglobin 9.30 g/dL (11.27-16.99); Mean Corpuscular HGB Conc 33.9 g/dL (30-55); Mean Corpuscular Hemoglobin 33.2 pg (27-33); Mean Corpuscular Volume 97.9 fl (85-98); Nucleated Red Blood Cells % 0 %; Platelet Count 131 10^3/cmm (157-399); Red Blood Count 2.80 10^6/uL (3.85-5.65); White Blood Count 5.68 10^3/uL (3.29-11.43)
[2025-01-12 06:04] LABS: Alanine Aminotransferase 24 U/L (0-33); Albumin Level 2.5 g/dL (3.5-5.2); Alkaline Phosphatase 54 U/L (35-105); Anion Gap 14.3 (5-19); Aspartate Amino Transferase 55 U/L (0-32); Blood Urea Nitrogen 13 mg/dL (8-23); Calcium 7.3 mg/dL (8.5-10.5); Carbon Dioxide 24 mmol/L (22-29); Chloride 99 mmol/L (98-107); Creatinine Clr Calc Pharmacy 47.4198; Globulin 2.4 g/dL (1.3-4.6); Glucose 94 mg/dL (65-115); Magnesium 1.8 mg/dL (1.7-2.3); Osmolality Calculated 278 mOsm/kg (285-295); Potassium 3.3 mmol/L (3.5-5.1); Sodium 134 mmol/L (136-145); Total Protein 4.9 g/dL (6.6-8.7)
--- NOTE | 2025-01-12 06:49 | P.PN_ITS ---
Subjective 2 Subjective: Excellent progression over the last 24 hours has passed significant amount of mucus yesterday she had 2-3 bowel movements. Abdominal distention has significantly improved. Vitals/I&O/Wt Last Vital Signs Temp 97.1 F L 01/12/25 04:00 Pulse 71 01/12/25 05:34 Resp 16 01/12/25 04:00 BP 150/56 01/12/25 04:00 Pulse Ox 93 01/12/25 04:00 O2 Del Method Room Air 01/12/25 04:00 O2 Flow Rate 97 01/12/25 04:00 01/11/25 01/11/25 01/12/25 14:59 22:59 06:59 Intake Total 1486.667 / 1486.667 360 / 1846.667 Balance 1486.667 / 1486.667 360 / 1846.667 Weight last 48 hrs Weight 135 lb 6 oz Weight 139 lb 9 oz Physical Exam 2 GI: OTHER: Benign abdominal examination there is minimal distention on the right side of the abdomen overall soft and nontender Urinary Catheter Management: Aggarwal: Cath Placed During This Visit: yes, but has since been removed by the nurse Reason for Continuing Indwelling Catheter: Other Urinary Catheter Date of Insertion: 01/08/25 Urinary Catheter Time of Insertion: 15:00 Date Urinary Catheter Removed: 01/07/25 Time Urinary Catheter Discontinued: 15:02 Data 01/12/25 04:53 01/12/25 04:53 A&P Assessment and plan (1) Acute pseudo-obstruction of colon: Plan Patient appears to have resolution of her acute cold mucous of the obstruction. We will continue methylnaltrexone on a once daily as scheduled until patient is completely tolerating diet and having regular bowel movements. We will advance diet to full liquid and then to GI soft as tolerated. All other management per medical team is appreciated. - Methylnaltrexone 12 mg subcutaneous once daily - Advance diet as tolerated - We appreciate electrolyte correction to a potassium of 4 phosphorus of 3 and a magnesium of 2. PDMP PDMP Reviewed: Not Reviewed Attestations 2 Medical Necessity Statement*: Per medical team Procedures Arterial Line Size (Gauge): 20 Coding Level of Care Code Acute Code for Chg Fwd Diagnoses Acute pseudo-obstruction of colon K59.81
[2025-01-12] MEDS: multivitamin therapeutic Tablet 1 TAB PO (07:37)
[2025-01-12] MEDS: calcium carb-vit d 600mg/400unit 1 Tablet 2 EACH PO (07:37)
[2025-01-12] MEDS: chlorhexidine gluconate 0.12% Btl 473 mL 30 ML MUCOUS MEM ×4 (07:38→20:12)
--- NOTE | 2025-01-12 08:25 | XR_ITS ---
WS: [id number] Exam: XR KUB portable [id number] Date/Time of Exam: 01/12/2025 8:46 AM Reason For Exam: distention Comparison 01/11/2025. A moderate amount of large and small bowel gas noted in the central and RIGHT abdomen suggest a adynamic ileus. No free air. No sign of organ enlargement. Signs of prior cholecystectomy. Degenerative changes of the lumbar spine and LEFT hip. RIGHT hip prosthesis. XR/XR KUB portable [id number] IMPRESSION: 1. Moderate amount of large and small bowel gas in the central and RIGHT abdome n most likely representing adynamic ileus. No acute process is suspected.
[2025-01-12] MEDS: potassium phosphate (mEq K) 40 MEQ in sodium chloride 0.9% (100 ml) 100 ML 27.25 MEQ IV (09:38)
[2025-01-12] MEDS: polyethylene glycol 3350 Pkt 17 gm 8.5 GM PO (10:44)
[2025-01-12] MEDS: methylnaltrexone 12 /0.6 mL INJ 12 MG SUBCUT (10:45)
--- NOTE | 2025-01-12 17:48 | P.PN_ITS ---
Subjective 2 Subjective: Patient was seen this morning, currently alert oriented x 3, following all commands, she has not had a bowel movement this morning but had several throughout the afternoon yesterday, her abdomen is a bit distended she is still passing gas she is tolerating clear liquid diet well, discussed advancing her diet, serial abdominal exams, possible discharge tomorrow, will give her another dose of methylnaltrexone today, we will replace her electrolytes, she is in agreement Vitals/I&O/Wt Last Vital Signs Temp 98.2 F 01/12/25 16:00 Pulse 66 01/12/25 16:00 Resp 16 01/12/25 16:00 BP 133/51 01/12/25 16:00 Pulse Ox 94 01/12/25 16:00 O2 Del Method Room Air 01/12/25 16:00 O2 Flow Rate 97 01/12/25 04:00 01/12/25 01/12/25 01/12/25 06:59 14:59 22:59 Intake Total 949.0909 / 949.0909 Balance 949.0909 / 949.0909 Weight last 48 hrs Weight 61.405 kg Weight 63.304 kg Physical Exam 2 Const: COMMON NORMALS: no acute distress and patient oriented x3 Resp: COMMON NORMALS: normal respiratory effort, No retractions, No use of accessory muscles and clear to auscultation bilaterally AUSCULTATION: clear to auscultation bilaterally Cardio: COMMON NORMALS: regular rate, regular rhythm, S1 normal heart sound present and S2 normal heart sound present RATE: regular rate RHYTHM: r egular rhythm HEART SOUNDS: S1 normal heart sound present and S2 normal heart sound present GI: OTHER: Abdomen soft, slightly distended, good bowel sounds, no guarding, no rebound, no rigidity Extremity: COMMON NORMALS: no pedal edema Neuro: COMMON NORMALS: patient oriented x3 Psych: COMMON NORMALS: mental status grossly normal Urinary Catheter Management: Aggarwal: Cath Placed During This Visit: yes, but has since been removed by the nurse Reason for Continuing Indwelling Catheter: Other Urinary Catheter Date of Insertion: 01/08/25 Urinary Catheter Time of Insertion: 15:00 Date Urinary Catheter Removed: 01/07/25 Time Urinary Catheter Discontinued: 15:02 Data 01/12/25 04:53 01/12/25 04:53 A&P Assessment and plan 1. Heart failure with preserved ejection fraction: 2. Coronary artery disease: 3. Afib: 4. 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 Anemia: 6. Breast cancer, left: 7. Fracture of femoral neck, right, closed: 8. Lung mass: 9. Endoleak of aortic graft: Plan: Thoracic endoleak Vasculature: There is an endovascular stent graft involving the ascending thoracic aorta and aortic arch. The ascending measures up to 7.6 cm in diameter with suspected endoleak. The descending thoracic aorta measures 3.1 cm in diameter. No dissection. Calcific plaque involves the thoracic aorta and coronary arteries. - Hold Eliquis - Will monitor blood pressures closely Lung mass Lungs: There is a mass involving the lingula measuring 2.3 cm. There is a mass involving the right upper lobe measuring 2.5 cm. Additional pulmonary nodules noted throughout the right lung. - Concern for primary lung malignancy versus metastatic breast cancer - Patient does not want to have any interventions for this, no lung biopsy - Nonetheless we will have her follow-up with oncology as outpatient History of atrial fibrillation -Eliquis currently on hold due to postoperative anemia - Hold Lovenox due to anemia -Discussed risk and benefits, with the patient, she voiced understanding, all questions answered, agreed to proceed - Continue amiodarone Sacral fracture 3. Small amount of presacral hemorrhage concerning for an occult sacral fracture. - Monitor, medical management Acute on chronic anemia, status post 3unit PRBC - Now with postoperative anemia hemoglobin 9.3 Lovenox currently on hold Right femoral neck fracture - Orthopedic service on consult, status post surgical intervention - Oxycodone for pain control - Anticoagulation therapy, resume DVT prophylaxis Lovenox today - SCDs Acute on chronic thrombocytopenia - Status post 1 unit platelets - Monitor Orthostatic hypotension, monitor blood pressures closely, resolving Abdominal distention - CT scan CT/CT abdomen pelvis wo con [id number] IMPRESSION: 1. There is marked gaseous dilatation of the cecum and ascending colon and gaseous distension of the transverse colon and descending colon with a transition point at the sigmoid colon. No definite mass identified at the transition point. - Ileus versus acute colonic pseudoobstruction IMPRESSION: 1. Less stool material seen at the rectosigmoid colon. 2. Overall no significant change in bowel-gas pattern. Finding could be secondary to ileus. Continued imaging follow-up is advised. - Passing bowel movements yesterday, none this morning Plan - Transition to clears - Start MiraLAX, 1 dose of methylnaltrexone today - Continue medical management - General Surgery consult - Bowel regimen DNR, okay with elective intubation if required SCDs for DVT prophylaxis, Lovenox on hold given anemia PDMP PDMP Reviewed: Not Reviewed Attestations 2 Medical Necessity Statement*: Patient requires hospitalization for abdominal distention, ileus versus acute pseudoobstruction Procedures Arterial Line Size (Gauge): 20 Diagnoses Chronic heart failure with preserved ejection fraction I50.32 Heart failure chronicity: chronic Coronary artery disease involving coronary bypass graft of [place] heart without angina pectoris I25.810 Associated angina: without angina Coronary Disease-Associated Artery/Lesion type: bypass graft [place] vs. 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
[2025-01-13] VITALS (8 sets, daily range): BP systolic 116–157; BP diastolic 60–72; PULSE 72–79; RESP 14–17; TEMP 36.5–37; O2SAT 91–95
[2025-01-13 03:47] LABS: Hematocrit 27.3 % (36-47); Hemoglobin 9.30 g/dL (11.27-16.99); Mean Corpuscular HGB Conc 34.1 g/dL (30-55); Mean Corpuscular Hemoglobin 33.0 pg (27-33); Mean Corpuscular Volume 96.8 fl (85-98); Nucleated Red Blood Cells % 0 %; Platelet Count 125 10^3/cmm (157-399); Red Blood Count 2.82 10^6/uL (3.85-5.65); White Blood Count 7.63 10^3/uL (3.29-11.43)
[2025-01-13 04:10] LABS: Anion Gap 15.5 (5-19); Blood Urea Nitrogen 13 mg/dL (8-23); Calcium 7.2 mg/dL (8.5-10.5); Carbon Dioxide 24 mmol/L (22-29); Chloride 97 mmol/L (98-107); Creatinine Clr Calc Pharmacy 47.4198; Glucose 107 mg/dL (65-115); Osmolality Calculated 277 mOsm/kg (285-295); Potassium 3.5 mmol/L (3.5-5.1); Sodium 133 mmol/L (136-145)
[2025-01-13 04:11] LABS: Magnesium 1.7 mg/dL (1.7-2.3)
[2025-01-13] MEDS: mupirocin oint 22 gm 1 APPLIC NASAL (05:13)
[2025-01-13] MEDS: polyethylene glycol 3350 Pkt 17 gm PO (08:33)
[2025-01-13] MEDS: calcium carb-vit d 600mg/400unit 1 Tablet 2 EACH PO (08:33)
[2025-01-13] MEDS: multivitamin therapeutic Tablet 1 TAB PO (08:34)
[2025-01-13] MEDS: chlorhexidine gluconate 0.12% Btl 473 mL 30 ML MUCOUS MEM (08:35)
--- NOTE | 2025-01-13 09:17 | P.PN_ITS ---
Subjective 2 Subjective: Patient has shown excellent progression over the last 24 hours continues to pass gas had a large bowel movement. No other significant acute complaints.Tolerating diet Vitals/I&O/Wt Last Vital Signs Temp 98.2 F 01/13/25 07:31 Pulse 76 01/13/25 07:31 Resp 16 01/13/25 07:31 BP 157/67 01/13/25 07:31 Pulse Ox 91 01/13/25 07:31 O2 Del Method Room Air 01/13/25 07:31 O2 Flow Rate 97 01/12/25 04:00 01/12/25 01/13/25 01/13/25 22:59 06:59 14:59 Intake Total 480 / 1429.0909 240 / 240 Balance 480 / 1429.0909 240 / 240 Weight last 48 hrs Weight 137 lb 4 oz Weight 135 lb 6 oz Physical Exam 2 GI: OTHER: Benign abdominal exam abdomen is soft slightly distended on the right side nontender Urinary Catheter Management: Aggarwal: Cath Placed During This Visit: yes, but has since been removed by the nurse Reason for Continuing Indwelling Catheter: Other Urinary Catheter Date of Insertion: 01/08/25 Urinary Catheter Time of Insertion: 15:00 Date Urinary Catheter Removed: 01/07/25 Time Urinary Catheter Discontinued: 15:02 Data 01/13/25 03:20 01/13/25 03:20 A&P Assessment and plan 1. Acute pseudo-obstruction of colon: Plan: Patient acute colonic pseudoobstruction appears to be resolving. Today we will give her last dose of methylnaltrexone before transition to the outpatient setting. She can be on MiraLAX daily as well as docusate in the long-term to prevent constipation, minimize opiate medication and follow-up will be as needed with general surgery.All other management per medical team PDMP PDMP Reviewed: Not Reviewed Attestations 2 Medical Necessity Statement*: Per medical team Procedures Arterial Line Size (Gauge): 20 Coding Level of Care Code Acute Code for Chg Fwd Diagnoses Acute pseudo-obstruction of colon K59.81
--- NOTE | 2025-01-13 10:32 | PC.SOCIAL ---
IMM Updated Updated pt & son on IMM. No questions voiced. Provided pt a copy. Initialed, dated, & timed copy in chart.
[2025-01-13] MEDS: methylnaltrexone 12 /0.6 mL INJ 12 MG SUBCUT (10:37)
--- NOTE | 2025-01-13 10:55 | PC.NURSE ---
IV discontinued in left hand, not documented on insertion.
--- NOTE | 2025-01-13 11:38 | PC.NURSE ---
This nurse called report to SHARON Mercado at [facility] at 1135am. They will pick pt up around [id number].
[2025-01-13 11:51] LABS: SARS Covid-2 Antigen Negative (Negative)
--- NOTE | 2025-01-13 12:14 | P.DS_ITS ---
Discharge Providers Date of Admission: 01/03/25 21:06 Date of Discharge: January 13, 2025 Attending Provider at Admission: Moises Doan MD Attending Provider at Discharge: Casper Lutz MD Primary Care Provider: Rachael Craig DO Diagnoses at Discharge Discharge Diagnosis 1. Acute pseudo-obstruction of colon: Reason for Visit Reason for Visit: right hip pain s/p fall Hospital Course Hospital Course This is a 84-year-old female with a past medical history of thoracic endoleak, history of endovascular thoracic aortic stent graft, with evidence of endoleak, breast cancer, atrial fibrillation, hypertension, hyperlipidemia who presents [facility] for follow-up Patient was admitted to [facility] for right femoral neck fracture, patient underwent surgical invention here at [facility], she tolerated procedure well, will be discharged with close follow-up with orthopedic services outpatient Patient's hospitalization was complicated by acute on chronic anemia, she did not tolerate anticoagulant therapy during hospitalization due to persistent anemia, required 3 units PRBC, anticoagulant therapy has been discontinued on discharge - I had a detailed discussion with patient and son about risk and benefits of anticoagulant therapy, shared decision making, patient and son voiced understanding, all questions answered, agreed to hold anticoagulant therapy for now - Monitor for risk of DVT and hypercoagulable events and chest pain if so come back to the hospital or call 911 For patient's atrial fibrillation, Eliquis was held on discharge, due to acute on chronic anemia - discussed with patient the risks and benefits of holding anticoagulant therapy - Shared decision making with patient and her son - Anticoagulation is complicated by acute on chronic anemia requiring 3 units of blood during her hospitalization - After discussing with patient and son about the risk and benefits of all options, patient and son voiced understanding, all questions answered, shared decision making, agreed to hold anticoagulant therapy for now - If any stroke symptoms please call [phone] - Decision if and when to resume anticoagulation will be based on shared decision making between patient and primary care and cardiology as outpatient For patient's sacral fracture, continue medical management For patient's history of thoracic endoleak Vasculature: There is an endovascular stent graft involving the ascending thoracic aorta and aortic arch. The ascending measures up to 7.6 cm in diameter with suspected endoleak. The descending thoracic aorta measures 3.1 cm in diameter. No dissection. Calcific plaque involves the thoracic aorta and coronary arteries. - Has a history of endoleak - Patient does not want to pursue any surgical intervention, understands morbidity and mortality, and she has accepts this, she would rather comfortably than undergoing any more surgical intervention, so if she has any complications or bleeding from the thoracic endoleak, she rather be comfortable and would pursue comfort care For her lung mass Lung mass Lungs: There is a mass involving the lingula measuring 2.3 cm. There is a mass involving the right upper lobe measuring 2.5 cm. Additional pulmonary nodules noted throughout the right lung. - Concern for primary lung malignancy versus metastatic breast cancer - Patient does not want to have any interventions for this, no lung biopsy - Nonetheless we will have her follow-up with oncology as outpatient - She does know that she is at increased risk of hypercoagulable events -Does not want to pursue any aggressive inventions, does not want to be put on blood thinners for now given her hospitalization complications Acute on chronic anemia -Understands morbidity and mortality, and accepts this -She tells me that she has any significant complications, she would just want to pursue comfort care Abdominal distention - CT scan CT/CT abdomen pelvis con [id number] IMPRESSION: 1. There is marked gaseous dilatation of the cecum and ascending colon and gaseous distension of the transverse colon and descending colon with a transition point at the sigmoid colon. No definite mass identified at the transition point. - Ileus versus acute colonic pseudoobstruction - General Surgery consulted, received several doses of methylnaltrexone, bowel regimen -Overall abdominal distention improved, having bowel movements, diet was advanced, no significant nausea or vomiting -On discharge she continues to have bowel movements, no significant abdominal pain, good bowel sounds in all 4 quadrants, no guarding, no rebound, no rigidity -Will be discharged on bowel regimen as outpatient In terms of her overall goals of care -Given her complicated medical history -Given her multiple, complicated current medical problems -In Dayanna's own words she does not want to undergo any more surgeries -She does not want to undergo any more aggressive interventions -She just wants to overall be kept comfortable, emphasized the quality of life, in her own words she is ready to , but if we can offer her intervention that would help with her pain and her suffering she is agreeable to that -Will discharge her to half-way facility -She she was not ready for hospice, but in the near future she might be ready and more agreeable to it - I was honest with Dayanna with her thoracic endoleak, her acute on chronic anemia, her lung mass highly suspicious for lung cancer, her increased risk of hypercoagulable events, her deconditioning, she does have a high risk of complications, high risk of rehospitalization, high risk of morbidity and mortality -However Dayanna tells me she just wants to be kept comfortable, she does not want to be in pain or to suffer, she does not want to have aggressive interventions, she is ready to Physical Exam Const: COMMON NORMALS: no acute distress and patient oriented x3 Resp: COMMON NORMALS: normal respiratory effort, No retractions, No use of accessory muscles and clear to auscultation bilaterally AUSCULTATION: clear to auscultation bilaterally Cardio: COMMON NORMALS: regular rate, regular rhythm, S1 normal heart sound present and S2 normal heart sound present RATE: regular rate RHYTHM: regular rhythm HEART SOUNDS: S1 normal heart sound present and S2 normal heart sound present GI: COMMON NORMALS: Normal to inspection, nondistended, normoactive bowel sounds present and non-tender Extremity: COMMON NORMALS: no pedal edema Neuro: COMMON NORMALS: patient oriented x3 Psych: COMMON NORMALS: mental status grossly normal Urinary Catheter Management: Aggarwal: Cath Placed During This Visit: yes, but has since been removed by the nurse Reason for Continuing Indwelling Catheter: Other Urinary Catheter Date of Insertion: 01/08/25 Urinary Catheter Time of Insertion: 15:00 Date Urinary Catheter Removed: 01/07/25 Time Urinary Catheter Discontinued: 15:02 Discharge Data Studies Completed and Pending Completed Studies During Hospitalization Category Date Time Status CT abdomen pelvis wo con [id number] Routine Cat Scan 01/08/25 13:[address] cervical spin wo con* [id number] Stat Cat Scan 01/03/25 18:[address] chest abdpel w/*[id number] Routine Cat Scan 01/03/25 20:[address] head wo con* [id number] Stat Cat Scan 01/03/25 18:02 Completed XR KUB portable [id number] Routine Exams 01/10/25 07:00 Completed XR KUB portable [id number] Routine Exams 01/11/25 07:00 Completed XR KUB portable [id number] Stat Exams 01/08/25 11:13 Completed XR KUB portable [id number] Stat Exams 01/09/25 09:08 Completed XR KUB portable [id number] Stat Exams 01/12/25 08:25 Completed XR chest 1V portable [id number] Routine Exams 01/08/25 11:13 Completed XR chest 1V portable [id number] Stat Exams 01/03/25 18:20 Completed XR femur RT min 2V* [id number] Stat Exams 01/03/25 19:27 Completed XR hip RT 2-3V wo/w pel* [id number] Routine Exams 01/06/25 13:32 Completed XR hip RT 2-3V wo/w pel* [id number] Stat Exams 01/03/25 18:02 Completed XR tibia fibula RT 2V [id number] Stat Exams 01/03/25 20:48 Completed Pending at discharge Category Date Time Status Basic Metabolic Panel AM LABS Lab 01/14/25 04:00 Ordered Basic Metabolic Panel AM LABS Lab 01/15/25 04:00 Ordered Complete Blood Count w/Auto AM LABS Lab 01/14/25 04:00 Ordered Complete Blood Count w/Auto AM LABS Lab 01/15/25 04:00 Ordered Fecal Occult Blood [Immunochemical Fecal OCB] Routine Lab 01/03/25 20:39 Uncollected Magnesium AM LABS Lab 01/14/25 04:00 Ordered Magnesium AM LABS Lab 01/15/25 04:00 Ordered Occult Blood Stool [Immunochemical Fecal OCB] Routine Lab 01/11/25 06:08 Ordered Phosphorus AM LABS Lab 01/14/25 04:00 Ordered Phosphorus AM LABS Lab 01/15/25 04:00 Ordered Radiology Impressions Cervical Spine CT 01/03/25 18:02 IMPRESSION: 1. No acute trauma and cervical spine. 2. Atherosclerotic disease with mild prominence of the aortic arch. 3. Partially imaged right upper lobe pulmonary nodule measuring 1.5 cm. Left upper lobe nodule partially imaged measuring 5.5 mm. Calcified granuloma right apex. 4. Per Fleischner Society criteria, in 3 months either tissue diagnosis, PET-CT, or CT. Head CT 01/03/25 18:02 IMPRESSION: 1. No acute intracranial abnormality. 2. Right frontotemporal scalp swelling with no underlying fracture. Femur X-Ray 01/03/25 19:27 IMPRESSION: Right femoral neck fracture. Tibia/Fibula X-Ray 01/03/25 20:48 IMPRESSION: Questionable cortical irregularity involving the lateral malleolus which may be positional. Correlation with point tenderness recommended. Consider dedicated radiographs of the ankle. Chest/Abdomen/Pelvis CT 01/03/25 20:52 IMPRESSION: 1. Image quality is degraded by motion artifact. 2. Multiple pulmonary nodules and masses likely reflecting primary lung malignancy with metastatic disease. 3. Changes from endovascular stent placement. Suspected large endoleak involving the ascending thoracic aorta. IMPRESSION: 1. Image quality degraded by motion artifact. 2. Right femoral neck fracture. 3. Small amount of presacral hemorrhage concerning for an occult sacral fracture. Hip/Pelvis X-Ray 01/06/25 13:32 IMPRESSION: As above Chest X-Ray 01/08/25 11:13 IMPRESSION: 1. There are scattered nodular opacities which correlate with the prior CT findings. 2. Minimal left basilar pleural-parenchymal opacity. Abdomen/Pelvis CT 01/08/25 13:48 IMPRESSION: 1. There is marked gaseous dilatation of the cecum and ascending colon and gaseous distension of the transverse colon and descending colon with a transition point at the sigmoid colon. No definite mass identified at the transition point. Ileus? 2. There is a 13 juxtapleural pulmonary nodule right middle lobe. For both low risk and high risk patients, consider CT Chest at 3 months, PET/CT, or biopsy. (Reference: Yolanda) References: Yolanda Contreras, et al. Guidelines for Management of Incidental Pulmonary Nodules Detected on CT Images: From the Fleischner Society 2017. Radiology. 2017;284(1):228-243. KUB X-Ray 01/12/25 08:25 IMPRESSION: 1. Moderate amount of large and small bowel gas in the central and RIGHT abdomen most likely representing adynamic ileus. No acute process is suspected. Laboratory Results WBC 7.63 10^3/uL (3.29-11.43) 01/13/25 03:20 RBC 2.82 10^6/uL (3.85-5.65) L 01/13/25 03:20 Hgb 9.30 g/dL (11.27-16.99) L 01/13/25 03:20 Hct 27.3 % (36-47) L 01/13/25 03:20 MCV 96.8 fl (85-98) 01/13/25 03:20 MCH 33.0 pg (27-33) 01/13/25 03:20 MCHC 34.1 g/dL (30-55) 01/13/25 03:20 RDW 18.2 % (12.1-15.1) H 01/13/25 03:20 Plt Count 125 10^3/cmm (157-399) L 01/13/25 03:20 MPV 10.4 fL (7.4-10.4) 01/13/25 03:20 Neut % (Auto) 81.4 % 01/13/25 03:20 Lymph % (Auto) 10.0 % 01/13/25 03:20 [place] % (Auto) 5.9 % 01/13/25 03:20 Eos % (Auto) 2.0 % 01/13/25 03:20 Baso % (Auto) 0.3 % 01/13/25 03:20 Neut # (Auto) 6.22 10^3/uL (1.8-7.7) 01/13/25 03:20 Lymph # (Auto) 0.8 10^3/uL (0.8-4.8) 01/13/25 03:20 [place] # (Auto) 0.5 10^3/uL (0.2-0.9) 01/13/25 03:20 Eos # (Auto) 0.2 10^3/uL (0.0-0.8) 01/13/25 03:20 Baso # (Auto) 0.0 10^3/uL (0.0-0.1) 01/13/25 03:20 Nucleated RBC % (auto) 0 % 01/13/25 03:20 Nucleated RBCs # 0.0 /100WBC 01/13/25 03:20 PT 17.20 SECONDS (12.1-14.9) H 01/04/25 09:06 INR 1.31 (0.8-1.2) H 01/04/25 09:06 APTT 32.1 SECONDS (23.9-36.7) 01/04/25 09:06 Sodium 133 mmol/L (136-145) L 01/13/25 03:20 Potassium 3.5 mmol/L (3.5-5.1) 01/13/25 03:20 Chloride 97 mmol/L (98-107) L 01/13/25 03:20 Carbon Dioxide 24 mmol/L (22-29) 01/13/25 03:20 Anion Gap 15.5 (5-19) 01/13/25 03:20 BUN 13 mg/dL (8-23) 01/13/25 03:20 Creatinine 0.6 mg/dL (0.5-0.9) 01/13/25 03:20 GFR Calculation Not Reportable 01/13/25 03:20 Glucose 107 mg/dL (65-115) 01/13/25 03:20 Calculated Osmolality 277 mOsm/kg (285-295) L 01/13/25 03:20 Lactate 2.3 mmol/L (0.5-2.2) H 01/07/25 16:17 Calcium 7.2 mg/dL (8.5-10.5) L 01/13/25 03:20 Phosphorus 2.7 mg/dL (2.5-4.5) 01/13/25 03:20 Magnesium 1.7 mg/dL (1.7-2.3) 01/13/25 03:20 Iron 30 ug/dL (37-145) L 01/10/25 11:05 Ferritin 322 ng/mL (15-150) H 01/10/25 11:05 Total Bilirubin 1.2 mg/dL (0.15-1.2) 01/12/25 04:53 AST 55 U/L (0-32) H 01/12/25 04:53 ALT 24 U/L (0-33) 01/12/25 04:53 Alkaline Phosphatase 54 U/L (35-105) 01/12/25 04:53 Total Protein 4.9 g/dL (6.6-8.7) L 01/12/25 04:53 Albumin 2.5 g/dL (3.5-5.2) L 01/12/25 04:53 Globulin 2.4 g/dL (1.3-4.6) 01/12/25 04:53 Vitamin B12 478 pg/mL (232-1245) 01/03/25 18:40 Folate 6.7 ng/mL (4.8-37.3) 01/03/25 18:40 TSH 4.74 uIU/mL (0.27-4.20) H 01/10/25 11:05 Free T4 1.17 ng/dL (0.82-1.77) 01/10/25 11:05 Free T3 1.0 PG/ML (2.0-4.4) L 01/10/25 11:05 Urine Color Dark yellow (Yellow) A 01/08/25 16:25 Urine Appearance Clear (CLEAR) 01/08/25 16:25 Urine pH 5.5 (5-7) 01/08/25 16:25 Ur Specific [place] 1.019 (1.005-1.030) 01/08/25 16:25 Urine Protein 2+ (Negative) A 01/08/25 16:25 Urine Glucose (UA) Negative (Normal) 01/08/25 16: Urine Ketones Trace (Negative) 01/08/25 16:25 Urine Blood Negative (Negative) 01/08/25 16:25 Urine Nitrate Negative (Negative) 01/08/25 16:25 Urine Bilirubin Negative (Negative) 01/08/25 16:25 Urine Urobilinogen 1.0 mg/dL (Negative) 01/08/25 16:25 Ur Leukocyte Esterase 2+ (Negative) A 01/08/25 16:25 Urine RBC 0-2 /hpf (0-2) 01/08/25 16:25 Urine WBC 21-50 /hpf (0-5) H 01/08/25 16:25 Ur Squamous Epith Cells 6-10 /hpf (0-5) 01/08/25 16:25 Amorphous Sediment Not Reportable 01/08/25 16:25 Urine Bacteria None seen /hpf (NONE) 01/08/25 16:25 Hyaline Casts 13.22 /lpf 01/08/25 16:25 Influenza A (PCR) Negative (Negative) 01/07/25 10:19 Influenza Type B (PCR) Negative (Negative) 01/07/25 10:19 RSV (PCR) Negative (Negative) 01/07/25 10:19 SARS-CoV-2 (PCR) Negative (Negative) 01/07/25 10:19 SARS-CoV-2 Ag (Rapid) Negative (Negative) 01/13/25 11:02 Blood Type B Positive 01/11/25 09:00 Rho(D) Type Rh positive 01/11/25 09:00 Antibody Screen Negative 01/11/25 09:00 Crossmatch See Detail 01/11/25 09:00 Vitals Last Vital Signs Temp 98.2 F 01/13/25 11:51 Pulse 79 01/13/25 11:51 Resp 14 01/13/25 11:51 BP 116/62 01/13/25 11:51 Pulse Ox 95 01/13/25 11:51 O2 Del Method Room Air 01/13/25 11:51 O2 Flow Rate 97 01/12/25 04:00 Discharge Plan Discharge Patient Disposition: Xfer SNF Condition: Stable Prescriptions: New atorvastatin 40 mg Tablet 20 mg PO 1200 Qty: 30 0RF polyethylene glycol 3350 17 gram Powder In Packet 17 g PO DAILY PRN (Reason: consitpation) 30 Days Qty: 30 0RF levothyroxine 25 mcg Tablet 12.5 mcg PO QAM 30 Days Qty: 15 0RF hydrocodone-acetaminophen 5-325 mg tablet 1 tab PO Q8H PRN (Reason: pain) 5 Days Qty: 15 0RF Continued anastrozole 1 mg tablet 1 mg PO DAILY sertraline 25 mg tablet 25 mg PO DAILY ibandronate 150 mg tablet 150 mg PO .monthly calcium citrate-vitamin D3 315 mg-6.25 mcg (250 unit) tablet 2 tab PO DAILY amiodarone 100 mg tablet 100 mg PO DAILY Qty: 90 1RF Discontinued amlodipine 2.5 mg tablet 2.5 mg PO DAILY Eliquis 5 mg tablet 5 mg PO BID losartan 25 mg tablet 25 mg PO DAILY Qty: 90 1RF Marketing Services Rep OK for DC: Orthopedics Discharge Order = DC NOW: Discharge Order (Routine); Ordered 01/13/25 Ordered By: Casper Lutz Referrals: [facility] [Outside] Amilcar Conway MD [Physician, General Surgery] - 01/26/25 8:40 am Chris Arias DO [Physician, Orthopedics] - 01/20/25 1:45 pm Emanuel Reyes DO [Physician, Internal Medicine] Avtar Daugherty MD [Hospitalist, Oncology] - 2 weeks Referral Note: lung mass Discharge Activity: Increase activity as tolerated, Limit activity as instructed, Use walker/crutches as instructed and As per PT/OT instructions Patient Instructions: Hydrocodone/Acetaminophen (By mouth), Levothyroxine (By mouth), Atorvastatin (By mouth), Polyethylene Glycol 3350 (By mouth), Acute Wound Care (DC), Opioid Safety, Post Anesthesia Care, Pain Management, Patient Portal & [place] Instructions Activity Restrictions/Additional Instructions: Postop hip hemiarthroplasty Orthopedic discharge instructions: Weightbearing as tolerated to the operative extremity Ice as needed for pain and swelling Encourage knee and hip range of motion as tolerated PT/OT Take pain medication as prescribed Take antinausea medication as needed Supplement with Citracal vitamin D for bone health and healing Recommend blood thinner per primary if necessary Posterior hip precautions (avoid excessive hip flexion and internal rotation) sleep/use abduction pillow while in bed Take Colace/stool softener as needed for constipation Leave Silverlon dressings on and in place for 7 days. After this they may be removed you may shower/rinse incisions with warm soapy water, pat dry redress with a dry dressing. Okay to sponge bath/shower with Silverlon dressings as they should be waterproof however if they do get saturated or wet please take these off dry the incision and redressed with a new dry sterile bandage.? Follow-up in the orthopedic office with orthopedics in 2 weeks for repeat x-rays and incision check/staple removal Contact the office for any questions or concerns (i.e. increasing redness and drainage around the incision, fevers, or chills, or severe worsening in pain/ch balbir in symptoms) Discharge Attestations Time Spent in Discharge Care*: greater than 30 min Quality Metrics Clinical Quality Measures [ No reported AMI, CVA or VTE this stay] Coding Level of Care Code 46304 Total time (in minutes) for Discharge: 45 Diagnoses Acute pseudo-obstruction of colon K59.81
== END 2025-01-13 12:22 | disposition skilled nursing facility (03) | DRG 956 ==
LOC: ER 20:36 → MEDSURG 21:52 → ICU 01-06 10:59 → MEDSURG 01-08 11:54
PROVIDERS: Internal Medicine; Student in an Organized Health Care Education/Training Program; Admitting Provider Internal Medicine; Emergency Provider Physician Assistant; PCP Family Medicine; Visit Provider Family Medicine
PROC: 0SRR01Z Replacement of Right Hip Joint, Femoral Surface with Metal Synthetic Substitute, Open Approach (ICD-10-PCS; principal; 2025-01-06 12:00)
DX: S72.001A Fracture of unspecified part of neck of right femur, initial encounter for closed fracture (principal); S32.10XA Unspecified fracture of sacrum, initial encounter for closed fracture; T82.390A Other mechanical complication of aortic (bifurcation) graft (replacement), initial encounter; I50.32 Chronic diastolic (congestive) heart failure; D62 Acute posthemorrhagic anemia; E87.1 Hypo-osmolality and hyponatremia; K56.0 Paralytic ileus; W01.10XA Fall on same level from slipping, tripping and stumbling with subsequent striking against unspecified object, initial encounter; S00.83XA Contusion of other part of head, initial encounter; Y71.8 Miscellaneous cardiovascular devices associated with adverse incidents, not elsewhere classified; C50.911 Malignant neoplasm of unspecified site of right female breast; I48.91 Unspecified atrial fibrillation; I11.0 Hypertensive heart disease with heart failure; E78.5 Hyperlipidemia, unspecified; R91.8 Other nonspecific abnormal finding of lung field; Z79.811 Long term (current) use of aromatase inhibitors; C50.912 Malignant neoplasm of unspecified site of left female breast; D69.6 Thrombocytopenia, unspecified; I95.1 Orthostatic hypotension; I25.10 Atherosclerotic heart disease of native coronary artery without angina pectoris; Z66 Do not resuscitate; Z92.21 Personal history of antineoplastic chemotherapy; Z90.12 Acquired absence of left breast and nipple; Z95.2 Presence of prosthetic heart valve; Z95.1 Presence of aortocoronary bypass graft; I35.1 Nonrheumatic aortic (valve) insufficiency; Z92.3 Personal history of irradiation
CPT/HCPCS: 36415; 36430; 51702; 70450; 71045; 71260; 72125; 73502; 73552; 73590; 74018; 74176; 74177; 80048; 80053; 81001; 82607; 82728; 82746; 83540; 83605; 83735; 84100; 84439; 84443; 84481; 85014; 85018; 85025; 85610; 85730; 86850; 86900; 86920; 87086; 87426; 87637; 93005; 96372; 96374; 96375; 96376; 97110; 97163; 97167; 97530; 97535; 99285; C1776; J0131; J0360; J0690; J1650; J2212; J2270; J2405; J2470; J2704; J3010; J3370; J3480; J3490; J7030; J7050; J8999; J9999; P9016; P9035; P9051

== ENCOUNTER → 2025-01-20 14:30 | Outpatient (BNVA) | payer MEDICARE, OTHER, SELFPAY | PROVIDERS: PCP Family Medicine; Visit Provider Physician Assistant | DX: Z98.890 Other specified postprocedural states (principal); Z96.641 Presence of right artificial hip joint | CPT/HCPCS: 73502; 99024 ==

== ENCOUNTER 2025-01-21 10:24 | Oncology outpatient (recurring) (ONCR) | payer MEDICARE, OTHER, SELFPAY | END 2025-02-04 23:59 | disposition home or self-care (01) | PROVIDERS: PCP Family Medicine; Visit Provider Internal Medicine | DX: C50.912 Malignant neoplasm of unspecified site of left female breast (principal); R91.8 Other nonspecific abnormal finding of lung field; I48.91 Unspecified atrial fibrillation; I10 Essential (primary) hypertension; E78.5 Hyperlipidemia, unspecified; D64.9 Anemia, unspecified; Z92.3 Personal history of irradiation; Z79.899 Other long term (current) drug therapy; Z96.89 Presence of other specified functional implants | CPT/HCPCS: 99204 ==

== ENCOUNTER → 2025-01-26 08:32 | Outpatient (BNVA) | payer MEDICARE, OTHER, SELFPAY | PROVIDERS: PCP Family Medicine; Visit Provider Surgery | DX: Z09 Encounter for follow-up examination after completed treatment for conditions other than malignant neoplasm (principal) | CPT/HCPCS: 99213 ==

== ENCOUNTER → 2025-03-03 14:50 | Outpatient (BNVA) | payer MEDICARE, OTHER, SELFPAY | PROVIDERS: PCP Family Medicine; Visit Provider Physician Assistant | DX: Z96.641 Presence of right artificial hip joint (principal) | CPT/HCPCS: 73502; 99024 ==

== ENCOUNTER → 2025-03-30 14:27 | Outpatient (BNVA) | payer MEDICARE, OTHER, SELFPAY | PROVIDERS: PCP Family Medicine; Visit Provider Family Medicine | DX: D50.9 Iron deficiency anemia, unspecified (principal); D64.9 Anemia, unspecified; E53.8 Deficiency of other specified B group vitamins | CPT/HCPCS: 80053; 82607; 82728; 82747; 83550; 83615; 85025; 85045 ==

== ENCOUNTER → 2025-05-19 14:28 | Outpatient (BNVA) | payer MEDICARE, OTHER, SELFPAY | PROVIDERS: PCP Family Medicine; Referring Provider Family Medicine; Visit Provider Internal Medicine Cardiovascular Disease | DX: I48.19 Other persistent atrial fibrillation (principal); I25.10 Atherosclerotic heart disease of native coronary artery without angina pectoris; I11.0 Hypertensive heart disease with heart failure; I50.32 Chronic diastolic (congestive) heart failure; I45.10 Unspecified right bundle-branch block; I44.4 Left anterior fascicular block; Z95.828 Presence of other vascular implants and grafts; Z95.2 Presence of prosthetic heart valve; Z95.1 Presence of aortocoronary bypass graft; Z86.73 Personal history of transient ischemic attack (TIA), and cerebral infarction without residual deficits; R07.9 Chest pain, unspecified; I48.91 Unspecified atrial fibrillation | CPT/HCPCS: 93005; 99204 ==

== ENCOUNTER → 2025-06-02 14:38 | Outpatient (BNVA) | payer MEDICARE, OTHER, SELFPAY | PROVIDERS: PCP Family Medicine; Visit Provider Student in an Organized Health Care Education/Training Program | DX: Z96.641 Presence of right artificial hip joint (principal) | CPT/HCPCS: 73502; 99213 ==

== ENCOUNTER 2025-06-17 14:10 | Emergency (ER) | payer MEDICARE, OTHER, SELFPAY ==
[2025-06-17 14:13] VITALS: BP 126/58; PULSE 122; TEMP 36.4; O2SAT 96; BMI 20.4
--- NOTE | 2025-06-17 14:13 | ECG_ITS ---
[facility] Test Date: 2025-06-17 Pat Name: Dayanna Chanel Department: Room: Gender: Female [employer]: : 1940 Requested By: Patricio Amos Order Number: [id number] Maame MD: Dianelys Coffey M.D. Measurements Intervals [place] Rate: 118 P: 0 LA: 0 QRS: -47 QRSD: 150 T: 73 QT: 386 QTc: 543 Interpretive Statements ATRIAL FIBRILLATION WITH RAPID VENTRICULAR RESPONSE LEFT AXIS DEVIATION [QRS AXIS < -30] INTRAVENTRICULAR CONDUCTION DELAY [130+ ms QRS DURATION] Compared to ECG 05/19/2025 14:53:14 Left-axis deviation now present Intraventricular conduction delay now present Sinus rhythm no longer present First degree AV block no longer present Right bundle-branch block no longer present Left anterior fascicular block no longer present Electronically Signed On 06-17-2025 17:15:41 VENDING MACHINE TECHNICIAN by Dianelys Coffey M.D. [email or web address]
--- NOTE | 2025-06-17 14:13 | XR_ITS ---
WS: [id number] XR chest 1V portable [id number] REASON FOR EXAM: cp FINDINGS: Previous endovascular stent placement in the ascending aorta with adjacent coil embolization. Previous coronary artery bypass surgery. Moderate tortuosity and ectasia of the thoracic aorta. Mild cardiomegaly. Multiple pulmonary metastases which have increased significantly in volume compared to the previous examination of 01/08/2025. New right pleural effusion. XR/XR chest 1V portable [id number] IMPRESSION: Enlarging pulmonary metastases and new right pleural effusion.
[2025-06-17 14:50] LABS: Hematocrit 29.1 % (36-47); Hemoglobin 9.50 g/dL (11.27-16.99); Mean Corpuscular HGB Conc 32.6 g/dL (30-55); Mean Corpuscular Hemoglobin 36.1 pg (27-33); Mean Corpuscular Volume 110.6 fl (85-98); Nucleated Red Blood Cells % 0 %; Platelet Count 162 10^3/cmm (157-399); Red Blood Count 2.63 10^6/uL (3.85-5.65); White Blood Count 6.28 10^3/uL (3.29-11.43)
--- NOTE | 2025-06-17 15:02 | W.ED.ARRPALP ---
HPI - Arrhythmia/Palpitations General: Chief Complaint: Arrhythmia/Palpitations Stated Complaint: afib Time Seen by Provider: 06/17/25 14:43 Source: patient Mode of arrival: ambulatory Limitations: no limitations History of Present Illness: 85-year-old female has a history of A-fib patient states that she has had some diarrhea the last 2 days and has had some palpitations she is sent here she is having A-fib with RVR heart rate here is in the 110s. She denies any chest pain denies any shortness of breath she has had no vomiting. Related Data Home Medications ?Medication ?Instructions ?Recorded ?Confirmed calcium 315 mg (as 2 tab PO DAILY 01/01/25 06/17/25 citrate)-vitamin D3 6.25 mcg (250 unit) tablet Previous Rx's ?Medication ?Instructions ?Recorded amiodarone 100 mg tablet 100 mg PO DAILY #90 tabs 01/01/25 anastrozole 1 mg tablet 1 mg PO DAILY #90 tabs 03/30/25 ibandronate 150 mg tablet 150 mg PO .monthly #90 tabs 03/30/25 potassium chloride 20 mEq 20 meq PO DAILY #90 tabs 03/30/25 tablet,extended release (K-Tab) sertraline 25 mg tablet 25 mg PO DAILY #90 tabs 03/30/25 bumetanide 1 mg tablet 1 mg PO DAILY PRN edema #90 tabs 05/19/25 Allergies Allergy/AdvReac Type Severity Reaction Status Date / Time No Known Allergies Allergy Verified 06/17/25 14:24 [facility] ED PFSH: Medical History (Updated 06/17/25 @ 15:29 by Patricio Amos MD) Invasive ductal carcinoma of left breast Underwent lumpectomy and radiation. ER positive. History of CVA (cerebrovascular accident) Dissecting AAA (abdominal aortic aneurysm) Syncope Prolonged QT interval Tucker to be related to bradycardia. Resolved Sinus bradycardia Moderate aortic regurgitation Chronic heart failure with preserved ejection fraction (HFpEF) Hypertension Surgical History S/P insertion of endovascular thoracic aortic stent graft History of lumpectomy left History of cholecystectomy History of heart valve replacement Hx of aortic aneurysm repair Stent placement after thoracic aortic aneurysm leakage, [facility] Dr. Ulloa Aneurysm repair x3 Family History Other CAD (coronary artery disease) Social History Smoking and tobacco/nicotine status: never used tobacco/nicotine Alcohol intake: former Year of sobriety/quit date alcohol: 2020 Former alcohol use details: Drink a glass of wine daily for 59 years. was a drinker Substance/Drug Use: never Additional social history: She is . She has a friend that lives with her Mimi Sussex. Patient wants DNR as discussed with Moises Doan MD on 01/03/2025. Patient states she is not sure she would want biopsy of her lung nodules to look for cancer. She thinks she would not want to pursue treatment again. She states she is not afraid to . 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 Physical Exam Const: COMMON NORMALS: patient oriented x3 HENMT: COMMON NORMALS: normocephalic and atraumatic HEAD & SCALP: normocephalic and atraumatic Neck/C-Spine: COMMON NORMALS: full ROM and supple Chest: COMMONS NORMALS: normal inspection of the chest Resp: COMMON NORMALS: normal respiratory effort, No retractions, No use of accessory muscles and clear to auscultation bilaterally AUSCULTATION: clear to auscultation bilaterally Cardio: COMMON NORMALS: No murmurs present (Cardio) RATE: tachycardic RHYTHM: abnormal rhythm irregularly irregular GI: COMMON NORMALS: Normal to inspection, nondistended, normoactive bowel sounds present, Soft to palpation, non-tender and no masses PALPATION: Yes Soft to palpation Extremity: COMMON NORMALS: normal to inspection and full ROM Neuro: COMMON NORMALS: patient oriented x3, moves all extremities and no focal motor deficits Psych: COMMON NORMALS: mental status grossly normal, Normal thought process present and cooperative THOUGHT PROCESS: Normal thought process present Skin: COMMON NORMALS: no rashes or lesions noted and no wounds GENERAL SKIN EXAM: no rashes or lesions noted Course Vital Signs: Vital signs: Vital Signs Temperature 97.5 F L 06/17/25 14:13 Pulse Rate 92 06/17/25 15:29 Blood Pressure 132/62 06/17/25 15:29 Pulse Oximetry 96 06/17/25 15:25 Oxygen Delivery Me thod Room Air 06/17/25 15:25 MDM - Arrhythmia/Palpitations Medical Decision Making Patient presents here with diarrhea along with A-fib RVR. She feels much improved after fluids along with Cardizem. Her heart rate is improved to the 80s now. No signs of severe dehydration labs reviewed showed no significant abnormality. She stable for discharge follow-up with PCP return if worsening. Medical Records I reviewed the patient's medical records. Lab Data I reviewed the patient's lab results. 06/17/25 14:36 06/17/25 14:36 Radiology Impressions Chest X-Ray 06/17/25 14:13 IMPRESSION: Enlarging pulmonary metastases and new right pleural effusion. Laboratory Results WBC 6.28 10^3/uL (3.29-11.43) 06/17/25 14:36 RBC 2.63 10^6/uL (3.85-5.65) L 06/17/25 14:36 Hgb 9.50 g/dL (11.27-16.99) L 06/17/25 14:36 Hct 29.1 % (36-47) L 06/17/25 14:36 MCV 110.6 fl (85-98) H 06/17/25 14:36 MCH 36.1 pg (27-33) H 06/17/25 14:36 MCHC 32.6 g/dL (30-55) 06/17/25 14:36 RDW 15.4 % (12.1-15.1) H 06/17/25 14:36 Plt Count 162 10^3/cmm (157-399) 06/17/25 14:36 MPV 10.4 fL (7.4-10.4) 06/17/25 14:36 Neut % (Auto) 53.9 % 06/17/25 14:36 Lymph % (Auto) 35.4 % 06/17/25 14:36 Towner % (Auto) 7.3 % 06/17/25 14:36 Eos % (Auto) 2.9 % 06/17/25 14:36 Baso % (Auto) 0.3 % 06/17/25 14:36 Neut # (Auto) 3.39 10^3/uL (1.8-7.7) 06/17/25 14:36 Lymph # (Auto) 2.2 10^3/uL (0.8-4.8) 06/17/25 14:36 Towner # (Auto) 0.5 10^3/uL (0.2-0.9) 06/17/25 14:36 Eos # (Auto) 0.2 10^3/uL (0.0-0.8) 06/17/25 14:36 Baso # (Auto) 0.0 10^3/uL (0.0-0.1) 06/17/25 14:36 Nucleated RBC % (auto) 0 % 06/17/25 14:36 Nucleated RBCs # 0.0 /100WBC 06/17/25 14:36 Sodium 136 mmol/L (136-145) 06/17/25 14:36 Potassium 4.4 mmol/L (3.5-5.1) 06/17/25 14:36 Chloride 101 mmol/L (98-107) 06/17/25 14:36 Carbon Dioxide 20 mmol/L (22-29) L 06/17/25 14:36 Anion Gap 19.4 (5-19) H 06/17/25 14:36 BUN 16 mg/dL (8-23) 06/17/25 14:36 Creatinine 1.1 mg/dL (0.5-0.9) H 06/17/25 14:36 GFR Calculation Not Reportable 06/17/25 14:36 Glucose 112 mg/dL (65-115) 06/17/25 14:36 Calculated Osmolality 284 mOsm/kg (285-295) L 06/17/25 14:36 Calcium 8.7 mg/dL (8.5-10.5) 06/17/25 14:36 Total Bilirubin 0.5 mg/dL (0.15-1.2) 06/17/25 14:36 AST 14 U/L (0-32) 06/17/25 14:36 ALT < 5 U/L (0-33) 06/17/25 14:36 Alkaline Phosphatase 94 U/L (35-105) 06/17/25 14:36 Total Protein 7.0 g/dL (6.6-8.7) 06/17/25 14:36 Albumin 3.8 g/dL (3.5-5.2) 06/17/25 14:36 Globulin 3.2 g/dL (1.3-4.6) 06/17/25 14:36 All radiology interpretation(s) finalized by discharge Discharge Plan Discharge Patient Disposition: Home Clinical Impression: Atrial fibrillation with RVR, Diarrhea Condition: Stable Prescriptions: No Action calcium citrate-vitamin D3 315 mg-6.25 mcg (250 unit) tablet 2 tab PO DAILY amiodarone 100 mg tablet 100 mg PO DAILY Qty: 90 1RF bumetanide 1 mg tablet 1 mg PO DAILY PRN (Reason: edema) Qty: 90 1RF anastrozole 1 mg tablet 1 mg PO DAILY Qty: 90 1RF ibandronate 150 mg tablet 150 mg PO .monthly Qty: 90 1RF potassium chloride [K-Tab] 20 mEq tablet extended release 20 meq PO DAILY Qty: 90 1RF sertraline 25 mg tablet 25 mg PO DAILY Qty: 90 1RF Discharge Orders: Discharge ED (Routine); Ordered 06/17/25 Ordered By: Patricio Amos Referrals: Rachael Craig DO [Primary Care Provider, Family Practice] - 4-7 days Discharge Diet: Advance as tolerated Discharge Activity: Resume usual activity Patient Instructions: A-fib (Atrial Fibrillation) (ED) Print Language: [place]inean Coding Level of Care Code ED 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
[2025-06-17] MEDS: dilTIAZem 5 mg/mL SDV 5 mL 10 MG IVP (15:05)
[2025-06-17 15:09] LABS: Alanine Aminotransferase < 5 U/L (0-33); Albumin Level 3.8 g/dL (3.5-5.2); Alkaline Phosphatase 94 U/L (35-105); Anion Gap 19.4 (5-19); Aspartate Amino Transferase 14 U/L (0-32); Blood Urea Nitrogen 16 mg/dL (8-23); Calcium 8.7 mg/dL (8.5-10.5); Carbon Dioxide 20 mmol/L (22-29); Chloride 101 mmol/L (98-107); Globulin 3.2 g/dL (1.3-4.6); Glucose 112 mg/dL (65-115); Osmolality Calculated 284 mOsm/kg (285-295); Potassium 4.4 mmol/L (3.5-5.1); Sodium 136 mmol/L (136-145); Total Protein 7.0 g/dL (6.6-8.7)
[2025-06-17 15:25] VITALS: BP 132/62; PULSE 87; O2SAT 96
[2025-06-17 15:29] VITALS: BP 132/62; PULSE 92
[2025-06-17 15:35] VITALS: BP 139/70; PULSE 85; RESP 20; O2SAT 95
== END 2025-06-17 15:37 | disposition home or self-care (01) ==
PROVIDERS: Emergency Provider Emergency Medicine; PCP Family Medicine
DX: I48.20 Chronic atrial fibrillation, unspecified (principal); R19.7 Diarrhea, unspecified; I11.0 Hypertensive heart disease with heart failure; I50.30 Unspecified diastolic (congestive) heart failure; Z86.73 Personal history of transient ischemic attack (TIA), and cerebral infarction without residual deficits
CPT/HCPCS: 36415; 71045; 80053; 85025; 93005; 96361; 96374; 99285; J3490; J7030; J9999

== ENCOUNTER 2025-06-27 11:22 | Inpatient (IN) | payer MEDICARE, OTHER, SELFPAY ==
[2025-06-27] VITALS (41 sets, daily range): BP systolic 126–142; BP diastolic 62–83; PULSE 91–126; RESP 13–28; TEMP 36.4–36.5; O2SAT 92–95; BMI 21.2
--- OUTSIDE RECORDS SUMMARY | 2025-06-27 11:28 | XMS_ITS | Encounter Summary ---
Author Organization [facility] Address [address] [place] [address] Care Team Providers Care Cardiac Cath Technologist Name Role Phone Emanuel Reyes DO Primary Care Provide r Encounter Details Date Type Department Care Team (Latest Contact Info) Description 07/13/2005 Outpatient Historical [facility] [address] [place] [phone] Mike Ulloa MD [address] [phone] THORACIC AORTIC ANEURYSM (CMS/HCC) (Primary Dx) Social History Tobacco Use Types Packs/Day Years Used Date Smoking Tobacco: Never Assessed Comments Unknown Sex and Gender Information Value Date Recorded Sex Assigned at Not on file Legal Sex 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 Gender Identity Not on file Sexual Orientation Not on file documented as of this encounter Plan of Treatment Not on file documented as of this encounter Procedures Procedure Name Priority Date/Time Associated Diagnosis Comments CTA ABD W AND/OR WO CONTRAST Routine 07/13/2005 12:01 AM PANTS PRESS[employer]OM[employer] documented in this encounter Results * CTA ABD W WO CONTRAST (07/13/2005 12:01 AM PANTS [employer]OM[employer]) Anatomical Region Laterality Modality Abdomen Other 07/13/2005 12:0 1 AM PANTS PR[employer]OM[employer] Narrative 07/13/2005 12:01 AM PANTS PRESSER AUTOMATIC CTA CHEST / CTA ABDOMEN - 07/13/2005 [...] Signed By: Paulette Collins M.D. Date Signed: 01/06/[address] Provider [address] ORDERABLES Edited documented in this encounter Visit Diagnoses Diagnosis Thoracic aneurysm without mention of rupture (CMS/[facility])- Primary Thoracic aneurysm without mention of rupture documented in this encounter Care Teams Cardiac Cath Technologist Relationship Specialty Start Date End Date Emanuel Reyes DO [address] [phone] PCP - General Internal Medicine 03/02/16 documented as of this encounter
--- OUTSIDE RECORDS SUMMARY | 2025-06-27 11:29 | XMS_ITS ---
Author Name Interface, [id number] lity Address [place] [address] [facility] Address [place] breakthroughs[place] [address] Support Name Relationship Address Phone Harvey Perea Child Unknown Unavailab le Allergies and Adverse Reactions Medication/Group Name Reaction Severity Date No known allergies Plan Date Type Value 03/09/2025 APPOINTMENT 1YR 02/25/2025 APPOINTMENT YUIL 6M 12/09/2024 APPOINTMENT 1YR 08/13/2024 APPOINTMENT 6MO FU 08/13/2024 APPOINTMENT 6MO FU 02/20/2024 APPOINTMENT 4MO FU 12/10/2023 APPOINTMENT 6MO FU 12/10/2023 LAB_ORDER Mammogram, diagn ostic, bilateral breast 04/14/2024 LAB_ORDER U/S breast, left 07/09/2024 LAB_ORDER U/S breast, left 08/09/2024 LAB_ORDER Mammogram, diagn ostic, bilateral breast w/ U/S if needed Reason for Visit 1YR Encounters Date Name 12/10/2023 Breast cancer, femal e Diagnostic Results Date Type Test Units Lower Limit Upper Limit Result Flag Comments Status Ordered By Specimen Source Lab Address 02/23 Mammo graph y See attache grady 02/23 Ultra sound resul ts See process coordinator d 03/31 Biops y (proc edure ) See process coordinator d 03/31 Patho logy repor t See process coordinator d 07/13 Ultra sound resul ts See process coordinator d Medications Date Name Route Dose Frequency Instructions Start Date End Date Status Fill Status Indication 04/01 Losarta n Oral active 02/19 Nitrofu rantoin Oral (12 hr Macrocr ystal form) active 04/01 Amlodip ine Oral active 04/01 Lovasta tin Oral active 04/01 Sertral ine Oral active 04/01 Apixaba n Oral BID active 04/01 Amiodar one Oral active 08/20 anastro zole 1 MG Oral Tablet orally 1.0 tablet every day 2024 active Breast cancer, female 05/29 anastro zole 1 MG Oral Tablet orally 1.0 tablet every day 2022 active Breast cancer, female Problems Diagnosis Status Date of Diagnosis Resolution Date Aortic aneurysm (disorder) Active Osteoarthritis Active Benign essential hypertension (disorder) Active Reduced mobility Active Atrial fibrillation (disorder) Active H/O: CVA Active Breast cancer, female Active Estrogen receptor negative status [ER-] Active Postmenopausal state (finding) Active Postmenopausal osteoporosis (disorder) Active Vital Signs Date Type Value 12/10/2023 Oxygen Saturation 98.00 12/10/2023 Pain Scale 0.00 12/10/2023 Body Temperature 96.50 12/10/2023 Heart Beat 59.00 12/10/2023 BSA 1.64 12/10/2023 Intravascular Systolic 158 12/10/2023 Intravascular Diastolic 71 12/10/2023 Weight 133.00 12/10/2023 Height 64.00 12/10/2023 BMI 22.83 12/10/2023 Respiratory Rate 18.00 02/20/2024 BSA 1.66 02/20/2024 BMI 23.17 02/20/2024 Height 64.00 02/20/2024 Weight 135.00 02/20/2024 Intravascular Systolic 143 02/20/2024 Intravascular Diastolic 58 02/20/2024 Oxygen Saturation 97.00 02/20/2024 Respiratory Rate 18.00 02/20/2024 Heart Beat 61.00 02/20/2024 Pain Scale 0.00 02/20/2024 Body Temperature 97.70 08/13/2024 Pain Scale 0.00 08/13/2024 BMI 22.49 08/13/2024 Height 64.00 08/13/2024 Weight 131.00 08/13/2024 BSA 1.63 08/13/2024 Oxygen Saturation 97.00 08/13/2024 Respiratory Rate 18.00 08/13/2024 Heart Beat 61.00 08/13/2024 Body Temperature 97.80 08/13/2024 Intravascular Systolic 161 08/13/2024 Intravascular Diastolic 55 Notes Section * Hook - Established Cancer Visit [facility] [address] [place] [address] [address] [place] [address] P: PATIENT:??YOBANI PEREA :??1940 Date of Service:??12/10/2023 [...] and imaging review . Luh Dasilva MSN, BATTERY BUILDER, IT PROGRAM MANAGER-C, OCN ? Send copy of note to: Dr. Rody Knight . . . Electronically signed by Luh Dasilva MSN, BATTERY BUILDER, IT PROGRAM MANAGER-C, OCN 12/10/2023 15:26 CDT Reviewed and electronically signed by Shilpa Kong MD 12/10/2023 16:13 CDT * Nurse Note for: 13-AUG-24 [facility] Nurse Note Print Location: Unknown Date/Time Printed: 06/27/2025 11:28 ([facility]) Patient: YOBANI PEREA Sex: Female : [...] 97 (%) . Entered by Scarlet Cuellar [facility] 08/13/2024 11:24 Time: 02:00. Pain Scale: 0. Entered by Scarlet [facility] 08/13/2024 11:23 Patient Assessment : Negative results [...] , Bleeding . Entered By Scarlet Cuellar [facility] on 11:23 * Nurse Note for: 20-FEB-24 [facility] Nurse Note Print Location: Unknown Date/Time Printed: 06/27/2025 11:28 ([facility]) Patient: YOBANI PEREA Sex: Female : [...] Saturation: 97 (%) . Entered by Scarlet [facility] 02/20/2024 15:50 Time: 02:00. Pain Scale: 0. Entered by Scarlet [facility] 02/20/2024 15:48 Patient Assessment : Positive results [...] Constipation , Bleeding. Entered By Scarlet Cuellar [facility] on 15:48 * Nurse Note for: 10-DEC-23 [facility] Nurse Note Print Location: Unknown Date/Time Printed: 06/27/2025 11:28 ([facility]) Patient: YOBANI PEREA Sex: Female : [...] Saturation: 98 (%) . Entered by Katiuska GORDILLO 12/10/2023 15:04 Patient Assessment : Positive results [...] Changes , Bleeding . Entered By Katiuska GORDILLO on 15:04
--- OUTSIDE RECORDS SUMMARY | 2025-06-27 11:29 | XMS_ITS | Encounter Summary ---
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 Social History Tobacco Use Types Packs/Day Years Used Date Smoking Tobacco: Never Assessed Comments Unknown Sex and Gender Information Value Date Recorded Sex Assigned at Not on file Legal Sex Female 3:56 AM PULLER THROUGH Gender Identity Not on file Sexual Orientation Not on file documented as of this encounter Plan of Treatment Not on file documented as of this encounter Visit Diagnoses Diagnosis Type II or unspecified type diabetes mellitus without mention of complication, not stated as uncontrolled- Primary Dietary surveil/veterans' counselor Dietary surveillance and counseling documented in this encounter Care Teams Television Repair Teacher Relationship Specialty Start Date End Date Emanuel Reyes DO [address] [facility] [address] [place] [address] PCP - General Internal Medicine 03/02/16 documented as of this encounter
--- OUTSIDE RECORDS SUMMARY | 2025-06-27 11:29 | XMS_ITS ---
Author Name Interface, [id number] lity Address [place] [address] [facility] Address [place] breakthrough[place] [address] Support Name Relationship Address Phone Harvey Perea [...] [place] [facility] art 08/08/2023 APPOINTMENT VMAT/IMRT [place] art 08/06/2023 APPOINTMENT Dosimetry Charge Capture 07/18/[address] Simulation 07/09/[address] Simulation 07/09/[address] Simulation 07/09/[address] Simulation 07/09/[address] Simulation 06/25/2023 APPOINTMENT Consult 05/28/2023 APPOINTMENT Est Post op F/U (Hook) 05/28/2023 APPOINTMENT HOOK POST OP 05/28/2023 APPOINTMENT HOOK POST OP 08/28/2023 LAB_ORDER DEXA scan 12/10/2023 LAB_ORDER Mammogram, diagn ostic, bilateral breast [...] Address 09/03 Bone Densi tomet ry See box attacher d 02/23 Mammo graph y See box attacher d 02/23 Ultra sound resul ts See box attacher d 03/31 Biops y (proc edure ) See box attacher d 03/31 Patho logy repor t See box attacher d 07/13 Ultra sound resul ts See box attacher d Medications Date Name Route Dose [...] Active Vital Signs Date Type Value 05/28/2023 Respiratory Rate 16.00 05/28/2023 BMI 23.17 05/28/2023 Body Temperature 97.70 05/28/2023 Oxygen Saturation 99.00 05/28/2023 Pain Scale 0.00 05/28/2023 Heart Beat 61.00 05/28/2023 Height 64.00 05/28/2023 Weight 135.00 05/28/2023 Intravascular Systolic 152 05/28/2023 Intravascular Diastolic 52 05/28/2023 BSA 1.66 06/25/2023 Intravascular Systolic 181 06/25/2023 Intravascular Diastolic [...] Pain Scale 0.00 08/28/2023 Height 64.00 10/31/2023 Weight 132.00 10/31/2023 Pain Scale 0.00 10/31/2023 Body Temperature 97.40 10/31/2023 Heart Beat 61.00 10/31/2023 Respiratory Rate 16.00 10/31/2023 Oxygen Saturation 97.00 10/31/2023 Intravascular Systolic 156 10/31/2023 Intravascular Diastolic 69 10/31/2023 Height 64.00 10/31/2023 BMI 22.66 10/31/2023 BSA 1.64 11/29/2023 Body Temperature 97.70 11/29/2023 Heart Beat 57.00 11/29/2023 Respiratory Rate 16.00 11/29/2023 Oxygen Saturation 97.00 11/29/2023 Pain Scale 0.00 11/29/2023 Weight 130.60 11/29/2023 Height 64.00 11/29/2023 BMI 22.42 11/29/2023 BSA 1.63 11/29/2023 Intravascular Systolic 164 11/29/2023 Intravascular Diastolic 71 12/10/2023 BMI 22.83 12/10/2023 BSA 1.64 12/10/2023 Height 64.00 12/10/2023 Weight 133.00 12/10/2023 Intravascular Systolic 158 12/10/2023 Intravascular Diastolic 71 12/10/2023 Respiratory Rate 18.00 12/10/2023 Heart Beat 59.00 12/10/2023 Body Temperature 96.50 12/10/2023 Pain Scale 0.00 12/10/2023 Oxygen Saturation 98.00 02/20/2024 Pain Scale 0.00 02/20/2024 Body Temperature 97.70 02/20/2024 Heart Beat 61.00 02/20/2024 Respiratory Rate 18.00 02/20/2024 Intravascular Systolic 143 02/20/2024 Intravascular Diastolic 58 02/20/2024 Weight 135.00 02/20/2024 Height 64.00 02/20/2024 BMI 23.17 02/20/2024 BSA 1.66 02/20/2024 Oxygen Saturation 97.00 08/13/2024 Pain Scale 0.00 08/13/2024 BSA 1.63 08/13/2024 BMI 22.49 08/13/2024 Height 64.00 08/13/2024 Weight 131.00 08/13/2024 Intravascular Systolic 161 08/13/2024 Intravascular Diastolic 55 08/13/2024 Respiratory Rate 18.00 08/13/2024 Heart Beat 61.00 08/13/2024 Oxygen Saturation 97.00 08/13/2024 Body Temperature 97.80 Notes Section * Hook - Cancer Post Op [facility] [address] [place] [address] P: PATIENT:??YOBANI PEREA :??1940 Date of Service:??05/28/2023 [...] of hematoma or seroma. Diagnostic Data: 05/18/2023, [facility], Pathology report: Diagnosis 1. Breast, left, ultrasound-guided partial mastectomy: ? - INVASIVE BREAST CARCINOMA OF NO SPECIAL TYPE (DUCTAL), BURTON ? HISTOLOGIC GRADE 3, MEASURING 3.2 CM [...] NO involvement by invasive carcinoma identified 2. [place] lymph nodes, left axilla, designated as #1, [...] of no special type (ductal) Histologic grade (Sylvester Histologic Score) ?? Burton score ?Glandular (acinar)/tubular differentiation: Score 3 ?Nuclear [...] both accurate and complete. Shilpa Kong MD [facility] Send copy of note to: Dr. Rody Portillo . Electronically signed by Shilpa Kong MD 06/04/2023 18:02 CONCRETING SUPERVISOR * Nurse Note for: 13-AUG-24 [facility] Nurse Note Print Location: Unknown Date/Time Printed: 06/27/2025 11:29 ([facility]) Patient: YOBANI PEREA Sex: Female : 1940 [...] 97 (%) . Entered by Scarlet Cuellar [facility] 08/13/2024 11:24 Time: 02:00. Pain Scale: 0. Entered by Scarlet Cuellar [facility] 08/13/2024 11:23 Patient Assessment : Negative [...] Note Print Location: Unknown Date/Time Printed: 06/27/2025 11:29 ([facility]) Patient: YOBANI PEREA Sex: Female [...] Note Print Location: Unknown Date/Time Printed: 06/27/2025 11:29 ([facility]) Patient: YOBANI PEREA Sex: Female [...] Saturation: 98 (%) . Entered by Katiuska SANABRIAQuiana 12/10/2023 15:04 Patient Assessment : Positive results [...] Changes , Bleeding . [facility] on 15:04 * Nurse Note for: 29-NOV-23 [facility] Nurse Note Print Location: Unknown Date/Time Printed: 06/27/2025 11:29 ([facility]) Patient: YOBANI PEREA Sex: Female : 1940 [...] (%) at rest. Entered by Tiffanie West CMA/Quiana 11/29/2023 15:12 Time: 02:00. Pain Scale: 0. Entered by Tiffanie West CMA/Quiana 11/29/2023 15:10 Patient Assessment : Positive results [...] on 15:10 * Nurse Note for: 31-OCT-23 [facility] Nurse Note Print Location: Unknown Date/Time Printed: 06/27/2025 11:29 ([facility]) Patient: YOBANI PEREA Sex: Female [...] on 15:55 * Nurse Note for: 28-AUG-23 [facility] Nurse Note Print Location: Unknown Date/Time Printed: 06/27/2025 11:29 ([facility]) Patient: YOBANI PEREA Sex: Female [...] Note Print Location: Unknown Date/Time Printed: 06/27/2025 11:29 ([facility]) Patient: YOBANI PEREA Sex: Female [...] Note Print Location: Unknown Date/Time Printed: 06/27/2025 11:29 ([facility]) Patient: YOBANI PEREA Sex: Female [...] on 15:11 * Nurse Note for: 28-MAY-23 [facility] Nurse Note Print Location: Unknown Date/Time Printed: 06/27/2025 11:29 ([facility]) Patient: YOBANI PEREA Sex: Female : 1940 [...] 99 (%) . Entered by Scarlet Cuellar CMA 05/28/2023 14:59 Time: 02:00. Pain Scale: 0. Entered by Scarlet Cuellar CMA 05/28/2023 14:57 Patient Assessment : Positive results [...]
--- OUTSIDE RECORDS SUMMARY | 2025-06-27 11:29 | XMS_ITS | Clinical Summary ---
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 Gender Identity Not on file Sexual Orientation [...] 1-dose 75+ series) 02/11/2015 INFLUENZA VACCINE (#1) 2025 8, 04/08/2017, 04/22/2013, Additional history exists Colorectal Cancer Screening Discontinued FIT/FOBT Q 1 year Discontinued 10/08/2003 COLORECTAL SCREENING Discontinued FIT-DNA Q 3 years Discontinued Flex Sig/CT Colonography Q 5 years Discontinued Medical Devices Implanted Type Area Assembly Stock Supervisor Device Identifier Shelf Expiration Date Model / Serial / Lot Adh Bioglue 10ml [id number] - [id number] Implanted:Qty: 1 on 06/18/2017 by Mike Ulloa MD at [facility] Biological N/A: Heart [employer] 12/16/2018 [id number]- US / / [id number] Coil Jeanie Cmplx Std 18mm 57cm [id number] - [id number] Implanted:Qty: 1 on 06/25/2017 by Mike Ulloa MD at [facility] Coil Left: Chest [employer] INC 08/11/2022 [id number] / / [id number] Coil Jeanie Cmplx Std 18mm 57cm [id number] - [id number] Implanted:Qty: 1 on 06/25/2017 by Mike Ulloa MD at [facility] Coil Left: Chest [employer] 06/07/2018 [id number] / / [id number] Coil Jeanie Cmplx Std 16mm 60cm [id number] - [id number] Implanted:Qty: 1 on 06/25/2017 by Mike Ulloa MD at [facility] Coil Left: Chest [employer] 02/21/2024 [id number] / / [id number] Coil Jeanie Cmplx Sft 16mm 50cm [id number] - [id number] Implanted:Qty: 1 on 06/25/2017 by Mike Ulloa MD at [facility] Coil Left: Chest [employer] 09/18/2024 [id number] / / [id number] Coil Embol Pod Packing [id number] - [id number] Implanted:Qty: 1 on 06/25/2017 by Mike Ulloa MD at [facility] Coil Left: Chest [employer] 04/03/2025 [id number] / / [id number] Coil Embol Pod Packing Qfqostk34 - [id number] Implanted:Qty: 1 on 06/25/2017 by Mike Ulloa MD at [facility] Coil Left: Chest [employer] 04/03/2025 [id number] / / [id number] Coil Jeanie Cmplx Std 18mm 57cm [id number] - [id number] Implanted:Qty: 1 on 06/25/2017 by Mike Ulloa MD at [facility] Coil Left: Chest [employer] 02/28/2024 [id number] / / [id number] Reardan Ptfe Thck 1.0dpv47w67zw 062079 - [id number] Implanted:Qty: 1 on 06/18/2017 by Mike Ulloa MD at [facility] Graft N/A: Chest CR BARD[employer]ONATAN VASC [employer] 09/04/2021 [id number] / / [id number] Graft Hmshld Gold Bifur [id number] - [id number] Implanted:Qty: 1 on 06/18/2017 by Mike Ulloa MD at [facility] Graft N/A: Chest [employer] 11/04/2021 [id number] / [id number] / Hemostatic Surgicel 6x9in 1946 - [id number] Implanted:Qty: 1 on 06/18/2017 by Mike Ulloa MD at [facility] Hemostatic N/A: Chest J&J- ETHICON INC 03/07/2022 1946 / / [id number] Starclose Se Vasc Closure 19055-65 - [id number] Implanted:Qty: 1 on 06/23/2017 by Luis Bowman MD at [facility] Hemostatic Right: Groin DUDLEY- VASC DEVICE 04/07/2019 [id number] / / [id number] Ring Vein Marking 10mm 35-5832 - [id number] Implanted:Qty: 3 on 06/18/2017 by Mike Ulloa MD at [facility] Other N/A: Heart TELEFLEX- PILL WECK HERB L P 35-5832 / / Plug Amplatzer 12mm 9-Avp2-012 - [id number] Implanted:Qty: 1 on 06/25/2017 by Mike Ulloa MD at [facility] Other Left: Chest [employer] 12/05/2021 9-AVP2-01 [id number] Plate Orb Rim Matrixmidface 04.503.343 - [id number] Implanted:Qty: 1 on 07/30/2018 by Kristopher Arciniega MD at [facility] Plate Left: Face SYNTHES-STRATEC - MAXIFACIAL 04.503.34 25079 Plate-L Oblique Matrixmidface 04.503.355 - [id number] Implanted:Qty: 1 on 07/30/2018 by Kristopher Arciniega MD at [facility] Plate Left: Face SYNTHES-STRATEC - MAXIFACIAL 04.503.35 140 62797 Screw Matrixmidface Sd 4mm 04.503.224 - [id number] Implanted:Qty: 1 on 07/30/2018 by Kristopher Arciniega MD at [facility] Screw Left: Face SYNTHES-STRATEC - MAXIFACIAL 04.503.22 4.140 73404 Screw Matrixmidface Sd 5mm 04.503.225 - [id number] Implanted:Qty: 10 on 07/30/2018 by Kristopher Arciniega MD at [facility] Screw Left: Face SYNTHES-STRATEC - MAXIFACIAL 04.503.22 [id number] 21841 Stent Thor Flor Vigil Prox [id number] - [id number] Implanted:Qty: 1 on 06/18/2017 by Mike Ullao MD at [facility] Stent N/A: Aorta COOK- AORTIC INTERVENTION 12/08/2019 [id number] / / [id number] Insurance MEDICARE PART A AND B [employer] [place] [id number] Advance Directives For more information, please contact: [phone] * Full Code (Latest Code Status on [...] 5:55 PM 06/26/2017 3:32 PM Care Teams General Supervisor Relationship Specialty Start Date End Date Emanuel Reyes DO [address] [phone] PCP - General Internal Medicine 03/02/16
--- OUTSIDE RECORDS SUMMARY | 2025-06-27 11:29 | XMS_ITS | Encounter Summary ---
Author Organization [facility] Address [address] [place] [address] Care Team Providers Care Patrol Driver Name Role Phone Emanuel Reyes DO Primary Care Provide r Encounter Details Date Type Department Care Team (Latest Contact Info) Description 09/27/2003 Outpatient Historical [facility] Medicine [place] [address] [phone] Blessing Eng MD [address] [place] [phone] HYPERTENSION NOS (Primary Dx) Social History Tobacco Use Types Packs/Day Years Used Date Smoking Tobacco: Never Assessed Comments Unknown Sex and Gender Information Value Date Recorded Sex Assigned at Not on file 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
--- OUTSIDE RECORDS SUMMARY | 2025-06-27 11:29 | XMS_ITS | Encounter Summary ---
Author Organization [facility] Address [address] [place] [address] Care Team Providers Care Gis Geographer Name Role Phone Emanuel Reyes DO Primary Care Provide r Encounter Details Date Type Department Care Team (Latest Contact Info) Description 09/23/2006 Outpatient Historical [facility] Medicine [place] [address] [place] [phone] Destiny Haas, [facility] [address] [phone] Unspecified Essential Hypertension (Primary Dx); Other and Unspecified Hyperlipidemia Social History Tobacco Use Types Packs/Day Years Used Date Smoking Tobacco: Never Assessed Comments Unknown Sex and Gender Information Value Date Recorded Sex Assigned at Not on file 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
--- OUTSIDE RECORDS SUMMARY | 2025-06-27 11:29 | XMS_ITS | Encounter Summary ---
Author Organization [facility] Address [address] [place] [address] Care Team Providers Care Sports Marketing Coordinator Name Role Phone Emanuel Reyes DO Primary Care Provide r Encounter Details Date Type Department Care Team (Latest Contact Info) Description 10/08/2003 Outpatient Historical [facility] Medicine [place] [address] [phone] Blessing Eng MD [address] [place] [phone] MELENA, BLOOD IN STOOL (Primary Dx) Social History Tobacco Use Types Packs/Day Years Used Date Smoking Tobacco: Never Assessed Comments Unknown Sex and Gender Information Value Date Recorded Sex Assigned at Not on file 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
--- OUTSIDE RECORDS SUMMARY | 2025-06-27 11:29 | XMS_ITS ---
Author Name Interface, [id number] lity Address [place] [address] Organization [facility] Address [place] [address] Support Name Relationship Address Phone Harvey Perea Child Unknown Unavailab le Allergies and Adverse Reactions Medication/Group Name Reaction Severity Date No known allergies Plan Date Type Value 03/09/2025 APPOINTMENT 1YR 02/25/2025 APPOINTMENT YULI 6M 12/09/2024 APPOINTMENT 1YR 08/13/2024 APPOINTMENT 6MO FU 08/13/2024 APPOINTMENT 6MO FU 02/20/2024 APPOINTMENT 4MO FU 12/10/2023 APPOINTMENT 6MO FU 11/29/2023 APPOINTMENT Follow-Up 12/10/2023 LAB_ORDER Mammogram, diagn ostic, bilateral breast [...] Lab Address 02/23 Mammo graph y See attacher d 02/23 Ultra sound resul ts See attacher d 03/31 Biops y (proc edure ) See attacher d 03/31 Patho logy repor t See attacher d 07/13 Ultra sound resul ts See attacher d Medications Date Name Route Dose Frequency Instructions Start Date End Date Status Fill Status Indication 04/01 Losarta n Oral active 04/01 Sertral ine Oral active 04/01 Amlodip ine Oral active 04/01 Lovasta tin Oral active 02/19 Nitrofu rantoin Oral (12 hr Macrocr ystal form) active 04/01 Apixaba n Oral BID active [...] Notes Section * Radiation Follow Up - [address] [place] [address] P: Patient:??YOBANI PEREA :??1940 Date of Service:??11/29/2023 . Follow up Referring Physicians: Dr. Kong Diagnosis:?? 1. 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 Final pathology revealed a 3.2 cm invasive tumor, no LVI, associated with high-grade DCIS, negative margins, 0/5 nodes. She is not a candidate for adjuvant chemotherapy due to comorbidities 2. 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 clinical stage IA (nM2mK2U3), status post biopsy. Due to her severe [...] discuss which drug to take with her radiology technician, Dr. Knight. Based on benefit risk analysis, [...] invasive ductal carcinoma, grade 2-3, ER -/ CA -/HER2 - ([facility]). Staging PET/CT however, discovered [...] invasive ductal carcinoma, grade 1, ER + (>90%)/CA -/HER2 - ([facility]). After thorough discussion with Dr. Kong and Dr. Portillo, due to patient's significant [...] Retired, , lives at her son and [id number]. Denies use tobacco, alcoholor drugs. Current Medications: [...] a total of 30 minutes in direct trsk-tr-guct consultation with the patient of which more than 50% was in counseling and coordination of care Documentation assistance provided by Cornelia Abarca, scribing for Dr. Ryan Herbert, on 11/29/2023. I, Dr. Ryan Herbert, personally performed the services described in this documentation, and it is bothaccurate and complete.?? [facility] Send Copy of note to: .Dr. Portillo .Dr. Kong Electronically signed by Fernando Herbert MD 11/29/2023 19:33 CDT * Nurse Note for: 13-AUG-24 [facility] Nurse Note Print Location: Unknown Date/Time Printed: 06/27/2025 11:29 ([facility]) Patient: YOBANI PEREA Sex: Female : 1940 [...] Print Location: Unknown Date/Time Printed: 06/27/2025 11:29 ([facility]) Patient: YOBANI PEREA Sex: Female : [...] on 15:48 * Nurse Note for: 10-DEC-23 [facility] Nurse Note Print Location: Unknown Date/Time Printed: 06/27/2025 11:29 ([facility]) Patient: YOBANI PEREA Sex: Female : [...] Changes , Bleeding . En[facility] 15[facility]04 * Nurse Note for: 29-NOV-23 [facility] Nurse Note Print Location: Unknown Date/Time Printed: 06/27/2025 11:29 ([facility]) Patient: YOBANI PEREA Sex: Female : 1940 [...]
--- OUTSIDE RECORDS SUMMARY | 2025-06-27 11:29 | XMS_ITS | Encounter Summary ---
Author Organization [facility] Address [address] [place] [address] Care Team Providers Care Sign Hanger Name Role Phone Emanuel Reyes Primary Care Provide r Reason for Referral * Auth/Cert (Routine) Specialty Diagnoses / Procedures Referred By Xochitl t Referred To Contact Cardiology Diagnoses Preop examination Abdominal aortic aneurysm (AAA) without rupture Procedures CL LT HEART CATHETERIZATION Stephen Gomez MD [facility] Cardiac Cubing Machine Tender [address] [facility] [place] [address] Phone: tel: fax: Referral ID Status Reason Start Date Expiration Date Visits Requested Visits Authorized [id number] Ordering Department To Schedule 03/29/2017 04/29/2018 1 1 Encounter Details Date Type Department Care Team (Late st Contact Info) Description 03/29/2017 Ancillary Orders [facility] Cardiology- [place] [address] [place] [address] Stephen Gomez MD NO ADDRESS [...] on file 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 Chanel. Stephen Gomez MD, [facility], [facility] - 04/17/2017 12:52 PM CDT CARDIAC CATHETERIZATION REPORT-[place], [place] PATIENT: Dayanna Chanel PATIENT NUMBER: [id number] BIRTHDATE: 1940 REFERRING PHYSICIAN: Emanuel Reyes DO [...] Coronary angiography was performed with a 5FR Warren and 5FR AL2 catheters. The results were [...] aorta, probably a little bit more than long-term between the aortic valve and the arch. [...] rupture documented in this encounter Care Teams Sign Hanger Relationship Specialty Start Date End Date Emanuel Reyes DO [address] [phone] PCP - General Internal Medicine 03/02/16 documented as of this encounter
--- OUTSIDE RECORDS SUMMARY | 2025-06-27 11:29 | XMS_ITS | Encounter Summary ---
Author Organization [facility] Address [address] [place] [address] Care Team Providers Care Sales Consultant Residential Manager Name Role Phone Emanuel Reyes DO Primary Care Provide r Encounter Details Date Type Department Care Team (Latest Contact Info) Description 09/12/2005 Outpatient Historical [facility] Medicine [place] [address] [place] [phone] Destiny Haas, 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
--- OUTSIDE RECORDS SUMMARY | 2025-06-27 11:29 | XMS_ITS | Encounter Summary ---
Author Organization [facility] Address [address] [place] [address] Care Team Providers Care Field Services Analyst Name Role Phone Emanuel Reyes DO Primary Care Provide r Encounter Details Date Type Department Care Team (Latest Contact Info) Description 05/09/2005 Outpatient Historical [facility] Medicine [place] [address] [place] [phone] Destiny Haas, [facility] [address] [phone] AFTERCARE OIL WELL DRILLING MANAGER USE MEDICATN (Primary Dx) Social History Tobacco Use Types Packs/Day Years Used Date Smoking Tobacco: Never Assessed Comments Unknown Sex and Gender Information Value Date Recorded Sex Assigned at Not on file 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
--- OUTSIDE RECORDS SUMMARY | 2025-06-27 11:29 | XMS_ITS | Encounter Summary ---
Author Organization [facility] Address [address] [place] [address] Care Team Providers Care Metal Baler Name Role Phone Emanuel Reyes DO Primary Care Provide r Encounter Details Date Type Department Care Team (Latest Contact Info) Description 11/25/2006 Outpatient Historical 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
--- OUTSIDE RECORDS SUMMARY | 2025-06-27 11:29 | XMS_ITS | Encounter Summary ---
Author Organization [facility] Address [address] [place] [address] Care Team Providers Care Larder Cook Name Role Phone Emanuel Reyes DO Primary Care Provide r Encounter Details Date Type Department Care Team (Latest Contact Info) Description 01/13/2007 Outpatient Historical [facility] Medicine [place] [address] [place] [phone] Destiny Haas, [facility] [address] [phone] Other and Unspecified Hyperlipidemia (Primary Dx) Social History Tobacco Use Types Packs/Day Years Used Date Smoking Tobacco: Never Assessed Comments Unknown Sex and Gender Information Value Date Recorded Sex Assigned at Not on file 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
--- OUTSIDE RECORDS SUMMARY | 2025-06-27 11:29 | XMS_ITS | Clinical Summary ---
Author Organization [facility] Address [address] [address] Care Team Providers Care Transportation Museum Helper Name Role Phone Emanuel Reyes DO Primary [...] on file Legal Sex Female 4:02 AM METAL MOLD DRESSER Gender Identity Not on file Sexual Orientation [...] 75+ series) 02/11/2015 INFLUENZA VACCINE (#1) 2025 , 04/08/2017, 04/22/2013, Additional history exists Medical Devices Implanted Type Area Administrative Associate Device Identifier Shelf Expiration Date Model / Serial / Lot Adh Bioglue 10ml [id number] - [id number] Implanted:Qty: 1 on 06/18/2017 by Mike Ullao MD Biological N/A: Heart [employer] INC 12/16/2018 [id number] / / [id number] Coil Embol Pod Packing [id number] - [id number] Implanted:Qty: 1 on 06/25/2017 by Mike Ulloa MD Coil Left: Chest PENUMBRA INC 04/03/2025 [id number] / / [id number] Coil Embol Pod Packing [id number] - [id number] Implanted:Qty: 1 on 06/25/2017 by Mike Ulloa MD Coil Left: Chest [employer]ENUM[employer]RA INC 04/03/2025 [id number] / / [id number] Coil Jeanie Cmplx Sft 16mm 50cm [id number] - [id number] Implanted:Qty: 1 on 06/25/2017 by Mike Ulloa MD Coil Left: Chest P[employer]UM[employer] INC 09/18/2024 [id number] / / [id number] Coil Jeanie Cmplx Std 16mm 60cm [id number] - [id number] Implanted:Qty: 1 on 06/25/2017 by Mike Ulloa MD Coil Left: Chest [employer]UM[employer] INC 02/21/2024 [id number] / / [id number] Coil Jeanie Cmplx Std 18mm 57cm [id number] - [id number] Implanted:Qty: 1 on 06/25/2017 by Mike Ulloa MD Coil Left: Chest [employer] INC 02/28/2024 [id number] / / [id number] Coil Jeanie Cmplx Std 18mm 57cm [id number] - [id number] Implanted:Qty: 1 on 06/25/2017 by Mike Ulloa MD Coil Left: Chest [employer] INC 08/11/2022 [id number] / / [id number] Coil Jeanie Cmplx Std 18mm 57cm Lpt5t1881 - [id number] Implanted:Qty: 1 on 06/25/2017 by Mike Ulloa MD Coil Left: Chest [employer] INC 06/07/2018 [id number] / / [id number] Graft Hmshld Gold Bifur [id number] - [id number] Implanted:Qty: 1 on 06/18/2017 by Mike Ulloa MD Graft N/A: Chest [facility] 11/04/2021 [id number] / [id number] / Darrington Ptfe Thck 1.3shw68b40gv 161824 - [id number] Implanted:Qty: 1 on 06/18/2017 by Mike Ulloa MD Graft N/A: Chest CR BARD- JONATAN VASC INC 09/04/2021 [id number] / / [id number] Hemostatic Surgicel 6x9in 1946 - [id number] Implanted:Qty: 1 on 06/18/2017 by Mike Ulloa MD Hemostatic N/A: Chest J&J- ETHICON INC 03/07/2022 1946 / / [id number] Starclose Se Vasc Closure 36424-11 - [id number] Implanted:Qty: 1 on 06/23/2017 by Luis Bowman MD Hemostatic Right: Groin DUDLEY- VASC DEVICE 04/07/2019 [id number] / / [id number] Ring Vein Marking 10mm 35-5632 - [id number] Implanted:Qty: 3 on 06/18/2017 by Mike Ulloa MD Other N/A: Heart TELEFLEX- PILL WECK HERB L P 35-5832 / / Plug Amplatzer 12mm 9-Avp2-012 - [id number] Implanted:Qty: 1 on 06/25/2017 by Mike Ulloa MD Other Left: Chest [employer] 12/05/2021 9-AVP2-01 2 / [id number] Plate Orb Rim Matrixmidface 04.503.343 - [id number] Implanted:Qty: 1 on 07/30/2018 by Kristopher Arciniega MD Plate Left: Face SYNTHES-STRATEC - MAXIFACIAL 04.503.34 3 140 [id number] Plate-L Oblique Matrixmidface 04.503.355 - [id number] Implanted:Qty: 1 on 07/30/2018 by Kristopher Arciniega MD Plate Left: Face SYNTHES-STRATEC - MAXIFACIAL 04.503.35 5 140 [id number] Screw Matrixmidface Sd 4mm 04.503.224 - [id number] Implanted:Qty: 1 on 07/30/2018 by Kristopher Arciniega MD Screw Left: Face SYNTHES-STRATEC - MAXIFACIAL 04.503.22 4.01 140 45139 Screw Matrixmidface Sd 5mm 04.503.225 - [id number] Implanted:Qty: 10 on 07/30/2018 by Kristopher Arciniega MD Screw Left: Face SYNTHES-STRATEC - MAXIFACIAL 04.503.22 5.140 29097 Stent Thor Zenith Alpha Prox [id number] - [id number] Implanted:Qty: 1 on 06/18/2017 by Mike Ulloa MD Stent N/A: Aorta COOK- AORTIC INTERVENTION 12/08/2019 [id number] / / [id number] Care Teams Transportation Museum Helper Relationship Specialty Start Date End Date ReyesEmanuel newmanDO [address] [address] PCP - General Internal Medicine 03/02/16
--- OUTSIDE RECORDS SUMMARY | 2025-06-27 11:29 | XMS_ITS | Encounter Summary ---
Author Organization [facility] Address [address] [place] [address] Care Team Providers Care Homemaking Rehabilitation Consultant Name Role Phone Emanuel Reyes DO Primary Care Provide r Encounter Details Date Type Department Care Team (Latest Contact Info) Description 03/26/2006 Outpatient Historical [facility] Medicine [place] [address] [phone] Blessing Eng MD [address] [place] [phone] Impaired Fasting Glucose (Primary Dx) Social History Tobacco Use Types Packs/Day Years Used Date Smoking Tobacco: Never Assessed Comments Unknown Sex and Gender Information Value Date Recorded Sex Assigned at Not on file 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
--- OUTSIDE RECORDS SUMMARY | 2025-06-27 11:29 | XMS_ITS | Encounter Summary ---
Author Organization [facility] Address [address] [place] [address] Care Team Providers Care Forge Heater Name Role Phone Emanuel Reyes DO Primary Care Provide r Encounter Details Date Type Department Care Team (Latest Contact Info) Description 03/19/2006 Outpatient Historical [facility] Medicine [place] [address] [phone] Blessing Eng MD [address] [place] [phone] Unspecified Essential Hypertension (Primary Dx) Social History Tobacco Use Types Packs/Day Years Used Date Smoking Tobacco: Never Assessed Comments Unknown Sex and Gender Information Value Date Recorded Sex Assigned at Not on file 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
--- OUTSIDE RECORDS SUMMARY | 2025-06-27 11:29 | XMS_ITS | Encounter Summary ---
Author Organization [facility] Address [address] [place] [address] Care Team Providers Care Plush Dresser Name Role Phone Emanuel Reyes DO Primary [...] on file Legal Sex Female 3:56 AM DULSER Gender Identity Not on file Sexual Orientation Not on file documented as of this encounter Plan of Treatment Not on file documented as of this encounter Visit Diagnoses Diagnosis Gynecologic examination- Primary Gynecological examination documented in this encounter Care Teams Plush Dresser Relationship Specialty Start Date End Date Emanuel Reyes DO [address] [facility] [place] [address] PCP - General Internal Medicine 03/02/16 documented as of this encounter
--- OUTSIDE RECORDS SUMMARY | 2025-06-27 11:29 | XMS_ITS | Encounter Summary ---
Author Organization [facility] Address [address] [place] [address] Care Team Providers Care Lab Systems Analyst Name Role Phone Emanuel Reyes DO Primary Care Provide r Encounter Details Date Type Department Care Team (Latest Contact Info) Description 03/26/[address] 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
--- OUTSIDE RECORDS SUMMARY | 2025-06-27 11:29 | XMS_ITS | Encounter Summary ---
Author Organization [facility] Address [address] [place] [address] Care Team Providers Care Print Production Coordinator Name Role Phone Emanuel Reyes DO Primary Care Provide r Encounter Details Date Type Department Care Team (Latest Contact Info) Description 07/10/2004 Outpatient Historical [facility] Medicine [place] [address] [phone] Blessing Eng MD [address] [place] [phone] ABNORMAL CLINICAL FINDING NEC (Primary Dx) Social History Tobacco Use Types Packs/Day Years Used Date Smoking Tobacco: Never Assessed Comments Unknown Sex and Gender Information Value Date Recorded Sex Assigned at Not on file 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
--- OUTSIDE RECORDS SUMMARY | 2025-06-27 11:29 | XMS_ITS ---
Author Name Interface, [id number] lity Address [place] [address] [facility] Address [place] [address] Support Name Relationship Address Phone Harvey Perea [...] Intravascular Diastolic 55 Notes Section * EZRA HemOnc Follow Up - [facility] [address] [place] [address] [address] [place] [address] P: F: PATIENT: YOBANI PEREA : 1940 [...] receptor negative 0, HER2 0 by IHC, [id number], Stage llB. * 05/10/2023: Invasive ductal carcinoma [...] priorheart surgery.?? * 03/14/2023:??Bilateral diagnostic mammogram at [facility] that identified a 2.2 cm irregular mass in the left breast at 10:00 posterior depth with benign calcifications in both breasts.?? 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 * 04/11/2023: PET CT scan [facility] with known left breast mass and focal FDG uptake in the right medial breast.?? * 05/03/2023: Complete ultrasound of the right breast and axilla at [facility]. A 6 mm irregular mass with a [...] with Dr. Shilpa Kong: Invasive ductal carcinoma, [place] grade 3, 3.2 cm in greatest dimension, [...] ??This study was completed on 07/13/2024 at 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 Her son accompanies her today.?? Tobacco use: [...] of malignancy 04/11/2023: PET CT scan at [facility].?? IMPRESSION: 1. FDG avid mass in the [...] of the Right Breast and Axilla at [facility].?? IMPRESSION: SUSPICIOUS OF MALIGNANCY RECOMMENDATION: The 6 mm irregular mass in the right breast isat a moderate suspicion for malignancy. An ultrasound guided biopsy is recommended. There is no suspicious finding in the right internal mammary [place] to correlate with recent PET CT finding inthis region. 09/03/2023: DEXA scan at [facility].?? IMPRESSION: OSTEOPOROSIS Patient is at high risk [...] hip fractures 02/24/2024: Bilateral diagnostic mammogram at [facility]: IMPRESSION: KNOWN- BIOPSY- PROVEN MALIGNANCY. Interval postsurgical changes of left lumpectomy. A core biopsy marker in the right breast at the 12:00 axis, middle depth marking the site of invasive carcinoma of the right breast. 02/24/2024: Ultrasound of the bilateral breast at [facility]: IMPRESSION: SUSPICIOUS No significant change in a 6 mm mass in the right breast at the 12 o'clock axis, consistent with the known area of malignancy. The 1.4 cm mass in the left breast at 2 o'clock is suspicious of malignancy. An ultrasound guided biopsy is recommended. 07/13/2024: Left breast ultrasound at [facility]: IMPRESSION: BIRADS-2 Benign. Nosuspicious sonographic abnormality to explain the palpable area of concern. Pathology: 03/14/2023, [facility], Pathology report: Diagnosis Left breast at [...] as expected HER2 negative 05/10/2023: Pathology at [facility]. Diagnosis Breast, right, 12 o'clock - 4 [...] of the bilateral breast on 02/24/2024 at [facility]. ??There was no significant change in the [...] continue daily??anastrozole??and routine surveillance visits. * Bone health:?Eugene??has placed the patient on monthly Boniva??+ calcium for osteoporosis management. Continue management with?Eugene. * Disposition: Diagnostic mammogram of the bilateral breast ordered today, for completion in February 2025. She will return here in 6 months for follow-up. She was instructed in the meantime to call withany questions or concerns prior to her return visit. . Michael Parry (MORENA) DNP, INFRASTRUCTURE CONSULTANT, CRITICAL CARE NURSE PRACTITIONER-BC, AOCNP Send copy of note to: Dr. Rody Knight Electronically signed by Michael Parry (MAINTENANCE LEADER) DNP, INFRASTRUCTURE CONSULTANT, CRITICAL CARE NURSE PRACTITIONER-ROBERT, BENP 08/13/2024 11:52 SHOER Reviewed and electronically signed by Mickie Portillo MD 08/13/2024 12:06 SHOER * Nurse Note for: 13-AUG-24 [facility] Nurse Note Print Location: Unknown Date/Time Printed: 06/27/2025 11:29 ([facility]) Patient: YOBANI PEREA Sex: Female : 1940 [...]
--- OUTSIDE RECORDS SUMMARY | 2025-06-27 11:29 | XMS_ITS | Encounter Summary ---
Author Organization [facility] Address [address] [place] [address] Care Team Providers Care Perforator Operator Name Role Phone Emanuel Reyes DO Primary Care Provide r Encounter Details Date Type Department Care Team (Late st Contact Info) Description 04/04/2005 Inpatient Historical [facility] IN [facility]ED Mike Ulloa MD [address] [phone] Zackary Navarro MD [address] [address] DISSECTING THORACIC AORTIC ANEUR (CMS/HCC) (Primary Dx) Social History Tobacco Use Types Packs/Day Years Used Date Smoking Tobacco: Never Assessed Comments Unknown Sex and Gender Information Value Date Recorded Sex Assigned at Not on file 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
--- OUTSIDE RECORDS SUMMARY | 2025-06-27 11:29 | XMS_ITS | Patient Health Record ---
Author Organization [facility] Address [address] [place] [address] Support Name Relationship Address Phone Lakeshia Chanelty Guarantor Unknown Reason For Referral No Information Problems Problem Type SNOMED Code ICD Code Onset Dates Problem Status W/U Status Risk Notes Problem Abdominal aortic aneurysm without rupture (85291898) Abdominal aneurysm without mention of rupture (441.4) Active confirmed [id number]- Snomed Description: Abdominal aortic aneurysm without rupture Plan Of Treatment No Information
--- OUTSIDE RECORDS SUMMARY | 2025-06-27 11:29 | XMS_ITS | Patient Health Record ---
Author Organization [facility] Address [address] [place] [address] Care Team Providers Care Wooden Boat Builder Name Role Phone YOBANY LAGUERRE Primary Care Provider SEN Gutierrez Unavailable [phone] FAMILY, MEMBER Unavailable Unavailable Allergies No Known Allergies Reason For Referral No Information Medications Medication SIG (Take, Route, Frequency, Duration) Notes Start Date End Date Status Losartan Potassium A ctive Lovastatin Active Triamcinolone & Emollient Active Eliquis Active amLODIPine Besylate Active Sertraline HCl Activ e Amiodarone Active Social History Tobacco Use: Social History Observation Description Date Details (start date - stop date) Never Smoker NA - NA Sexual Hx: Question Answer Notes Have you ever had an STD? No Do you smoke? Question Answer Notes Answer: non-smoker Plan Of Treatment Pending Test Test Name Order Date Topography 09/12/2022 Topography 09/26/2022 Topography 10/03/2022 Topography 10/24/2022 Insurance Providers Payer Name Payer Address Payer Phone Subscriber Number Group Number Insured Name Patient Relationship to Insured Coverage Start Date Coverage End Date MEDICARE [employer] ATTN PART B CLAIMS [address] [place] [phone] [id number] SHARON BarfieldYOBANI Self - patient is the insured [employer] [address] [address] [place] [phone] [id number] NICOLASMIGUEL YOBANI Barfield Self - patient is the insured Medical (General) History Medical History History ICD Code HBP HIGH CHOLESTEROL STROKE HSV Surgical History Surgery Date(Month/Year) CATARACT SURG BOTH EYES AORTIC ARCH ANURISIM X 2
--- OUTSIDE RECORDS SUMMARY | 2025-06-27 11:29 | XMS_ITS | Data Portability ---
Author Organization ISABEL Nieves [facility] Raejev Alan [facility] Address [address] [address] Assessment No assessment recorded. Plan of Treatment Reminders Order Date Submit Date Provider Last Modified By Organization Details Last Modified Time Details Appointments None record ed. Lab None record ed. Referral None record ed. Procedures None record ed. Surgeries None record ed. Imaging None record ed. Medication Orders None record ed. Patient TargetsNo targets recorded. Patient Instructions Encounter Date Encounter Id Patient Instructions Last Modified By Organization Details Last Modified Time 01/18/2025 [id number] hospital records reviewed; admitted with fracture s/p surgery complicated with anemia requiring 3 units prbcs; likely endoleak from previous stent, but did not want intervention multiple lung masses thought to be metastatic breast cancer vs primary lung; no work up wanted she reports pain in controlled; bowels moving now Labs Saturday x 2 weeks. [email or web address] Not available 01/18/2025 18:21:29 01/28/2025 [id number] tx with augmenti n and albuterol x 5 days. [email or web address] Not available 01/28/2025 11:19:19 Reason for Referral None Reported. Problems Name Problem SNOMED Code Status Onset Date Resolution Date Notes Provider Name and Address Organization Details Recorded Time Ligation of left fallopian tube Active 2019 Tubalig ation; 020 8:20AM by Nadja Byrd, Office Visit; Promote d; acuity set as *; Not Available [facility] 3 03:10:46 History of aortic valve repair 758035937802 105 Active 2019 Aortic dissect ion/jamarcus ve replace ment; 020 8:20AM by Nadja Byrd, Office Visit; Promote d; acuity set as *; Not Available [facility] 3 03:10:46 Benign hypertensi on 90763099 Active 2019 HTN; 020 8:20AM by Nadja Byrd, Office Visit; Promote d; acuity set as *; Not Available [facility] 3 03:10:46 Bronchitis 15548368 [facility] 11:18:45 Acute sinusitis 81785672 Active 2024 [facility] 11:18:46 Problem Notes None recorded. Medical Equipment None Reported. Medications Name Sig Start Date Stop Date Status Note LastModified by Organization Details LastModified Time lovastati n 20 mg tablet daily 2018 active CS/smf; 96987; Recorded 02/17/20 9:03AM by Nadja Byrd (Authori chuyita through Emanuel Reyes DO), Office Visit; Refill Quantity : 180; Tablet; Not Available Not Available Not Available nitrofura ntoin monohydra te/macroc rystals 100 mg capsule TAKE 1 CAPSULE BY MOUTH ONCE DAILY IN THE MORNING AND 1CAPSULE BY MOUTH IN THE EVENING FOR 5 DAYS 01/18 completed Not Available Not Available Not Available aspirin daily active 0; Recorded 03/23/20 8:20AM by Nadja Byrd, Office Visit; Not Available Not Available Not Available Cipro two times daily 2019 active CS/sk; Recorded 05/09/20 3:45PM by Nadja Byrd, Historic al Summary; Refill Quantity : 0; Not Available Not Available Not Available Diltiazem HCL ER daily active [facility]; to replace amlodipi ne; 0; Recorded 03/23/20 10:13AM by Nadja Byrd, Office Visit; Not Available Not Available Not Available Vitals Date Recorded Heart rate Respiratory rate Body temperature Oxygen saturation Systolic And Diastolic Provider Name and Address Organization Details Last Updated DateTime 5 68 /min 18 /min 98.5 [degF] 97 % 140/70 mm[Hg] RISSA ALMAGUER [facility] 5 13:45:18 Date Recorded Heart rate Respiratory rate Body temperature Oxygen saturation Systolic And Diastolic Provider Name and Address Organization Details Last Updated DateTime 5 65 /min 18 /min 97.8 [degF] 95 % 132/70 mm[Hg] RISSA ALMAGUER [facility] 5 11:16:50 Social History None recorded. Functional Status None recorded. Mental Status None recorded. Family History Nothing Reported. Medical History No medical history recorded. Gynecological HistoryNo gynecological history recorded. Obstetrics History GPAL:G 0 P 0 0 0 0 Immunizations Vaccine Type Date Status Note Provider Nam e and Address Organization Details Recorded Time Influenza, split virus, trivalent, preservative 3 completed Not Available [facility] 01/28/2025 11:09:37 Influenza, split virus, trivalent, preservative 4 completed Not Available [facility] 01/28/2025 11:09:37 Influenza, high-dose, trivalent, PF 6 completed Not Available [facility] 01/28/2025 11:09:37 Influenza, high-dose, trivalent, PF 7 completed Not Available [facility] 01/28/2025 11:09:37 Influenza, adjuvanted, trivalent, PF 8 completed Not Available [facility] 01/28/2025 11:09:37 Influenza, high-dose, trivalent, PF 9 completed Not Available [facility] 01/28/2025 11:09:37 pneumococcal polysaccharide PPV23 0 completed Not Available [facility] 01/28/2025 11:09:37 Past Encounters Encounter ID Performer Location Encounter Start Date Encounter Closed Date Diagnosis/Indication Diagnosis SNOMED-CT Code Diagnosis ICD10 Code Diagnosis IMO Codes Diagnosis Note [id number] Emanuel Reyes DO 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 8 40811 [id number] [facility] ([facility]) [address] [place] [phone] 01/28/2025 11:09:27 02/10/2025 08:37:31 Bronchitis 65729750 J40 04617 Acute sinusitis 96898671 J01.90 26907337 Health Concerns Section Related Observation LastModified by Organization Detai ls LastModified Time None Recorded Concern Status LastModified by Organization Details LastModified Time None Recorded Advance Directives Directive None Recorded Payers Insurance Date Sequence Insurance Name Policy Number Policy Bridges Covered Member ID Bridges Member ID Guarantor Name 02/10/2025 2 [employer] (MEDICARE SUPPLEMENT) Dayanna L Eckenrode [id number] Dayanna L Eckenrode 01/18/2025 1 *SELF PAY* Be tty L Eckenrode 01/19/2025 [place] - [facility] (MEDICARE) Dayanna L Eckenrode [id number] Dayanna L Eckenrode 01/18/2025 1 [place] [employer] Dayanna L Eckenrode [id number] Dayanna L Eckenrode Notes Date Note Type Note Provider Name and Address Organization Details Recorded Time 5 text/html HypothyroidReported by PatientHPIFor reason for visit, patient reportsgeneral check-up. For duration, patient reports>12 months. For treatment, patient reportstaking medication as prescribed.ROS as noted in the HPI New admit from [facility] [address], [phone], [facility], Rajeev 01/18/2025 18:21:42 5 text/html HypothyroidReported by PatientHPIFor reason for visit, patient reportsgeneral check-up. For duration, patient reports>12 months. For treatment, patient reportstaking medication as prescribed.ROS as noted in the HPI C/o sinus pressure and drainage. Reports ears feels full, productive cough. Emanuel Reyes, DO [address] [place] [address], [phone], [facility] 02/09/2025 18:18:02 OBGyn Episode No OBEpisode recorded.
--- OUTSIDE RECORDS SUMMARY | 2025-06-27 11:29 | XMS_ITS | Encounter Summary ---
Author Organization [facility] Address [address] [place] [address] Care Team Providers Care Track Surfacing Machine Operator Name Role Phone Emanuel Reyes DO Primary Care Provide r Encounter Details Date Type Department Care Team (Latest Contact Info) Description 08/20/2006 Outpatient Historical [facility] Medicine [place] [address] [place] [phone] Destiny Haas, [facility] [address] [phone] Unspecified Essential Hypertension (Primary Dx); Other and Unspecified Hyperlipidemia; Intestinal Disaccharidase Deficiencies and Disaccharide Malabsorption Social History Tobacco Use Types Packs/Day Years Used Date Smoking Tobacco: Never Assessed Comments Unknown Sex and Gender Information Value Date Recorded Sex Assigned at Not on file 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
--- OUTSIDE RECORDS SUMMARY | 2025-06-27 11:29 | XMS_ITS | Encounter Summary ---
Author Organization [facility] Address [address] [place] [address] Care Team Providers Care Payment Collector Name Role Phone Emanuel Reyes DO Primary Care Provide r Encounter Details Date Type Department Care Team (Latest Contact Info) Description 05/02/2005 Outpatient Historical [facility] Cardiac Thoracic Vascular Surg [place] [address] [place] [phone] Ryan Espinosa MD NO ADDRESS ON FILE DISSECTING THORACIC AORTIC ANEUR (CMS/HCC) (Primary Dx); Thoracic aortic aneurysm Social History Tobacco Use Types Packs/Day Years Used Date Smoking Tobacco: Never Assessed Comments Unknown Sex and Gender Information Value Date Recorded Sex Assigned at Not on file Legal Sex Female 3:56 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 Gender Identity Not on file Sexual Orientation Not on file documented as of this encounter Plan of Treatment Not on file documented as of this encounter Visit Diagnoses Diagnosis Dissection of aorta, thoracic (CMS/HCC)- Primary Dissection of aorta, thoracic Thoracic aortic aneurysm Thoracic aneurysm without mention of rupture documented in this encounter Care Teams Payment Collector Relationship Specialty Start Date End Date Emanuel Reyes DO [address] [facility] [address] [place] [address] PCP - General Internal Medicine 03/02/16 documented as of this encounter
--- OUTSIDE RECORDS SUMMARY | 2025-06-27 11:29 | XMS_ITS | Encounter Summary ---
Author Organization [facility] Address [address] [place] [address] Care Team Providers Care Asbestos Removal Supervisor Name Role Phone Emanuel Reyes DO Primary Care Provide r Encounter Details Date Type Department Care Team (Late st Contact Info) Description 05/02/2005 Outpatient Historical [facility] Cardiology- [place] [address] [place] [address] Mike Ulloa MD [address] [address] Social History Tobacco Use Types Packs/Day Years Used Date Smoking Tobacco: Never Assessed Comments Unknown Sex and Gender Information Value Date Recorded Sex Assigned at Not on file 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
--- OUTSIDE RECORDS SUMMARY | 2025-06-27 11:29 | XMS_ITS | CCD ---
Author Name Interface, E0Eglmayy lity Address [place] breakthrough[place] [address] [facility] Address [place] breakthrough[place] [address] Care Team Providers Care Bin Tripper Operator Name Role Phone Yuli MEI, Mickie Jimenez Unavailable Unavailable Luann MEI, Shilpa Carrillo Unavailable Unavailable Fernando Herbert MD Unavailable Unavailable Allergies and Adverse Reactions Medication/Group Name Reaction Severity Date No known allergies Care Plan Date Type Value 03/09/2025 APPOINTMENT 1YR 02/25/2025 APPOINTMENT YULI Blake 12/09/2024 APPOINTMENT 1YR 08/13/2024 APPOINTMENT 6MO FU 08/13/2024 APPOINTMENT 6MO FU 07/09/2024 LAB_ORDER U/S breast, left 08/09/2024 LAB_ORDER Mammogram, diagn ostic, bilateral breast w/ U/S if needed Reason for Visit 1YR Encounters Date Name 08/13/2024 Breast cancer, femal e Functional Status Date Name/Question Score/Answer 04/09/2023 ECOG performance status - grade 3 3 04/01/2023 Karnofsky performance status 40 05/28/2023 Karnofsky performance status 40 02/20/2024 ECOG performance status - grade 3 3 08/13/2024 ECOG performance status - grade 3 3 05/28/2023 ECOG performance status - grade 3 3 Disability Status [CUBS] 03/13/2025 Are you deaf, or do you have ser ious difficulty hearing? No 03/13/2025 Are you blind or do you have serious difficulty seeing, even when wearing glasses? No 03/13/2025 Because of a physica l, mental, or emotional condition, do you have serious difficulty concentrating, remembering, or making decisions? No 03/13/2025 Do you have serious difficulty w alking or climbing stairs? Yes 03/13/2025 Do you have difficulty dressing or bathing? No 03/13/2025 Because of a physica l, mental, or emotional condition, do you have difficulty doing errands alone such as visiting a physician's office or shopping? No Diagnostic Results Date Type Test Units Lower Limit Upper Limit Result Flag Comments Status Ordered By Specimen Source Lab Address 07/13 Ultra sound resul ts See revising clerk miguel a Medications Date Name Route Dose Frequency Instructions Start Date End Date Status Fill Status Indication 04/01 Losarta n Oral active 02/19 Nitrofu rantoin Oral (12 hr Macrocr ystal form) active 04/01 Sertral ine Oral active 04/01 Apixaba n Oral BID active 04/01 Amiodar one Oral active 04/01 Amlodip ine Oral active 04/01 Lovasta tin Oral active 08/20 anastro zole 1 MG Oral Tablet orally 1.0 tablet every day 2024 active Breast cancer, female Problems Diagnosis Status Date of Diagnosis Resolution Date Aortic aneurysm (disorder) Active Osteoarthritis Active Benign essential hypertension (disorder) Active Reduced mobility Active Atrial fibrillation (disorder) Active H/O: CVA Active Breast cancer, female Active Estrogen receptor negative status [ER-] Active Postmenopausal state (finding) Active Postmenopausal osteoporosis (disorder) Active Procedures Date Category Name Instructions Status 07/09/2024 Physician Order U/S breast, left MHTW. Ma ss palpable in the left breast at the 4-5 o'clock position. History of left breast cancer. Due now. Ordered 08/09/2024 Physician Order Mammogram, diagn ostic, bilateral breast w/ U/S if needed MHTW. History of left breast cancer. Due in February 2025. Ordered 08/22/2024 Physician Order RTC EZRA Ordered 02/06/2025 Physician Order RTC EZRA Ordered Social History Date Name Value 02/20/2024 Sex Female Vital Signs Date Type Value 08/13/2024 Body Temperature 97.80 08/13/2024 Heart Beat 61.00 08/13/2024 Respiratory Rate 18.00 08/13/2024 Oxygen Saturation 97.00 08/13/2024 Pain Scale 0.00 08/13/2024 Weight 131.00 08/13/2024 Height 64.00 08/13/2024 BMI 22.49 08/13/2024 BSA 1.63 08/13/2024 Intravascular Systolic 161 08/13/2024 Intravascular Diastolic 55 Notes Section * EZRA HemOnc Follow Up - Yuli <html><head></head><body><div style= text-align:center ><div style= text- align:center ><span class= clinicalNoteMacroHighlighted i d= [id number] macroname= PracticeLetterhead spantype= macro" title= #PracticeLetterhead ><img height= 91 src= [id number] width= 286 ></span>

<span class= clinicalNoteMacroHighlighted id= [id number]" macroname= LocationPrintingName spantype= macro title= #LocationPrint ingName >[facility]</span>
<span class= clinic alNoteMacroHighlighted id= [id number] macroname= LocationAddress& quot; spantype= macro title= #LocationAddress >[address]
[place] [address]</span>
P: <span class= clinicalNoteMacroHigh lighted id= [id number] macroname= LocationPhoneNumber spanty pe= macro title= #LocationPhoneNumber > </span>
F: <span class= clinicalNoteMacroHighlighted id= [id number] mac roname= LocationFaxNumber spantype= macro title= #LocationFaxNumber > </span>
</div><div style= text-align:left >&l t;br>

<strong>PATIENT:</strong> <span class= clinicalNoteM acroHighlighted id= [id number] macroname= PatientName spant ype= macro title= #PatientName VENUS PEREA</span></div><div style= text- align:left ><strong>MRN:</strong> <span class= clinicalNoteMacroHighlighted id= [id number] macroname= PatientMRN" spantype= macro title= #PatientMRN >[id number]</span></div><div style= text- align:left ><strong>:</strong> <span class= clinicalNoteMacroHighlighted id= [id number] macroname= PatientDateOfBirth spantype= macro title= #PatientDateOfBirth >1940</span></div><div style= text- align:left >
</div><div style= text-align:left ><strong>Date of Service</strong>: <span class= clinicalNoteMacroHighlighted id= [id number] macroname= EffectiveDate spantype= macro title= #EffectiveDate >08/13/2024</span>
</div></div><div style= text- align:left >

<span class= clinicalNoteSectionShowSeparators clinicalNoteSectionVisible id= [id number] internalbreaksection= false originalname= Chief Complaint: recog nizeconcepts= true spantype= section suppressempty= false >Chief Complaint:</span>
Ms. 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

<span class= clinicalNoteSectionShowSeparators clinicalNoteSectionVisible id= [id number] internalbreaksection= false originalname= Diagnostic Notes: recognizeconcepts= true spantype= section suppressempty= true >Diagnosis*:</span>
<ul> <li>03/14/2023: Invasive ductal carcinoma of the left breast at 10:00, 6 cm from the nipple, nuclear grade 2-3, estrogen receptor negative 0, progesterone receptor negative 0, HER2 0 by IHC, [id number], Stage llB.
</li> <li>05/10/2023: Invasive ductal carcinoma of the r ight breast at 12:00, 4 cm from the nipple, [place] grade 1, estrogen receptor positive greater than 90%, progesterone receptor negative 0% and HER2 negative 0 by IHC. </li></ul>
<span class= clinicalNoteSectionShowSeparators clinicalNoteSectionVisible id= [id number] internalbreaksection= false originalname= T reatment Notes: recognizeconcepts= true spantype= section suppressempty= true >Treatment History*:</span>
<ul> <li>05/18/2023: Leftbreast ultrasound- guided partial mastectomy and left sentinel lymph node biopsy: Invasive ductal carcinoma, Burton grade 3, surgical margins uninvolved, 5 sentinel sentinel lymph nodes negative for metastatic carcinoma, pT2 pN0(sn), stage llA.</li> <li>08/08/2023- 08/29/2023: Completed adjuvant radiation therapy under the care of Dr. Ryan Herbert for her left breast cancer.
</li> <li>09/25/2023: Initiated daily anastrozole.
</li></ul>
<span class= clinicalNoteSectionShowSeparators clinicalNoteSectionVisible id= [id number] internalbreaksection= false origina lname= History of Present Illness: recognizeconcepts= true spantype= section suppressempty= true >History of Present Illness:</span>
<ul> <li>02/20/2023: Complete ultrasound of the left breast and axilla identified a mass with a spiculated margin in the left breast at 10:00 posterior depth, 6 cm from the nipple correlating as palpated. Also a mass was identified in the left breast at 10:00, most compatible with postop changes from prior heart surgery.
</li> <li>03/14/2023: Bilateral diagnostic mammogram at [facility] that identified a 2.2 cm irregular mass in the left breast at 10:00 posterior depth with benign calcifications in both breasts.
</li> <li>03/14/2023: Ultrasound-guided core needle biopsy identified invasive ductal carcinoma, Burton grade 2-3, estrogen and progesterone receptor negative 0%, HER2 negative 0 by IHC.</li> <li>04/11/2023: PET CT scan [facility] with known left breast mass and focal FDG uptake in the right medial breast.
</li> <li>05/03/2023: Complete ultrasound of the right breast and axilla at [facility]. A 6 mm irregular mass with a non circumscribed margin identified in the right breast at 12:00 posterior depth, 4 cm from the nipple, hypoechoic. No significant abnormalities seen sonographically in the right axilla.
</li> <li>05/10/2023: Ultrasound-guided needle, core biopsy of the mass in the right breast at 12:00: Invasive ductal carcinoma, Burton grade 1, estrogen receptor positive greater than 90%, progesterone receptor negative 0%, HER2 ne gative 0 by IHC.
</li> <li>05/18/2023: Left breast ultrasound-guided partial mastectomy and left sentinel lymph node biopsy with Dr. Shilpa Kong: Invasive ductal carcinoma, [place] grade 3, 3.2 cm in greatest dimension, no definitive lymphovascular invasion, margins of resection negative, 5 sentinel lymph nodes negative for tumor (0/5), pT2 pN0(sn), stage llA.
</li> <li>08/08/2023- 08/29/2023: Completed adjuvant radiation therapyunder the care of Dr. Ryan Herbert for her left breast cancer.
</li> <li>09/25/2023: Initiated daily anastrozole.
</li></ul>
<span class= clinicalNoteSectionShowSeparators clinicalNoteSectionVisible id= [id number] internalbreaksection= false originalname= Interval History: recognizeconcepts= true spantype= section suppressempty= true >Interval History:</span>
Ms. 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 She is accompanied by her son at today's visit. On 07/09/2024, the patient spoke with the remote triage team and reported edema to the left lateral breast, below the nipple, at the 4 to 5 o'clock position. A left breast ultrasound was subsequently ordered. This study was completed on 07/13/2024 at [facility] and identified no suspicious sonographic abnormality to explain the palpable area of concern indicated by the patient. These results were relayed to the patient on 07/17/2024 and she was advised to keep her follow-up appointment scheduled for today. Currently, she states that the left breast mass has moved but has not increased in size. She denies skin changes to the breast, nipple discharge, or nipple inversion. She denies fever, chills, chest pain, shortness of breath, dyspnea on exertion, swelling in her extremities, cough, abdominal pain, bone pain, headaches, weakness orany other focal neurological symptoms.

<span class= clinicalNoteSectionShowSeparators clinicalNoteSectionVisible id= [id number] int ernalbreaksection= false originalname= Chief Complaint: recognizeconcepts=&quo t;true spantype= section suppressempty= true >Past Medical History:&lt ;/span>
<ol> <li>Atrial fibrillation - on Eliquis</li> <li>History of aortic aneurysm status post repair x2</li> <li>Hypertension </li> & lt;li>Osteoarthritis</li> <li>History of stroke</li> <li>History of syncopal episodes</li> <li>Stage llA left breast cancer </li> <li>StagelA right breast cancer</li> <li>Osteoporosis</li></ol>
<span cla ss= clinicalNoteSectionShowSeparators clinicalNoteSectionVisible id= [id number] internalbreaksection= false originalname= Comments for Past Surgical History: recognizeconcepts= true spantype= section suppressempty="true >Past Surgical History*:</span>
<ol> <li>Aortic aneurysm status post repair x2</li> <li>Cholecystectomy </li> <li>Left breastultrasound guided partial mastectomy and right sentinel lymph node biopsy, 05/18/2023</li></ol>
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
Last menstrual period: 45
Menarche: 15
, first at 18
Contraceptive use: Denies
She did breast feed
Hormone Replacement Therapy: For 1 year, not currently taking

<s mayo class= clinicalNoteSectionShowSeparators clinicalNoteSectionVisible id= [id number] internalbreaksection= false originalname= Past Medical/Surgical History: recognizeconcepts= true spantype= section suppressempty="true >Medications:</span>
<span class= clinicalNoteMacroHighlighted id= [id number] macroname= PatientMedications parameters="ListType:Bulleted,ValueIfNull:No Known Medications spantype= macro title= # PatientMedications(ListType:Bulleted,ValueIfNull:No Known Medications) ><ul> <li>Amlodipine Oral 2.5 mg tablet</li> <li>Eliquis (Apixaban Oral) 5 mg tablet BID</li> <li>Losartan Oral 25 mg tablet</li> <li>Anastrozole Oral 1 mg tablet 1 tablet orally every day.</li> <li>Lovastatin Oral 40 mg tablet</li> <li>Nitrofurantoin Oral (12 hr Macrocrystal form)</li> <li>Pacerone (Amiodarone Oral) 100 mg tablet</li> <li>Sertraline Oral 25 mg tablet</li></ul></span>

Medications reviewed and reconciled with patient.

<span class= clinicalNoteSectionShowSeparators clinicalNoteSectionVisible id= [id number] inte rnalbreaksection= false originalname= Allergies: recognizeconcepts= true" spantype= section suppressempty= true >Allergies:</span>
<span class= clinicalNoteMac[facility] id= [id number] macr oname= Allergies parameters= ListType:Bulleted,ValueIfNull:No Known Allergies spantype= macro title= #Allergies(ListType:Bulleted,ValueIfNull:No Known Allergies)">No known medication allergies</span>

<span class= clinicalNoteSectionShowSeparators clinicalNoteSectionVisible id= [id number] internalbreaksection= false originalname= Social History: recognizeconcepts="true spantype= section suppressempty= true >Social History:</span>
Occupation: She is currently retired. She is a and lives with her son and [id number]. Her son accompanies her today.
Tobacco use: Never smoker
Alcohol: Denies
Illicit drug use: Denies

<span class= cl inicalNoteSectionShowSeparators clinicalNoteSectionVisible id= [id number]" internalbreaksection= false originalname= Comments for Family History: recognizeconcepts= true spantype= section suppressempty= true >Family History*:</span>
Non- contributory

<span class= clinicalNoteSectionShowSeparators clinicalNoteSectionVisible id= [id number] internalbreaksection= false originalname= ROS: recognizeconcepts= true" spantype= section suppressempty= true >ROS:</span>
GENERAL: No fatigue, weight changes, fevers, chills, [...] stool, difficulty swallowing, or recent changes in bowelpatterns.
GENITOURINARY: No urgency, frequency, urinary incontinence, painful urination, blood in urine, or lack of urine.
MUSCULOSKELETAL: No joint pain, limitation of motion, muscle cramps, or weakness. No neck pain, stiffness, or tenderness.
SKIN: Norash, lesions, itching, changes in moles.
BREASTS: <strong>Positive for left breast lump. </strong> No pain, swelling, tenderness, skin or nipple changes, or nipple discharge.
NEUROLOGIC: No headaches, weakness, numbness, vision changes, gait or coordination abnormalities, or other focal neurological symptoms.
PSYCHIATRIC: No anxiety, depression.
ENDOCRINE: No diabetes, anemia, or thyroid problems.
HEME/LYMPH: No easy bruising, bleeding. No enlarged lymph nodes.
ALLERGY/IMMUNOLOGY: No history of serious allergies or recurrent infections.

<span class= clinicalNoteSectionShowSeparators clinicalNoteSectionVisible id= [id number] internalbreaksection= false" originalname= Physical Examination: recognizeconcepts= true spantype="section suppressempty= true >Vitals:</span>
<span class=&quot ;clinicalNoteMacroHighlighted id= [id number] macroname= PatientHei ght parameters= Label:Height:,LookBackDays:0,ValueIfNull:None Today spantype= macro title= #PatientHeight(Label:Height:,LookBackDays:0,ValueIfNull:None Today) >Height: 64 in</span>; <span class= clinicalNoteMacroHighlighted id= [id number] macroname= PatientWeight parameters= Label:Weight:,LookBackDays:0,ValueIfNull:None Today spantype= macro title= #PatientWeight(Label:Weight: ,LookBackDays:0,ValueIfNull:None Today) >Weight: 131 lb</span>; <span class= c linicalNoteMacroHighlighted id= [id number] macroname= PatientVital Signs parameters= LookBackDays:0,Verbosity:Medium spantype= macro title= #PatientVitalSigns(LookBackDays:0,Verbosity:Medium) >Blood pressure: 161/55, Pulse: 61, Temperature: 97.8 F, Respirations: 18, Pain Scale: 0</span>

<span class= clinicalNoteMacroHighlighted id= [id number] macroname= KarnofskyStatus parameters= Label:Karnofsky:,ValueIfNull:Not Assessed,Verbosity:Medium spantype= macro title= #KarnofskyStatus(Label:Karnofsky:,ValueIfNull:Not Assessed,Verbosity:Medium) >Karnofsky: 40% (Date: 05/28/2023)</span>

<span class= clinicalNoteSectionShowSeparators clinicalNoteSectionVisible id= [id number] internalbreaksection= false originalname= Comments for Physical Exam: recognizeconcepts= true spantype= section suppressempty= true >Physical Exam:</span>
GENERAL: Patient is comfortable sitting in her wheelchair. No acute distress.
EYES: Conjunctiva and eyelids appear normal. Sclerae anicteric.
NECK: Supple, trachea mid-line.
RESPIRATORY: Clear to auscultation bilaterally with normal respiratory effort.
CARDIOVASCULAR: RRR, normal S1, S2.
ABDOMEN: Soft, non-tender.
MUSCULOSKELETAL: Full range of motion throughout.
SKIN: No lesions or rashes appreciated.
NEURO: Grossly non-focal motor and sensory exam.
PSYCH: Alert and oriented x 3. Normal mood and affect.
LYMPH NODES: Examination focused on breast regional nikos basins. Right: No supraclavicular, infraclavicular, or axillary adenopathy appreciated. Left: No supraclavicular, infraclavicular, or axillary adenopathy appreciated.
CHEST (BREASTS): Exam was conducted in the sitting and supine position with the arm raising maneuver. The patient has a well-healed surgical scar on the left breast. There is a freely mobile mass appreciated at the 2 o'clock position of the left breast, measuring approximately 4 cm in size. There are no dominant suspicious masses appreciated in the right breast. There are no suspicious skin lesions. There is no nipple ulceration or inversion noted bilaterally.

<span class= clinicalNoteSectionShowSeparators clinicalNoteSectionVisible id= [id number] internalbrea ksection= false originalname= Labs: recognizeconcepts= true spantyp e= section suppressempty= true >Labs:</span>
<span class=& quot;clinicalNoteMacroHighlighted id= [id number] macroname= Recent LabResultsTable spantype= macro title= #RecentLabResultsTable ><table border= 1 style= width:100% > <tbody> <tr> <th align="left >Lab Results</th> <td>03/31/2024</td> <td>05/18/2023</td> <td>05/13/2023</td> <td>05/10/2023</td> <td>04/11/2023</td> <td>04/01/2023</td> </tr> <tr> <th align= left > CBC</th> <td>
</td> <td>
</td> <td>
</td> <td>
</td> <td>
</td> <td>
</td> </tr> <tr> <td> WBC x 10^3/uL</td> <td>
</td> <td>
</td> <td>
</td> <td>
</td> <td>
</td> <td>3.5 (L)</td> </tr> <tr> <td> RBC x 10^6/uL</td> <td>
</td> <td>
</td> <td>
</td> <td>
</td> <td>
</td> <td>3.50 (L)</td> </tr> <tr> <td> NRBC, absolute, x 10^3/uL</td> <td>
</td> <td>
</td> <td>
</td> <td>
</td> <td>
</td> <td>0.00</td> </tr> <tr> <td> NRBC % /100 wbc</td> <td>
</td> <td>
</td> <td>
</td> <td>
</td> <td>
</td> <td>0.00</td> </tr> <tr> <td> HGB g/dL</td> <td>
</td> <td>
</td> <td>
</td> <td>
</td> <td>
</td> <td>11.7 (L)</td> </tr> <tr> <td> HCT %</td> <td>
</td> <td>
</td> <td>
</td> <td>
</td> <td>
</td> <td>33.7 (L)</td> </tr> <tr> <td&g t; MCV fL</td> <td>
</td> <td>
</td> <td>
</td> <td>
</td> <td>
</td> <td>96</td> </tr> <tr> <td> &nbs p; MCH pg</td> <td>
</td> <td>
</td> <td>
</td> <td>
</td> <td>
</td> <td>33.4 (H)</td> </tr> <tr> <td> &a mp;nbsp;MCHC g/dL</td> <td>
</td> <td>
</td> <td>
</td> <td>
</td> <td>
</td> <td>34.7</td> </tr> <tr> <td> RDW %</td> <td>
</td> <td>
</td> <td>
</td> <td>
</td> <td>
</td> <td>12.9</td> </tr> <tr> <td> PLT x 10^3/uL</td> <td>
</td> <td>
</td> <td>
</td> <td>
</td> <td>
</td> <td>115 (L)</td> </tr> <tr> <td> MPV fL</td> <td>
</td> <td>
</td> <td>
</td> <td>
</td> <td>
</td> <td>9.2 (L)</td> </tr> <tr> <td> Flores %</td> <td>
</td> <td>
</td> <td>
</td> <td>
</td><td>
</td> <td>56.9</td> </tr> <tr> <td> LY %</td> <td>
</td> <td>
</td> <td>
</td> <td>
</td> <td>
</td> <td>26.4</td> </tr> <tr> <td> MO %</td> <td>
</td> <td>
</td> <td>
</td> <td>
</td> <td>
</td> <td>13.5 (H)</td> </tr> <tr> <td> EO %</td> <td>
</td> <td>
</td> <td>
</td> <td>
</td> <td>
</td> <td>2.6</td> </tr> <tr> <td> IG %</td> <td>
</td> <td>
</td> <td>
</td> <td>
</td> <td>
</td> <td>0.3</td> </tr> <tr> <td> Flores # (ANC) x 10^3/uL</td> <td>
</td> <td>
</td> <td>
</td> <td>
</td> <td>
</td> <td>2.0</td> </tr> <tr> <td> BA %</td> <td>
</td><td>
</td> <td>
</td> <td>
</td> <td>
</td> <td>0.3</td> </tr> <tr> <td> MO # x 10^3/uL</td> <td>
</td> <td>
</td> <td>
</td> <td>
</td> <td>
</td> <td>0.5</td> </tr> <tr> <td> EO # x 10^3/uL</td> <td>
</td> <td>
& lt;/td> <td>
</td> <td>
</td> <td>
</td> <td>0.1</td> </tr> <tr> <td> BA # x 10^3/uL</td> <td>
</td> <td>
</td><td>
</td> <td>
</td> <td>
</td> <td>0.0</td> </tr> <tr> <td> IG# x 10^3/uL</td> <td>
</td> <td>
</td> <td>
</td> <td>
</td> <td>
</td> <td>0.01</td> </tr> <tr> <td> LY # x 10^3/uL</td> <td>
</td> <td>
</td> <td>
</td> <td>
</td> <td>
</td> <td>0.9 (L)</td> </tr> <tr> <th align= left > Chemistries</th> <td>
</td> <td>
</td> <td>
</td> <td>
</td> <td>
</td> <td>
</td> </tr> <tr> <td> Glucose mg/dL</td> <td>
</td> <td>
</td> <td>
</td> <td>
</td> <td>
</td> <td>94</td> </tr> <tr> <td> BUN mg/dL</td> <td>
</td> <td>
</td> <td>
</td> <td>
</td> <td>
</td> <td>16</td> </tr> <tr> &l t;td> Creatinine mg/dL</td> <td>
</td> <td>
</td> <td>
</td> <td>
</td> <td>
</td> <td>0.9</td> </tr> <tr> <td>& amp;nbsp; BUN/Creatinine ratio</td> <td>
</td> <td>
</td> <td>
</td> <td>
</td> <td>
</td> <td>17.78</td> </tr> <tr> <td> Sodium mmol/L</td> <td>
</td> <td>
</td> <td>
</td> <td>
</td> <td>
</td> <td>131 (L)</td> </tr> <tr> <td> Potassium mmol/L</td> <td>
</td> <td>
</td> <td>
</td> <td>
</td> <td>
</td> <td>4.4</td> </tr> <tr> <td> Chloride mmol/L</td> <td>
</td> <td>
</td> <td>
</td> <td>
</td> <td>
</td> <td>97</td> </tr> <tr> <td> CO2 mmol/L</td> <td>
</td> <td>
</td> < td>
</td> <td>
</td> <td>
</td> <td>29</td> </tr> <tr> <td> Calciummg/dL</td> <td>
</td> <td>
</td> <td>
</td> <td>
</td> <td>
</td> <td>8.9</td> </tr> <tr> <td> Albumin g/dL</td> <td>
</td> <td>
</td> <td>
</td> <td>
</td> <td>
</td> <td>3.6</td> </tr> <tr> <td> Total protein g/dL</td> <td>
</td> <td>
</td> <td>
</td> <td>
</td> <td>
</td> <td>7.3</td> </tr> <tr> <td> Bilirubin, total mg/dL</td> <td>
</td> <td>
</td> <td>
</td> <td>
</td> <td>
</td> <td>0.9</td> </tr> <tr> <td> Alkaline phosphatase U/L</td> <td>
</td> <td>
</td> <td>
</td> <td>
</td> <td>
</td> <td>71</td> </tr> < tr> <td> AST/SGOT U/L</td> <td>
</td> <td>
</td> <td>
</td> <td>
</td> <td>
</td> <td>28</td> </tr> <tr> <td& gt; ALT/SGPT U/L</td> <td>
</td><td>
</td> <td>
</td> <td>
</td> <td>
</td> <td>20</td> </tr> <tr> <th align= left > Immunology</th> <td>
</td> <td>
</td> <td>
</td> <td>
</td> <td>
</td> <td>
</td> </tr> <tr> <td> Hepatitis Be antibody, qual</td> <td>
</td> &lt ;td>
</td> <td>
</td> <td>
</td> <td>
</td> <td>NONREACTIVE</td> </tr> <tr> <td> Hepatitis Be antigen</td> <td>
</td> <td>
</td> <td>
</td> <td>
</td> <td>
</td> <td>NONREACTIVE</td> </tr> <tr> <th align = left > Pathology/Cytology</th> <td>
</td> <td>
</td> <td>
</td> <td>
</td> <td>
</td> <td>
</td> </tr> <tr> <td&g t; Pathology report</td> <td>See attached</td> <td>See attached; See attached</td> <td>
</td> <td>See attached; See attached</td> <td>
</td> <td>
</td> </tr> <tr> <th align= left > Lab - Other</th> <td>
</td> <td>
</td> <td>
</td> <td>
</td> <td>
</td> <td>
</td> </tr> <tr> <td> Lab Report</td> <td>
</td> <td>See attached</td> <td>See attached; See attached</td> <td>
</td> <td>See attached</td> <td>
</td> </tr> </tbody></table></span>
<span class= clinicalNoteSectionShowSeparators clinicalNoteSectionVisible id= [id number] in ternalbreaksection= false originalname= Imaging: recognizeconcepts= true" spantype= section suppressempty= true >Imaging:</span>
02/20/2023, Left breast complete ultrasound:
IMPRESSION: HIGHLY SUGGESTIVE OF MALIGNANCY&lt ;br>There is a mass with a spiculated margin in the left breast at 10 o'clock posterior depth 6 cm from the nipple. This mass is hypoechoic. This correlates as palpated. Findings are highly suggestive of malignancy. There also is an echogenic mass in the left breast at 10 o'clock posterior depth 10 cm from the nipple, most compatible with post op changes from open heart surgery. For com pleteness, mammogram of both breasts is advised. (Pt reports is has been a long time since last mammogram. No mammogram performed or contralateral ultrasound performed per policy; as no order was available from referring physician.)
BI-RADS 4/5
Ultrasound BI-RADS: 5Highly suggestive of malignancy

03/14/2023, Bilateral diagnostic mammogram:
IMPRESSION: HIGHLY SUGGESTIVE OF MALIGNANCY
A 2.2 cm irregular mass in the left [id number] o'clock posterior depth is highly suggestive of malignancy.

BI-RADS 4/5 Mammogram
BI-RADS: 5 Highly suggestive of malignancy

04/11/2023: PET CT scan at [facility].
IMPRESSION: 1. FDG avid mass in the left breast, representing the patient's biopsy- proven left breast cancer. 2. No definite suspicious FDG avid left sided lymphadenopathy identified, 3. Focal FDG uptake in the right internal mammary/right anterior costochondral junction region, which is indeterminant. No corresponding soft tissue nodule seen on CT imaging. This focal FDG uptake could be post- traumatic/secondary to underlying fracture or degenerative. Possibility of an FDG avid small metastatic right internal mammary lymph node isnot excluded. A dedicated CT of the chest with contrast or right breast/[place] ultrasound can be performed for further evaluation. Extremely close attention on follow-up studies is also recommended. 4. No findings of FDG avid metastatic disease in the abdomen or pelvis. 5. Multiple areas of FDG uptake associated with the patient's extensive thoracic aortic aneurysm repair are likely postsurgical or possibly inflammatory. Correlate clinically.

05/03/2023: Ultrasound of the Right Breast and Axilla at [facility].
IMPRESSION: SUSPICIOUS OF MALIGNANCY RECOMMENDATION: The 6 mm irregular mass in the right breast is at a moderate suspicion for malignancy. An ultrasound guided biopsy is recommended. There is no suspicious finding in the right internal mammary [place] to correlate with recent PET CT finding in this region.

09/03/2023: DEXA scan at [facility].
IMPRESSION: OSTEOPOROSIS
Patient is at high risk for fracture.

The NOF recommends that FDA-approved medical therapies be considered in post- menopausal women and
men age>1= 50 years with a:
* Hip or vertebral fracture, or
* 1- score of <1= - 2.5 (osteoporosis) at the spine or hip, or
* Ten-year fracture probability by FRAX of:
* >I= 20% for major osteoporotic fractures or
* >1= 3% for hip fractures

02/24/2024: Bilateral diagnostic mammogram at [facility]: IMPRESSION: KNOWN- BIOPSY- PROVEN MALIGNANCY.
Interval postsurgical changes of left lumpe ctomy. A core biopsy marker in the right breast at the 12:00 axis, middle depth marking the site ofinvasive carcinoma of the right breast.

02/24/2024: Ultrasound of the bilateral breast at [facility]: IMPRESSION: SUSPICIOUS
No significant change in a 6 mm mass in the right breast at the 12 o'clock axis, consistent with the known area of malignancy. The 1.4 cm mass in the left breast at 2 o'clock is suspicious of malignancy. An ultrasound guided biopsy is recommended.

07/13/2024: Left breast ultrasound at [facility]: IMPRESSION: BIRADS-2 Benign. No suspicious sonographic abnormality to explain the palpable area of concern.

<span class= clinicalNoteSectionShowSeparators clinicalNoteSectionVisible id= [id number] internalbreaksection= false originalname= Pathology: recognizeconcepts= true spantype= section suppressempty= true >Pathology:</span>
03/14/2023, [facility], Pathology report:
Diagnosis
Left breast at 10:00, 6 cm from the nipple, ultrasound-guided core needle biopsy:
-INVASIVE DUCTAL CARCINOMA, NUCLEAR GRADE 2-3. See note.

Addendum Diagnosis
Left breast at 10:00, 6 cm from the nipple, ultrasound-guided core needle biopsy:
- Estrogen receptor negative, progesterone receptor negative, HER2 negative by paraffin section immunohistochemistry (see predictive markers and blomarker reporting template)

PREDICTIVE MARKERS:
RESULTS:
ESTROGEN RECEPTOR:
Intensity score 0 Proportion score 0 Total score0
PROGESTERONE RECEPTOR:
Intensity score 0 Proportion score 0 Total score 0
HER2 IMMUNOHISTOCHEMISTRY:
Score 0: Membrane staining that is incomplete and is faint/barely perceptible and within <10% of tumor cells.

BREAST BIOMARKER REPORTING TEMPLATE:
RESULTS

Estrogen Receptor
Negative
Internal control cells are present and stain as expected

Progestero ne Receptor
Negative
Internal control cells are present and s tain as expected

HER2 negative

05/10/2023: Pathology at [facility].
Diagnosis Breast, right, 12 o'clock - 4 cm from the nipple, ultrasound guided needle core biopsy: - INVASIVE DUCTAL CARCINOMA, NUCLEAR GRADE 1, BURTON GRADE 1

05/10/2023: Addendum
Addendum Diagnosis Breast, right, 12 o'clock - 4 cm from the nipple, ultrasound-guided needle core biopsy: - Estrogen receptor positive, progesterone receptor negative, HER2 negative by paraffin section immunohistochemistry

Addendum Report
Estrogen receptor positive greater than 90%
Progesteronereceptor negative 0
HER2 negative 0%,

03/31/2024: Ultrasound-guided core needle biopsy of the left breast: Breast, left, 2 o'clock position 4 cm from nipple, ultrasound-guided core needle biopsy:
-Breast parenchyma with stromal fibrosis and fat necrosis
-Focal microcalcifications associated with benign breast
elements
-Negative for atypia and malignancy

<span class= clinicalNoteSectionShowSeparators clinicalNoteSectionVisible id= [id number] internalbreaksection= false originalname= Problem List: recognizeconcepts= true" spantype= section suppressempty= true >Problem List:</span>
<span class= clinicalNoteMacroHighlighted id= [id number] macr oname= Problems parameters= InitialCap:Yes,ListType:Bulleted,[id number]:Yes,Verbosity:Medium spantype= macro title= #Problems(InitialCap:Yes,ListType:Bulleted,Show ICD10:Yes,Verbosity:Medium) ><ul> <li>Breast cancer, female ( ICD-10:C50.212 ;Ma lignant neoplasm of upper-inner quadrant of left female breast )</li> <li>Aortic aneurysm (disorder)</li> <li>Atrial fibrillation (disorder)</li> <li>Benign essential hypertension (disorder)</li> <li>Estrogen receptor negative status [ER-] ( ICD-10:Z17.1 ;Estrogen receptor negative status [ER-] )</li> <li>H/O: CVA</li> <li>Osteoarthritis</li> <li>Postmenopausal osteoporosis (disorder)</li> <li>Postmenopausal state (finding) ( ICD-10:Z78.0 ;Asymptomatic menopausal state )</li> <li>Reduced mobility</li></ul></span>
<span class= clinicalNoteSectionShowSeparators clinicalNoteSectionVisible id= [id number] internalbreaksection= false originalname= Assessment/Plan: recognizeconcepts= true spantype= section suppressempty= true >Impression:</span>
Ms. 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 05/18/2023: Left breast ultrasound-guided partial mastectomy and left sentinel lymph node biopsy: Invasive ductal carcinoma, Burton grade 3, surgical margins uninvolved, 5 sentinel sentinel lymph nodes negative for metastaticcarcinoma, pT2 pN0(sn), stage llA. 08/08/2023- 08/29/2023: Completed adjuvant radiation therapy under the care of Dr. Ryan Herbert for her left breast cancer. 09/25/2023: Initiated daily anastrozole.

<div style= text-align:left ><span class= clinicalNoteSectionShowSeparators clinicalNoteSectionVisible id= se [id number] internalbreaksection= false originalname= Plan: recognizeconcepts= true spantype= section suppressempty= true >Pl an:</span>
<ol> <li>Left breast cancer: Clinically, there is no current c oncern for new or recurrent breast cancer at today's visit. She completed a diagnostic mammogram and ultrasound of the bilateral breast on 02/24/2024 at [facility]. Therewas no significant change in the 6 mm mass in the right breast at the 12:00 axis, consistent with the known area of malignancy. There was a 1.4 cm hypoechoic mass in the left breast at the 2 o'clock position, 4 cm from the nipple. The patient proceeded with an ultrasound-guided core needle biopsy to the left breast on 03/31/2024, which revealed stromal fibrosis, fat necrosis, and focal microcalcifications associated with benign breast elements. Overall, negative for atypia or malignancy. She reported left lateral breast lump on 07/09/2024 and proceeded with a repeat left breast ultrasound on 07/13/2024. No suspicious sonographic abnormality identified to explain the palpable area of concern. Today, there is a freely mobile mass appreciated at the 2 o'clock position of the left breast, measuring approximately 4 cm in size - <u>this correlates to recent ultrasound results, which identified a previously biopsied mass containing a clip in the left breast at 2:00, suggestive of stromal fibrosis and fat necrosis.</u> She will continue daily anastrozole and routine surveillance visits.</li> <li>Bone health: <span style= backgrou nd:url( [email or web address] ) left bottom repeat-x; border:none; box-sizing:border-box; cursor:auto >Vedala</span> has placed the patient on monthly Boniva + calcium for osteoporosis management. Continue management with <span style= background:url( /[email or web address] ) left bottom repeat- x; border:none; box-sizing:border-box; cursor:auto >Vedala</span>.
</li> <li>Disposition: Diagnostic mammogram of the bilateral breast ordered today, for completion in February 2025. She will return here in 6 months for follow-up. She was instructed in the meantime to call with any questions or concerns prior to her return visit.</li></ol>
<div style= text-align:left ><span class= clinicalNoteSectionShowSeparators clinicalNoteSectionVisible id= [id number] internalbreaksection= false originalname= . recognizeconcepts= true spantype= section suppressempty= false >.</span>

<span class= clinicalNoteMacroHighlighted id= [id number] macroname= MyName spantype= macro title= #MyName >Michael Parry (BEHAVIORAL SPECIALIST) DNP, TEXTILE DYER,WOOD MECHANIST-BC, AOCNP</span>

<span class= clinicalNoteMacroHighlighted id= [id number] macroname= NoteRecipients spantype="macro title= #NoteRecipients ></span>
<span class= clini calNoteSectionShowSeparators clinicalNoteSectionVisible id= [id number]" internalbreaksection= false originalname= Send copy of note to: recognizeconcepts= true spantype= section suppressempty= true >Send copy of note to:</span>
Dr. Rody Knight

</div></div></div>

<div><span class= eSignSignature >Electronically signed by Michael Parry (BEHAVIORAL SPECIALIST) DNP, TEXTILE DYER, WOOD MECHANIST-BC, AOCNP 08/13/2024 11:52 DERMATOLOGIST
Reviewed and electronically signed by Mickie Portillo MD 08/13/2024 12:06 DERMATOLOGIST</span></div></body></html>
--- OUTSIDE RECORDS SUMMARY | 2025-06-27 11:29 | XMS_ITS | Encounter Summary ---
Author Organization [facility] Address [address] [place] [address] Care Team Providers Care Porcelain Enameler Name Role Phone Emanuel Reyes DO Primary Care Provide r Encounter Details Date Type Department Care Team (Latest Contact Info) Description 06/26/2004 Outpatient Historical [facility] [place] [address] [phone] Blessing Eng MD [address] [place] [phone] HYPERTENSION NOS (Primary Dx) Social History Tobacco Use Types Packs/Day Years Used Date Smoking Tobacco: Never Assessed Comments Unknown Sex and Gender Information Value Date Recorded Sex Assigned at Not on file Legal Sex 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
--- NOTE | 2025-06-27 11:32 | XRR_ITS ---
PROCEDURE INFORMATION: Exam: XR Chest Exam date and time: 06/27/2025 11:46 AM Age: 85 years old Clinical indication: Other: Palpitations; Prior surgery; Surgery date: 6+ months; Surgery type: Cabg, avr. Aortic graft TECHNIQUE: Imaging protocol: Radiologic exam of the chest. Views: 1 view. COMPARISON: CR XR chest 1V portable [id number] 06/17/2025 2:45 PM FINDINGS: Lungs: The lungs are hyperinflated. There are nodular opacities involving both lungs. Findings similar to that seen on prior exam. There are bibasilar opacities worse on the right than on the left. Findings may reflect layering pleural fluid, atelectasis, pneumonia or a combination. Pleural spaces: Suspect bilateral pleural effusions larger on the right. Heart/Mediastinum: The heart is enlarged. Sternal wires are present from prior cardiac surgery. There is a stent graft within the aorta. Bones/joints: Unremarkable. XR/XR chest 1V portable [id number] IMPRESSION: 1. Lung hyperinflation with bibasilar opacities worse on today's exam. 2. Bilateral lung nodules similar to that seen on prior exam.
--- NOTE | 2025-06-27 11:34 | ECG_ITS ---
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
--- NOTE | 2025-06-27 11:45 | W.ED.ARRPALP ---
Documented by User: ADRIANNE Hale 06/27/25 13:23 HPI - Arrhythmia/Palpitations General: Chief Complaint: Arrhythmia/Palpitations Stated Complaint: High HR D can't keep anything down History of Present Illness: Patient is a pleasant 85-year-old female with history of breast cancer, atrial fibrillation on amiodarone, presents to the emergency room with palpitations, and ongoing diarrhea. Context: Patient was here on 06/17 with A-fib with RVR, with complaints of diarrhea for the last few days. She states that she had diarrhea x 3 today, and has ongoing diarrheal issues. She is not throwing up, however she does have ongoing nausea and feels like she cannot keep anything down. She said softly yes to taking her amiodarone today, however was slow to respond. No dysuria. No fevers. She has had this ongoing since before the 06/17 date. She states her symptoms are waxing, and waning. No abdominal pain other than cramping. She is passing gas. Onset (ago): week(s) (2) Associated symptoms: Deny anxiety, nausea or vomiting Related Data Home Medications ?Medication ?Instructions ?Recorded ?Confirmed potassium chloride 20 mEq 20 meq PO DAILY 06/27/25 06/27/25 tablet,extended release Previous Rx's ?Medication ?Instructions ?Recorded amiodarone 100 mg tablet 100 mg PO DAILY #90 tabs 01/01/25 anastrozole 1 mg tablet 1 mg PO DAILY #90 tabs 03/30/25 sertraline 25 mg tablet 25 mg PO DAILY #90 tabs 03/30/25 bumetanide 1 mg tablet 1 mg PO DAILY PRN edema #90 tabs 05/19/25 Allergies Allergy/AdvReac Type Severity Reaction Status Date / Time No Known Allergies Allergy Verified 06/27/25 11:34 Review of Systems General: Reports: 10 or more systems reviewed and unremarkable except in HPI and below Const: Denies: fever(s), chills or body aches Card: Denies: chest pain or orthopnea Resp: Denies: dyspnea, productive cough or wheezing GI: Denies: abdominal pain, nausea or vomiting : Denies: flank pain or difficulty voiding Musc: Denies: neck pain or back pain Skin/Breast: Denies: changes in skin color or dry skin Neuro: Denies: numbness in extremities or weakness in extremities Psych: Denies: anxiety Parag/Lymph: Denies: easy bruising or easy bleeding PFSH ED PFSH: Medical History (Updated 06/27/25 @ 13:52 by AVIS Vann, MAGNETIC RESONANCE IMAGING COORDINATOR) Invasive ductal carcinoma of left breast Underwent lumpectomy and radiation. ER positive. History of CVA (cerebrovascular accident) Dissecting AAA (abdominal aortic aneurysm) Syncope Prolonged QT interval Callaway to be related to bradycardia. Resolved Sinus bradycardia Moderate aortic regurgitation Chronic heart failure with preserved ejection fraction (HFpEF) Hypertension Surgical History S/P insertion of endovascular thoracic aortic stent graft History of lumpectomy left History of cholecystectomy History of heart valve replacement Hx of aortic aneurysm repair Stent placement after thoracic aortic aneurysm leakage, [facility] Dr. Ulloa Aneurysm repair x3 Family History Other CAD (coronary artery disease) Social History Smoking and tobacco/nicotine status: never used tobacco/nicotine Alcohol intake: former Year of sobriety/quit date alcohol: 2020 Former alcohol use details: Drink a glass of wine daily for 59 years. was a drinker Substance/Drug Use: never Additional social history: She is . She has a friend that lives with her Mimi Oldenburg. Patient wants DNR as discussed with Moises Doan MD on 01/03/2025. Patient states she is not sure she would want biopsy of her lung nodules to look for cancer. She thinks she would not want to pursue treatment again. She states she is not afraid to . 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[employer] Physical Exam Const: COMMON NORMALS: patient oriented x3 HENMT: COMMON NORMALS: normocephalic and atraumatic HEAD & SCALP: normocephalic and atraumatic Neck/C-Spine: COMMON NORMALS: full ROM and supple Chest: COMMONS NORMALS: normal inspection of the chest Resp: COMMON NORMALS: normal respiratory effort, No retractions, No use of accessory muscles and clear to auscultation bilaterally AUSCULTATION: clear to auscultation bilaterally Cardio: COMMON NORMALS: No murmurs present (Cardio) RATE: tachycardic RHYTHM: abnormal rhythm irregularly irregular GI: COMMON NORMALS: Normal to inspection, nondistended, normoactive bowel sounds present, Soft to palpation, non-tender and no masses PALPATION: Yes Soft to palpation Extremity: COMMON NORMALS: normal to inspection and full ROM Neuro: COMMON NORMALS: patient oriented x3, moves all extremities and no focal motor deficits Psych: COMMON NORMALS: mental status grossly normal, Normal thought process present and cooperative THOUGHT PROCESS: Normal thought process present Skin: COMMON NORMALS: no rashes or lesions noted and no wounds GENERAL SKIN EXAM: no rashes or lesions noted Course Vital Signs: Vital signs: Vital Signs Temperature 97.6 F 06/27/25 11:29 Pulse Rate 110 H 06/27/25 15:18 Respiratory Rate 23 H 06/27/25 14:25 Blood Pressure 129/80 06/27/25 15:18 Pulse Oximetry 94 06/27/25 15:18 Oxygen Delivery Me thod Room Air 06/27/25 15:26 MDM - Arrhythmia/Palpitations Medical Decision Making Patient is a 85-year-old female with history of aortic aneurysm repair in 2005 and redo in 2017, A-fib, not on AC, on amiodarone, noncompliant, admits that she did not in fact take her medication today, breast cancer, presents to the emergency room due to not being able to keep anything down that is further defined as no emesis, however nausea and diarrhea is present. She has had 3 stools today. The last [address] here. C. difficile is pending although she does not have leukocytosis or neutrophilia. Oddly, she does have thrombocytopenia with her lowest platelets today noted at 62. She also has corresponding INR of 2.5. Creatinine is elevated at 1.4 with her baseline 1-1.1. CO2 is 18, most likely from volume loss. I discussed with the hospitalist, Dr. Ramirez, that accepted admission to CSU. She has been loaded on amiodarone 150 mg, and placed on titration drip. C. difficile is back is positive. Vancomycin p.o. added. Urinalysis is still pending Medical Records I reviewed the patient's medical records. Lab Data I reviewed the patient's lab results. 06/27/25 11:39 06/27/25 11:39 Radiology Impressions Chest X-Ray 06/27/25 11:32 IMPRESSION: 1. Lung hyperinflation with bibasilar opacities worse on today's exam. 2. Bilateral lung nodules similar to that seen on prior exam. Laboratory Results WBC 6.53 10^3/uL (3.29-11.43) 06/27/25 11:39 RBC 2.73 10^6/uL (3.85-5.65) L 06/27/25 11:39 Hgb 10.30 g/dL (11.27-16.99) L 06/27/25 11:39 Hct 30.9 % (36-47) L 06/27/25 11:39 MCV 113.2 fl (85-98) H 06/27/25 11:39 MCH 37.7 pg (27-33) H 06/27/25 11:39 MCHC 33.3 g/dL (30-55) 06/27/25 11:39 RDW 17.7 % (12.1-15.1) H 06/27/25 11:39 Plt Count 62 10^3/cmm (157-399) L 06/27/25 11:39 MPV 11.8 fL (7.4-10.4) H 06/27/25 11:39 Neut % (Auto) 70.8 % 06/27/25 11:39 Lymph % (Auto) 21.6 % 06/27/25 11:39 [place] % (Auto) 6.3 % 06/27/25 11:39 Eos % (Auto) 0.8 % 06/27/25 11:39 Baso % (Auto) 0.2 % 06/27/25 11:39 Neut # (Auto) 4.63 10^3/uL (1.8-7.7) 06/27/25 11:39 Lymph # (Auto) 1.4 10^3/uL (0.8-4.8) 06/27/25 11:39 [place] # (Auto) 0.4 10^3/uL (0.2-0.9) 06/27/25 11:39 Eos # (Auto) 0.1 10^3/uL (0.0-0.8) 06/27/25 11:39 Baso # (Auto) 0.0 10^3/uL (0.0-0.1) 06/27/25 11:39 Nucleated RBC % (auto) 0 % 06/27/25 11:39 Nucleated RBCs # 0.0 /100WBC 06/27/25 11:39 PT 28.40 SECONDS (12.1-14.9) H 06/27/25 11:39 INR 2.49 (0.8-1.2) H 06/27/25 11:39 Sodium 134 mmol/L (136-145) L 06/27/25 11:39 Potassium 4.8 mmol/L (3.5-5.1) 06/27/25 11:39 Chloride 102 mmol/L (98-107) 06/27/25 11:39 Carbon Dioxide 18 mmol/L (22-29) L 06/27/25 11:39 Anion Gap 18.8 (5-19) 06/27/25 11:39 BUN 26 mg/dL (8-23) H 06/27/25 11:39 Creatinine 1.4 mg/dL (0.5-0.9) H 06/27/25 11:39 GFR Calculation Not Reportable 06/27/25 11:39 Glucose 108 mg/dL (65-115) 06/27/25 11:39 Calculated Osmolality 283 mOsm/kg (285-295) L 06/27/25 11:39 Calcium 8.8 mg/dL (8.5-10.5) 06/27/25 11:39 Magnesium 2.0 mg/dL (1.7-2.3) 06/27/25 11:39 Total Bilirubin 1.2 mg/dL (0.15-1.2) 06/27/25 11:39 AST 17 U/L (0-32) 06/27/25 11:39 ALT < 5 U/L (0-33) 06/27/25 11:39 Alkaline Phosphatase 81 U/L (35-105) 06/27/25 11:39 NT-Pro-B Natriuret Pep 19343 pg/mL (0-450) H 06/27/25 11:39 Total Protein 6.2 g/dL (6.6-8.7) L 06/27/25 11:39 Albumin 3.6 g/dL (3.5-5.2) 06/27/25 11:39 Globulin 2.6 g/dL (1.3-4.6) 06/27/25 11:39 TSH 17.86 uIU/mL (0.27-4.20) H 06/27/25 11:39 C. difficile (PCR) Positive (Negative) H 06/27/25 11:13 C.difficile Tox Confrm Negative (Negative) 06/27/25 11:13 XR interpretation done by ED provider, pending radiology final review EKG Data EKG 1: Interpretation: A-fib RVR with rate of 121. QTc 445. No ST segment elevation Other EKG comments: Chest X-Ray 06/27/25 11:32 IMPRESSION: 1. Lung hyperinflation with bibasilar opacities worse on today's exam. 2. Bilateral lung nodules similar to that seen on prior exam. Discharge Plan Discharge Patient Disposition: Admitted As Inpatient Admit Provider: Vinny Ramirez Clinical Impression: Atrial fibrillation with RVR, Thrombocytopenia, TSH elevation, Metabolic acidosis, C. difficile colitis Condition: Stable Coding Level of Care Code ED Field Health Officer for Chg Fwd Documented by User: Patricio Amos MD 06/27/25 16:10 HPI - Arrhythmia/Palpitations General: Chief Complaint: Arrhythmia/Palpitations Stated Complaint: High HR D can't keep anything down Related Data Home Medications ?Medication ?Instructions ?Recorded ?Confirmed potassium chloride 20 mEq 20 meq PO DAILY 06/27/25 06/27/25 tablet,extended release Previous Rx's ?Medication ?Instructions ?Recorded amiodarone 100 mg tablet 100 mg PO DAILY #90 tabs 01/01/25 anastrozole 1 mg tablet 1 mg PO DAILY #90 tabs 03/30/25 sertraline 25 mg tablet 25 mg PO DAILY #90 tabs 03/30/25 bumetanide 1 mg tablet 1 mg PO DAILY PRN edema #90 tabs 05/19/25 Allergies Allergy/AdvReac Type Severity Reaction Status Date / Time No Known Allergies Allergy Verified 06/27/25 11:34 PFSH ED PFSH: Medical History (Updated 06/27/25 @ 13:52 by Alona Esparza, AVIS, MAGNETIC RESONANCE IMAGING COORDINATOR) Invasive ductal carcinoma of left breast Underwent lumpectomy and radiation. ER positive. History of CVA (cerebrovascular accident) Dissecting AAA (abdominal aortic aneurysm) Syncope Prolonged QT interval Callaway to be related to bradycardia. Resolved Sinus bradycardia Moderate aortic regurgitation Chronic heart failure with preserved ejection fraction (HFpEF) Hypertension Surgical History S/P insertion of endovascular thoracic aortic stent graft History of lumpectomy left History of cholecystectomy History of heart valve replacement Hx of aortic aneurysm repair Stent placement after thoracic aortic aneurysm leakage, [facility] Dr. Ulloa Aneurysm repair x3 Family History Other CAD (coronary artery disease) Social History Smoking and tobacco/nicotine status: never used tobacco/nicotine Alcohol intake: former Year of sobriety/quit date alcohol: 2019 Former alcohol use details: Drink a glass of wine daily for 59 years. was a drinker Substance/Drug Use: never Additional social history: She is . She has a friend that lives with her Mimi Oldenburg. Patient wants DNR as discussed with Moises Doan MD on 01/03/2025. Patient states she is not sure she would want biopsy of her lung nodules to look for cancer. She thinks she would not want to pursue treatment again. She states she is not afraid to . 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 Vital Signs: Vital signs: Vital Signs Temperature 97.6 F 06/27/25 11:29 Pulse Rate 110 H 06/27/25 15:18 Respiratory Rate 23 H 06/27/25 14:25 Blood Pressure 129/80 12/21/25 15:18 Pulse Oximetry 94 06/27/25 15:18 Oxygen Delivery Me thod Room Air 06/27/25 15:26 MDM - Arrhythmia/Palpitations Medical Decision Making Patient is a 85-year-old female with history of aortic aneurysm repair in 2004 and redo in 2016, A-fib, not on AC, on amiodarone, noncompliant, admits that she did not in fact take her medication today, breast cancer, presents to the emergency room due to not being able to keep anything down that is further defined as no emesis, however nausea and diarrhea is present. She has had 3 stools today. The last [address] here. C. difficile is pending although she does not have leukocytosis or neutrophilia. Oddly, she does have thrombocytopenia with her lowest platelets today noted at 62. She also has corresponding INR of 2.5. Creatinine is elevated at 1.4 with her baseline 1-1.1. CO2 is 18, most likely from volume loss. I discussed with the hospitalist, Dr. Ramirez, that accepted admission to [facility]. She has been loaded on amiodarone 150 mg, and placed on titration drip. C. difficile is back is positive. Vancomycin p.o. added. Urinalysis is still pending Saw patient with above midlevel agree with her history and physical. Patient has A-fib here she also has C. difficile positive she is given p.o. Vanco she is on amiodarone currently. Will admit to cardiac stepdown at this time Lab Data 06/27/25 11:39 06/27/25 11:39 Radiology Impressions Chest X-Ray 06/27/25 11:32 IMPRESSION: 1. Lung hyperinflation with bibasilar opacities worse on today's exam. 2. Bilateral lung nodules similar to that seen on prior exam. Laboratory Results WBC 6.53 10^3/uL (3.29-11.43) 06/27/25 11:39 RBC 2.73 10^6/uL (3.85-5.65) L 06/27/25 11:39 Hgb 10.30 g/dL (11.27-16.99) L 06/27/25 11:39 Hct 30.9 % (36-47) L 06/27/25 11:39 MCV 113.2 fl (85-98) H 06/27/25 11:39 MCH 37.7 pg (27-33) H 06/27/25 11:39 MCHC 33.3 g/dL (30-55) 06/27/25 11:39 RDW 17.7 % (12.1-15.1) H 06/27/25 11:39 Plt Count 62 10^3/cmm (157-399) L 06/27/25 11:39 MPV 11.8 fL (7.4-10.4) H 06/27/25 11:39 Neut % (Auto) 70.8 % 06/27/25 11:39 Lymph % (Auto) 21.6 % 06/27/25 11:39 [place] % (Auto) 6.3 % 06/27/25 11:39 Eos % (Auto) 0.8 % 06/27/25 11:39 Baso % (Auto) 0.2 % 06/27/25 11:39 Neut # (Auto) 4.63 10^3/uL (1.8-7.7) 06/27/25 11:39 Lymph # (Auto) 1.4 10^3/uL (0.8-4.8) 06/27/25 11:39 [place] # (Auto) 0.4 10^3/uL (0.2-0.9) 06/27/25 11:39 Eos # (Auto) 0.1 10^3/uL (0.0-0.8) 06/27/25 11:39 Baso # (Auto) 0.0 10^3/uL (0.0-0.1) 06/27/25 11:39 Nucleated RBC % (auto) 0 % 06/27/25 11:39 Nucleated RBCs # 0.0 /100WBC 06/27/25 11:39 PT 28.40 SECONDS (12.1-14.9) H 06/27/25 11:39 INR 2.49 (0.8-1.2) H 06/27/25 11:39 Sodium 134 mmol/L (136-145) L 06/27/25 11:39 Potassium 4.8 mmol/L (3.5-5.1) 06/27/25 11:39 Chloride 102 mmol/L (98-107) 06/27/25 11:39 Carbon Dioxide 18 mmol/L (22-29) L 06/27/25 11:39 Anion Gap 18.8 (5-19) 06/27/25 11:39 BUN 26 mg/dL (8-23) H 06/27/25 11:39 Creatinine 1.4 mg/dL (0.5-0.9) H 06/27/25 11:39 GFR Calculation Not Reportable 06/27/25 11:39 Glucose 108 mg/dL (65-115) 06/27/25 11:39 Calculated Osmolality 283 mOsm/kg (285-295) L 06/27/25 11:39 Calcium 8.8 mg/dL (8.5-10.5) 06/27/25 11:39 Magnesium 2.0 mg/dL (1.7-2.3) 06/27/25 11:39 Total Bilirubin 1.2 mg/dL (0.15-1.2) 06/27/25 11:39 AST 17 U/L (0-32) 06/27/25 11:39 ALT < 5 U/L (0-33) 06/27/25 11:39 Alkaline Phosphatase 81 U/L (35-105) 06/27/25 11:39 NT-Pro-B Natriuret Pep 26456 pg/mL (0-450) H 06/27/25 11:39 Total Protein 6.2 g/dL (6.6-8.7) L 06/27/25 11:39 Albumin 3.6 g/dL (3.5-5.2) 06/27/25 11:39 Globulin 2.6 g/dL (1.3-4.6) 06/27/25 11:39 TSH 17.86 uIU/mL (0.27-4.20) H 06/27/25 11:39 C. difficile (PCR) Positive (Negative) H 06/27/25 11:13 C.difficile Tox Confrm Negative (Negative) 06/27/25 11:13 EKG Data EKG 1: Other EKG comments: Chest X-Ray 06/27/25 11:32 IMPRESSION: 1. Lung hyperinflation with bibasilar opacities worse on today's exam. 2. Bilateral lung nodules similar to that seen on prior exam. Discharge Plan Discharge Patient Disposition: Admitted As Inpatient Admit Provider: Vinny Ramirez Clinical Impression: Atrial fibrillation with RVR, Thrombocytopenia, TSH elevation, Metabolic acidosis, C. difficile colitis Condition: Stable Coding Level of Care Code ED Field Health Officer for Maame Osborn
[2025-06-27 11:47] LABS: Hematocrit 30.9 % (36-47); Hemoglobin 10.30 g/dL (11.27-16.99); Mean Corpuscular HGB Conc 33.3 g/dL (30-55); Mean Corpuscular Hemoglobin 37.7 pg (27-33); Mean Corpuscular Volume 113.2 fl (85-98); Nucleated Red Blood Cells % 0 %; Platelet Count 62 10^3/cmm (157-399); Red Blood Count 2.73 10^6/uL (3.85-5.65); White Blood Count 6.53 10^3/uL (3.29-11.43)
[2025-06-27 12:02] LABS: INR 2.49 (0.8-1.2); Prothrombin Time 28.40 SECONDS (12.1-14.9)
[2025-06-27 12:15] LABS: Alanine Aminotransferase < 5 U/L (0-33); Albumin Level 3.6 g/dL (3.5-5.2); Alkaline Phosphatase 81 U/L (35-105); Anion Gap 18.8 (5-19); Aspartate Amino Transferase 17 U/L (0-32); Blood Urea Nitrogen 26 mg/dL (8-23); Calcium 8.8 mg/dL (8.5-10.5); Carbon Dioxide 18 mmol/L (22-29); Chloride 102 mmol/L (98-107); Globulin 2.6 g/dL (1.3-4.6); Glucose 108 mg/dL (65-115); Magnesium 2.0 mg/dL (1.7-2.3); NT Pro B Type Natriuretic Pept 27298 pg/mL (0-450); Osmolality Calculated 283 mOsm/kg (285-295); Potassium 4.8 mmol/L (3.5-5.1); Sodium 134 mmol/L (136-145); Thyroid Stimulating Hormone 17.86 uIU/mL (0.27-4.20); Total Protein 6.2 g/dL (6.6-8.7)
[2025-06-27] MEDS: amiodarone 50 mg/mL SDV 3 mL 150 MG IVP (12:30)
[2025-06-27] MEDS: AMIODARONE HCL/D5W 900 MG/500 ML BAG 33.33 MG IV (12:32)
--- NOTE | 2025-06-27 13:05 | PC.PHAR ---
Spoke to Patient she isn't sure of the names of her medications, that he son takes care of it . Patient thinks she took her medications rosas befroe yesterday . I spoke to son , he says he puts medication in her daily medication box and he doesn't know if she takes it or not. Son also says they get her medication mailed to her. That they are waiting on them .
[2025-06-27 13:18] LABS: C.Diff PCR (Lab) POSITIVE (Negative)
--- OUTSIDE RECORDS SUMMARY | 2025-06-27 13:23 | XMS_ITS | Encounter Summary ---
Author Organization [facility] Address [address] [place] [address] Care Team Providers Care Timber Spotter Name Role Phone Emanuel Reyes DO Primary Care Provide r Encounter Details Date Type Department Care Team (Latest Contact Info) Description 03/26/2006 Outpatient Historical [facility] Medicine [place] [address] [phone] Blessing Eng MD [address] [place] [phone] Impaired Fasting Glucose (Primary Dx) Social History Tobacco Use Types Packs/Day Years Used Date Smoking Tobacco: Never Assessed Comments Unknown Sex and Gender Information Value Date Recorded Sex Assigned at Not on file 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
--- OUTSIDE RECORDS SUMMARY | 2025-06-27 13:23 | XMS_ITS | Encounter Summary ---
Author Organization [facility] Address [address] [place] [address] Care Team Providers Care Soft Hat Binder Name Role Phone Emanuel Reyes DO Primary Care Provide r Encounter Details Date Type Department Care Team (Late st Contact Info) Description 05/02/2005 Outpatient Historical [facility] Cardiology- [place] [address] [place] [address] Mike Ulloa MD [address] [phone] Social History Tobacco Use Types Packs/Day Years Used Date Smoking Tobacco: Never Assessed Comments Unknown Sex and Gender Information Value Date Recorded Sex Assigned at Not on file 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
--- OUTSIDE RECORDS SUMMARY | 2025-06-27 13:23 | XMS_ITS ---
Author Name Interface, [id number] lity Address [place] [address] [facility] Address [place] [address] Support Name Relationship Address Phone Harvey Perea [...] Section * EZRA HemOnc Follow Up - [facility] On[facility] [address] [place] [address] [address] [place] [address] P: F: PATIENT: YOBANI PEREA : 1940 [...] receptor negative 0, HER2 0 by IHC, [id number], Stage llB. * 05/10/2023: Invasive ductal carcinoma [...] radiation therapy under the care of Dr. Rayn Herbert for her left breast cancer. * [...] priorheart surgery.?? * 03/14/2023:??Bilateral diagnostic mammogram at [facility] [place] [facility] that identified a 2.2 cm irregular mass in the left breast at 10:00 posterior depth with benign calcifications in both breasts.?? * 03/14/2023:??Ultrasound-guided core needle biopsy identified invasive ductal carcinoma, Vansant grade 2-3, estrogen and progesterone receptor negative 0%, HER2 negative 0 by IHC. * 04/11/2023: PET CT scan [facility] with known left breast mass and focal FDG uptake in the right medial breast.?? * 05/03/2023: Complete ultrasound of the right breast and axilla at [facility] [place] [facility]. A 6 mm irregular mass [...] with Dr. Shilpa Kong: Invasive ductal carcinoma, Vansant grade 3, 3.2 cm in greatest dimension, [...] ??This study was completed on 07/13/2024 at [facility] and identified no suspicious sonographic abnormality to [...] and right sentinel lymph node biopsy, 05/18/2023 OVERNIGHT CAREGIVER History: Last menstrual period: 45 Menarche: 15 [...] a and lives with her son and [id number]. Her son accompanies her today.?? Tobacco use: [...] PET CT scan at [facility] [place] [facility].?? IMPRESSION: 1. FDG avid mass [...] Breast and Axilla at [facility] [place] [facility].?? IMPRESSION: SUSPICIOUS OF MALIGNANCY RECOMMENDATION: The 6 mm irregular mass in the right breast isat a moderate suspicion for malignancy. An ultrasound guided biopsy is recommended. There is no suspicious finding in the right internal mammary nik[place] basin to correlate with recent PET CT finding inthis region. 09/03/2023: DEXA scan at [facility] [place] [facility].?? IMPRESSION: OSTEOPOROSIS Patient is at [...] hip fractures 02/24/2024: Bilateral diagnostic mammogram at [facility]: IMPRESSION: KNOWN- BIOPSY- PROVEN MALIGNANCY. Interval postsurgical changes of left lumpectomy. A core biopsy marker in the right breast at the 12:00 axis, middle depth marking the site of invasive carcinoma of the right breast. 02/24/2024: Ultrasound of the bilateral breast at [facility]: IMPRESSION: SUSPICIOUS No significant change in a 6 mm mass in the right breast at the 12 o'clock axis, consistent with the known area of malignancy. The 1.4 cm mass in the left breast at 2 o'clock is suspicious of malignancy. An ultrasound guided biopsy is recommended. 07/13/2024: Left breast ultrasound at [facility]: IMPRESSION: BIRADS-2 Benign. Nosuspicious sonographic abnormality to explain the palpable area of concern. Pathology: 03/14/2023, [facility], Pathology report: Diagnosis Left breast at [...] negative 05/10/2023: Pathology at [facility] [place] [facility]. Diagnosis Breast, right, 12 o'clock [...] of the bilateral breast on 02/24/2024 at [facility]. ??There was no significant change in the [...] return visit. . Michael Parry (MORENA) DNP, DIPLOMATIC INTERPRETER/TRANSLATOR, HOP STRAINER-BC, AOCNP Send copy of note to: Dr. Rody Knight Electronically signed by Michael Parry (GROMMET MAN) DNP, DIPLOMATIC INTERPRETER/TRANSLATOR, HOP STRAINER-BC, AOHERMELINDAP 08/13/2024 11:52 WILD ANIMAL CARETAKER Reviewed and electronically signed by Mickie Portillo MD 08/13/2024 12:06 WILD ANIMAL CARETAKER * Nurse Note for: 13-AUG-24 [place] [facility] Nurse Note Print Location: Unknown Date/Time Printed: 06/27/2025 13:23 ([facility]) Patient: YOBANI PEREA Sex: Female : 1940 [...]
--- OUTSIDE RECORDS SUMMARY | 2025-06-27 13:23 | XMS_ITS | Encounter Summary ---
Author Organization [facility] Address [address] [place] [address] Care Team Providers Care Desk Editor Name Role Phone Emanuel Reyes DO Primary Care Provide r Encounter Details Date Type Department Care Team (Latest Contact Info) Description 01/13/2007 Outpatient Historical [facility] Medicine [place] [address] [place] [phone] Destiny Haas, [facility] [address] [phone] Other and Unspecified Hyperlipidemia (Primary Dx) Social History Tobacco Use Types Packs/Day Years Used Date Smoking Tobacco: Never Assessed Comments Unknown Sex and Gender Information Value Date Recorded Sex Assigned at Not on file Legal Sex Female 3:56 AM DIRECTOR 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
--- OUTSIDE RECORDS SUMMARY | 2025-06-27 13:23 | XMS_ITS | Encounter Summary ---
Author Organization [facility] Address [address] [place] [address] Care Team Providers Care Assembler Semiconductor Name Role Phone Emanuel Reyes DO Primary Care Provide r Encounter Details Date Type Department Care Team (Latest Contact Info) Description 11/25/2006 Outpatient Historical [facility] [address] [place] [address] [phone] Destiny Haas, 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
--- OUTSIDE RECORDS SUMMARY | 2025-06-27 13:23 | XMS_ITS | Encounter Summary ---
Author Organization [facility] Address [address] [place] [address] Care Team Providers Care Business Technology Analyst Name Role Phone Emanuel Reyes DO Primary Care Provide r Encounter Details Date Type Department Care Team (Latest Contact Info) Description 09/12/2005 Outpatient Historical [facility] Medicine [place] [address] [place] [phone] Destiny Haas, [facility] [address] [phone] Unspecified Essential Hypertension (Primary Dx) Social History Tobacco Use Types Packs/Day Years Used Date Smoking Tobacco: Never Assessed Comments Unknown Sex and Gender Information Value Date Recorded Sex Assigned at Not on file Legal Sex Female 3:56 AM ENDOSCOPY RN Gender Identity Not on file Sexual Orientation Not on file documented as of this encounter Plan of Treatment Not on file documented as of this encounter Visit Diagnoses Diagnosis Unspecified essential hypertension- Primary documented in this encounter Care Teams Business Technology Analyst Relationship Specialty Start Date End Date Emanuel Reyes DO [address] [place] [facility] 1 [place] [phone] PCP - General Internal Medicine 03/02/16 documented as of this encounter
--- OUTSIDE RECORDS SUMMARY | 2025-06-27 13:23 | XMS_ITS | CCD ---
Author Name Interface, H8Yemthdi lity Address [place] [address] [facility] Address [place] [address] Care Team Providers Care Manager Hotel Name Role Phone Yuli MEI, Mickie Jimenez [...] Address 07/13 Ultra sound resul ts See manager pipeline miguel a Medications Date Name Route Dose [...] title= #PracticeLetterhead ><img height= 91 src= [email or web address] width= 286 ></span>

<span class= clinicalNoteMacroHighlighted id= [id number]" macroname= LocationPrintingName spantype= macro title= #LocationPrint ingName >[facility]</span>
<span class= clinic alNoteMacroHighlighted id= [id number] macroname= LocationAddress& quot; spantype= macro title= #LocationAddress >[address]
[place] [address]</span>
P: <span class= clinicalNoteMacroHigh lighted id= [id number] [...] [id number] macroname= PatientMRN" spantype= macro title= #PatientMRN >[id number]</span></div><div style= text- align:left ><strong>:</strong> <span class= clinicalNoteMacroHighlighted [...] receptor negative 0, HER2 0 by IHC, [id number], Stage llB.
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
</li> <li>03/14/2023: Bilateral diagnostic mammogram at [facility] that identified a 2.2 cm irregular mass in the left breast at 10:00 posterior depth with benign calcifications in both breasts.
</li> <li>03/14/2023: Ultrasound-guided core needle biopsy identified invasive ductal carcinoma, Burton grade 2-3, estrogen and progesterone receptor negative 0%, HER2 negative 0 by IHC.</li> <li>04/11/2023: PET CT scan [facility] with known left breast mass and focal FDG uptake in the right medial breast.
</li> <li>05/03/2023: Complete ultrasound of the right breast and axilla at [facility]. A 6 mm irregular mass [...] with Dr. Shilpa Kong: Invasive ductal carcinoma, [place] grade 3, 3.2 cm in greatest [...] This study was completed on 07/13/2024 at [facility] and identified no suspicious sonographic abnormality to [...] clinicalNoteSectionShowSeparators clinicalNoteSectionVisible" id= [id number] internalbreaksection= false originalname=&qu ot;SYSTEMS ANALYSIS MANAGER History: recognizeconcepts= true spantype= section suppressemp ty= true >SYSTEMS ANALYSIS MANAGER History:</span>
Last menstrual period: 45
Menarche: 15
[...] spantype= section suppressempty= true >Allergies:</span>
<span class= clinicalNoteMacroHhighland ridge hospitaled id= [id number] macr oname= Allergies parameters= ListType:Bulleted,ValueIfNull:No Known Allergies spantype= macro title= #Allergies(ListType:Bulleted,ValueIfNull:No Known Allergies)">No known medication allergies</span>

<span class= clinicalNoteSectionShowSeparators clinicalNoteSectionVisible id= [id number] internalbreaksection= false originalname= Social History: recognizeconcepts="true spantype= section suppressempty= true >Social History:</span>
Occupation: She is currently retired. She is a and lives with her son and [id number]. Her son accompanies her today.
Tobacco use: [...] 2.2 cm irregular mass in the left [id number] o'clock posterior depth is highly suggestive of malignancy.

BI-RADS 4/5 Mammogram
BI-RADS: 5 Highly suggestive of malignancy

04/11/2023: PET CT scan at [facility].
IMPRESSION: 1. FDG avid mass in the [...] of the Right Breast and Axilla at [facility].
IMPRESSION: SUSPICIOUS OF MALIGNANCY RECOMMENDATION: The 6 mm irregular mass in the right breast is at a moderate suspicion for malignancy. An ultrasound guided biopsy is recommended. There is no suspicious finding in the right internal mammary [place] to correlate with recent PET CT finding in this region.

09/03/2023: DEXA scan at [facility].
IMPRESSION: OSTEOPOROSIS
Patient is at high risk [...] hip fractures

02/24/2024: Bilateral diagnostic mammogram at [facility]: IMPRESSION: KNOWN- BIOPSY- PROVEN MALIGNANCY.
Interval postsurgical changes of left lumpe ctomy. A core biopsy marker in the right breast at the 12:00 axis, middle depth marking the site ofinvasive carcinoma of the right breast.

02/24/2024: Ultrasound of the bilateral breast at [facility]: IMPRESSION: SUSPICIOUS
No significant change in a 6 mm mass in the right breast at the 12 o'clock axis, consistent with the known area of malignancy. The 1.4 cm mass in the left breast at 2 o'clock is suspicious of malignancy. An ultrasound guided biopsy is recommended.

07/13/2024: Left breast ultrasound at [facility]: IMPRESSION: BIRADS-2 Benign. No suspicious sonographic abnormality to explain the palpable area of concern.

<span class= clinicalNoteSectionShowSeparators clinicalNoteSectionVisible id= [id number] internalbreaksection= false originalname= Pathology: recognizeconcepts= true spantype= section suppressempty= true >Pathology:</span>
03/14/2023, [facility], Pathology report:
Diagnosis
Left breast at [...] as expected

HER2 negative

05/10/2023: Pathology at [facility].
Diagnosis Breast, right, 12 o'clock [...] clinicalNoteMacroHighlighted id= [id number] macr oname= Problems parameters= InitialCap:Yes,ListType:Bulleted,[id number]:Yes,Verbosity:Medium spantype= macro title= #Problems(InitialCap:Yes,ListType:Bulleted,Show ICD10:Yes,Verbosity:Medium) ><ul> <li>Breast [...] of the bilateral breast on 02/24/2024 at [facility]. Therewas no significant change in the 6 [...] MyName spantype= macro title= #MyName >Michael Parry (HEAT PUMP INSTALLER) DNP, PROVIDER RELATIONS REP,PORTABLE TRACK LINE MARKER-BC, AOCNP</span>

<span class= clinicalNoteMacroHighlighted id= [id number] macroname= NoteRecipients spantype="macro title= #NoteRecipients ></span>
<span class= clini calNoteSectionShowSeparators clinicalNoteSectionVisible id= [id number]" internalbreaksection= false originalname= Send copy of note to: recognizeconcepts= true spantype= section suppressempty= true >Send copy of note to:</span>
Dr. Rody Knight

</div></div></div>

<div><span class= eSignSignature >Electronically signed by Michael Parry (HEAT PUMP INSTALLER) DNP, PROVIDER RELATIONS REP, PORTABLE TRACK LINE MARKER-BC, AOCNP 08/13/2024 11:52 MEDICAL STAFF SERVICES COORDINATOR
Reviewed and electronically signed by Mickie Portillo MD 08/13/2024 12:06 MEDICAL STAFF SERVICES COORDINATOR</span></div></body></html>
--- OUTSIDE RECORDS SUMMARY | 2025-06-27 13:23 | XMS_ITS | Encounter Summary ---
Author Organization [facility] Address [address] [place] [address] Care Team Providers Care Medical Territory Manager Name Role Phone Emanuel Reyes DO Primary Care Provide r Encounter Details Date Type Department Care Team (Latest Contact Info) Description 04/11/2006 Outpatient Historical [facility] Medicine [place] [address] [place] [phone] Destiny Haas, [facility] [address] [phone] DM w/o Complication Type II (CMS/HCC) (Primary Dx); Dietary Surveil/Hobber Social History Tobacco Use Types Packs/Day Years Used Date Smoking Tobacco: Never Assessed Comments Unknown Sex and Gender Information Value Date Recorded Sex Assigned at Not on file Legal Sex Female 3:56 AM OPERATIONS BOARDMAN Gender Identity Not on file Sexual Orientation Not on file documented as of this encounter Plan of Treatment Not on file documented as of this encounter Visit Diagnoses Diagnosis Type II or unspecified type diabetes mellitus without mention of complication, not stated as uncontrolled- Primary Dietary surveil/debt and budget counselor Dietary surveillance and counseling documented in this encounter Care Teams Medical Territory Manager Relationship Specialty Start Date End Date Emanuel Reyes DO [address] [facility] 1 [place] [address] PCP - General Internal Medicine 03/02/16 documented as of this encounter
--- OUTSIDE RECORDS SUMMARY | 2025-06-27 13:23 | XMS_ITS | Encounter Summary ---
Author Organization [facility] Address [address] [place] [address] Care Team Providers Care Gate Watch Name Role Phone Emanuel Reyes DO Primary Care Provide r Encounter Details Date Type Department Care Team (Latest Contact Info) Description 08/20/2006 Outpatient Historical [facility] Medicine [place] [address] [place] [address] [phone] Destiny Haas, [facility] [address] [phone] Unspecified Essential Hypertension (Primary Dx); Other and Unspecified Hyperlipidemia; Intestinal Disaccharidase Deficiencies and Disaccharide Malabsorption Social History Tobacco Use Types Packs/Day Years Used Date Smoking Tobacco: Never Assessed Comments Unknown Sex and Gender Information Value Date Recorded Sex Assigned at Not on file Legal Sex Female 3:56 AM SPOT FACER Gender Identity Not on file Sexual Orientation Not on file documented as of this encounter Plan of Treatment Not on file documented as of this encounter Visit Diagnoses Diagnosis Unspecified essential hypertension- Primary Other and unspecified hyperlipidemia Intestinal disaccharidase deficiencies and disaccharide malabsorption documented in this encounter Care Teams Gate Watch Relationship Specialty Start Date End Date Emanuel Reyes DO [address] 1 [place] [address] PCP - General Internal Medicine 03/02/16 documented as of this encounter
--- OUTSIDE RECORDS SUMMARY | 2025-06-27 13:23 | XMS_ITS | Encounter Summary ---
Author Organization [facility] Address [address] [place] [address] Care Team Providers Care Websphere Commerce Architect Name Role Phone Emanuel Reyes DO Primary Care Provide r Encounter Details Date Type Department Care Team (Latest Contact Info) Description 07/13/2005 Outpatient Historical [facility] [address] [place] [phone] Mike Ulloa MD [address] [phone] THORACIC AORTIC ANEURYSM (CMS/HCC) (Primary Dx) Social History Tobacco Use Types Packs/Day Years Used Date Smoking Tobacco: Never Assessed Comments Unknown Sex and Gender Information Value Date Recorded Sex Assigned at Not on file Legal Sex Female 3:56 AM REEL WINDER Gender Identity Not on file Sexual Orientation Not on file documented as of this encounter Plan of Treatment Not on file documented as of this encounter Procedures Procedure Name Priority Date/Time Associated Diagnosis Comments CTA ABD W AND/OR WO CONTRAST Routine 07/13/2005 12:01 AM REEL WINDER documented in this encounter Results * CTA ABD W WO CONTRAST (07/13/2005 12:01 AM REEL WINDER) Anatomical Region Laterality Modality Abdomen Other 07/13/2005 12:0 1 AM REEL WINDER Narrative 07/13/2005 12:01 AM REEL WINDER CTA CHEST / CTA ABDOMEN - 07/13/2005 [...] Diagnosis Thoracic aneurysm without mention of rupture (CMS/[facility])- Primary Thoracic aneurysm without mention of rupture documented in this encounter Care Teams Websphere Commerce Architect Relationship Specialty Start Date End Date Emanuel Reyes DO [address] [phone] PCP - General Internal Medicine 03/02/16 documented as of this encounter
--- OUTSIDE RECORDS SUMMARY | 2025-06-27 13:23 | XMS_ITS | Encounter Summary ---
Author Organization [facility] Address [address] [place] [address] Care Team Providers Care Hospital Fellow Name Role Phone Emanuel Reyes DO Primary Care Provide r Encounter Details Date Type Department Care Team (Latest Contact Info) Description 05/09/2005 Outpatient Historical [facility] Medicine [place] [address] [place] [phone] Destiny Haas, [facility] [address] [phone] AFTERCARE LICENSED PROSTHETIST USE MEDICATN (Primary Dx) Social History Tobacco Use Types Packs/Day Years Used Date Smoking Tobacco: Never Assessed Comments Unknown Sex and Gender Information Value Date Recorded Sex Assigned at Not on file Legal Sex Female 3:56 AM TEST INSPECTION ENGINEER Gender Identity Not on file Sexual Orientation Not on file documented as of this encounter Plan of Treatment Not on file documented as of this encounter Visit Diagnoses Diagnosis Encounter for long-term (current) use of other medications- Primary documented in this encounter Care Teams Hospital Fellow Relationship Specialty Start Date End Date Emanuel Reyes DO [address] [facility] 1 [place] [address] PCP - General Internal Medicine 03/02/16 documented as of this encounter
--- OUTSIDE RECORDS SUMMARY | 2025-06-27 13:23 | XMS_ITS | Encounter Summary ---
Author Organization [facility] Address [address] [place] [address] Care Team Providers Care Fox Raiser Name Role Phone Emanuel Reyes DO Primary Care Provide r Encounter Details Date Type Department Care Team (Latest Contact Info) Description 09/23/2006 Outpatient Historical [facility] Medicine [place] [address] [place] [address] [phone] Destiny Haas, [facility] [address] [phone] Unspecified Essential Hypertension (Primary Dx); Other and Unspecified Hyperlipidemia Social History Tobacco Use Types Packs/Day Years Used Date Smoking Tobacco: Never Assessed Comments Unknown Sex and Gender Information Value Date Recorded Sex Assigned at Not on file Legal Sex Female 3:56 AM CUSTOMER ADVISOR Gender Identity Not on file Sexual Orientation Not on file documented as of this encounter Plan of Treatment Not on file documented as of this encounter Visit Diagnoses Diagnosis Unspecified essential hypertension- Primary Other and unspecified hyperlipidemia documented in this encounter Care Teams Fox Raiser Relationship Specialty Start Date End Date Emanuel Reyes DO [address] [facility] 1 [place] [address] PCP - General Internal Medicine 03/02/16 documented as of this encounter
--- OUTSIDE RECORDS SUMMARY | 2025-06-27 13:23 | XMS_ITS | Encounter Summary ---
Author Organization [facility] Address [address] [place] [address] Care Team Providers Care Elderly Sitter Name Role Phone Emanuel Reyes DO Primary Care Provide r Encounter Details Date Type Department Care Team (Latest Contact Info) Description 03/26/2006 Outpatient Historical [facility] Medicine [place] [address] [phone] Blessing Eng MD [address] [place] [phone] Impaired Fasting Glucose (Primary Dx) Social History Tobacco Use Types Packs/Day Years Used Date Smoking Tobacco: Never Assessed Comments Unknown Sex and Gender Information Value Date Recorded Sex Assigned at Not on file Legal Sex Female 3:56 AM BATHROOM TILING PROFESSIONAL Gender Identity Not on file Sexual Orientation Not on file documented as of this encounter Plan of Treatment Not on file documented as of this encounter Visit Diagnoses Diagnosis Impaired fasting glucose- Primary documented in this encounter Care Teams Elderly Sitter Relationship Specialty Start Date End Date Emaneul Reyes DO [address] [facility] 1 [place] [phone] PCP - General Internal Medicine 03/02/16 documented as of this encounter
--- OUTSIDE RECORDS SUMMARY | 2025-06-27 13:23 | XMS_ITS | Encounter Summary ---
Author Organization [facility] Address [address] [place] [address] Care Team Providers Care Miller Head Wet Process Name Role Phone Emanuel Reyes DO Primary Care Provide r Encounter Details Date Type Department Care Team (Latest Contact Info) Description 05/02/2005 Outpatient Historical [facility] Cardiac Thoracic V[facility] [place] [address] [place] [phone] Ryan Espinosa MD NO ADDRESS ON FILE DISSECTING THORACIC AORTIC ANEUR (CMS/HCC) (Primary Dx); Thoracic aortic aneurysm Social History Tobacco Use Types Packs/Day Years Used Date Smoking Tobacco: Never Assessed Comments Unknown Sex and Gender Information Value Date Recorded Sex Assigned at Not on file Legal Sex Female 3:56 AM STEEL CHECKER Gender Identity Not on file Sexual Orientation Not on file documented as of this encounter Plan of Treatment Not on file documented as of this encounter Visit Diagnoses Diagnosis Dissection of aorta, thoracic (CMS/HCC)- Primary Dissection of aorta, thoracic Thoracic aortic aneurysm Thoracic aneurysm without mention of rupture documented in this encounter Care Teams Miller Head Wet Process Relationship Specialty Start Date End Date Emanuel Reyes DO [address] [place] [address] [facility] 1 [place] [address] PCP - General Internal Medicine 03/02/16 documented as of this encounter
--- OUTSIDE RECORDS SUMMARY | 2025-06-27 13:23 | XMS_ITS | Encounter Summary ---
Author Organization [facility] Address [address] [place] [address] Care Team Providers Care Health Care Sanitary Technician Name Role Phone Emanuel Reyes DO Primary Care Provide r Encounter Details Date Type Department Care Team (Latest Contact Info) Description 03/19/2006 Outpatient Historical [facility] Medicine [place] [address] [phone] Blessing Eng MD [address] [place] [phone] Unspecified Essential Hypertension (Primary Dx) Social History Tobacco Use Types Packs/Day Years Used Date Smoking Tobacco: Never Assessed Comments Unknown Sex and Gender Information Value Date Recorded Sex Assigned at Not on file Legal Sex Female 3:56 AM DRYING SUPERVISOR Gender Identity Not on file Sexual Orientation Not on file documented as of this encounter Plan of Treatment Not on file documented as of this encounter Visit Diagnoses Diagnosis Unspecified essential hypertension- Primary documented in this encounter Care Teams Health Care Sanitary Technician Relationship Specialty Start Date End Date Emanuel Reyes DO [address] [place] [address] [facility] 1 [place] [phone] PCP - General Internal Medicine 03/02/16 documented as of this encounter
--- OUTSIDE RECORDS SUMMARY | 2025-06-27 13:23 | XMS_ITS ---
Author Name Interface, [id number] lity Address [place] [address] Organization [facility] Address [place] [address] Support Name Relationship Address Phone Harvey Perea [...] Lab Address 02/23 Mammo graph y See heel attacher d 02/23 Ultra sound resul ts See heel attacher d 03/31 Biops y (proc edure ) See heel attacher d 03/31 Patho logy repor t See heel attacher d 07/13 Ultra sound resul ts See heel attacher d Medications Date Name Route Dose [...] Notes Section * Radiation Follow Up - [address] [place] [address] P: Patient:??YOBANI PEREA :??1940 Date of Service:??11/29/2023 . Follow up Referring Physicians: Dr. Kong Diagnosis:?? 1. 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 Final pathology revealed a 3.2 cm invasive tumor, no LVI, associated with high-grade DCIS, negative margins, 0/5 nodes. She is not a candidate for adjuvant chemotherapy due to comorbidities 2. 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 clinical stage IA ([id number]), status post biopsy. Due to her severe [...] discuss which drug to take with her registry rn, Dr. Knight. Based on benefit risk analysis, [...] invasive ductal carcinoma, grade 2-3, ER -/ OK -/HER2 - ([facility]). Staging PET/CT however, discovered [...] invasive ductal carcinoma, grade 1, ER + (>90%)/OK -/HER2 - ([facility]). After thorough discussion with [...] Retired, , lives at her son and iuzxpbjr-wg-lmf. Denies use tobacco, alcoholor drugs. Current Medications: [...] a total of 30 minutes in direct hpld-gm-wife consultation with the patient of which more than 50% was in counseling and coordination of care Documentation assistance provided by Cornelia Abarca, scribing for Dr. Ryan Herbert, on 11/29/2023. I, Dr. Ryan Herbert, personally performed the services described in this documentation, and it is bothaccurate and complete.?? [facility] Send Copy of note to: .Dr. Portillo .Dr. Kong Electronically signed by Fernando Herbert MD 11/29/2023 19:33 CDT * Nurse Note for: 13-AUG-24 [facility] Nurse Note Print Location: Unknown Date/Time Printed: 06/27/2025 13:23 ([facility]/[place]) Patient: YOBANI PEREA Sex: Female : 1940 [...] Print Location: Unknown Date/Time Printed: 06/27/2025 13:23 ([facility]) Patient: YOBANI PEREA Sex: Female : [...] on 15:48 * Nurse Note for: 10-DEC-23 [facility] Nurse Note Print Location: Unknown Date/Time Printed: 06/27/2025 13:23 ([facility]) Patient: YOBANI PEREA Sex: Female : [...] Changes , Bleeding . En[facility] on 15:04 * Nurse Note for: 29-NOV-23 [facility] Nurse Note Print Location: Unknown Date/Time Printed: 06/27/2025 13:23 ([facility]) Patient: YOBANI PEREA Sex: Female : 1940 [...]
--- OUTSIDE RECORDS SUMMARY | 2025-06-27 13:24 | XMS_ITS ---
Author Name Interface, [id number] lity Address [place] [address] [facility] Address [place]. [place] [address] Support Name Relationship Address Phone Harvey Perea [...] Address 09/03 Bone Densi tomet ry See director drug d 02/23 Mammo graph y See director drug d 02/23 Ultra sound resul ts See director drug d 03/31 Biops y (proc edure ) See director drug d 03/31 Patho logy repor t See director drug d 07/13 Ultra sound resul ts See director drug d Medications Date Name Route Dose Frequency [...] Section * Hook - Cancer Post Op [facility] [address] [place] [address] [address] [place] [address] P: PATIENT:??YOBANI PEREA :??1940 Date of Service:??05/28/2023 [...] hematoma or seroma. Diagnostic Data: 05/18/2023, [facility], Pathology report: Diagnosis 1. Breast, left, ultrasound-guided [...] NO involvement by invasive carcinoma identified 2. [place] lymph nodes, left axilla, designated as #1, [...] of no special type (ductal) Histologic grade ([place] Histologic Score) ?? Burton score ?Glandular (acinar)/tubular [...] both accurate and complete. Shilpa Kong MD [facility] Send copy of note to: Dr. Rody Portillo . Electronically signed by Shilpa Kong MD 06/04/2023 18:02 KILN TRANSFER OPERATOR * Nurse Note for: 13-AUG-24 [facility] Nurse Note Print Location: Unknown Date/Time Printed: 06/27/2025 13:24 ([facility]) Patient: YOBANI PEREA Sex: Female : 1940 [...] (%) . Entered by Scarlet Cuellar [facility] 08/13/2024 11:24 Time: 02:00. Pain Scale: 0. Entered by Scarlet Cuellar [facility] 08/13/2024 11:23 Patient Assessment : Negative results [...] Note Print Location: Unknown Date/Time Printed: 06/27/2025 13:24 ([facility]) Patient: YOBANI PEREA Sex: Female : 1940 [...] Note Print Location: Unknown Date/Time Printed: 06/27/2025 13:24 ([facility]) Patient: YOBANI PEREA Sex: Female : 1940 [...] Changes , Bleeding . En[facility] on 15:04 * Nurse Note for: 29-NOV-23 [facility] Nurse Note Print Location: Unknown Date/Time Printed: 06/27/2025 13:24 ([facility]) Patient: YOBANI PEREA Sex: Female : 1940 [...] on 15:10 * Nurse Note for: 31-OCT-23 [facility] Nurse Note Print Location: Unknown Date/Time Printed: 06/27/2025 13:24 ([facility]) Patient: YOBANI PEREA Sex: Female : 1940 [...] Note Print Location: Unknown Date/Time Printed: 06/27/2025 13:24 ([facility]) Patient: YOBANI PEREA Sex: Female : 1940 [...] Note Print Location: Unknown Date/Time Printed: 06/27/2025 13:24 ([facility]) Patient: YOBANI PEREA Sex: Female : [...] Note Print Location: Unknown Date/Time Printed: 06/27/2025 13:24 ([facility]) Patient: YOBANI PEREA Sex: Female : [...] on 15:11 * Nurse Note for: 28-MAY-23 [facility] Nurse Note Print Location: Unknown Date/Time Printed: 06/27/2025 13:24 ([facility]) Patient: YOBANI PEREA Sex: Female : 1940 [...]
--- OUTSIDE RECORDS SUMMARY | 2025-06-27 13:24 | XMS_ITS ---
Author Name Interface, [id number] lity Address [place] [address] [facility] Address [place] breakthrough[place]. [place] [address] Support Name Relationship Address Phone Harvey Perea [...] Section * EZRA HemOnc Follow Up - [facility] [address] [place] [address] [address] [place] [address] P: F: PATIENT: YOBANI PEREA : 1940 [...] receptor negative 0, HER2 0 by IHC, [id number], Stage llB. * 05/10/2023: Invasive ductal carcinoma [...] priorheart surgery.?? * 03/14/2023:??Bilateral diagnostic mammogram at [facility] that identified a 2.2 cm irregular mass in the left breast at 10:00 posterior depth with benign calcifications in both breasts.?? * 03/14/2023:??Ultrasound-guided core needle biopsy identified invasive ductal carcinoma, [place] grade 2-3, estrogen and progesterone receptor negative 0%, HER2 negative 0 by IHC. * 04/11/2023: PET CT scan [facility] with known left breast mass and focal FDG uptake in the right medial breast.?? * 05/03/2023: Complete ultrasound of the right breast and axilla at [facility]. A 6 mm irregular mass with a [...] with Dr. 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 Her son accompanies her today.?? Tobacco use: [...] of malignancy 04/11/2023: PET CT scan at [facility].?? IMPRESSION: 1. FDG avid mass in the [...] of the Right Breast and Axilla at [facility].?? IMPRESSION: SUSPICIOUS OF MALIGNANCY RECOMMENDATION: The 6 mm irregular mass in the right breast isat a moderate suspicion for malignancy. An ultrasound guided biopsy is recommended. There is no suspicious finding in the right internal mammary [place] to correlate with recent PET CT finding inthis region. 09/03/2023: DEXA scan at [facility].?? IMPRESSION: OSTEOPOROSIS Patient is at high risk [...] hip fractures 02/24/2024: Bilateral diagnostic mammogram at [facility]: IMPRESSION: KNOWN- BIOPSY- PROVEN MALIGNANCY. Interval postsurgical changes of left lumpectomy. A core biopsy marker in the right breast at the 12:00 axis, middle depth marking the site of invasive carcinoma of the right breast. 02/24/2024: Ultrasound of the bilateral breast at [facility]: IMPRESSION: SUSPICIOUS No significant change in a 6 mm mass in the right breast at the 12 o'clock axis, consistent with the known area of malignancy. The 1.4 cm mass in the left breast at 2 o'clock is suspicious of malignancy. An ultrasound guided biopsy is recommended. 07/13/2024: Left breast ultrasound at [facility]: IMPRESSION: BIRADS-2 Benign. Nosuspicious sonographic abnormality to explain the palpable area of concern. Pathology: 03/14/2023, [facility], Pathology report: Diagnosis Left breast at 10:00, [...] as expected HER2 negative 05/10/2023: Pathology at [facility]. Diagnosis Breast, right, 12 o'clock - 4 [...] of the bilateral breast on 02/24/2024 at [facility]. ??There was no significant change in the [...] return visit. . Michael Parry (MORENA) DNP, DIRECTOR ORACLE DATABASE, MEMBERSHIP COUNSELOR-BC, AOCNP Send copy of note to: Dr. Rody Knight Electronically signed by Michael Parry (ASSOCIATE PROFESSOR OF CHURCH MUSIC) DNP, DIRECTOR ORACLE DATABASE, MEMBERSHIP COUNSELOR-ROBERT, BENP 08/13/2024 11:52 FINANCE CONSULTANT Reviewed and electronically signed by Mickie Portillo MD 08/13/2024 12:06 FINANCE CONSULTANT * Nurse Note for: 13-AUG-24 [facility] Nurse Note Print Location: Unknown Date/Time Printed: 06/27/2025 13:24 ([facility]) Patient: YOBANI PEREA Sex: Female : 1940 [...]
--- OUTSIDE RECORDS SUMMARY | 2025-06-27 13:24 | XMS_ITS | Encounter Summary ---
Author Organization [facility] Address [address] [place] [address] Care Team Providers Care Volleyball Assembler Name Role Phone Emanuel Reyes DO Primary Care Provide r Encounter Details Date Type Department Care Team (Latest Contact Info) Description 07/10/2004 Outpatient Historical [facility] [place] [address] [phone] Blessing Eng MD [address] [place] [phone] ABNORMAL CLINICAL FINDING NEC (Primary Dx) Social History Tobacco Use Types Packs/Day Years Used Date Smoking Tobacco: Never Assessed Comments Unknown Sex and Gender Information Value Date Recorded Sex Assigned at Not on file Legal Sex Female 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
--- OUTSIDE RECORDS SUMMARY | 2025-06-27 13:24 | XMS_ITS ---
Author Name Interface, [id number] lity Address [place] [address] Organization [facility] Address More breakthroughs[place] [address] Support Name Relationship Address Phone Harvey Perea [...] Lab Address 02/23 Mammo graph y See bowling pin refinisher d 02/23 Ultra sound resul ts See bowling pin refinisher d 03/31 Biops y (proc edure ) See bowling pin refinisher d 03/31 Patho logy repor t See bowling pin refinisher d 07/13 Ultra sound resul ts See bowling pin refinisher d Medications Date Name Route Dose Frequency [...] Notes Section * Radiation Follow Up - [address] [place] [address] P: Patient:??YOBANI PEREA :??1940 Date of Service:??11/29/2023 . Follow up Referring Physicians: Dr. Kong Diagnosis:?? 1. 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 Final pathology revealed a 3.2 cm invasive tumor, no LVI, associated with high-grade DCIS, negative margins, 0/5 nodes. She is not a candidate for adjuvant chemotherapy due to comorbidities 2. 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 clinical stage IA ([id number]), status post biopsy. Due to her severe [...] discuss which drug to take with her teamcenter consultant, Dr. Knight. Based on benefit risk analysis, [...] invasive ductal carcinoma, grade 2-3, ER -/ ID -/HER2 - (IHC). Staging PET/CT however, discovered [...] invasive ductal carcinoma, grade 1, ER + (>90%)/ID -/HER2 - ([facility]). After thorough discussion with [...] Retired, , lives at her son and etkjylhy-hb-sfy. Denies use tobacco, alcoholor drugs. Current Medications: [...] a total of 30 minutes in direct eish-gq-bucs consultation with the patient of which more than 50% was in counseling and coordination of care Documentation assistance provided by Cornelia Abarca, scribing for Dr. Ryan Herbert, on 11/29/2023. I, Dr. Ryan Herbert, personally performed the services described in this documentation, and it is bothaccurate and complete.?? [facility] Send Copy of note to: .Dr. Portillo .Dr. Kong Electronically signed by Fernando Herbert MD 11/29/2023 19:33 CDT * Nurse Note for: 13-AUG-24 [facility] Nurse Note Print Location: Unknown Date/Time Printed: 06/27/2025 13:24 ([facility]/[place]) Patient: YOBANI PEREA Sex: Female : 1940 [...] Print Location: Unknown Date/Time Printed: 06/27/2025 13:24 ([facility]) Patient: YOBANI PEREA Sex: Female [...] Print Location: Unknown Date/Time Printed: 06/27/2025 13:24 ([facility]) Patient: YOBANI PEREA Sex: Female [...] Changes , Bleeding . En[facility] By [facility] on 15:04 * Nurse Note for: 29-NOV-23 [facility] Nurse Note Print Location: Unknown Date/Time Printed: 06/27/2025 13:24 ([facility]) Patient: YOBANI PEREA Sex: Female : 1940 [...]
--- OUTSIDE RECORDS SUMMARY | 2025-06-27 13:24 | XMS_ITS | Encounter Summary ---
Author Organization [facility] Address [address] [place] [address] Care Team Providers Care Retail Sales Consultant Name Role Phone Emanuel Reyes DO Primary Care Provide r Encounter Details Date Type Department Care Team (Late st Contact Info) Description 04/04/2005 Inpatient Historical [facility] IN [facility] Mike Ulloa MD [address] [address] Zackary Navarro MD [address] [address] DISSECTING THORACIC AORTIC ANEUR (CMS/HCC) (Primary Dx) Social History Tobacco Use Types Packs/Day Years Used Date Smoking Tobacco: Never Assessed Comments Unknown Sex and Gender Information Value Date Recorded Sex Assigned at Not on file Legal Sex Female 3:56 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
--- OUTSIDE RECORDS SUMMARY | 2025-06-27 13:24 | XMS_ITS | Clinical Summary ---
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 Gender Identity Not on file Sexual [...] history exists Medical Devices Implanted Type Area Classifier Tender Device Identifier Shelf Expiration Date Model / Serial / Lot Adh Bioglue 10ml [id number] - [id number] Implanted:Qty: 1 on 06/18/2017 by Mike Ulloa MD Biological N/A: Heart [employer] 12/16/2018 [id number]- US / / [id number] Coil Embol Pod Packing [id number] - [id number] Implanted:Qty: 1 on 06/25/2017 by Mike Ulloa MD Coil Left: Chest [employer] INC 04/03/2025 [id number] / / [id number] Coil Embol Pod Packing Krznvbx12 - [id number] Implanted:Qty: 1 on 06/25/2017 by Mike Ulloa MD Coil Left: Chest [employer] 04/03/2025 [id number] / / [id number] Coil Jeanie Cmplx Sft 16mm 50cm Awz3b9901 - [id number] Implanted:Qty: 1 on 06/25/2017 by Mike Ulloa MD Coil Left: Chest [employer] 09/18/2024 [id number] / / [id number] Coil Jeanie Cmplx Std 16mm 60cm [id number] - [id number] Implanted:Qty: 1 on 06/25/2017 by Mike Ulloa MD Coil Left: Chest [employer] 02/21/2024 [id number] / / [id number] Coil Jeanie Cmplx Std 18mm 57cm [id number] - [id number] Implanted:Qty: 1 on 06/25/2017 by Mike Ulloa MD Coil Left: Chest [employer] 02/28/2024 [id number] / / [id number] Coil Jeanie Cmplx Std 18mm 57cm [id number] - [id number] Implanted:Qty: 1 on 06/25/2017 by Mike Ulloa MD Coil Left: Chest [employer] 08/11/2022 [id number] / / [id number] Coil Jeanie Cmplx Std 18mm 57cm [id number] - [id number] Implanted:Qty: 1 on 06/25/2017 by Mike Ulloa MD Coil Left: Chest [employer] 06/07/2018 [id number] / / [id number] Graft Hmshld Gold Bifur [id number] - [id number] Implanted:Qty: 1 on 06/18/2017 by Mike Ulloa MD Graft N/A: Chest [facility] 11/04/2021 [id number] 2009 / [id number] / [place] Ptfe Thck 1.5ohs99m19qb 568521 - [id number] Implanted:Qty: 1 on 06/18/2017 by Mike Ulloa MD Graft N/A: Chest [employer]ARD[employer]ONATAN [employer]ASC [employer] 09/04/2021 [id number] / / [id number] Hemostatic Surgicel 6x9in 1946 - [id number] Implanted:Qty: 1 on 06/18/2017 by Mike Ulloa MD Hemostatic N/A: Chest J[employer]J- ETHICON INC 03/07/2022 1946 / / [id number] Starclose Se Vasc Closure 52889-66 - [id number] Implanted:Qty: 1 on 06/23/2017 by Luis Bowman MD Hemostatic Right: Groin DUDLEY- VASC DEVICE 04/07/2019 46757 / / [id number] Ring Vein Marking 10mm 35-1532 - [id number] Implanted:Qty: 3 on 06/18/2017 by iMke Ulloa MD Other N/A: Heart TELEFLEX- PILL WECK HERB L P 35-5832 / / Plug Amplatzer 12mm 9-Avp2-012 - [id number] Implanted:Qty: 1 on 06/25/2017 by Mike Ulloa MD Other Left: Chest [employer] 12/05/2021 9-AVP2-01 2 / [id number] Plate Orb Rim Matrixmidface 04.503.343 - [id number] Implanted:Qty: 1 on 07/30/2018 by Kristopher Arciniega MD Plate Left: Face SYNTHES-STRATEC - MAXIFACIAL 04.503.34 3 140 65263 Plate-L Oblique Matrixmidface 04.503.355 - [id number] Implanted:Qty: 1 on 07/30/2018 by Kristopher Arciniega MD Plate Left: Face SYNTHES-STRATEC - MAXIFACIAL 04.503.35 5 140 28305 Screw Matrixmidface Sd 4mm 04.503.224 - [id number] Implanted:Qty: 1 on 07/30/2018 by Kristopher Arciniega MD Screw Left: Face SYNTHES-STRATEC - MAXIFACIAL 04.503.22 4.01 140 59473 Screw Matrixmidface Sd 5mm 04.503.225 - [id number] Implanted:Qty: 10 on 07/30/2018 by Kristopher Arciniega MD Screw Left: Face SYNTHES-STRATEC - MAXIFACIAL 04.503.22 5.140 37424 Stent Thor Zenith Alpha Prox [id number] - [id number] Implanted:Qty: 1 on 06/18/2017 by Mike Ulloa MD Stent N/A: Aorta COOK- AORTIC INTERVENTION 12/08/2019 [id number] / / [id number] Care Teams Sleep Manager Relationship Specialty Start Date End Date ReyesEmanuel newmanDO [address] [address] PCP - General Internal Medicine 03/02/16
--- OUTSIDE RECORDS SUMMARY | 2025-06-27 13:24 | XMS_ITS | CCD ---
Author Name Interface, [id number] lity Address [place] [address] [facility] Address [place] [address] Care Team Providers Care Shrink Pit Supervisor Name Role Phone Yuli MEI, Mickie Jimenez [...] Address 07/13 Ultra sound resul ts See research engineer miguel a Medications Date Name Route Dose [...] title= #PracticeLetterhead ><img height= 91 src= [email or web address] d?[email or web address]=[id number] width= 286 ></span>

<span class= clinicalNoteMacroHighlighted id= [id number]" macroname= LocationPrintingName spantype= macro title= #LocationPrint ingName >[facility]</span>
<span class= clinic alNoteMacroHighlighted id= [id number] macroname= LocationAddress& quot; spantype= macro title= #LocationAddress >[address]
[place] [address]</span>
P: <span class= clinicalNoteMacroHigh lighted id= [id number] [...] [id number] macroname= PatientMRN" spantype= macro title= #PatientMRN >[id number]</span></div><div style= text- align:left ><strong>:</strong> <span class= clinicalNoteMacroHighlighted [...] receptor negative 0, HER2 0 by IHC, [id number], Stage llB.
</li> <li>05/10/2023: Invasive ductal carcinoma of the r ight breast at 12:00, 4 cm from the nipple, Fremont grade 1, estrogen receptor positive greater than [...] Bilateral diagnostic mammogram at [facility] that identified a 2.2 cm irregular mass in the left breast at 10:00 posterior depth with benign calcifications in both breasts.
</li> <li>03/14/2023: Ultrasound-guided core needle biopsy identified invasive ductal carcinoma, Burton grade 2-3, estrogen and progesterone receptor negative 0%, HER2 negative 0 by IHC.</li> <li>04/11/2023: PET CT scan [facility] with known left breast mass and focal FDG uptake in the right medial breast.
</li> <li>05/03/2023: Complete ultrasound of the right breast and axilla at [facility]. A 6 mm irregular mass with a [...] with Dr. Shilpa Kong: Invasive ductal carcinoma, Fremont grade 3, 3.2 cm in greatest dimension, [...] This study was completed on 07/13/2024 at [facility] and identified no suspicious sonographic abnormality to [...] clinicalNoteSectionShowSeparators clinicalNoteSectionVisible" id= [id number] internalbreaksection= false originalname=&qu ot;GANG PUNCH OPERATOR History: recognizeconcepts= true spantype= section suppressemp ty= true >GANG PUNCH OPERATOR History:</span>
Last menstrual period: 45
Menarche: 15
[...] spantype= section suppressempty= true >Allergies:</span>
<span class= clinicalNoteMacroHgunnison valley hospitaled id= [id number] macr oname= Allergies parameters= ListType:Bulleted,ValueIfNull:No Known Allergies spantype= macro title= #Allergies(ListType:Bulleted,ValueIfNull:No Known Allergies)">No known medication allergies</span>

<span class= clinicalNoteSectionShowSeparators clinicalNoteSectionVisible id= [id number] internalbreaksection= false originalname= Social History: recognizeconcepts="true spantype= section suppressempty= true >Social History:</span>
Occupation: She is currently retired. She is a and lives with her son and [id number]. Her son accompanies her today.
Tobacco use: [...] 2.2 cm irregular mass in the left ukrhrd41 o'clock posterior depth is highly suggestive of malignancy.

BI-RADS 4/5 Mammogram
BI-RADS: 5 Highly suggestive of malignancy

04/11/2023: PET CT scan at [facility].
IMPRESSION: 1. FDG avid mass in the [...] Breast and Axilla at [facility].
IMPRESSION: SUSPICIOUS OF MALIGNANCY RECOMMENDATION: The 6 mm irregular mass in the right breast is at a moderate suspicion for malignancy. An ultrasound guided biopsy is recommended. There is no suspicious finding in the right internal mammary [place] to correlate with recent PET CT finding in this region.

09/03/2023: DEXA scan at [facility].
IMPRESSION: OSTEOPOROSIS
Patient is at high risk [...] hip fractures

02/24/2024: Bilateral diagnostic mammogram at [facility]: IMPRESSION: KNOWN- BIOPSY- PROVEN MALIGNANCY.
Interval postsurgical changes of left lumpe ctomy. A core biopsy marker in the right breast at the 12:00 axis, middle depth marking the site ofinvasive carcinoma of the right breast.

02/24/2024: Ultrasound of the bilateral breast at [facility]: IMPRESSION: SUSPICIOUS
No significant change in a 6 mm mass in the right breast at the 12 o'clock axis, consistent with the known area of malignancy. The 1.4 cm mass in the left breast at 2 o'clock is suspicious of malignancy. An ultrasound guided biopsy is recommended.

07/13/2024: Left breast ultrasound at [facility]: IMPRESSION: BIRADS-2 Benign. No suspicious sonographic abnormality to explain the palpable area of concern.

<span class= clinicalNoteSectionShowSeparators clinicalNoteSectionVisible id= [id number] internalbreaksection= false originalname= Pathology: recognizeconcepts= true spantype= section suppressempty= true >Pathology:</span>
03/14/2023, [facility], Pathology report:
Diagnosis
Left breast at 10:00, [...] negative

05/10/2023: Pathology at [facility].
Diagnosis Breast, right, 12 o'clock - 4 [...] clinicalNoteMacroHighlighted id= [id number] macr oname= Problems parameters= InitialCap:Yes,ListType:Bulleted,LxnpJCN40:Yes,Verbosity:Medium spantype= macro title= #Problems(InitialCap:Yes,ListType:Bulleted,Show ICD10:Yes,Verbosity:Medium) ><ul> <li>Breast [...] of the bilateral breast on 02/24/2024 at [facility]. Therewas no significant change in the 6 [...] MyName spantype= macro title= #MyName >Michael Parry (CFA) DNP, PEARL RESTORER,EXECUTIVE HOUSEKEEPER-BC, AOCNP</span>

<span class= clinicalNoteMacroHighlighted id= [id number] macroname= NoteRecipients spantype="macro title= #NoteRecipients ></span>
<span class= clini calNoteSectionShowSeparators clinicalNoteSectionVisible id= [id number]" internalbreaksection= false originalname= Send copy of note to: recognizeconcepts= true spantype= section suppressempty= true >Send copy of note to:</span>
Dr. Rody Knight

</div></div></div>

<div><span class= eSignSignature >Electronically signed by Michael Parry (CFA) DNP, PEARL RESTORER, EXECUTIVE HOUSEKEEPER-BC, AOCNP 08/13/2024 11:52 VENEREAL DISEASE INVESTIGATOR
Reviewed and electronically signed by Mickie Portillo MD 08/13/2024 12:06 VENEREAL DISEASE INVESTIGATOR</span></div></body></html>
--- OUTSIDE RECORDS SUMMARY | 2025-06-27 13:24 | XMS_ITS | Encounter Summary ---
Author Organization [facility] Address [address] [place] [address] Care Team Providers Care Rural Route Carrier Name Role Phone Emanuel Reyes DO Primary Care Provide r Encounter Details Date Type Department Care Team (Latest Contact Info) Description 06/26/2004 Outpatient Historical [facility] Medicine [place] [address] [phone] Blessing Eng MD [address] [place] [phone] HYPERTENSION NOS (Primary Dx) Social History Tobacco Use Types Packs/Day Years Used Date Smoking Tobacco: Never Assessed Comments Unknown Sex and Gender Information Value Date Recorded Sex Assigned at Not on file 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
--- OUTSIDE RECORDS SUMMARY | 2025-06-27 13:24 | XMS_ITS | Encounter Summary ---
Author Organization [facility] Address [address] [place] [address] Care Team Providers Care Reversal Print Inspector Name Role Phone Emanuel Reyes DO Primary Care Provide r Encounter Details Date Type Department Care Team (Latest Contact Info) Description 09/27/2003 Outpatient Historical [facility] Medicine [place] [address] [phone] Blessing Eng MD [address] [place] [phone] HYPERTENSION NOS (Primary Dx) Social History Tobacco Use Types Packs/Day Years Used Date Smoking Tobacco: Never Assessed Comments Unknown Sex and Gender Information Value Date Recorded Sex Assigned at Not on file 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
--- OUTSIDE RECORDS SUMMARY | 2025-06-27 13:24 | XMS_ITS ---
Author Name Interface, [id number] lity Address [place] [address] [facility] Address [place] [address] Support Name Relationship Address Phone Harvey Perea [...] Lab Address 02/23 Mammo graph y See lead sql developer d 02/23 Ultra sound resul ts See lead sql developer d 03/31 Biops y (proc edure ) See lead sql developer d 03/31 Patho logy repor t See lead sql developer d 07/13 Ultra sound resul ts See lead sql developer d Medications Date Name Route Dose Frequency [...] Section * Hook - Established Cancer Visit [facility] [address] [place] [address] [address] [place] [address] P: PATIENT:??YOBANI PEREA :??1940 Date of Service:??12/10/2023 [...] and imaging review . Luh Dasilva MSN, FERMENTER, PLATE SHOP HELPER-C, OCN ? Send copy of note to: Dr. Rody Knight . . . Electronically signed by Luh Dasilva MSN, FERMENTER, PLATE SHOP HELPER-C, OCN 12/10/2023 15:26 CDT Reviewed and electronically signed by Shilpa Kong MD 12/10/2023 16:13 CDT * Nurse Note for: 13-AUG-24 [facility] Nurse Note Print Location: Unknown Date/Time Printed: 06/27/2025 13:23 ([facility]) Patient: YOBANI PEREA Sex: Female : 1940 [...] Saturation: 97 (%) . Entered by Scarlet Polo [facility] 08/13/2024 11:24 Time: 02:00. Pain Scale: 0. Entered by Scarlet [facility] 08/13/2024 11:23 Patient Assessment : [...] Bleeding . Entered By Scarlet Cuellar [facility] on 11:23 * Nurse Note for: 20-FEB-24 [facility] Nurse Note Print Location: Unknown Date/Time Printed: 06/27/2025 13:23 ([facility]) Patient: YOBANI PEREA Sex: Female : 1940 [...] Saturation: 97 (%) . Entered by Scarlet [facility] 02/20/2024 15:50 Time: 02:00. Pain Scale: 0. Entered by Scarlet [facility] 02/20/2024 15:48 Patient Assessment : [...] , Constipation , Bleeding. Entered By Scarlet [facility] on 15:48 * Nurse Note for: 10-DEC-23 [facility] Nurse Note Print Location: Unknown Date/Time Printed: 06/27/2025 13:23 ([facility]) Patient: YOBANI PEREA Sex: Female : 1940 [...]
--- OUTSIDE RECORDS SUMMARY | 2025-06-27 13:24 | XMS_ITS | Clinical Summary ---
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 Gender Identity Not on file Sexual Orientation [...] years Discontinued Medical Devices Implanted Type Area Local Company Flatbed Truck Driver Device Identifier Shelf Expiration Date Model / Serial / Lot Adh Bioglue 10ml [id number] - [id number] Implanted:Qty: 1 on 06/18/2017 by Mike Ulloa MD at [facility] Biological N/A: Heart [employer] 12/16/2018 [id number] / / [id number] Coil Jeanie Cmplx Std 18mm 57cm Fat1i2121 - [id number] Implanted:Qty: 1 on 06/25/2017 by Mike Ulloa MD at [facility] Coil Left: Chest [employer] INC 08/11/2022 [id number] / / [id number] Coil Jeanie Cmplx Std 18mm 57cm [id number] - [id number] Implanted:Qty: 1 on 06/25/2017 by Mike Ulloa MD at [facility] Coil Left: Chest [employer] INC 06/07/2018 [id number] / / [id number] Coil Jeanie Cmplx Std 16mm 60cm [id number] - [id number] Implanted:Qty: 1 on 06/25/2017 by Mike Ulloa MD at [facility] Coil Left: Chest [employer] INC 02/21/2024 [id number] / / [id number] Coil Jeanie Cmplx Sft 16mm 50cm Nqw3x8001 - [id number] Implanted:Qty: 1 on 06/25/2017 by Mike Ulloa MD at [facility] Coil Left: Chest [employer] INC 09/18/2024 [id number] / / [id number] Coil Embol Pod Packing [id number] - [id number] Implanted:Qty: 1 on 06/25/2017 by Mike Ulloa MD at [facility] Coil Left: Chest [employer] INC 04/03/2025 [id number] / / [id number] Coil Embol Pod Packing Xrhjsgk23 - [id number] Implanted:Qty: 1 on 06/25/2017 by Mike Ulloa MD at [facility] Coil Left: Chest [employer] 04/03/2025 [id number] / / [id number] Coil Jeanie Cmplx Std 18mm 57cm [id number] - [id number] Implanted:Qty: 1 on 06/25/2017 by Mike Ulloa MD at [facility] Coil Left: Chest [employer] INC 02/28/2024 [id number] / / [id number] [place] Ptfe Thck [id number] - [id number] Implanted:Qty: 1 on 06/18/2017 by Mike Ulloa MD at [facility] Graft N/A: Chest CR BARD- [employer]ONATAN VASC INC 09/04/2021 [id number] / / [id number] Graft Hmshld Gold Bifur [id number] - [id number] Implanted:Qty: 1 on 06/18/2017 by Mike Ulloa MD at [facility] Graft N/A: Chest [employer] 11/04/2021 [id number] / [id number] / Hemostatic Surgicel 6x9in 1946 - [id number] Implanted:Qty: 1 on 06/18/2017 by Mike Ulloa MD at [facility] Hemostatic N/A: Chest J&J- ETHICON INC 03/07/2022 1946 / / [id number] Starclose Se Vasc Closure 79651-23 - [id number] Implanted:Qty: 1 on 06/23/2017 by Luis Bowman MD at [facility] Hemostatic Right: Groin DUDLEY- VASC DEVICE 04/07/2019 [id number] / / [id number] Ring Vein Marking 10mm 35-5832 - [id number] Implanted:Qty: 3 on 06/18/2017 by Mike Ulloa MD at [facility] Other N/A: Heart TELEFLEX- PILL WECK HERB L P 35-5832 / / Plug Amplatzer 12mm 9-Avp2-012 - [id number] Implanted:Qty: 1 on 06/25/2017 by Mike Ulloa MD at [facility] Other Left: Chest [employer] 12/05/2021 9-AVP2-01 [id number] Plate Orb Rim Matrixmidface 04.503.343 - [id number] Implanted:Qty: 1 on 07/30/2018 by Kristopher Arciniega MD at [facility] Plate Left: Face SYNTHES-STRATEC - MAXIFACIAL 04.503.34 51676 Plate-L Oblique Matrixmidface 04.503.355 - [id number] Implanted:Qty: 1 on 07/30/2018 by Kristopher Arciniega MD at [facility] Plate Left: Face SYNTHES-STRATEC - MAXIFACIAL 04.503.35 140 89741 Screw Matrixmidface Sd 4mm 04.503.224 - [id number] Implanted:Qty: 1 on 07/30/2018 by Kristopher Arciniega MD at [facility] Screw Left: Face SYNTHES-STRATEC - MAXIFACIAL 04.503.22 4.140 75493 Screw Matrixmidface Sd 5mm 04.503.225 - [id number] Implanted:Qty: 10 on 07/30/2018 by Kristopher Arciniega MD at [facility] Screw Left: Face SYNTHES-STRATEC - MAXIFACIAL 04.503.22 [id number] Stent Thor Flor Vigil Prox [id number] - [id number] Implanted:Qty: 1 on 06/18/2017 by Mike Ulloa MD at [facility] Stent N/A: Aorta COOK- AORTIC INTERVENTION 12/08/2019 [id number] / / [id number] Insurance MEDICARE PART A AND B [place] [id number] Advance Directives For more information, please contact: [phone] * Full Code (Latest Code Status on [...] 5:55 PM 06/26/2017 3:32 PM Care Teams Casting Machine Operator Relationship Specialty Start Date End Date Emanuel Reyes DO [address] [phone] PCP - General Internal Medicine 03/02/16
--- OUTSIDE RECORDS SUMMARY | 2025-06-27 13:24 | XMS_ITS ---
Author Name Interface, [id number] lity Address [place] [address] [facility] Address [place]. [place] [address] Support Name Relationship Address Phone Harvey Perea [...] Address 09/03 Bone Densi tomet ry See oncology transplant network manager d 02/23 Mammo graph y See oncology transplant network manager d 02/23 Ultra sound resul ts See oncology transplant network manager d 03/31 Biops y (proc edure ) See oncology transplant network manager d 03/31 Patho logy repor t See oncology transplant network manager d 07/13 Ultra sound resul ts See oncology transplant network manager d Medications Date Name Route Dose Frequency [...] Active Vital Signs Date Type Value 05/28/2023 Intravascular Systolic 152 05/28/2023 Intravascular Diastolic 52 05/28/2023 Weight 135.00 05/28/2023 Height 64.00 05/28/2023 Respiratory Rate 16.00 05/28/2023 BMI 23.17 05/28/2023 Pain Scale 0.00 05/28/2023 Body Temperature 97.70 05/28/2023 Heart Beat 61.00 05/28/2023 Oxygen Saturation 99.00 05/28/2023 BSA 1.66 06/25/2023 BSA 1.66 06/25/2023 Height 64.00 06/25/2023 Weight 135.00 06/25/2023 Intravascular Systolic 181 06/25/2023 Intravascular Diastolic 66 06/25/2023 Respiratory Rate 16.00 06/25/2023 Heart Beat 62.00 06/25/2023 Body Temperature 97.70 06/25/2023 Oxygen Saturation 98.00 06/25/2023 Pain Scale 0.00 06/25/2023 BMI 23.17 08/21/2023 BSA 1.64 08/21/2023 BMI 22.83 08/21/2023 Height 64.00 08/21/2023 Weight 133.00 08/21/2023 Pain Scale 0.00 08/28/2023 Pain Scale 0.00 08/28/2023 Height 64.00 10/31/2023 Weight 132.00 10/31/2023 Pain Scale 0.00 10/31/2023 Body Temperature 97.40 10/31/2023 Heart Beat 61.00 10/31/2023 Respiratory Rate 16.00 10/31/2023 Oxygen Saturation 97.00 10/31/2023 Intravascular Systolic 156 10/31/2023 Intravascular Diastolic 69 10/31/2023 Height 64.00 10/31/2023 BMI 22.66 10/31/2023 BSA 1.64 11/29/2023 Pain Scale 0.00 11/29/2023 Body Temperature [...] Section * Hook - Cancer Post Op [facility] [address] [place] [address] [address] [place] [address] P: PATIENT:??YOBANI PEREA :??1940 Date of Service:??05/28/2023 [...] hematoma or seroma. Diagnostic Data: 05/18/2023, [facility], Pathology report: Diagnosis 1. Breast, left, ultrasound-guided [...] NO involvement by invasive carcinoma identified 2. Wilmer lymph nodes, left axilla, designated as #1, [...] of no special type (ductal) Histologic grade ([place] Histologic Score) ?? Burton score ?Glandular (acinar)/tubular [...] both accurate and complete. Shilpa Kong MD [facility] Send copy of note to: Dr. Rody Portillo . Electronically signed by Shilpa Kong MD 06/04/2023 18:02 DIRECTOR BUSINESS * Nurse Note for: 13-AUG-24 [facility] Nurse Note Print Location: Unknown Date/Time Printed: 06/27/2025 13:24 ([facility]) Patient: YOBANI PEREA Sex: Female : 1940 [...] 97 (%) . Entered by Scarlet Cuellar [facility] 08/13/2024 11:24 Time: 02:00. Pain Scale: 0. Entered by Scarlet Cuellar [facility] 08/13/2024 11:23 Patient Assessment : Negative [...] Print Location: Unknown Date/Time Printed: 06/27/2025 13:24 ([facility]) Patient: YOBANI PEREA Sex: Female : 1940 [...] Print Location: Unknown Date/Time Printed: 06/27/2025 13:24 ([facility]) Patient: YOBANI PEREA Sex: Female : 1940 [...] Changes , Bleeding . [facility] * Nurse Note for: 29-NOV-23 [facility] Nurse Note Print Location: Unknown Date/Time Printed: 06/27/2025 13:24 ([facility]) Patient: YOBANI PEREA Sex: Female : 1940 [...] Print Location: Unknown Date/Time Printed: 06/27/2025 13:24 ([facility]) Patient: YOBANI PEREA Sex: Female : 1940 [...] Print Location: Unknown Date/Time Printed: 06/27/2025 13:24 ([facility]) Patient: YOBANI PEREA Sex: Female : 1940 [...] Print Location: Unknown Date/Time Printed: 06/27/2025 13:24 ([facility]) Patient: YOBANI PEREA Sex: Female [...] Print Location: Unknown Date/Time Printed: 06/27/2025 13:24 ([facility]) Patient: YOBANI PEREA Sex: Female [...] on 15:11 * Nurse Note for: 28-MAY-23 [facility] Nurse Note Print Location: Unknown Date/Time Printed: 06/27/2025 13:24 ([facility]) Patient: YOBANI PEREA Sex: Female : 1940 [...]
--- OUTSIDE RECORDS SUMMARY | 2025-06-27 13:24 | XMS_ITS | Encounter Summary ---
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
--- OUTSIDE RECORDS SUMMARY | 2025-06-27 13:24 | XMS_ITS | Encounter Summary ---
Author Organization [facility] Address [address] [place] [address] Care Team Providers Care Train Inspector Name Role Phone Emanuel Reyes DO Primary Care Provide r Encounter Details Date Type Department Care Team (Latest Contact Info) Description 10/08/2003 Outpatient Historical [facility] Medicine [place] [address] [phone] Blessing Eng MD [address] [place] [phone] MELENA, BLOOD IN STOOL (Primary Dx) Social History Tobacco Use Types Packs/Day Years Used Date Smoking Tobacco: Never Assessed Comments Unknown Sex and Gender Information Value Date Recorded Sex Assigned at Not on file 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 [address] [place] [address] PCP - General Internal Medicine 03/02/16 documented as of this encounter
--- OUTSIDE RECORDS SUMMARY | 2025-06-27 13:24 | XMS_ITS | Encounter Summary ---
Author Organization [facility] Address [address] [place] [address] Care Team Providers Care Passport Application Examiner Name Role Phone Emanuel Reyes Primary Care Provide r Reason for Referral * Auth/Cert (Routine) Specialty Diagnoses / Procedures Referred By Xochitl t Referred To Contact Cardiology Diagnoses Preop examination Abdominal aortic aneurysm (AAA) without rupture Procedures CL LT HEART CATHETERIZATION Stephen Gomez MD [facility] Cardiac Testing Coordinator [address] [place] [address] Phone: tel: fax: Referral ID Status Reason Start Date Expiration Date Visits Requested Visits Authorized [id number] Ordering Department To Schedule 03/29/2017 04/29/2018 1 1 Encounter Details Date Type Department Care Team (Late st Contact Info) Description 03/29/2017 Ancillary Orders [facility] Cardiology- [place] [address] [place] [address] Stephen Gomez MD NO ADDRESS [...] on file 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 Chanel. Stephen Gomez MD, [facility], [facility] - 04/17/2017 12:52 PM CDT CARDIAC CATHETERIZATION REPORT-[place], [place] PATIENT: Dayanna Chanel PATIENT NUMBER: [id number] BIRTHDATE: 1940 REFERRING PHYSICIAN: Emanuel Reyes DO [...] Coronary angiography was performed with a 5FR [place] and 5FR AL2 catheters. The results were [...] aorta, probably a little bit more than shelter between the aortic valve and the arch. [...] rupture documented in this encounter Care Teams Passport Application Examiner Relationship Specialty Start Date End Date Emanuel Reyes DO [address] [address] PCP - General Internal Medicine 03/02/16 documented as of this encounter
--- OUTSIDE RECORDS SUMMARY | 2025-06-27 13:24 | XMS_ITS ---
Author Name Interface, [id number] lity Address [place] [address] [facility] Address [place] [address] Support Name Relationship Address Phone Harvey Perea [...] Lab Address 02/23 Mammo graph y See surgical instrument maker d 02/23 Ultra sound resul ts See surgical instrument maker d 03/31 Biops y (proc edure ) See surgical instrument maker d 03/31 Patho logy repor t See surgical instrument maker d 07/13 Ultra sound resul ts See surgical instrument maker d Medications Date Name Route Dose Frequency [...] Section * Hook - Established Cancer Visit [facility] [address] [place] [address] [address] [place] [address] P: PATIENT:??YOBANI PEREA :??1940 Date of Service:??12/10/2023 [...] and imaging review . Luh Dasilva MSN, ACCOUNTANCY PROFESSOR, ENT PHYSICIAN-C, OCN ? Send copy of note to: Dr. Rody Knight . . . Electronically signed by Luh Dasilva MSN, ACCOUNTANCY PROFESSOR, ENT PHYSICIAN-C, OCN 12/10/2023 15:26 CDT Reviewed and electronically signed by Shilpa Kong MD 12/10/2023 16:13 CDT * Nurse Note for: 13-AUG-24 [facility] Nurse Note Print Location: Unknown Date/Time Printed: 06/27/2025 13:24 ([facility]/[place]) Patient: YOBANI PEREA Sex: Female : 1940 [...] 97 (%) . Entered by Scarlet Polo [facility] 08/13/2024 11:24 Time: 02:00. Pain Scale: 0. Entered by Scarlet [facility] 08/13/2024 11:23 Patient Assessment : Negative results [...] , Bleeding . Entered By Scarlet Cuellar [facility] on 11:23 * Nurse Note for: 20-FEB-24 [facility] Nurse Note Print Location: Unknown Date/Time Printed: 06/27/2025 13:24 ([facility]) Patient: YOBANI PEREA Sex: Female : 1940 [...] Saturation: 97 (%) . Entered by Scarlet [facility] 02/20/2024 15:50 Time: 02:00. Pain Scale: 0. Entered by Scarlet [facility] 02/20/2024 15:48 Patient Assessment : Positive results [...] , Constipation , Bleeding. Entered By Scarlet [facility] on 15:48 * Nurse Note for: 10-DEC-23 [facility] Nurse Note Print Location: Unknown Date/Time Printed: 06/27/2025 13:24 ([facility]) Patient: YOBANI PEREA Sex: Female : 1940 [...]
--- OUTSIDE RECORDS SUMMARY | 2025-06-27 13:36 | XMS_ITS ---
Author Name Interface, [id number] lity Address [place] [address] [facility] Address More breakthroughs. [place] [address] Support Name Relationship Address Phone Harvey Perea [...] Section * EZRA HemOnc Follow Up - [facility] [address] [place] [address] [address] [place] [address] P: F: PATIENT: YOBANI PEREA : 1940 [...] receptor negative 0, HER2 0 by IHC, [id number], Stage llB. * 05/10/2023: Invasive ductal carcinoma [...] priorheart surgery.?? * 03/14/2023:??Bilateral diagnostic mammogram at [facility] that identified a 2.2 cm irregular mass in the left breast at 10:00 posterior depth with benign calcifications in both breasts.?? 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 * 04/11/2023: PET CT scan [facility] with known left breast mass and focal FDG uptake in the right medial breast.?? * 05/03/2023: Complete ultrasound of the right breast and axilla at [facility]. A 6 mm irregular mass with a [...] with Dr. Shilpa Kong: Invasive ductal carcinoma, Arcadia grade 3, 3.2 cm in greatest dimension, [...] ??This study was completed on 07/13/2024 at 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 Her son accompanies her today.?? Tobacco use: [...] of malignancy 04/11/2023: PET CT scan at [facility].?? IMPRESSION: 1. FDG avid mass in the [...] of the Right Breast and Axilla at [facility].?? IMPRESSION: SUSPICIOUS OF MALIGNANCY RECOMMENDATION: The 6 mm irregular mass in the right breast isat a moderate suspicion for malignancy. An ultrasound guided biopsy is recommended. There is no suspicious finding in the right internal mammary nikos basin to correlate with recent PET CT finding inthis region. 09/03/2023: DEXA scan at [facility].?? IMPRESSION: OSTEOPOROSIS Patient is at high risk [...] hip fractures 02/24/2024: Bilateral diagnostic mammogram at [facility]: IMPRESSION: KNOWN- BIOPSY- PROVEN MALIGNANCY. Interval postsurgical changes of left lumpectomy. A core biopsy marker in the right breast at the 12:00 axis, middle depth marking the site of invasive carcinoma of the right breast. 02/24/2024: Ultrasound of the bilateral breast at [facility]: IMPRESSION: SUSPICIOUS No significant change in a 6 mm mass in the right breast at the 12 o'clock axis, consistent with the known area of malignancy. The 1.4 cm mass in the left breast at 2 o'clock is suspicious of malignancy. An ultrasound guided biopsy is recommended. 07/13/2024: Left breast ultrasound at [facility]: IMPRESSION: BIRADS-2 Benign. Nosuspicious sonographic abnormality to explain the palpable area of concern. Pathology: 03/14/2023, [facility], Pathology report: Diagnosis Left breast [...] as expected HER2 negative 05/10/2023: Pathology at [facility]. Diagnosis Breast, right, 12 o'clock - 4 [...] of the bilateral breast on 02/24/[address] [facility]. ??There was no significant change in [...] return visit. . Michael Parry (MORENA) DNP, HRIS COORDINATOR, DECKHAND SPONGE BOAT-BC, AOCNP Send copy of note to: Dr. Rody Knight Electronically signed by Michael Parry (HAMMER SETTER) DNP, HRIS COORDINATOR, DECKHAND SPONGE BOAT-BC, AOHERMELINDAP 08/13/2024 11:52 TOE PUNCHER Reviewed and electronically signed by Mickie Portillo MD 08/13/2024 12:06 TOE PUNCHER * Nurse Note for: 13-AUG-24 [facility] Nurse Note Print Location: Unknown Date/Time Printed: 06/27/2025 13:36 ([facility]/[place]) Patient: YOBANI PEREA Sex: Female : 1940 [...]
--- OUTSIDE RECORDS SUMMARY | 2025-06-27 13:36 | XMS_ITS ---
Author Name Interface, C6Rvmskpa lity Address [place] [address] [facility] Address [place]. [place] [address] Support Name Relationship Address Phone Harvey Perea [...] Section * EZRA HemOnc Follow Up - [facility] [address] [place] [address] [address] [place] [address] P: F: PATIENT: YOBANI PEREA : 1940 [...] receptor negative 0, HER2 0 by IHC, [id number], Stage llB. * 05/10/2023: Invasive ductal carcinoma [...] priorheart surgery.?? * 03/14/2023:??Bilateral diagnostic mammogram at [facility] that identified a 2.2 cm irregular mass in the left breast at 10:00 posterior depth with benign calcifications in both breasts.?? * 03/14/2023:??Ultrasound-guided core needle biopsy identified invasive ductal carcinoma, Crozier grade 2-3, estrogen and progesterone receptor negative 0%, HER2 negative 0 by IHC. * 04/11/2023: PET CT scan [facility] with known left breast mass and focal FDG uptake in the right medial breast.?? * 05/03/2023: Complete ultrasound of the right breast and axilla at [facility]. A 6 mm irregular mass with a [...] with Dr. Shilpa Kong: Invasive ductal carcinoma, Crozier grade 3, 3.2 cm in greatest dimension, [...] ??This study was completed on 07/13/2024 at [facility] and identified no suspicious sonographic abnormality to [...] and right sentinel lymph node biopsy, 05/18/2023 PAROLE DIRECTOR History: Last menstrual period: 45 Menarche: 15 [...] a and lives with her son and [id number]-[id number]. Her son accompanies her today.?? Tobacco use: [...] of malignancy 04/11/2023: PET CT scan at [facility].?? IMPRESSION: 1. FDG avid mass in the [...] of the Right Breast and Axilla at [facility].?? IMPRESSION: SUSPICIOUS OF MALIGNANCY RECOMMENDATION: The 6 mm irregular mass in the right breast isat a moderate suspicion for malignancy. An ultrasound guided biopsy is recommended. There is no suspicious finding in the right internal mammary nikos basin to correlate with recent PET CT finding inthis region. 09/03/2023: DEXA scan at [facility].?? IMPRESSION: OSTEOPOROSIS Patient is at high risk [...] hip fractures 02/24/2024: Bilateral diagnostic mammogram at [facility]: IMPRESSION: KNOWN- BIOPSY- PROVEN MALIGNANCY. Interval postsurgical changes of left lumpectomy. A core biopsy marker in the right breast at the 12:00 axis, middle depth marking the site of invasive carcinoma of the right breast. 02/24/2024: Ultrasound of the bilateral breast at [facility]: IMPRESSION: SUSPICIOUS No significant change in a 6 mm mass in the right breast at the 12 o'clock axis, consistent with the known area of malignancy. The 1.4 cm mass in the left breast at 2 o'clock is suspicious of malignancy. An ultrasound guided biopsy is recommended. 07/13/2024: Left breast ultrasound at [facility]: IMPRESSION: BIRADS-2 Benign. Nosuspicious sonographic abnormality to explain the palpable area of concern. Pathology: 03/14/2023, [facility], Pathology report: Diagnosis Left breast [...] as expected HER2 negative 05/10/2023: Pathology at [facility]. Diagnosis Breast, right, 12 o'clock - 4 [...] of the bilateral breast on 02/24/2024 at [facility]. ??There was no significant change in [...] return visit. . Michael Parry (MORENA) DNP, TERADATA DEVELOPER, BASE ENGINEER-BC, AOCNP Send copy of note to: Dr. Rody Knight Electronically signed by Michael Parry (LOW PRESSURE FIRER) DNP, TERADATA DEVELOPER, BASE ENGINEER-BC, AOHERMELINDAP 08/13/2024 11:52 REGIONAL TANKER TRUCK DRIVER Reviewed and electronically signed by Mickie Portillo MD 08/13/2024 12:06 REGIONAL TANKER TRUCK DRIVER * Nurse Note for: 13-AUG-24 [place] [facility] Nurse Note Print Location: Unknown Date/Time Printed: 06/27/2025 13:36 ([facility]) Patient: YOBANI PEREA Sex: Female : 1940 [...]
--- OUTSIDE RECORDS SUMMARY | 2025-06-27 13:36 | XMS_ITS ---
Author Name Interface, [id number] lity Address [place] [address] Organization [facility] Address More breakthroughs[place] [address] Support Name Relationship Address Phone Harvey Perea [...] Lab Address 02/23 Mammo graph y See psychiatric social worker d 02/23 Ultra sound resul ts See psychiatric social worker d 03/31 Biops y (proc edure ) See psychiatric social worker d 03/31 Patho logy repor t See psychiatric social worker d 07/13 Ultra sound resul ts See psychiatric social worker d Medications Date Name Route Dose Frequency [...] Notes Section * Radiation Follow Up - [address] [place] [address] P: Patient:??YOBANI PEREA :??1940 Date of Service:??11/29/2023 . Follow up Referring Physicians: Dr. Kong Diagnosis:?? 1. 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 Final pathology revealed a 3.2 cm invasive tumor, no LVI, associated with high-grade DCIS, negative margins, 0/5 nodes. She is not a candidate for adjuvant chemotherapy due to comorbidities 2. 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 clinical stage IA ([id number]), status post biopsy. Due to her severe [...] receiving RT on 08/29/2023.?? Patient saw Dr. Potrillo on 10/31/2023 and was given options including bone protective therapy in the form of oral or intravenous bisphosphonate or Prolia. She will discuss which drug to take with her fire apparatus engineer, Dr. Knight. Based on benefit risk analysis, [...] invasive ductal carcinoma, grade 2-3, ER -/ IA -/HER2 - ([facility]). Staging PET/CT however, discovered [...] invasive ductal carcinoma, grade 1, ER + (>90%)/IA -/HER2 - ([facility]). After thorough discussion with [...] Retired, , lives at her son and texcalne-fd-rpx. Denies use tobacco, alcoholor drugs. Current Medications: [...] a total of 30 minutes in direct [id number]-nc-xrfk consultation with the patient of which more than 50% was in counseling and coordination of care Documentation assistance provided by Cornelia Abarca, scribing for Dr. Ryan Herbert, on 11/29/2023. I, Dr. Ryan Herbert, personally performed the services described in this documentation, and it is bothaccurate and complete.?? [facility] Send Copy of note to: .Dr. Portillo .Dr. Kong Electronically signed by Fernando Herbert MD 11/29/2023 19:33 CDT * Nurse Note for: 13-AUG-24 [facility] Nurse Note Print Location: Unknown Date/Time Printed: 06/27/2025 13:36 ([facility]/[place]) Patient: YOBANI PEREA Sex: Female : 1940 [...] Print Location: Unknown Date/Time Printed: 06/27/2025 13:36 ([facility]) Patient: YOBANI PEREA Sex: Female : [...] on 15:48 * Nurse Note for: 10-DEC-23 [facility] Nurse Note Print Location: Unknown Date/Time Printed: 06/27/2025 13:36 ([facility]) Patient: YOBANI PEREA Sex: Female : [...] Changes , Bleeding . Entered By Katiuska [facility] on 15:04 * Nurse Note for: 29-NOV-23 [facility] Nurse Note Print Location: Unknown Date/Time Printed: 06/27/2025 13:36 ([facility]) Patient: YOBANI PEREA Sex: Female : 1940 [...]
--- OUTSIDE RECORDS SUMMARY | 2025-06-27 13:36 | XMS_ITS ---
Author Name Interface, Q0Lepecvi lity Address [place] [address] [facility] Address [place] breakthrough[place]. [place] [address] Support Name Relationship Address Phone Hravey Perea Child Unknown Unavailab le Allergies and [...] Address 09/03 Bone Densi tomet ry See sample tester d 02/23 Mammo graph y See sample tester d 02/23 Ultra sound resul ts See sample tester d 03/31 Biops y (proc edure ) See sample tester d 03/31 Patho logy repor t See sample tester d 07/13 Ultra sound resul ts See sample tester d Medications Date Name Route Dose Frequency [...] Section * Hook - Cancer Post Op [facility] [address] [place] [address] [address] [place] [address] P: PATIENT:??YOBANI PEREA :??1940 Date of Service:??05/28/2023 [...] hematoma or seroma. Diagnostic Data: 05/18/2023, [facility], Pathology report: Diagnosis 1. Breast, left, ultrasound-guided [...] NO involvement by invasive carcinoma identified 2. [place] lymph nodes, left axilla, designated as #1, [...] of no special type (ductal) Histologic grade ([place] Histologic Score) ?? Burton score ?Glandular (acinar)/tubular [...] complete. Shilpa Kong MD [facility] Send copy of note to: Dr. Rody Portillo . Electronically signed by Shilpa Kong MD 06/04/2023 18:02 HEALTHCARE MANAGEMENT CONSULTANT * Nurse Note for: 13-AUG-24 [place] [facility] Nurse Note Print Location: Unknown Date/Time Printed: 06/27/2025 13:36 ([facility]/[place]) Patient: YOBANI PEREA Sex: Female : 1940 [...] 97 (%) . Entered by Scarlet Cuellar [facility] 08/13/2024 11:24 Time: 02:00. Pain Scale: 0. Entered by Scarlet Cuellar [facility] 08/13/2024 11:23 Patient Assessment : [...] Print Location: Unknown Date/Time Printed: 06/27/2025 13:36 ([facility]) Patient: YOBANI PEREA Sex: Female [...] Print Location: Unknown Date/Time Printed: 06/27/2025 13:36 ([facility]) Patient: YOBANI PEREA Sex: Female : 1940 [...] Changes , Bleeding . Entered By Katiuska [facility] on 15:04 * Nurse Note for: 29-NOV-23 [place] [facility] Nurse Note Print Location: Unknown Date/Time Printed: 06/27/2025 13:36 ([facility]) Patient: YOBANI PEREA Sex: Female : 1940 [...] on 15:10 * Nurse Note for: 31-OCT-23 [place] [facility] Nurse Note Print Location: Unknown Date/Time Printed: 06/27/2025 13:36 ([facility]) Patient: YOBANI PEREA Sex: Female [...] Print Location: Unknown Date/Time Printed: 06/27/2025 13:36 ([facility]) Patient: YOBANI PEREA Sex: Female [...] Print Location: Unknown Date/Time Printed: 06/27/2025 13:36 ([facility]) Patient: YOBANI PEREA Sex: Female [...] Print Location: Unknown Date/Time Printed: 06/27/2025 13:36 ([facility]) Patient: YOBANI PEREA Sex: Female [...] on 15:11 * Nurse Note for: 28-MAY-23 [place] [facility] Nurse Note Print Location: Unknown Date/Time Printed: 06/27/2025 13:36 ([facility]/[place]) Patient: YOBANI PEREA Sex: Female : 1940 [...]
--- OUTSIDE RECORDS SUMMARY | 2025-06-27 13:36 | XMS_ITS | CCD ---
Author Name Interface, [id number] lity Address [place] [address] [facility] Address [place] [address] Care Team Providers Care Hand Binder Cutter Name Role Phone Yuli MEI, Mickie Jimenez [...] Address 07/13 Ultra sound resul ts See tram driver miguel a Medications Date Name Route Dose [...] macro" title= #PracticeLetterhead ><img height= 91 src= [email or web address] d?[email or web address]&[email or web address]=[id number] width= 286 ></span>

<span class= clinicalNoteMacroHighlighted id= [id number]" macroname= LocationPrintingName spantype= macro title= #LocationPrint ingName >[facility]</span>
<span class= clinic alNoteMacroHighlighted id= [id number] macroname= LocationAddress& quot; spantype= macro title= #LocationAddress >[address]
[place] [address]</span>
P: <span class= clinicalNoteMacroHigh lighted id= [id number] [...] [id number] macroname= PatientMRN" spantype= macro title= #PatientMRN >[id number]</span></div><div style= text- align:left ><strong>:</strong> <span class= clinicalNoteMacroHighlighted [...] receptor negative 0, HER2 0 by IHC, [id number], Stage llB.
</li> <li>05/10/2023: Invasive ductal carcinoma of the r ight breast at 12:00, 4 cm from the nipple, Caruthers grade 1, estrogen receptor positive greater than [...] 0 by IHC.</li> <li>04/11/2023: PET CT scan [facility] with known left breast mass [...] with Dr. Shilpa Kong: Invasive ductal carcinoma, Caruthers grade 3, 3.2 cm in greatest dimension, [...] This study was completed on 07/13/2024 at [facility] and identified no suspicious sonographic abnormality [...] clinicalNoteSectionShowSeparators clinicalNoteSectionVisible" id= [id number] internalbreaksection= false originalname=&qu ot;INFORMATION WRITER History: recognizeconcepts= true spantype= section suppressemp ty= true >INFORMATION WRITER History:</span>
Last menstrual period: 45
Menarche: 15
[...] spantype= section suppressempty= true >Allergies:</span>
<span class= clinicalNoteMacroHdelta community medical centered id= [id number] macr oname= Allergies parameters= ListType:Bulleted,ValueIfNull:No Known Allergies spantype= macro title= #Allergies(ListType:Bulleted,ValueIfNull:No Known Allergies)">No known medication allergies</span>

<span class= clinicalNoteSectionShowSeparators clinicalNoteSectionVisible id= [id number] internalbreaksection= false originalname= Social History: recognizeconcepts="true spantype= section suppressempty= true >Social History:</span>
Occupation: She is currently retired. She is a and lives with her son and ognsozht-ci-glw. Her son accompanies her today.
Tobacco use: [...] 2.2 cm irregular mass in the left gcpvyf57 o'clock posterior depth is highly suggestive of [...] hip fractures

02/24/2024: Bilateral diagnostic mammogram at [facility]: IMPRESSION: KNOWN- BIOPSY- PROVEN MALIGNANCY.
Interval postsurgical changes of left lumpe ctomy. A core biopsy marker in the right breast at the 12:00 axis, middle depth marking the site ofinvasive carcinoma of the right breast.

02/24/2024: Ultrasound of the bilateral breast at [facility]: IMPRESSION: SUSPICIOUS
No significant change in a 6 mm mass in the right breast at the 12 o'clock axis, consistent with the known area of malignancy. The 1.4 cm mass in the left breast at 2 o'clock is suspicious of malignancy. An ultrasound guided biopsy is recommended.

07/13/2024: Left breast ultrasound at [facility]: IMPRESSION: BIRADS-2 Benign. No suspicious sonographic abnormality to explain the palpable area of concern.

<span class= clinicalNoteSectionShowSeparators clinicalNoteSectionVisible id= [id number] internalbreaksection= false originalname= Pathology: recognizeconcepts= true spantype= section suppressempty= true >Pathology:</span>
03/14/2023, [facility], Pathology report:
Diagnosis
Left breast [...] clinicalNoteMacroHighlighted id= [id number] macr oname= Problems parameters= InitialCap:Yes,ListType:Bulleted,UgssVFS65:Yes,Verbosity:Medium spantype= macro title= #Problems(InitialCap:Yes,ListType:Bulleted,Show ICD10:Yes,Verbosity:Medium) ><ul> <li>Breast [...] of the bilateral breast on 02/24/2024 at [facility]. Therewas no significant change in the 6 [...] MyName spantype= macro title= #MyName >Michael Parry (TAILER OFF) DNP, ASSOCIATE FINANCIAL REPRESENTATIVE,BINDING MACHINE OPERATOR-BC, AOCNP</span>

<span class= clinicalNoteMacroHighlighted id= [id number] macroname= NoteRecipients spantype="macro title= #NoteRecipients ></span>
<span class= clini calNoteSectionShowSeparators clinicalNoteSectionVisible id= [id number]" internalbreaksection= false originalname= Send copy of note to: recognizeconcepts= true spantype= section suppressempty= true >Send copy of note to:</span>
Dr. Rody Knight

</div></div></div>

<div><span class= eSignSignature >Electronically signed by Michael Parry (TAILER OFF) DNP, ASSOCIATE FINANCIAL REPRESENTATIVE, BINDING MACHINE OPERATOR-BC, AOCNP 08/13/2024 11:52 PROCESS CONTROL SUPERVISOR
Reviewed and electronically signed by Mickie Portillo MD 08/13/2024 12:06 PROCESS CONTROL SUPERVISOR</span></div></body></html>
--- OUTSIDE RECORDS SUMMARY | 2025-06-27 13:36 | XMS_ITS | CCD ---
Author Name Interface, [id number] lity Address [place] [address] [facility] Address [place]. [place] [address] Care Team Providers Care Pre Press Proofer Name Role Phone Yuli MEI, Mickie Jimenez [...] Address 07/13 Ultra sound resul ts See airplane rental clerk miguel a Medications Date Name Route [...] title= #PracticeLetterhead ><img height= 91 src= [email or web address]/[email or web address] d?type=1&[email or web address]=[id number] width= 286 ></span>

<span class= clinicalNoteMacroHighlighted id= [id number]" macroname= LocationPrintingName spantype= macro title= #LocationPrint ingName >[facility]</span>
<span class= clinic alNoteMacroHighlighted id= [id number] macroname= LocationAddress& quot; spantype= macro title= #LocationAddress >[address]
[place] [address]</span>
P: <span class= clinicalNoteMacroHigh lighted id= [id number] [...] [id number] macroname= PatientMRN" spantype= macro title= #PatientMRN >[id number]</span></div><div style= text- align:left ><strong>:</strong> <span class= clinicalNoteMacroHighlighted [...] receptor negative 0, HER2 0 by IHC, oL6V2D5, Stage llB.
</li> <li>05/10/2023: Invasive ductal carcinoma of the r ight breast at 12:00, 4 cm from the nipple, Georgetown grade 1, estrogen receptor positive greater than [...] surgery.
</li> <li>03/14/2023: Bilateral diagnostic mammogram at [facility] that identified a 2.2 cm irregular mass in the left breast at 10:00 posterior depth with benign calcifications in both breasts.
</li> <li>03/14/2023: Ultrasound-guided core needle biopsy identified invasive ductal carcinoma, Burton grade 2-3, estrogen and progesterone receptor negative 0%, HER2 negative 0 by IHC.</li> <li>04/11/2023: PET CT scan [facility] with known left breast mass and focal FDG uptake in the right medial breast.
</li> <li>05/03/2023: Complete ultrasound of the right breast and axilla at [facility]. A 6 mm irregular mass [...] with Dr. Shilpa Kong: Invasive ductal carcinoma, Georgetown grade 3, 3.2 cm in greatest dimension, [...] This study was completed on 07/13/2024 at [facility] and identified no suspicious sonographic abnormality [...] clinicalNoteSectionShowSeparators clinicalNoteSectionVisible" id= [id number] internalbreaksection= false originalname=&qu ot;CORRECTIONAL THERAPY TEACHER History: recognizeconcepts= true spantype= section suppressemp ty= true >CORRECTIONAL THERAPY TEACHER History:</span>
Last menstrual period: 45
Menarche: 15
[...] spantype= section suppressempty= true >Allergies:</span>
<span class= clinicalNoteMacroHspanish fork hospitaled id= [id number] macr oname= Allergies parameters= ListType:Bulleted,ValueIfNull:No Known Allergies spantype= macro title= #Allergies(ListType:Bulleted,ValueIfNull:No Known Allergies)">No known medication allergies</span>

<span class= clinicalNoteSectionShowSeparators clinicalNoteSectionVisible id= [id number] internalbreaksection= false originalname= Social History: recognizeconcepts="true spantype= section suppressempty= true >Social History:</span>
Occupation: She is currently retired. She is a and lives with her son and nzrivymu-qx-rdd. Her son accompanies her today.
Tobacco use: [...] 2.2 cm irregular mass in the left bluhsv92 o'clock posterior depth is highly suggestive of malignancy.

BI-RADS 4/5 Mammogram
BI-RADS: 5 Highly suggestive of malignancy

04/11/2023: PET CT scan at [facility].
IMPRESSION: 1. FDG avid mass [...] of the Right Breast and Axilla at [facility].
IMPRESSION: SUSPICIOUS OF MALIGNANCY RECOMMENDATION: The 6 mm irregular mass in the right breast is at a moderate suspicion for malignancy. An ultrasound guided biopsy is recommended. There is no suspicious finding in the right internal mammary nik[place] basin to correlate with recent PET CT finding in this region.

09/03/2023: DEXA scan at [facility].
IMPRESSION: OSTEOPOROSIS
Patient is at [...] hip fractures

02/24/2024: Bilateral diagnostic mammogram at [facility]: IMPRESSION: KNOWN- BIOPSY- PROVEN MALIGNANCY.
Interval postsurgical changes of left lumpe ctomy. A core biopsy marker in the right breast at the 12:00 axis, middle depth marking the site ofinvasive carcinoma of the right breast.

02/24/2024: Ultrasound of the bilateral breast at [facility]: IMPRESSION: SUSPICIOUS
No significant change in a 6 mm mass in the right breast at the 12 o'clock axis, consistent with the known area of malignancy. The 1.4 cm mass in the left breast at 2 o'clock is suspicious of malignancy. An ultrasound guided biopsy is recommended.

07/13/2024: Left breast ultrasound at [facility]: IMPRESSION: BIRADS-2 Benign. No suspicious sonographic abnormality to explain the palpable area of concern.

<span class= clinicalNoteSectionShowSeparators clinicalNoteSectionVisible id= [id number] internalbreaksection= false originalname= Pathology: recognizeconcepts= true spantype= section suppressempty= true >Pathology:</span>
03/14/2023, [facility], Pathology report:
Diagnosis
Left breast at [...] as expected

HER2 negative

05/10/2023: Pathology at [facility].
Diagnosis Breast, right, 12 o'clock [...] clinicalNoteMacroHighlighted id= [id number] macr oname= Problems parameters= InitialCap:Yes,ListType:Bulleted,CksyWYA38:Yes,Verbosity:Medium spantype= macro title= #Problems(InitialCap:Yes,ListType:Bulleted,Show ICD10:Yes,Verbosity:Medium) ><ul> <li>Breast [...] of the bilateral breast on 02/24/2024 at [facility]. Therewas no significant change in the 6 [...] MyName spantype= macro title= #MyName >Michael Parry (MOLD INJECTOR) DNP, RED HAT ENGINEER,EXTRACT PULLER-BC, AOCNP</span>

<span class= clinicalNoteMacroHighlighted id= [id number] macroname= NoteRecipients spantype="macro title= #NoteRecipients ></span>
<span class= clini calNoteSectionShowSeparators clinicalNoteSectionVisible id= [id number]" internalbreaksection= false originalname= Send copy of note to: recognizeconcepts= true spantype= section suppressempty= true >Send copy of note to:</span>
Dr. Rody Knight

</div></div></div>

<div><span class= eSignSignature >Electronically signed by Michael Parry (MOLD INJECTOR) DNP, RED HAT ENGINEER, EXTRACT PULLER-BC, AOCNP 08/13/2024 11:52 COMMERCIAL CREDIT REVIEWER
Reviewed and electronically signed by Mickie Portillo MD 08/13/2024 12:06 COMMERCIAL CREDIT REVIEWER</span></div></body></html>
--- OUTSIDE RECORDS SUMMARY | 2025-06-27 13:36 | XMS_ITS ---
Author Name Interface, [id number] lity Address [place] [address] [facility] Address [place]. [place] [address] Support Name Relationship Address Phone Harvey Perea [...] Address 09/03 Bone Densi tomet ry See trim attacher d 02/23 Mammo graph y See trim attacher d 02/23 Ultra sound resul ts See trim attacher d 03/31 Biops y (proc edure ) See trim attacher d 03/31 Patho logy repor t See trim attacher d 07/13 Ultra sound resul ts See trim attacher d Medications Date Name Route Dose [...] Section * Hook - Cancer Post Op [facility] [address] [place] [address] [address] [place] [address] P: PATIENT:??YOBANI PEREA :??1940 Date of Service:??05/28/2023 [...] hematoma or seroma. Diagnostic Data: 05/18/2023, [facility], Pathology report: Diagnosis 1. Breast, left, ultrasound-guided [...] NO involvement by invasive carcinoma identified 2. Butler lymph nodes, left axilla, designated as #1, [...] of no special type (ductal) Histologic grade (Shiner Histologic Score) ?? Burton score ?Glandular (acinar)/tubular [...] both accurate and complete. Shilpa Kong MD [facility] Send copy of note to: Dr. Rody Portillo . Electronically signed by Shilpa Kong MD 06/04/2023 18:02 QUAL RESEARCH MANAGER * Nurse Note for: 13-AUG-24 [facility] Nurse Note Print Location: Unknown Date/Time Printed: 06/27/2025 13:35 ([facility]) Patient: YOBANI PEREA Sex: Female : 1940 [...] 97 (%) . Entered by Scarlet Cuellar [facility] 08/13/2024 11:24 Time: 02:00. Pain Scale: 0. Entered by Scarlet Cuellar [facility] 08/13/2024 11:23 Patient Assessment : Negative [...] Note Print Location: Unknown Date/Time Printed: 06/27/2025 13:35 ([facility]) Patient: YOBANI PEREA Sex: Female : 1940 [...] Note Print Location: Unknown Date/Time Printed: 06/27/2025 13:35 ([facility]) Patient: YOBANI PEREA Sex: Female : 1940 [...] Changes , Bleeding . [facility]ius[facility]04 * Nurse Note for: 29-NOV-23 [facility] Nurse Note Print Location: Unknown Date/Time Printed: 06/27/2025 13:35 ([facility]) Patient: YOBANI PEREA Sex: Female : 1940 [...] on 15:10 * Nurse Note for: 31-OCT-23 [facility] Nurse Note Print Location: Unknown Date/Time Printed: 06/27/2025 13:35 ([facility]) Patient: YOBANI PEREA Sex: Female : 1940 [...] Note Print Location: Unknown Date/Time Printed: 06/27/2025 13:35 ([facility]) Patient: YOBANI PEREA Sex: Female : 1940 [...] Note Print Location: Unknown Date/Time Printed: 06/27/2025 13:35 ([facility]) Patient: YOBANI PEREA Sex: Female : [...] Note Print Location: Unknown Date/Time Printed: 06/27/2025 13:35 ([facility]) Patient: YOBANI PEREA Sex: Female : [...] on 15:11 * Nurse Note for: 28-MAY-23 [facility] Nurse Note Print Location: Unknown Date/Time Printed: 06/27/2025 13:35 ([facility]) Patient: YOBANI PEREA Sex: Female : 1940 [...]
--- OUTSIDE RECORDS SUMMARY | 2025-06-27 13:36 | XMS_ITS ---
Author Name Interface, [id number] lity Address [place] breakthrough[place] [address] [facility] Address More breakthroughs[place] [address] Support Name Relationship Address Phone Harvey Perea [...] Lab Address 02/23 Mammo graph y See spool hauler d 02/23 Ultra sound resul ts See spool hauler d 03/31 Biops y (proc edure ) See spool hauler d 03/31 Patho logy repor t See spool hauler d 07/13 Ultra sound resul ts See spool hauler d Medications Date Name Route Dose Frequency [...] Section * Hook - Established Cancer Visit [facility] [address] [place] [address] [address] [place] [address] P: PATIENT:??YOBANI PEREA :??1940 Date of Service:??12/10/2023 [...] and imaging review . Luh Dasilva MSN, FISHERIES TECHNICIAN, SALES OPERATIONS SPECIALIST-C, OCN ? Send copy of note to: Dr. Rody Knight . . . Electronically signed by Luh Dasilva MSN, FISHERIES TECHNICIAN, SALES OPERATIONS SPECIALIST-C, OCN 12/10/2023 15:26 CDT Reviewed and electronically signed by Shilpa Kong MD 12/10/2023 16:13 CDT * Nurse Note for: 13-AUG-24 [facility] Nurse Note Print Location: Unknown Date/Time Printed: 06/27/2025 13:36 ([facility]) Patient: YOBANI PEREA Sex: Female : 1940 [...] 97 (%) . Entered by Scarlet Polo [facility] 08/13/2024 11:24 Time: 02:00. Pain Scale: 0. Entered by Scarlet [facility] 08/13/2024 11:23 Patient Assessment : Negative [...] Changes , Bleeding . Entered By Scarlet uCellar [facility] on 11:23 * Nurse Note for: 20-FEB-24 [facility] Nurse Note Print Location: Unknown Date/Time Printed: 06/27/2025 13:36 ([facility]) Patient: YOBANI PEREA Sex: Female : 1940 [...] Saturation: 97 (%) . Entered by Scarlet [facility] 02/20/2024 15:50 Time: 02:00. Pain Scale: 0. Entered by Scarlet [facility] 02/20/2024 15:48 Patient Assessment : Positive [...] , Constipation , Bleeding. Entered By Scarlet [facility] on 15:48 * Nurse Note for: 10-DEC-23 [facility] Nurse Note Print Location: Unknown Date/Time Printed: 06/27/2025 13:36 ([facility]) Patient: YOBANI PEREA Sex: Female : 1940 [...]
--- OUTSIDE RECORDS SUMMARY | 2025-06-27 13:37 | XMS_ITS ---
Author Name Interface, [id number] lity Address [place] [address] Organization [facility] Address [place] [address] Support Name Relationship Address Phone Harvey Perea [...] Lab Address 02/23 Mammo graph y See case investigator d 02/23 Ultra sound resul ts See case investigator d 03/31 Biops y (proc edure ) See case investigator d 03/31 Patho logy repor t See case investigator d 07/13 Ultra sound resul ts See case investigator d Medications Date Name Route Dose Frequency [...] Notes Section * Radiation Follow Up - [address] [place] [address] P: Patient:??YOBANI PEREA :??1940 Date of Service:??11/29/2023 . Follow up Referring Physicians: Dr. Kong Diagnosis:?? 1. 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 Final pathology revealed a 3.2 cm invasive tumor, no LVI, associated with high-grade DCIS, negative margins, 0/5 nodes. She is not a candidate for adjuvant chemotherapy due to comorbidities 2. 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 clinical stage IA ([id number]), status post biopsy. Due to her severe [...] discuss which drug to take with her esters and emulsifiers supervisor, Dr. Knight. Based on benefit risk analysis, [...] invasive ductal carcinoma, grade 2-3, ER -/ [place] -/HER2 - ([facility]). Staging PET/CT however, discovered [...] invasive ductal carcinoma, grade 1, ER + (>90%)/FL -/HER2 - ([facility]). After thorough discussion with [...] Retired, , lives at her son and hxspdsve-de-bms. Denies use tobacco, alcoholor drugs. Current Medications: [...] a total of 30 minutes in direct spjr-cy-umqn consultation with the patient of which more than 50% was in counseling and coordination of care Documentation assistance provided by Cornelia Abarca, scribing for Dr. Ryan Herbert, on 11/29/2023. I, Dr. Ryan Herbert, personally performed the services described in this documentation, and it is bothaccurate and complete.?? [facility] Send Copy of note to: .Dr. Portillo .Dr. Kong Electronically signed by Fernando Herbert MD 11/29/2023 19:33 CDT * Nurse Note for: 13-AUG-24 [facility] Nurse Note Print Location: Unknown Date/Time Printed: 06/27/2025 13:36 ([facility]) Patient: YOBANI PEREA Sex: Female : 1940 [...] Print Location: Unknown Date/Time Printed: 06/27/2025 13:36 ([facility]) Patient: YOBANI PEREA Sex: Female [...] on 15:48 * Nurse Note for: 10-DEC-23 [facility] Nurse Note Print Location: Unknown Date/Time Printed: 06/27/2025 13:36 ([facility]) Patient: YOBANI PEREA Sex: Female [...] Changes , Bleeding . En[facility] * Nurse Note for: 29-NOV-23 [facility] Nurse Note Print Location: Unknown Date/Time Printed: 06/27/2025 13:36 ([facility]) Patient: YOBANI PEREA Sex: Female : 1940 [...]
--- OUTSIDE RECORDS SUMMARY | 2025-06-27 13:37 | XMS_ITS ---
Author Name Interface, [id number] lity Address [place] [address] [facility] Address More breakthroughs[place] [address] Support Name Relationship Address Phone Harvey Perea [...] Lab Address 02/23 Mammo graph y See sunglass clip attacher d 02/23 Ultra sound resul ts See sunglass clip attacher d 03/31 Biops y (proc edure ) See sunglass clip attacher d 03/31 Patho logy repor t See sunglass clip attacher d 07/13 Ultra sound resul ts See sunglass clip attacher d Medications Date Name Route Dose [...] Section * Hook - Established Cancer Visit [facility] [address] [place] [address] [address] [place] [address] P: PATIENT:??YOBANI PEREA :??1940 Date of Service:??12/10/2023 [...] and imaging review . Luh Dasilva MSN, GIS DATABASE ADMINISTRATOR, PROMOS EXECUTIVE PRODUCER-C, OCN ? Send copy of note to: Dr. Rody Knight . . . Electronically signed by Luh Dasilva MSN, GIS DATABASE ADMINISTRATOR, PROMOS EXECUTIVE PRODUCER-C, OCN 12/10/2023 15:26 CDT Reviewed and electronically signed by Shilpa Kong MD 12/10/2023 16:13 CDT * Nurse Note for: 13-AUG-24 [facility] Nurse Note Print Location: Unknown Date/Time Printed: 06/27/2025 13:36 ([facility]) Patient: YOBANI PEREA Sex: Female : 1940 [...] 97 (%) . Entered by Scarlet Polo [facility] 08/13/2024 11:24 Time: 02:00. Pain Scale: 0. Entered by Scarlet [facility] 08/13/2024 11:23 Patient Assessment : Negative [...] , Bleeding . Entered By Scarlet Cuellar [facility] on 11:23 * Nurse Note for: 20-FEB-24 [facility] Nurse Note Print Location: Unknown Date/Time Printed: 06/27/2025 13:36 ([facility]) Patient: YOBANI PEREA Sex: Female : 1940 [...] Saturation: 97 (%) . Entered by Scarlet [facility] 02/20/2024 15:50 Time: 02:00. Pain Scale: 0. Entered by Scarlet [facility] 02/20/2024 15:48 Patient Assessment : Positive [...] , Constipation , Bleeding. Entered By Scarlet [facility] on 15:48 * Nurse Note for: 10-DEC-23 [facility] Nurse Note Print Location: Unknown Date/Time Printed: 06/27/2025 13:36 ([facility]) Patient: YOBANI PEREA Sex: Female : 1940 [...]
--- NOTE | 2025-06-27 13:39 | PM.HP ---
Providers/Chief Complaint Admitting Physician: Vinny Ramirez MD Primary Care Provider: Rachael Craig DO Chief Complaint: High HR D can't keep anything down History of Present Illness Dayanna Chanel is a 85 year old female with prior medical history of HTN, HFpEF, CAD, RBBB, LAFB, lung nodules, lung mass, aortic stents, chronic atrial fibrillation, anemia, and breast cancer presenting with complaints of high heart rate and food intolerance. Patient was just seen at this ED 06/17/2025 secondary to atrial fibrillation, palpitations, and diarrhea. CXR showed enlarging pulmonary metastasis and new right pleural effusion. She was given fluids and Cardizem and showed clinical improvement. She discharged in stable condition on the same day with instruction to follow-up with PCP or ED return with worsening symptom recurrence. On this encounter, her diarrhea has persisted X 3 days with increasing nausea, food intolerance, shortness of breath on exertion and high heart rate. She does not feel like she had great improvement at home especially since she cannot keep any foods down x1 week. In the ED, BP 142/70, HR 118, RR 18, T97.6, O2 95% on room air. WBC 6.53, Hgb 10.3, PLT 62. INR 2.49. BUN 26, creatinine 1.4. BNP 27,298. TSH 17.86. C. difficile positive. AST/ALT WNL. Glucose WNL. Potassium WNL. CXR; lung hyperinflation with bibasilar opacities worse on today's exam, bilateral lung nodules similar to that seen on prior exam. Of note, patient currently lives at home with son, Kyler, who helps with her laundry and meals, but she needs more help with toileting and personal care. She is a [place] spouse and states they have been pending placement with Pre[facility] at a facility for > 2 months. Case management notified. SNF consult order placed. Review of Systems General: Reports: 10 or more systems reviewed and unremarkable except in HPI and below Const: Denies: fever(s), chills or body aches Card: Denies: chest pain or orthopnea Resp: Denies: dyspnea, productive cough or wheezing GI: Denies: abdominal pain, nausea or vomiting : Denies: flank pain or difficulty voiding Musc: Denies: neck pain or back pain Skin/Breast: Denies: changes in skin color or dry skin Neuro: Denies: numbness in extremities or weakness in extremities Psych: Denies: anxiety Parag/Lymph: Denies: easy bruising or easy bleeding Medications/Allergies Home Medications ?Medication ?Instructions ?Recorded ?Confirmed ?Last Taken ?Type amiodarone 100 mg tablet 100 mg PO DAILY #90 tabs 01/01/25 06/27/25 06/25/25 Rx anastrozole 1 mg tablet 1 mg PO DAILY #90 tabs 03/30/25 06/27/25 06/25/25 Rx sertraline 25 mg tablet 25 mg PO DAILY #90 tabs 03/30/25 06/27/25 Unknown Rx bumetanide 1 mg tablet 1 mg PO DAILY PRN edema #90 tabs 05/19/25 06/27/25 Unknown Rx potassium chloride 20 mEq 20 meq PO DAILY 06/27/25 06/27/25 06/24/25 History tablet,extended release Allergies Allergy/AdvReac Type Severity Reaction Status Date / Time No Known Allergies Allergy Verified 06/27/25 11:34 PFSH Acute PFSH: Medical History Invasive ductal carcinoma of left breast Underwent lumpectomy and radiation. ER positive. History of CVA (cerebrovascular accident) Dissecting AAA (abdominal aortic aneurysm) Syncope Prolonged QT interval [place] to be related to bradycardia. Resolved Sinus bradycardia Moderate aortic regurgitation Chronic heart failure with preserved ejection fraction (HFpEF) Hypertension Surgical History S/P insertion of endovascular thoracic aortic stent graft History of lumpectomy left History of cholecystectomy History of heart valve replacement Hx of aortic aneurysm repair Stent placement after thoracic aortic aneurysm leakage, [facility] Dr. Ulloa Aneurysm repair x3 Family History Other CAD (coronary artery disease) Social History Smoking and tobacco/nicotine status: never used tobacco/nicotine Alcohol intake: former Year of sobriety/quit date alcohol: 2020 Former alcohol use details: Drink a glass of wine daily for 59 years. was a drinker Substance/Drug Use: never Additional social history: She is . She has a friend that lives with her Mimi [place]land. Patient wants DNR as discussed with Moises Doan MD on 01/03/2025. Patient states she is not sure she would want biopsy of her lung nodules to look for cancer. She thinks she would not want to pursue treatment again. She states she is not afraid to . 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 Persistent atrial fibrillation: BP 131/62, heart rate 118 > 91 On home amiodarone EKG Telemetry 2. Chronic heart failure with preserved ejection fraction (HFpEF): BNP 27,298 BMP monitoring I&O Lasix Potassium monitoring Fluid restriction 3. C. difficile diarrhea: C. difficile + 06/27/2025 Contact precautions Monitor for dehydration Fluids 4. TSH elevation: TSH 17.86 Monitoring 5. Lung mass: History of lung mass, nodules History of prior lumpectomy Reports she does not want to pursue any further treatment for her lungs Patient confirms DNR status PDMP PDMP Reviewed: Not Reviewed Attestations Medical Necessity Statement*: Patient expected to stay for at least 2 midnights inpatient and CSU secondary to acuity of care including extremely high BNP and acute kidney injury with high heart rate and fluid intolerance. Diagnoses Persistent atrial fibrillation I48.19 Chronic heart failure with preserved ejection fraction (HFpEF) I50.32 Heart failure chronicity: chronic C. difficile diarrhea A04.72 TSH elevation R79.89 Lung mass R91.8
[2025-06-27 13:51] LABS: Clostridioides Difficile Toxin NEGATIVE (Negative)
--- NOTE | 2025-06-27 14:57 | USCV_ITS ---
Dayanna Chanel Age: 85 Gender: F : 1940 Exam Date: 06/27/2025 18:17 Ordering Phys: Alona Esparza OPERATIONS ACCOUNTANT Technologist: JESSE [place] [facility] [place]: HF, Elevated bnp BP: 132 / 85 HR: 97 Rhythm: Sinus Technical Quality: Adequate MEASUREMENTS (Male / Female) Normal Values 2D ECHO LV Diastolic Diameter PLAX 5.5 cm 4.2 - 5.9 / 3.9 - 5.3 cm IVS Diastolic Thickness 1.0 cm 0.6 - 1.0 / 0.6 - 0.9 cm IVS Systolic Thickness 1.0 cm LVPW Diastolic Thickness 1.1 cm 0.6 - 1.0 / 0.6 - 0.9 cm LVPW Systolic Thickness 1.0 cm LVOT Diameter 2.0 cm LV Ejection Fraction 2D Teich 20.8 % LV Ejection Fraction MOD 4C 31.0 % LV Ejection Fraction MOD 2C 31.1 % LV Ejection Fraction 2C AL 27.8 % LA Diameter 4.4 cm RA Systolic Volume 4C AL 47.3 ml RA Systolic Volume 4C MOD 46.1 ml LA Sys Volume AL 112.1 cm cubed LA Sys Volume Index AL 49.3 cm cubed/m squared Aorta at Sinotubular Diameter 2.9 cm IVC Diameter 2.6 cm M-MODE LA Ao Ratio MM 2.3 AV Cusp Separation MM 1.6 cm DOPPLER AV Peak Velocity 134.0 cm/s LVOT Peak Velocity 102.0 cm/s AV Area Cont Eq vti 3.0 cm squared AV Area Cont Eq pk 2.4 cm squared MV Peak Velocity 173.0 cm/s MV Area PHT 5.8 cm squared Mitral E to A Ratio 3.2 TR Peak Velocity 191.0 cm/s TR Peak Gradient 14.6 mmHg TV Peak E Velocity 81.0 cm/s PV Peak Velocity 81.0 cm/s FINDINGS Left Ventricle Severely increased left ventricular cavity size. Severely decreased left ventricular systolic function. Left ventricular ejection fraction is estimated at 30 %. Global left ventricular hypokinesis. Grade III/IV diastolic dysfunction (restrictive filling pattern), severely elevated filling pressures. Right Ventricle Normal right ventricular size and systolic function. Right Atrium Normal right atrial size. Left Atrium Moderately increased left atrial size. IA Septum Normal appearance of the interatrial septum. Mitral Valve Moderately thickened mitral valve. Severe mitral annular calcification. No mitral valve stenosis. Severe mitral valve regurgitation. Aortic Valve Moderate aortic valve calcification. No aortic valve stenosis. Moderate aortic valve regurgitation. Tricuspid Valve Normal tricuspid valve structure. No tricuspid valve stenosis or regurgitation. Normal pulmonary pressure. Pulmonic Valve Normal pulmonic valve structure. No pulmonic valve stenosis or regurgitation. Pericardium No pericardial effusion. Aorta Normal diameter of the aortic root and ascending thoracic aorta. IVC Normal IVC diameter. CONCLUSIONS Severely increased left ventricular cavity size. Severely decreased left ventricular systolic function. Left ventricular ejection fraction is estimated at 30 %. Global left ventricular hypokinesis. Grade III/IV diastolic dysfunction (restrictive filling pattern), severely elevated filling pressures. Moderate aortic valve calcification. No aortic valve stenosis. Moderate aortic valve regurgitation. Moderately thickened mitral valve. Severe mitral annular calcification. No mitral valve stenosis. Severe mitral valve regurgitation. There is no pericardial effusion. Right atrial pressure is around 10 mm of mercury. Akila Pinto MD (Electronically Signed) Final Date: 27 June 2025 19:47 S
[2025-06-27 15:30] LABS: Glucose Urine UA Negative (Normal); Nitrate Urine Positive (Negative); Specific Gravity, Urine 1.020 (1.005-1.030)
[2025-06-27 15:35] LABS: Add Urine Microscopic? YES
--- NOTE | 2025-06-27 15:57 | PC.NURSE ---
received from er via stretcher at 1440.report received.pt is alert and oriented x 4.denies pain at present.afib on monitor...rateslow 100's-110.bp stable.on amioderone drip.pt oriented to room environment.instructed to notify staff for any pain,sob,bathroom needs..or for any concerns at all.pt verb understanding of instructions
[2025-06-27] MEDS: FUROsemide 10 mg/mL SDV 4mL 40 MG IVP (19:28)
[2025-06-27] MEDS: lactobacillus 1 Tablet 1 TAB PO (19:28)
[2025-06-28 00:23] VITALS: BP 130/69; PULSE 95; RESP 22; TEMP 36.5; O2SAT 94
[2025-06-28 03:31] LABS: Hematocrit 29.9 % (36-47); Hemoglobin 9.90 g/dL (11.27-16.99); Mean Corpuscular HGB Conc 33.1 g/dL (30-55); Mean Corpuscular Hemoglobin 38.1 pg (27-33); Mean Corpuscular Volume 115.0 fl (85-98); Nucleated Red Blood Cells % 0 %; Platelet Count 39 10^3/cmm (157-399); Red Blood Count 2.60 10^6/uL (3.85-5.65); White Blood Count 6.12 10^3/uL (3.29-11.43)
--- NOTE | 2025-06-28 03:44 | PC.NURSE ---
Notified Dr. Doan that patient plts this AM are 39. Per MD pass along to day shift team.
[2025-06-28 04:00] VITALS: BP 120/57; PULSE 95; RESP 21; TEMP 36.7; O2SAT 93
[2025-06-28 04:21] LABS: Iron 66 ug/dL (37-145); Total Iron Binding Capacity 165 mcg/dl; Unsaturated Iron Binding 99 ug/dL (112-347)
[2025-06-28 04:34] LABS: Ferritin 193 ng/mL (15-150)
[2025-06-28 08:00] VITALS: BP 131/76; PULSE 106; RESP 21; TEMP 36.6; O2SAT 97
--- NOTE | 2025-06-28 09:55 | PC.CHAP ---
Pastoral Care Encounter/Spiritual Assessment Type of Contact [] Declined otr van cdl truck driver visit [] Patient/Family/Request visit [] Outpatient visit [] Follow-up visit [] Physician referral [] Code/Alert [] Routine visit [] Staff referral [] Actively dying [] Patient sleeping [] Family support [] [] Out of room [] Palliative care [] [] Receiving care in room [] Pre-surgical visit [] Trauma [] Long length of stay [] ICU visit [x Contact precautions. No visit.] Other: Relational/Emotional Strength [] Patient feels connected with others/family/visitors/staff [] Distress [] Loneliness/isolation [] Abandonment Spirituality of Patient [] Person of Margret [] Attends Faith of their Margret [] Believes in Prayer [] Reads Bible or Judaism materials [] There are Spiritual issues to be addressed Hvac Residential Service Technician Interventions [] Prayer [] Active listening [] Non-anxious presence [] Spiritual/emotional support [] Crisis/trauma care [] Spiritual counseling [] Bereavement support [] Provided bereavement packet [] Provided Bible/devotional materials [] Provided toy/stuffed animal, coloring book to patient or family member [] Provided Communion [] Anointing/[place] [] Salvation [] Completed spiritual assessment [] Other: Impact on Illness or Injury [] Angry [] Fearful [] Anxious [] Often cries [] Exhaustion [] Unable to work [] Unable to attend sabianism [] Unable to walk/stand [] Unable to read [] Unable to drive [] Unable to eat/drink [] Unable to sleep [] Unable to be with family [] Patient intubated [] Other: Summary Time spent with patient
[2025-06-28 12:00] VITALS: BP 128/67; PULSE 114; RESP 14; O2SAT 98
[2025-06-28] MEDS: AMIODARONE HCL/D5W 900 MG/500 ML BAG 16.67 MG IV (12:23)
--- NOTE | 2025-06-28 13:10 | PM.CONSULT ---
Providers/Reason For Consult Consulting Physician/Specialty*: kommana /Nephrology Reason for Consult*: EMANI Attending Physician: Alona Esparza, SALES AND SERVICE CHANGE LEADER, LUBRICATION SUPERVISOR Primary Care Provider: Rachael Craig DO History of Present Illness History of Present Illness Dayanna Chanel is a 85 year old female Patient Is 85-year-old Female with past Medical History of Hypertension CHF, Coronary Artery Disease, Lung Mass, Aortic Stents Chronic A-Fib, Anemia and History of Breast Cancer Presented with Tachycardia. Patient Also Complained of Diarrhea Going on for 3 Days. She Tested Positive for C. difficile. Creatinine Was 1.4 on Presentation and worsened to 1.8 today. Reported to have poor oral intake. Review of Systems Narrative: negative Medications/Allergies Home Medications ?Medication ?Instructions ?Recorded ?Confirmed ?Last Taken ?Type amiodarone 100 mg tablet 100 mg PO DAILY #90 tabs 01/01/25 06/27/25 06/25/25 Rx anastrozole 1 mg tablet 1 mg PO DAILY #90 tabs 03/30/25 06/27/25 06/25/25 Rx sertraline 25 mg tablet 25 mg PO DAILY #90 tabs 03/30/25 06/27/25 Unknown Rx bumetanide 1 mg tablet 1 mg PO DAILY PRN edema #90 tabs 05/19/25 06/27/25 Unknown Rx potassium chloride 20 mEq 20 meq PO DAILY 06/27/25 06/27/25 06/24/25 History tablet,extended release Allergies Allergy/AdvReac Type Severity Reaction Status Date / Time No Known Allergies Allergy Verified 06/27/25 11:34 Current Medications Generic Name Dose Route Start Last Admin Trade Name Freq PRN Reason Stop Dose Admin Anastrozole 1 mg 06/28/25 05:00 06/28/25 06:08 Anastrozole 1 Mg Tablet PO 1 mg DAILY RAMON Administration Furosemide 40 mg 06/27/25 17:00 06/27/25 19:28 Furosemide 10 Mg/Ml Sdv 4ml IVP 40 mg ONCE RAMON Administration AMIODARONE HCL/D5W 900 mg in 500 mls @ 0 mls/hr 06/27/25 12:09 06/28/25 12:23 Amiodarone 900 Mg/500 Ml-D5w IV 0.5 mg/min .Q0M RAMON 16.67 mls/hr Protocol Administration Per Protocol Lactobacillus Acidophilus 1 tab 06/27/25 17:00 06/28/25 07:05 Lactobacillus 1 Tablet PO Not Given BID RAMON Potassium Chloride 20 meq 06/28/25 05:00 06/28/25 07:05 Potassium Chloride Er 20 Meq Tablet PO Not Given DAILY RAMON Sertraline HCl 25 mg 06/28/25 05:00 06/28/25 07:04 Sertraline 50 Mg Tablet PO Not Given DAILY RAMON Vancomycin HCl 250 mg 06/27/25 17:00 06/28/25 11:50 Vancomycin 125 Mg Capsule PO 250 mg QID RAMON Administration PFSH Acute PFSH: Medical History (Updated 06/28/25 @ 19:31 by Chrystal Painting MD) Invasive ductal carcinoma of left breast Underwent lumpectomy and radiation. ER positive. History of CVA (cerebrovascular accident) Dissecting AAA (abdominal aortic aneurysm) Syncope Prolonged QT interval [place] to be related to bradycardia. Resolved Sinus bradycardia Moderate aortic regurgitation Chronic heart failure with preserved ejection fraction (HFpEF) Hypertension Surgical History S/P insertion of endovascular thoracic aortic stent graft History of lumpectomy left History of cholecystectomy History of heart valve replacement Hx of aortic aneurysm repair Stent placement after thoracic aortic aneurysm leakage, [facility] Dr. Ulloa Aneurysm repair x3 Family History Other CAD (coronary artery disease) Social History Smoking and tobacco/nicotine status: never used tobacco/nicotine Alcohol intake: former Year of sobriety/quit date alcohol: 2020 Former alcohol use details: Drink a glass of wine daily for 59 years. was a drinker Substance/Drug Use: never Additional social history: She is . She has a friend that lives with her Mimi [place]. Patient wants DNR as discussed with Moises Doan MD on 01/03/2025. Patient states she is not sure she would want biopsy of her lung nodules to look for cancer. She thinks she would not want to pursue treatment again. She states she is not afraid to . 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 Vitals/I&O/Wt Last Vital Signs Temp 97.9 F 06/28/25 08:00 Pulse 114 H 06/28/25 12:00 Resp 14 06/28/25 12:00 BP 128/67 06/28/25 12:00 Pulse Ox 98 06/28/25 12:00 O2 Del Method Room Air 06/28/25 04:00 06/27/25 06/28/25 06/28/25 22:59 06:59 14:59 Intake Total 972.754 / 972.754 507.246 / 507.246 Output Total 250 / 250 200 / 450 175 / 175 Balance 722.754 / 722.754 -200 / 522.754 332.246 / 332.246 Weight last 48 hrs Weight 56.1 kg Weight 56.1 kg Weight 55.962 kg Weight 55.792 kg Physical Exam Narrative: Patient is awake alert, no acute distress PERRLA S1-S2 irregular rate Lungs clear bilaterally Abdomen soft nontender Extremities no edema Skin no rash Data 06/28/25 02:44 06/28/25 13:18 Micro: Microbiology 06/28/25 03:30 Stool Lactoferrin - Final Stool A&P Assessment and plan 1. EMANI (acute kidney injury): Plan: 1. 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 Now has EMANI with a creatinine up to 1.8-likely prerenal in the setting of poor oral intake and C. difficile colitis. - Patient is oliguric, will start gentle IV fluids with bicarbonate drip at 75 cc an hour. Watch respiratory status closely while on IV fluids due to history of CHF with low ejection fraction. - Will check renal ultrasound and urine electrolytes - Avoid IV contrast studies -No acute indication for dialysis today but even if renal function were to get worse, due to multiple comorbidities and CHF, likely will not tolerate dialysis well. 2. History of CHF with last ejection fraction 30%, diuretics are temporarily on hold 3. Metabolic acidosis due to diarrhea, placed on bicarbonate drip, monitor 4.History of A-fib 5. History of coronary artery disease Patient evaluated using audiovisual cart. Time spent 40 minutes. PDMP PDMP Reviewed: Not Reviewed Consult Attestations Medical Necessity Statement: per nish Coding Level of Care Code Acute Code for Chg Fwd Diagnoses EMANI (acute kidney injury) N17.9
[2025-06-28 14:07] LABS: Anion Gap 20.5 (5-19); Blood Urea Nitrogen 33 mg/dL (8-23); Calcium 8.1 mg/dL (8.5-10.5); Carbon Dioxide 15 mmol/L (22-29); Chloride 102 mmol/L (98-107); Glucose 154 mg/dL (65-115); Osmolality Calculated 286 mOsm/kg (285-295); Potassium 4.5 mmol/L (3.5-5.1); Sodium 133 mmol/L (136-145)
[2025-06-28 16:00] VITALS: BP 123/64; PULSE 119; RESP 15; O2SAT 96
--- NOTE | 2025-06-28 17:34 | P.PN_ITS ---
Subjective 2 Subjective: Dayanna Chanel is a 85 year old female with prior medical history of HTN, HFpEF, CAD, RBBB, LAFB, lung nodules, lung mass, aortic stents, chronic atrial fibrillation, anemia, and breast cancer presenting with complaints of high heart rate and food intolerance. Patient was just seen at this ED 06/17/2025 secondary to atrial fibrillation, palpitations, and diarrhea. CXR showed enlarging pulmonary metastasis and new right pleural effusion. She was given fluids and Cardizem and showed clinical improvement. She discharged in stable condition on the same day with instruction to follow-up with PCP or ED return with worsening symptom recurrence. On this encounter, her diarrhea has persisted X 3 days with increasing nausea, food intolerance, shortness of breath on exertion and high heart rate. She does not feel like she had great improvement at home especially since she cannot keep any foods down x1 week. In the ED, BP 142/70, HR 118, RR 18, T97.6, O2 95% on room air. WBC 6.53, Hgb 10.3, PLT 62. INR 2.49. BUN 26, creatinine 1.4. BNP 27,298. TSH 17.86. C. difficile positive. AST/ALT WNL. Glucose WNL. Potassium WNL. CXR; lung hyperinflation with bibasilar opacities worse on today's exam, bilateral lung nodules similar to that seen on prior exam. Of note, patient currently lives at home with son, Kyler, who helps with her laundry and meals, but she needs more help with toileting and personal care. She is a [place] and states they have been pending placement with [facility] at a facility for > 2 months. Case management notified. SNF consult order placed. 06/29/25 patient sitting in bed resting at time of interview. She reports that she did not sleep well at all last night and requests sleep aids for tonight. Patient is still nauseous and has reduced intake; new dietary order placed for patient to have Ensure mixed with ice cream/milkshakes at mealtime. Her heart rate is still increased but managed now to 114. BNP was 88765 and a repeat is pending. Nephrology was consulted yesterday and they will see patient today to address fluid status -creatinine 1.8, BUN 33, NA 133, BNP 27,298 >86841. Case management is still working on fdc placement for her. Vitals/I&O/Wt Last Vital Signs Temp 97.9 F 06/28/25 08:00 Pulse 114 H 06/28/25 12:00 Resp 14 06/28/25 12:00 BP 128/67 06/28/25 12:00 Pulse Ox 98 06/28/25 12:00 O2 Del Method Room Air 06/28/25 04:00 06/28/25 06/28/25 06/28/25 06:59 14:59 22:59 Intake Total 747.246 / 747.246 Output Total 200 / 450 225 / 225 Balance -200 / 522.754 522.246 / 522.246 Weight last 48 hrs Weight 56.1 kg Weight 56.1 kg Weight 55.962 kg Weight 55.792 kg Physical Exam 2 Const: COMMON NORMALS: no acute distress and patient oriented x3 Resp: COMMON NORMALS: normal respiratory effort, No retractions, No use of accessory muscles and clear to auscultation bilaterally AUSCULTATION: clear to auscultation bilaterally Cardio: COMMON NORMALS: regular rate, regular rhythm, S1 normal heart sound present and S2 normal heart sound present RATE: regular rate RHYTHM: r egular rhythm HEART SOUNDS: S1 normal heart sound present and S2 normal heart sound present GI: COMMON NORMALS: Normal to inspection, nondistended, normoactive bowel sounds present and non-tender Extremity: COMMON NORMALS: no pedal edema Neuro: COMMON NORMALS: patient oriented x3 Psych: COMMON NORMALS: mental status grossly normal Urinary Catheter Management: Aggarwal: Cath Placed During This Visit: yes, but has since been removed by the nurse Reason for Continuing Indwelling Catheter: Other Urinary Catheter Date of Insertion: 01/08/25 Urinary Catheter Time of Insertion: 15:00 Date Urinary Catheter Removed: 01/07/25 Time Urinary Catheter Discontinued: 15:02 Data 06/28/25 02:44 06/28/25 13:18 Micro: Microbiology 06/28/25 03:30 Stool Lactoferrin - Final Stool A&P Assessment and plan 1. Persistent atrial fibrillation: BP 131/62, heart rate 118 > 91 > increased to 1-teens (114) at time of assessment EKG Telemetry 2. Chronic heart failure with preserved ejection fraction (HFpEF): BNP 27,298 > 57258 BMP monitoring I&O Lasix Potassium monitoring Fluid restriction 3. C. difficile diarrhea: C. difficile + 06/27/2025 Contact precautions Monitor for dehydration Fluids 4. TSH elevation: TSH 17.86 Monitoring 5. Lung mass: History of lung mass, nodules History of prior lumpectomy Reports she does not want to pursue any further treatment for her lungs Patient confirms DNR status PDMP PDMP Reviewed: Not Reviewed Attestations 2 Medical Necessity Statement*: Patient expected to stay at least 2 midnights for symptom management, nutritional intake, and tachycardia. Coding Level of Care Code Acute Code for Chg Fwd Diagnoses Persistent atrial fibrillation I48.19 Chronic heart failure with preserved ejection fraction (HFpEF) I50.32 Heart failure chronicity: chronic C. difficile diarrhea A04.72 TSH elevation R79.89 Lung mass R91.8
[2025-06-28] MEDS: lactobacillus 1 Tablet 1 TAB PO (17:39)
--- NOTE | 2025-06-28 18:27 | US_ITS ---
WS: [id number] RENAL ULTRASOUND HISTORY: EMANI COMPARISON: None available. TECHNIQUE: 2-D and color Doppler imaging of the kidney submitted. Right kidney: 9.2 cm x 4.3 cm x 3.9 cm. Cortex: 0.8 cm Normal size kidney with diffuse cortical thinning. No mass or obstruction. Left kidney: 9.3 cm x 4.1 cm x 3.8 cm. Cortex: 1.2 cm Normal size kidney. No obstruction. No mass. Aorta: Not imaged. Urinary Bladder: Normally distended. No intraluminal filling defects. US/US renal BI* [id number] IMPRESSION: 1. Kidneys are normal size but have decreased in size since the study of 2015. 2. Mild cortical thinning RIGHT kidney has also progressed since 2016. 3. No obstruction.
[2025-06-28 20:00] VITALS: BP 122/68; PULSE 110; RESP 13; TEMP 36.6; O2SAT 96
[2025-06-28] MEDS: MELATONIN 3 MG TABLET 6 MG PO (20:15)
[2025-06-29] VITALS: BP 122/67; PULSE 106; RESP 16; O2SAT 97
[2025-06-29 04:00] VITALS: BP 118/62; PULSE 95; RESP 93; TEMP 37; O2SAT 93
[2025-06-29 04:25] LABS: Hematocrit 29.8 % (36-47); Hemoglobin 9.70 g/dL (11.27-16.99); Mean Corpuscular HGB Conc 32.6 g/dL (30-55); Mean Corpuscular Hemoglobin 38.5 pg (27-33); Mean Corpuscular Volume 118.3 fl (85-98); Nucleated Red Blood Cells % 0 %; Red Blood Count 2.52 10^6/uL (3.85-5.65); White Blood Count 6.72 10^3/uL (3.29-11.43)
[2025-06-29 05:02] LABS: NT Pro B Type Natriuretic Pept 27315 pg/mL (0-450)
[2025-06-29 05:13] LABS: Platelet Count 27 10^3/cmm (157-399); Slide Review Slide Review Perform
[2025-06-29] MEDS: lactobacillus 1 Tablet 1 TAB PO ×2 (05:45→17:04)
[2025-06-29 05:57] LABS: Urine Random Chloride 26 mmol/L
[2025-06-29 05:58] LABS: Anion Gap 19.2 (5-19); Blood Urea Nitrogen 31 mg/dL (8-23); Calcium 8.1 mg/dL (8.5-10.5); Carbon Dioxide 18 mmol/L (22-29); Chloride 100 mmol/L (98-107); Glucose 124 mg/dL (65-115); Osmolality Calculated 284 mOsm/kg (285-295); Potassium 4.2 mmol/L (3.5-5.1); Sodium 133 mmol/L (136-145)
[2025-06-29 05:58] LABS: Urine Random Sodium 12 mmol/L
[2025-06-29 08:00] VITALS: BP 129/64; PULSE 102; RESP 19; TEMP 36.6; O2SAT 96
--- NOTE | 2025-06-29 08:21 | P.PN_ITS ---
Subjective 2 Subjective: Dayanna Chanel is a 85 year old female with prior medical history of HTN, HFpEF, CAD, RBBB, LAFB, lung nodules, lung mass, aortic stents, chronic atrial fibrillation, anemia, and breast cancer presenting with complaints of high heart rate and food intolerance. Patient was just seen at this ED 06/17/2025 secondary to atrial fibrillation, palpitations, and diarrhea. CXR showed enlarging pulmonary metastasis and new right pleural effusion. She was given fluids and Cardizem and showed clinical improvement. She discharged in stable condition on the same day with instruction to follow-up with PCP or ED return with worsening symptom recurrence. On this encounter, her diarrhea has persisted X 3 days with increasing nausea, food intolerance, shortness of breath on exertion and high heart rate. She does not feel like she had great improvement at home especially since she cannot keep any foods down x1 week. In the ED, BP 142/70, HR 118, RR 18, T97.6, O2 95% on room air. WBC 6.53, Hgb 10.3, PLT 62. INR 2.49. BUN 26, creatinine 1.4. BNP 27,298. TSH 17.86. C. difficile positive. AST/ALT WNL. Glucose WNL. Potassium WNL. CXR; lung hyperinflation with bibasilar opacities worse on today's exam, bilateral lung nodules similar to that seen on prior exam. Of note, patient currently lives at home with son, Kyler, who helps with her laundry and meals, but she needs more help with toileting and personal care. She is a [facility] spouse and states they have been pending placement with [facility] at a facility for > 2 months. Case management notified. SNF consult order placed. 06/28/25 patient sitting in bed resting at time of interview. She reports that she did not sleep well at all last night and requests sleep aids for tonight. Patient is still nauseous and has reduced intake; new dietary order placed for patient to have Ensure mixed with ice cream/milkshakes at mealtime. Her heart rate is still increased but managed now to 114. BNP was 93659 and a repeat is pending. Nephrology was consulted yesterday and they will see patient today to address fluid status -creatinine 1.8, BUN 33, NA 133, BNP 27,298 >31499. Case management is still working on custodial placement for her. 06/29/25: Patient resting in bed at time of interview. She was able to get some rest after the new medications added for her insomnia. Nephrology is managing renal status including bicarb that was down; being corrected with drip. Creatinine and BNP have both improved slightly. Patient has been working with case management and is now accepted to a custodial at discharge. Discharge expected tomorrow, 06/30/2025. Vitals/I&O/Wt Last Vital Signs Temp 97.8 F 06/29/25 08:00 Pulse 102 H 06/29/25 08:00 Resp 19 H 06/29/25 08:00 BP 129/64 06/29/25 08:00 Pulse Ox 96 06/29/25 08:00 O2 Del Method Room Air 06/29/25 04:00 06/28/25 06/29/25 06/29/25 22:59 06:59 14:59 Intake Total 1028.75 / 1775.996 240 / 240 Output Total 0 / 225 75 / 300 Balance 0 / 522.246 953.75 / 1475.996 240 / 240 Weight last 48 hrs Weight 59.2 kg Weight 56.1 kg Weight 56.1 kg Weight 55.962 kg Weight 55.792 kg Physical Exam 2 Narrative: Patient is awake alert, no acute distress PERRLA S1-S2 irregular rate Lungs clear bilaterally Abdomen soft nontender Extremities no edema Skin no rash Urinary Catheter Management: Aggarwal: Cath Placed During This Visit: yes, but has since been removed by the nurse Reason for Continuing Indwelling Catheter: Other Urinary Catheter Date of Insertion: 01/08/25 Urinary Catheter Time of Insertion: 15:00 Date Urinary Catheter Removed: 01/07/25 Time Urinary Catheter Discontinued: 15:02 Data 06/29/25 03:36 06/29/25 03:36 A&P Assessment and plan 1. EMANI (acute kidney injury): Elevated above baseline 1.8 > 1.5 Avoid nephrotoxic agents Monitor fluid status Nephrology consulted, recommendations appreciated CO2 management 2. Persistent atrial fibrillation: BP 131/62, heart rate 118 > 91 > increased to 1-teens (114) at time of assessment EKG Telemetry 3. Chronic heart failure with preserved ejection fraction (HFpEF): BNP 27,298 > 44121 > 37513 EF 30% BMP monitoring I&O Lasix Potassium monitoring Fluid restriction 4. C. difficile diarrhea: C. difficile + 06/27/2025 Contact precautions Monitor for dehydration Diet modified to add nutritional shakes Fluids 5. TSH elevation: TSH 17.86 Monitoring 6. Lung mass: History of lung mass, nodules History of prior lumpectomy Reports she does not want to pursue any further treatment for her lungs Patient confirms DNR status PDMP PDMP Reviewed: Not Reviewed Attestations 2 Medical Necessity Statement*: Patient not expected to stay an additional 2 midnights. Patient expected to discharge tomorrow to custodial. Other Coding Information Shared care Diagnoses EMANI (acute kidney injury) N17.9 Persistent atrial fibrillation I48.19 Chronic heart failure with preserved ejection fraction (HFpEF) I50.32 Heart failure chronicity: chronic C. difficile diarrhea A04.72 TSH elevation R79.89 Lung mass R91.8
--- NOTE | 2025-06-29 10:16 | P.PN_ITS ---
Subjective 2 Subjective: feels better Medications: Reviewed: Yes Vitals/I&O/Wt Last Vital Signs Temp 97.8 F 06/29/25 08:00 Pulse 102 H 06/29/25 08:00 Resp 19 H 06/29/25 08:00 BP 129/64 06/29/25 08:00 Pulse Ox 96 06/29/25 08:00 O2 Del Method Room Air 06/29/25 04:00 06/28/25 06/29/25 06/29/25 22:59 06:59 14:59 Intake Total 1028.75 / 1775.996 240 / 240 Output Total 0 / 225 75 / 300 Balance 0 / 522.246 953.75 / 1475.996 240 / 240 Weight last 48 hrs Weight 59.2 kg Weight 56.1 kg Weight 56.1 kg Weight 55.962 kg Weight 55.792 kg Physical Exam 2 Narrative: Patient is awake alert, no acute distress PERRLA S1-S2 irregular rate Lungs clear bilaterally Abdomen soft nontender Extremities no edema Skin no rash Urinary Catheter Management: Aggarwal: Cath Placed During This Visit: yes, but has since been removed by the nurse Reason for Continuing Indwelling Catheter: Other Urinary Catheter Date of Insertion: 01/08/25 Urinary Catheter Time of Insertion: 15:00 Date Urinary Catheter Removed: 01/07/25 Time Urinary Catheter Discontinued: 15:02 Data 06/29/25 03:36 06/29/25 03:36 A&P Assessment and plan 1. EMANI (acute kidney injury): Plan: 1. 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 Now has EMANI with a creatinine up to 1.8- likely prerenal in the setting of poor oral intake and C. difficile colitis. - Patient is oliguric, continue IV fluids with bicarbonate drip at 75 cc an hour. Watch respiratory status closely while on IV fluids due to history of CHF with low ejection fraction. - Noted renal US , No hydronephrosis - Avoid IV contrast studies -No acute indication for dialysis today but even if renal function were to get worse, due to multiple comorbidities and CHF, likely will not tolerate dialysis well. 2. History of CHF with last ejection fraction 30%, diuretics are temporarily on hold 3. Metabolic acidosis due to diarrhea, placed on bicarbonate drip, monitor 4.History of A-fib 5. History of coronary artery disease Patient evaluated using audiovisual cart. Time spent 40 minutes. PDMP PDMP Reviewed: Not Reviewed Attestations 2 Medical Necessity Statement*: per nish Coding Level of Care Code Acute Code for Chg Fwd Diagnoses EMANI (acute kidney injury) N17.9
[2025-06-29 12:00] VITALS: BP 113/58; PULSE 102; RESP 18; O2SAT 98
--- NOTE | 2025-06-29 14:58 | PC.NURSE ---
Per Alona Esparza NP, nursing entered a venous blood gas order.
[2025-06-29 15:21] LABS: Base Excess VBG -2.1 mmol/L (-3.0-3.0); Blood Gas Operator Identificat GD; Blood Gas Sample Site Not specified; Blood Gas Sample Type Venous; HCO3 VBG 22.2 mmol/L (24-28); PCO2 VBG 35.4 mmHg (41-51); PO2 VBG 45.6 mmHg (25-40); Venous Blood Gas Hematocrit 33.8 % (37-47); pH VBG 7.41 (7.32-7.42)
[2025-06-29 16:00] VITALS: BP 128/64; PULSE 115; RESP 15; TEMP 36.6; O2SAT 97
[2025-06-29 20:00] VITALS: BP 127/64; PULSE 103; RESP 21; TEMP 36.8; O2SAT 96
[2025-06-29] MEDS: MELATONIN 3 MG TABLET 6 MG PO (20:01)
[2025-06-29] MEDS: AMIODARONE HCL/D5W 900 MG/500 ML BAG 16.67 MG IV (21:56)
[2025-06-30] VITALS: BP 115/56; PULSE 68; RESP 18; O2SAT 97
[2025-06-30 04:00] VITALS: BP 124/56; PULSE 67; RESP 20; TEMP 36.8; O2SAT 96
[2025-06-30] MEDS: lactobacillus 1 Tablet 1 TAB PO (05:17)
[2025-06-30 05:53] LABS: Hematocrit 29.2 % (36-47); Hemoglobin 9.90 g/dL (11.27-16.99); Mean Corpuscular HGB Conc 33.9 g/dL (30-55); Mean Corpuscular Hemoglobin 39.0 pg (27-33); Mean Corpuscular Volume 115.0 fl (85-98); Nucleated Red Blood Cells % 0 %; Platelet Count 33 10^3/cmm (157-399); Red Blood Count 2.54 10^6/uL (3.85-5.65); White Blood Count 7.40 10^3/uL (3.29-11.43)
[2025-06-30 06:26] LABS: NT Pro B Type Natriuretic Pept 23185 pg/mL (0-450)
[2025-06-30 07:23] VITALS: BP 143/50; PULSE 73; RESP 25; TEMP 36.3; O2SAT 91
--- NOTE | 2025-06-30 09:19 | P.DS_ITS ---
Discharge Providers Date of Admission: 06/27/25 13:00 Date of Discharge: June 30, 2025 Attending Provider at Admission: Vinny Ramirez MD Attending Provider at Discharge: Alona Esparza, [employer], [employer] Consults: Nephrology, Dr. Painting Primary Care Provider: Rachael Craig DO Diagnoses at Discharge Discharge Diagnosis 1. EMANI (acute kidney injury): Details from hospital stay: Creat and BNP Elevated above baseline 1.8 > 1.5 BNP 93303 Avoid nephrotoxic agents Monitor fluid status Nephrology consulted, recommendations appreciated CO2 management BNP still elevated - Home with Lasix 20 mg BID and follow up with labs in one week 2. Persistent atrial fibrillation: Details from hospital stay: BP 131/62, heart rate 118 > 91 > increased to 1-teens (114) at time of assessment EKG Telemetry 3. Chronic heart failure with preserved ejection fraction (HFpEF): Details from hospital stay: BNP 27,298 > 76142 > 01475 EF 30% BMP monitoring I&O Lasix Potassium monitoring Fluid restriction 4. C. difficile diarrhea: Details from hospital stay: C. difficile + 06/27/2025 Contact precautions Monitor for dehydration Diet modified to add nutritional shakes Fluids 5. TSH elevation: Details from hospital stay: TSH 17.86 Repeat TSH, T3, T4 Home with levothyroxine and PCP follow up 6. Lung mass: Reason for Visit Reason for Visit: High HR D can't keep anything down Hospital Course Hospital Course Daaynna Chanel is a 85 year old female with prior medical history of HTN, HFpEF, CAD, RBBB, LAFB, lung nodules, lung mass, aortic stents, chronic atrial fibrillation, anemia, and breast cancer presenting with complaints of high heart rate and food intolerance. Patient was just seen at this ED 06/17/2025 secondary to atrial fibrillation, palpitations, and diarrhea. CXR showed enlarging pulmonary metastasis and new right pleural effusion. She was given fluids and Cardizem and showed clinical improvement. She discharged in stable condition on the same day with instruction to follow-up with PCP or ED return with worsening symptom recurrence. On this encounter, her diarrhea has persisted X 3 days with increasing nausea, food intolerance, shortness of breath on exertion and high heart rate. She does not feel like she had great improvement at home especially since she cannot keep any foods down x1 week. In the ED, BP 142/70, HR 118, RR 18, T97.6, O2 95% on room air. WBC 6.53, Hgb 10.3, PLT 62. INR 2.49. BUN 26, creatinine 1.4. BNP 27,298. TSH 17.86. C. difficile positive. AST/ALT WNL. Glucose WNL. Potassium WNL. CXR; lung hyper inflation with bibasilar opacities worse on today's exam, bilateral lung nodules similar to that seen on prior exam. Of note, patient currently lives at home with son, Kyler, who helps with her laundry and meals, but she needs more help with toileting and personal care. She is a [facility] spouse and states they have been pending placement with [facility] at a facility for > 2 months. Case management notified. SNF consult order placed. 06/28/25 patient sitting in bed resting at time of interview. She reports that she did not sleep well at all last night and requests sleep aids for tonight. Patient is still nauseous and has reduced intake; new dietary order placed for patient to have Ensure mixed with ice cream/milkshakes at mealtime. Her heart rate is still increased but managed now to 114. BNP was 76096 and a repeat is pending. Nephrology was consulted yesterday and they will see patient today to address fluid status -creatinine 1.8, BUN 33, NA 133, BNP 27,298 >24114. Case management is still working on fpc placement for her. 06/29/25: Patient resting in bed at time of interview. She was able to get some rest after the new medications added for her insomnia. Nephrology is managing renal status including bicarb that was down; being corrected with drip. Creatinine and BNP have both improved slightly. Patient has been working with case management and is now accepted to a fpc at discharge. Discharge expected tomorrow, 06/30/2025. 06/30/2025: Patient resting comfortably in chair at time of assessment.? She reports that she is eating, but not as much as she would like to.? Nursing staff reports that she is eating approximately 25% of meals.? Orders were placed for her to have Ensure added onto meals and patient is amenable to nutritional supplementation.? Nephrology has cleared patient for discharge with Lasix 20 mg twice daily and lab follow-up for renal function and BNP in approximately 1 week.? TSH labs repeated with addition of T3/T4 labs?patient will go home on levothyroxine daily and follow-up with PCP in the outpatient setting.? Patient is discharging to [facility]. Physical Exam Narrative: Patient is awake alert, no acute distress PERRLA S1-S2 irregular rate Lungs clear bilaterally Abdomen soft nontender Extremities no edema Skin no rash Discharge Data Studies Completed and Pending Completed Studies During Hospitalization Category Date Time Status XR chest 1V portable 13177 Stat Exams 06/27/25 11:32 Completed US echo complete [CV. echo complete* [id number]] Routine Ultrasound 06/27/25 14:57 Completed US renal BI* [id number] Routine Ultrasound 06/28/25 18:27 Completed Pending at discharge Category Date Time Status CMP [Comprehensive Metabolic Panel] Stat Lab 06/30/25 08:00 Ordered Free T4 Free Thyroxine Stat Lab 06/30/25 08:00 Ordered Stool Culture - Enteric [Salmonella / Shigella / Campy] Lab 06/28/25 03:31 Ordered Routine T3 Free Stat Lab 06/30/25 08:00 Ordered TSH [Thyroid Stimulating Hormone] Stat Lab 06/30/25 08:00 Ordered Urinalysis Routine Lab 06/30/25 08:20 Uncollected Radiology Impressions Chest X-Ray 06/27/25 11:32 IMPRESSION: 1. Lung hyperinflation with bibasilar opacities worse on today's exam. 2. Bilateral lung nodules similar to that seen on prior exam. Renal Ultrasound 06/28/25 18:27 IMPRESSION: 1. Kidneys are normal size but have decreased in size since the study of 03/29/2016. 2. Mild cortical thinning RIGHT kidney has also progressed since 2016. 3. No obstruction. Laboratory Results WBC 7.40 10^3/uL (3.29-11.43) 06/30/25 05:28 RBC 2.54 10^6/uL (3.85-5.65) L 06/30/25 05:28 Hgb 9.90 g/dL (11.27-16.99) L 06/30/25 05:28 Hct 29.2 % (36-47) L 06/30/25 05:28 MCV 115.0 fl (85-98) H 06/30/25 05:28 MCH 39.0 pg (27-33) H 06/30/25 05:28 MCHC 33.9 g/dL (30-55) 06/30/25 05:28 RDW 18.6 % (12.1-15.1) H 06/30/25 05:28 Plt Count 33 10^3/cmm (157-399) L 06/30/25 05:28 MPV 13.2 fL (7.4-10.4) H 06/30/25 05:28 Neut % (Auto) 71.3 % 06/30/25 05:28 Lymph % (Auto) 18.5 % 06/30/25 05:28 [place] % (Auto) 7.4 % 06/30/25 05:28 Eos % (Auto) 2.3 % 06/30/25 05:28 Baso % (Auto) 0.1 % 06/30/25 05:28 Neut # (Auto) 5.27 10^3/uL (1.8-7.7) 06/30/25 05:28 Lymph # (Auto) 1.4 10^3/uL (0.8-4.8) 06/30/25 05:28 [place] # (Auto) 0.6 10^3/uL (0.2-0.9) 06/30/25 05:28 Eos # (Auto) 0.2 10^3/uL (0.0-0.8) 06/30/25 05:28 Baso # (Auto) 0.0 10^3/uL (0.0-0.1) 06/30/25 05:28 Nucleated RBC % (auto) 0 % 06/30/25 05:28 Nucleated RBCs # 0.0 /100WBC 06/30/25 05:28 PT 28.40 SECONDS (12.1-14.9) H 06/27/25 11:39 INR 2.49 (0.8-1.2) H 06/27/25 11:39 Specimen Type Venous 06/29/25 15:12 Sample Site Not specified 06/29/25 15:12 [place] Test N/a 06/29/25 15:12 VBG pH 7.41 (7.32-7.42) 06/29/25 15:12 VBG pCO2 35.4 mmHg (41-51) L 06/29/25 15:12 VBG pO2 45.6 mmHg (25-40) H 06/29/25 15:12 VBG HCO3 22.2 mmol/L (24-28) L 06/29/25 15:12 VBG Base Excess -2.1 mmol/L (-3.0-3.0) 06/29/25 15:12 VBG Hematocrit 33.8 % (37-47) L 06/29/25 15:12 O2 Delivery Device None 06/29/25 15:12 Punch Molder ID Gd 06/29/25 15:12 Sodium 133 mmol/L (136-145) L 06/29/25 03:36 Potassium 4.2 mmol/L (3.5-5.1) 06/29/25 03:36 Chloride 100 mmol/L (98-107) 06/29/25 03:36 Carbon Dioxide 18 mmol/L (22-29) L 06/29/25 03:36 Anion Gap 19.2 (5-19) H 06/29/25 03:36 BUN 31 mg/dL (8-23) H 06/29/25 03:36 Creatinine 1.5 mg/dL (0.5-0.9) H 06/29/25 03:36 GFR Calculation Not Reportable 06/29/25 03:36 Glucose 124 mg/dL (65-115) H 06/29/25 03:36 POC Glucose 127 mg/dL (70-110) H 06/27/25 17:49 Calculated Osmolality 284 mOsm/kg (285-295) L 06/29/25 03:36 Calcium 8.1 mg/dL (8.5-10.5) L 06/29/25 03:36 Magnesium 2.0 mg/dL (1.7-2.3) 06/27/25 11:39 Iron 66 ug/dL (37-145) 06/28/25 02:44 TIBC 165 mcg/dl 06/28/25 02:44 % Saturation 40.0 % (20-50) 06/28/25 02:44 Unsat Iron Binding 99 ug/dL (112-347) L 06/28/25 02:44 Ferritin 193 ng/mL (15-150) H 06/28/25 02:44 Total Bilirubin 1.2 mg/dL (0.15-1.2) 06/27/25 11:39 AST 17 U/L (0-32) 06/27/25 11:39 ALT < 5 U/L (0-33) 06/27/25 11:39 Alkaline Phosphatase 81 U/L (35-105) 06/27/25 11:39 NT-Pro-B Natriuret Pep 93288 pg/mL (0-450) H 06/30/25 05:28 Total Protein 6.2 g/dL (6.6-8.7) L 06/27/25 11:39 Albumin 3.6 g/dL (3.5-5.2) 06/27/25 11:39 Globulin 2.6 g/dL (1.3-4.6) 06/27/25 11:39 TSH 17.86 uIU/mL (0.27-4.20) H 06/27/25 11:39 Urine Color Dark yellow (Yellow) A 06/27/25 15:15 Urine Appearance Turbid (CLEAR) A 06/27/25 15:15 Urine pH 5.0 (5-7) 06/27/25 15:15 Ur Specific [place] 1.020 (1.005-1.030) 06/27/25 15:15 Urine Protein 2+ (Negative) A 06/27/25 15:15 Urine Glucose (UA) Negative (Normal) 06/27/25 15:15 Urine Ketones Trace (Negative) 06/27/25 15:15 Urine Blood 3+ (Negative) A 06/27/25 15:15 Urine Nitrate Positive (Negative) A 06/27/25 15:15 Urine Bilirubin Negative (Negative) 06/27/25 15:15 Urine Urobilinogen 1.0 mg/dL (Negative) 06/27/25 15:15 Ur Leukocyte Esterase 2+ (Negative) A 06/27/25 15:15 Urine RBC 11-20 /hpf (0-2) H 06/27/25 15:15 Urine WBC >100 /hpf (0-5) H 06/27/25 15:15 Ur Squamous Epith Cells 11-20 /hpf (0-5) H 06/27/25 15:15 Amorphous Sediment Not Reportable 06/27/25 15:15 Urine Bacteria 4+ /hpf (NONE) H 06/27/25 15:15 Hyaline Casts 159.29 /lpf 06/27/25 15:15 Ur Random Sodium 12 mmol/L 06/29/25 05:10 Ur Random Chloride 26 mmol/L 06/29/25 05:10 C. difficile (PCR) Positive (Negative) H 06/27/25 11:13 C.difficile Tox Confrm Negative (Negative) 06/27/25 11:13 Vitals Last Vital Signs Temp 97.4 F L 06/30/25 07:23 Pulse 73 06/30/25 07:23 Resp 25 H 06/30/25 07:23 BP 143/50 06/30/25 07:23 Pulse Ox 91 06/30/25 07:23 O2 Del Method Room Air 06/30/25 04:00 Discharge Plan Discharge Patient Disposition: Xfer SNF Condition: Stable Prescriptions: New furosemide [Lasix] 20 mg tablet 20 mg PO BID Qty: 20 0RF levothyroxine 62.5 mcg capsule 62.5 mcg PO DAILY Qty: 30 0RF Continued amiodarone 100 mg tablet 100 mg PO DAILY Qty: 90 1RF bumetanide 1 mg tablet 1 mg PO DAILY PRN (Reason: edema) Qty: 90 1RF anastrozole 1 mg tablet 1 mg PO DAILY Qty: 90 1RF sertraline 25 mg tablet 25 mg PO DAILY Qty: 90 1RF potassium chloride 20 mEq tablet extended release 20 meq PO DAILY Traffic Chief OK for DC: Nephrology Discharge Order = DC NOW: Discharge Order (Routine); Ordered 06/30/25 Ordered By: Alona Esparza Other Ambulatory Orders: NT Pro B Type Natriuretic Pept (Routine) Timeframe: 1 Week Facility: [facility] - Location: Lab - Main Lab Ordered By: Alona Esparza Renal Function Panel (Routine) Timeframe: 1 Week Facility: [facility] - Location: Lab - Main Lab Ordered By: Alona Esparza Referrals: [facility] [Outside] Chrystal Painting MD [Hospitalist, Nephrology] - 1 week Rachael Craig DO [Primary Care Provider, Family Practice] - 4-7 days Referral Note: Management of levothyroxine outpatient. Problems: TSH elevation Discharge Diet: Advance as tolerated and Usual diet Discharge Activity: Resume usual activity and Increase activity as tolerated Patient Instructions: Clostridium Difficile, Acute Kidney Injury (DC), Opioid Safety, Patient Portal & [place] Instructions Activity Restrictions/Additional Instructions: Please return to the emergency department if symptoms return/worsen. Discharge Attestations Time Spent in Discharge Care*: greater than 30 min Quality Metrics Clinical Quality Measures [ No reported AMI, CVA or VTE this stay] Coding Level of Care Code Acute Code for Chg Fwd Diagnoses EMANI (acute kidney injury) N17.9 Persistent atrial fibrillation I48.19 Chronic heart failure with preserved ejection fraction (HFpEF) I50.32 Heart failure chronicity: chronic C. difficile diarrhea A04.72 TSH elevation R79.89 Lung mass R91.8
--- NOTE | 2025-06-30 10:19 | PC.NURSE ---
Report is called to [facility]. DAELE Moody, took report at 1020. RN told me that they would provide and send transportation for her.
[2025-06-30 10:28] LABS: Alanine Aminotransferase < 5 U/L (0-33); Albumin Level 3.3 g/dL (3.5-5.2); Alkaline Phosphatase 77 U/L (35-105); Aspartate Amino Transferase 18 U/L (0-32); Blood Urea Nitrogen 26 mg/dL (8-23); Calcium 8.0 mg/dL (8.5-10.5); Carbon Dioxide 20 mmol/L (22-29); Chloride 97 mmol/L (98-107); Free T4 Free Thyroxine 0.97 ng/dL (0.82-1.77); Globulin 2.4 g/dL (1.3-4.6); Glucose 143 mg/dL (65-115); Osmolality Calculated 277 mOsm/kg (285-295); Sodium 130 mmol/L (136-145); Thyroid Stimulating Hormone 18.69 uIU/mL (0.27-4.20); Total Protein 5.7 g/dL (6.6-8.7)
[2025-06-30 10:35] LABS: Anion Gap 17.5 (5-19); Potassium 4.5 mmol/L (3.5-5.1)
[2025-06-30 11:53] VITALS: BP 136/52; PULSE 72; RESP 19; O2SAT 90
[2025-06-30 12:00] VITALS: BP 136/52; PULSE 74; RESP 14; O2SAT 93
--- NOTE | 2025-06-30 12:06 | PC.SOCIAL ---
IMM Update pg 2 of IMM updated and reviewed w/ patient. Copy provided and copy dated, initialed and placed in chart.
== END 2025-06-30 13:36 | disposition skilled nursing facility (03) | DRG 372 ==
LOC: ER 12:43 → CSU 13:22
PROVIDERS: Hospitalist; Admitting Provider Internal Medicine; Emergency Provider Physician Assistant; PCP Family Medicine; Visit Provider Clinical Nurse Specialist Acute Care
DX: A04.72 Enterocolitis due to Clostridium difficile, not specified as recurrent (principal); E87.20 Acidosis, unspecified; I13.0 Hypertensive heart and chronic kidney disease with heart failure and stage 1 through stage 4 chronic kidney disease, or unspecified chronic kidney disease; N17.9 Acute kidney failure, unspecified; I48.19 Other persistent atrial fibrillation; I50.32 Chronic diastolic (congestive) heart failure; N18.2 Chronic kidney disease, stage 2 (mild); R79.89 Other specified abnormal findings of blood chemistry; I25.10 Atherosclerotic heart disease of native coronary artery without angina pectoris; I45.10 Unspecified right bundle-branch block; R91.8 Other nonspecific abnormal finding of lung field; G47.00 Insomnia, unspecified; I35.1 Nonrheumatic aortic (valve) insufficiency; R00.0 Tachycardia, unspecified; D69.6 Thrombocytopenia, unspecified; Z66 Do not resuscitate; Z79.811 Long term (current) use of aromatase inhibitors; Z92.3 Personal history of irradiation; Z86.73 Personal history of transient ischemic attack (TIA), and cerebral infarction without residual deficits; Z85.3 Personal history of malignant neoplasm of breast; Z91.128 Patient's intentional underdosing of medication regimen for other reason; Z95.2 Presence of prosthetic heart valve; Z82.49 Family history of ischemic heart disease and other diseases of the circulatory system
CPT/HCPCS: 36415; 36416; 71045; 76770; 80048; 80053; 81001; 82436; 82728; 82803; 82962; 83540; 83550; 83630; 83735; 83880; 84300; 84439; 84443; 84481; 85025; 85610; 87324; 87493; 93005; 93306; 96365; 96366; 96375; 97161; 97166; 97530; 97535; 99291; J0282; J1938; J7040; J7070; J8999; J9999; Q3014